=== PATIENT | female | born 1935 | race Caucasian/White ===

== ENCOUNTER → 2017-02-24 | Outpatient (CLI) | payer OTHER ==
[~2017-02-24] MED LIST: AMLO-110 PO; ASPI-435 PO; ATOR-22 PO; CHOL100040 PO; CPR500 PO; CTP/1 PO; LEVO75TA5 PO; LISI-788 PO; LPR25 PO; LSN5 PO; NTRSLP4 SL; OMEGCAP2 PO; PANT40TA PO; PLV75 PO; POLY335025 PO; TIOTCAP INH; VERA240C3 PO; VNTHFA/IN INH
[2017-02-24 09:38] LABS: BASO % 0.2 %; BASO ABS # 0.01 K/uL (0-0.2); COMPLETE YES; EOS % 2.5 %; HEMATOCRIT 38.9 % (37-47); IG% 0.5 %; LYMPH % 23.7 %; LYMPH ABS # 1.51 K/uL (1.2-3.4); MEAN CELL VOLUME 89.6 fL (80-100); MEAN CORPUSCULAR HEMOGLOBIN 29.3 pg (25-34); MEAN CORPUSCULAR HGB CONC 32.6 g/dl (32-36); MEAN PLATELET VOLUME 8.9 fL (7.4-10.4); MONO % 7.9 %; NEUT % 65.2 %; PLATELET COUNT 380 K/uL (130-400); RED BLOOD COUNT 4.34 M/uL (4.2-5.4); WHITE BLOOD COUNT 6.36 K/uL (4.8-10.8)
[2017-02-24 10:19] LABS: ALT/SGPT 28 U/L (12-78); AST/SGOT 12 U/L (15-37); BLOOD UREA NITROGEN 18 mg/dl (7-18); BUN/CREATININE RATIO 19.2 (10-20); CALCIUM 9.3 mg/dl (8.5-10.1); CARBON DIOXIDE 28 mmol/L (21-32); CHLORIDE 105 mmol/L (98-107); CREATININE 0.95 mg/dl (0.60-1.20); GLUCOSE 106 mg/dl (70-99); POTASSIUM 3.6 mmol/L (3.5-5.1); SODIUM 142 mmol/L (136-145)
[2017-02-24 10:22] LABS: ALB/GLOB RATIO 0.9 (0.9-2); ALKALINE PHOSPHATASE 118 U/L (45-117); CHOLESTEROL 132 mg/dl (0-200); CHOLESTEROL/HDL RATIO 2.3; HDL CHOLESTEROL 58 mg/dl; LDL CHOLESTEROL CALCULATED 37 mg/dl; TRIGLYCERIDES 183 mg/dl (0-150); VERY LOW DENSITY LIPOPROT CALC 37 mg/dl
== END | disposition home or self-care (01) ==
LOC: C.LAB1850 08:38
PROVIDERS: ATTEND Internal Medicine Pulmonary Disease
DX: J44.9 Chronic obstructive pulmonary disease, unspecified (principal); E78.5 Hyperlipidemia, unspecified; E03.9 Hypothyroidism, unspecified; K21.9 Gastro-esophageal reflux disease without esophagitis; I10 Essential (primary) hypertension

== ENCOUNTER 2017-03-03 04:46 | Inpatient (IN) | payer OTHER ==
[2017-03-03] VITALS (14 sets, daily range): BP systolic 112–147; BP diastolic 65–92; PULSE 74–99; TEMP 36.6–37; O2SAT 91–93; Ht 162.6 cm; Wt 72.9 kg
[~2017-03-03] VITALS: Ht 162.6 cm; Wt 72.9 kg
[~2017-03-03 04:46] MED LIST changes: -AMLO-110 PO; -LPR25 PO; -LSN5 PO; -NTRSLP4 SL; -PLV75 PO; -VNTHFA/IN INH
[2017-03-03] MEDS ORDERED: ASPIRIN 324 MG CHEW PO STA (04:53)
--- NOTE | 2017-03-03 04:58 | EMERGENCY ROOM VISIT NOTE ---
History Report prepared by Scribe: Kevin Bailon Under the Supervision of: Dr. Wiley Sherman D.O. First contact with patient: 04:47 Chief Complaint: SHORTNESS OF BREATH Stated Complaint: BREATHING DIFFICULTY History of Present Illness The patient is a 81 year old female who presents to the Emergency Room via EMS with complaints of worsening shortness of breath starting about 6 hours ago. She reports a mild cough. She denies any chest pain but reports some diffuse chest heaviness radiating to the left arm. She currently continues to complain of the chest heaviness. She has worsening symptoms with exertion. She had some improvement in her symptoms with oxygen which was given by EMS. She denies any recent fevers, chills, abdominal pain, or any other complaints. She denies any recent illnesses. She denies any history of lung disease or heart disease. She does not wear oxygen at home. She has a history of hypertension and high cholesterol. She is a former smoker. Source of History: patient Onset: about 6 hours ago Position: other (global) Quality: other (shortness of breath) Timing: worsening Modifying Factors (Worsening): exertion Modifying Factors (Relieving): oxygen (with some improvement) Associated Symptoms: + cough, No abdominal pain, No chills, No fevers Review of Systems See HPI for pertinent positives and negatives. A total of ten systems were reviewed and were otherwise negative. 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 (2) Atrial Fibrillation (3) Hyperlipidemia (4) Hypertension (5) Incisional Hernia (6) Reflux Esophagitis Family History Lung disease Social History Smoking Status: Former Smoker Drug Use: none Marital Status: Housing Status: lives with family Current/Historical Medications Scheduled Aspirin (Aspirin 81), 81 MG PO MWF Atorvastatin (Lipitor), 20 MG PO HS Clonidine Hcl (Catapres), 0.1 MG PO BID Levothyroxine Sodium (Levothyroxine Sodium), 75 MCG PO DAILY Lisinopril/Hctz (Zestoretic 20MG/25MG), 1 TAB PO DAILY [place]-3 Fatty Acids (Fish Oil), 1,000 MG PO DAILY Pantoprazole Sodium (Protonix), 40 MG PO DAILY Polyethylene Glycol 3350 (Miralax), 17 GM PO DAILY Tiotropium [place] (Spiriva Handihaler), 1 CAP INH DAILY Verapamil Hcl (Verapamil Hcl Sr), 240 MG PO DAILY Allergies Coded Allergies: No Known Allergies (Verified , 03/03/17) Physical Exam Vital Signs Date Time Temp Pulse Resp B/P Pulse Ox O2 Delivery O2 Flow Rate FiO2 03/03/17 04:58 95 Room Air 03/03/17 04:58 95 Room Air 03/03/17 04:55 108 03/03/17 04:49 37.0 105 26 166/93 95 Room Air 03/03/17 04:49 95 Room Air Physical Exam GENERAL: Awake, alert, ill-appearing, in no distress HENT: Normocephalic, atraumatic. Oropharynx unremarkable. EYES: Normal conjunctiva. Sclera non-icteric. NECK: Supple. No nuchal rigidity. FROM. No JVD. RESPIRATORY: Clear to auscultation. CARDIAC: Tachycardic rate, normal rhythm. Extremities warm and well perfused. Pulses equal. ABDOMEN: Soft, non-distended. No tenderness to palpation. No rebound or guarding. No masses. RECTAL: Deferred. MUSCULOSKELETAL: Chest examination reveals no tenderness. The back is symmetrical on inspection without obvious abnormality. There is no CVA tenderness to palpation. No joint edema. LOWER EXTREMITIES: Calves are equal size bilaterally and non-tender. No edema. No discoloration. NEURO: Normal sensorium. No sensory or motor deficits noted. SKIN: No rash or jaundice noted. Medical Decision & Procedures ER Provider Diagnostic Interpretation: X-ray: Per my interpretation: CHEST X-RAY Negative for infiltrate, normal mediastinum, no pneumothorax. CT: Radiology results as stated below per my review and radiologist interpretation CTA CHEST Comparison: CT chest dated 09/16/2011 No thoracic aortic aneurysm or dissection. No pulmonary embolus. Centrilobular emphysema. No parenchymal abnormalities to suggest an inflammatory or infectious process. Large hiatal hernia. Trace pericardial effusion. The heart is normal in size. Coronary artery calcifications. No significant adenopathy. Punctate calcifications within the spleen suggesting remote granulomatous infection. No acute osseous abnormality. Radiologist: Mino Jennings MD Laboratory Results 03/03/17 04:50 Red Blood Count 4.48, Mean Corpuscular Volume 89.3, Mean Corpuscular Hemoglobin 29.5, Mean Corpuscular Hemoglobin Concent 33.0, Mean Platelet Volume 8.9, Neutrophils (%) (Auto) 93.5, Lymphocytes (%) (Auto) 4.8, Monocytes (%) (Auto) 0.6, Eosinophils (%) (Auto) 0.7, Basophils (%) (Auto) 0.1, Neutrophils # (Auto) 6.45, Lymphocytes # (Auto) 0.33, Monocytes # (Auto) 0.04, Eosinophils # (Auto) 0.05, Basophils # (Auto) 0.01 03/03/17 04:50 Test 03/03/17 04:50 03/03/17 04:59 03/03/17 05:02 White Blood Count 6.90 K/uL (4.8-10.8) Red Blood Count 4.48 M/uL (4.2-5.4) Hemoglobin 13.2 g/dL (12.0-16.0) Hematocrit 40.0 % (37-47) Mean Corpuscular Volume 89.3 fL (80-100) Mean Corpuscular Hemoglobin 29.5 pg (25-34) Mean Corpuscular Hemoglobin Concent 33.0 g/dl (32-36) Platelet Count 357 K/uL (130-400) Mean Platelet Volume 8.9 fL (7.4-10.4) Neutrophils (%) (Auto) 93.5 % Lymphocytes (%) (Auto) 4.8 % Monocytes (%) (Auto) 0.6 % Eosinophils (%) (Auto) 0.7 % Basophils (%) (Auto) 0.1 % Neutrophils # (Auto) 6.45 K/uL (1.4-6.5) Lymphocytes # (Auto) 0.33 K/uL (1.2-3.4) Monocytes # (Auto) 0.04 K/uL (0.11-0.59) Eosinophils # (Auto) 0.05 K/uL (0-0.5) Basophils # (Auto) 0.01 K/uL (0-0.2) RDW Standard Deviation 43.1 fL (36.4-46.3) RDW Coefficient of Variation 13.3 % (11.5-14.5) Immature Granulocyte % (Auto) 0.3 % Immature Granulocyte # (Auto) 0.02 K/uL (0.00-0.02) Est Creatinine Clear Calc Drug Dose 47.0 ml/min Estimated GFR () 62.1 Estimated GFR (Non- 53.5 BUN/Creatinine Ratio 15.7 (10-20) Calcium Level 8.7 mg/dl (8.5-10.1) Total Bilirubin 0.6 mg/dl (0.2-1) Direct Bilirubin 0.2 mg/dl (0-0.2) Aspartate Amino Transf (AST/SGOT) 21 U/L (15-37) Alanine Aminotransferase (ALT/SGPT) 35 U/L (12-78) Alkaline Phosphatase 141 U/L (45-117) Pro-B-Type Natriuretic Peptide 95 pg/ml (0-1800) Total Protein 7.8 gm/dl (6.4-8.2) Albumin 3.9 gm/dl (3.4-5.0) Bedside D-Dimer > 450 ng/mlFEU (0-450) Bedside Troponin I 0.050 ng/ml (0-0.045) Bedside Hemoglobin 12.9 g/dl (12.0-16.0) Bedside Hematocrit 38 % (37-47) Bedside Sodium 140 mEq/L (135-144) Bedside Potassium 3.8 mEq/L (3.3-5.0) Bedside Chloride 104 mEq/L (101-112) Bedside Total CO2 22 mEq/l (24-31) Anion Gap 19.0 mmol/L (16-25) Bedside Blood Urea Nitrogen 16 mg/dl (7-18) Bedside Creatinine 0.8 mg/dl (0.6-1.3) Bedside Glucose (other) 147 mg/dl (70-99) Bedside Ionized Calcium (Faith) 1.14 mmol/l (1.12-1.32) Laboratory results reviewed by me Medications Administered Medications (Trade) Dose Ordered Sig/Ravinder Route Start Time Stop Time Status Last Admin Dose Admin Aspirin (Aspirin Chew) 324 mg NOW STAT PO 03/03/17 04:53 03/03/17 04:55 DC 03/03/17 05:05 324 MG ECG Indication: SOB/dyspnea Rate (beats per minute): 111 Rhythm: sinus tachycardia Findings: PVC, other (Nonspecific ST T wave changes; normal axis) ED Course 0447: The patient was evaluated in room A10. A complete history and physical exam was performed. 0453: Aspirin 324 mg PO 0557: I discussed the patient's case with Dr. Jeffrey Conway, resident with [facility]. 0612: Upon reexamination, the patient was resting comfortably. I discussed the test results and treatment plan with her. The patient will be evaluated for further management. Medical Decision Differential diagnosis includes but is not limited to acute coronary syndrome, angina, unstable angina, acute [place], acute CHF, pneumonia, pulmonary embolism, anemia. pt given asa, no evidence of pe; trop elevated; will admit, spoke with hospitalist for admit 622am Consults Time Called: 0554 Consulting Physician: Dr. Jeffrey Conway, resident with [facility] Returned Call: [phone] I discussed the patient's case with Dr. Jeffrey Conway, resident with [facility]. Impression Primary Impression: Acute chest pain Additional Impression: Acute coronary syndrome Scribe Attestation The scribe's documentation has been prepared under my direction and personally reviewed by me in its entirety. I confirm that the note above accurately reflects all work, treatment, procedures, and medical decision making performed by me. Departure Information Dispostion Being Evaluated By Hospitalist Referrals Scott Beauchamp M.D. (PCP) Patient Instructions My [facility] Problem Qualifiers
[2017-03-03 05:03] LABS: BASO % 0.1 %; BASO ABS # 0.01 K/uL (0-0.2); COMPLETE YES; EOS % 0.7 %; IG% 0.3 %; LYMPH % 4.8 %; LYMPH ABS # 0.33 K/uL (1.2-3.4); MEAN CELL VOLUME 89.3 fL (80-100); MEAN CORPUSCULAR HEMOGLOBIN 29.5 pg (25-34); MEAN PLATELET VOLUME 8.9 fL (7.4-10.4); MONO % 0.6 %; NEUT % 93.5 %; PLATELET COUNT 357 K/uL (130-400); RED BLOOD COUNT 4.48 M/uL (4.2-5.4)
[2017-03-03] MEDS ORDERED: OPTIRAY 320 IV PRN (05:15)
[2017-03-03 05:19] LABS: ISTAT CREATININE 0.8 mg/dl (0.6-1.3); ISTAT HEMOGLOBIN 12.9 g/dl (12.0-16.0); ISTAT IONIZED CALCIUM 1.14 mmol/l (1.12-1.32)
[2017-03-03 05:20] LABS: BUN/CREATININE RATIO 15.7 (10-20); CALCIUM 8.7 mg/dl (8.5-10.1); POTASSIUM 3.9 mmol/L (3.5-5.1)
--- NOTE | 2017-03-03 06:36 | History and Physical ---
History & Physical Date & Time of Service: March 03, 2017 at 06:19 Chief Complaint: Breathing Difficulty Primary Care Physician: Scott Beauchamp M.D. History of Present Illness Source: patient, clinic records, hospital records Mrs Tejeda is a 81 year old with acute onset chills, shortness of breath and chest heaviness that radiated to her left shoulder and started around 2:30am. No worse on exertion and not positional. She feels her left arm numbness and pain was due to sleeping on it strangely. She initial told me all symptoms resolved before having aspirin in the ER around 4:30am but on further questioning she is having ongoing chest heaviness when seen which is severity 4/ 10 and has not changed since original onset. Pain is dull aching in the center of her chest. Her arm pain and chills have resolved however. She denies any nausea or diaphoresis. This is on a background of similar chest heaviness and shortness of breath on walking which has progressively worsened over the last 6 months. This was being treated as emphysema with Spiriva. She notes having previous stress echo 2 years ago which was normal although I have no record of this. She denies any orthopnea, PND, claudication, palpitations. She is a former smoker for 25 pack-years. No alcohol. No known diabetes. No previous strokes or heart. In the ER she was given full aspirin only as treatment. After she told me she had ongoing chest heaviness a nitro tab was given which brought her pain from a 4/10 to 2/10. Additional nitro tab was given along with heparin low dose with bolus. Patient was discussed with attending physician Dr Juarez and handed over to the day time resident Dr Simental. 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 Status: Resolved (2) Atrial Fibrillation Status: Chronic (3) Hyperlipidemia Status: Chronic (4) Hypertension Status: Chronic (5) Incisional Hernia Status: Resolved (6) Reflux Esophagitis Status: Chronic Recurrent small bowel obstruction pancreatic cancer Surgery for pancreatic cancer - whipple's procedure Incisional hernias Family History Lung disease Social History Smoking Status: Former Smoker Smokeless Tobacco Use: No Alcohol Use: none Drug Use: none Marital Status: Housing status: lives with family Immunizations History of Influenza Vaccine: N/A Influenza Vaccine Date: Jun 27, 2012 History of Tetanus Vaccine?: Unknown History of Pneumococcal: Yes Pneumococcal Date: Apr 28, 2011 History of Hepatitis B Vaccine: Unknown Multi-Drug Resistant Organisms History of MDRO: No Allergies Coded Allergies: No Known Allergies (Verified , 03/03/17) Home Medications Scheduled Aspirin (Aspirin 81), 81 MG PO MWF Atorvastatin (Lipitor), 20 MG PO HS Clonidine Hcl (Catapres), 0.1 MG PO BID Levothyroxine Sodium (Levothyroxine Sodium), 75 MCG PO DAILY Lisinopril/Hctz (Zestoretic 20MG/25MG), 1 TAB PO DAILY [place]-3 Fatty Acids (Fish Oil), 1,000 MG PO DAILY Pantoprazole Sodium (Protonix), 40 MG PO DAILY Polyethylene Glycol 3350 (Miralax), 17 GM PO DAILY Tiotropium [place] (Spiriva Handihaler), 1 CAP INH DAILY Verapamil Hcl (Verapamil Hcl Sr), 240 MG PO DAILY Review of Systems Constitutional: + chills, No fever Eyes: No worsening of vision ENT: No hearing loss Respiratory: + cough (dry), + dyspnea at rest, + dyspnea on exertion, + shortness of breath, No sputum, No wheezing Cardiovascular: + chest pain, No PND, No claudication, No edema, No orthopnea, No palpitations Abdomen: No constipation, No diarrhea, No nausea, No pain, No vomiting Physical Exam Vital Signs Date Time Temp Pulse Resp B/P Pulse Ox O2 Delivery O2 Flow Rate FiO2 03/03/17 04:58 95 Room Air 03/03/17 04:58 95 Room Air 03/03/17 04:55 108 03/03/17 04:49 37.0 105 26 166/93 95 Room Air 03/03/17 04:49 95 Room Air General Appearance: WD/WN, no apparent distress Head: normocephalic, atraumatic Eyes: normal inspection, PERRL, EOMI ENT: normal ENT inspection (external) Neck: supple, no JVD, no carotid bruits, trachea midline Respiratory/Chest: chest non-tender, lungs clear, normal breath sounds, no respiratory distress, no accessory muscle use Cardiovascular: regular rate, rhythm, no edema, no murmur, normal peripheral pulses Abdomen/GI: normal bowel sounds, non tender, soft Back: no CVA tenderness Extremities/Musculoskelatal: no calf tenderness, normal capillary refill, no pedal edema Neurologic/Psych: 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, no motor/sensory deficits, alert, normal mood/affect, oriented x 3 Skin: normal color, warm/dry, no rash Diagnostics Laboratory Results Results Past 24 Hours Test 03/03/17 04:50 03/03/17 04:59 03/03/17 05:02 Range/Units White Blood Count 6.90 4.8-10.8 K/uL Red Blood Count 4.48 4.2-5.4 M/uL Hemoglobin 13.2 12.0-16.0 g/dL Hematocrit 40.0 37-47 % Mean Corpuscular Volume 89.3 80-100 fL Mean Corpuscular Hemoglobin 29.5 25-34 pg Mean Corpuscular Hemoglobin Concent 33.0 32-36 g/dl Platelet Count 357 130-400 K/uL Mean Platelet Volume 8.9 7.4-10.4 fL Neutrophils (%) (Auto) 93.5 % Lymphocytes (%) (Auto) 4.8 % Monocytes (%) (Auto) 0.6 % Eosinophils (%) (Auto) 0.7 % Basophils (%) (Auto) 0.1 % Neutrophils # (Auto) 6.45 1.4-6.5 K/uL Lymphocytes # (Auto) 0.33 1.2-3.4 K/uL Monocytes # (Auto) 0.04 0.11-0.59 K/uL Eosinophils # (Auto) 0.05 0-0.5 K/uL Basophils # (Auto) 0.01 0-0.2 K/uL RDW Standard Deviation 43.1 36.4-46.3 fL RDW Coefficient of Variation 13.3 11.5-14.5 % Immature Granulocyte % (Auto) 0.3 % Immature Granulocyte # (Auto) 0.02 0.00-0.02 K/uL Sodium Level 141 136-145 mmol/L Potassium Level 3.9 3.5-5.1 mmol/L Chloride Level 107 98-107 mmol/L Carbon Dioxide Level 24 21-32 mmol/L Anion Gap 10.0 19.0 16-25 mmol/L Blood Urea Nitrogen 16 7-18 mg/dl Creatinine 1.00 0.60-1.20 mg/dl Est Creatinine Clear Calc Drug Dose 47.0 ml/min Estimated GFR () 62.1 Estimated GFR (Non- 53.5 BUN/Creatinine Ratio 15.7 10-20 Random Glucose 149 70-99 mg/dl Calcium Level 8.7 8.5-10.1 mg/dl Total Bilirubin 0.6 0.2-1 mg/dl Direct Bilirubin 0.2 0-0.2 mg/dl Aspartate Amino Transf (AST/SGOT) 21 15-37 U/L Alanine Aminotransferase (ALT/SGPT) 35 12-78 U/L Alkaline Phosphatase 141 45-117 U/L Pro-B-Type Natriuretic Peptide 95 0-1800 pg/ml Total Protein 7.8 6.4-8.2 gm/dl Albumin 3.9 3.4-5.0 gm/dl Bedside D-Dimer > 450 0-450 ng/mlFEU Bedside Troponin I 0.050 0-0.045 ng/ml Bedside Hemoglobin 12.9 12.0-16.0 g/dl Bedside Hematocrit 38 37-47 % Bedside Sodium 140 135-144 mEq/L Bedside Potassium 3.8 3.3-5.0 mEq/L Bedside Chloride 104 101-112 mEq/L Bedside Total CO2 22 24-31 mEq/l Bedside Blood Urea Nitrogen 16 7-18 mg/dl Bedside Creatinine 0.8 0.6-1.3 mg/dl Bedside Glucose (other) 147 70-99 mg/dl Bedside Ionized Calcium (Faith) 1.14 1.12-1.32 mmol/l Microbiology Results 03/03/17 Blood Culture, Received Pending 03/03/17 Blood Culture, Received Pending Diagnostic Radiology CHEST CTA for PULMONARY ARTERIES CT DOSE: 420.06 mGy.cm HISTORY: Chest pain dyspnea TECHNIQUE: Multiaxial CT images of the chest were performed following the intravenous administration of contrast to evaluate the pulmonary arteries. Maximal intensity projection images were also obtained. COMPARISON STUDY: CT abdomen 08/17/2015 FINDINGS: There is a normal caliber thoracic aorta with no evidence for dissection. There is no evidence for pulmonary embolus. No pleural effusions. No pneumothorax. The liver and spleen are unremarkable. No mediastinal or hilar lymphadenopathy. The central airways are patent. The lungs are clear. Moderate emphysematous change. Large fixed lateral hernia. Retrocrural node with left adrenal enlargement unchanged compared to the patient's prior CT abdominal series. IMPRESSION: No evidence for pulmonary embolus. Incidental findings as noted Electronically signed by: Chavez Renner M.D. 03/03/2017 7:24 AM Dictated Date/Time: 03/03/2017 7:21 AM CHEST ONE VIEW PORTABLE HISTORY: Short of breath. COMPARISON: Chest 08/14/2015. FINDINGS: There is a large hiatus hernia. No focal lung consolidations to suggest pneumonia. No evidence for pulmonary edema. No pleural effusions. No pneumothorax. The heart is mildly enlarged. Degenerative changes seen within the shoulders. IMPRESSION: 1. Mild cardiomegaly. 2. Large hiatus hernia. Electronically signed by: Matty Freeman M.D. 03/03/2017 7:08 AM Dictated Date/Time: 03/03/2017 7:07 AM EKG Sinus tachycardia with occasional PVCs, Rate 111 bpm TWI in lateral leads no longer present since EKG [place] Jul 2015 ST depression in V3-V5 Impression Assessment and Plan 81 year old female with new onset chills, chest heaviness radiating to her left arm with ST depression in anterior leads and mild troponin elevation. NSTEMI - start low dose heparin with bolus - aspirin already given in the ER - Give nitro s/l stat and repeated as patient had ongoing chest heaviness - aim O2 sats > 94% - fasting lipids and HbA1C on tomorrow labs - Echo stat - Consult cardiology COPD - no current exacerbation, current chest heaviness and shortness of breath more consistent with NSTEMI. No wheezing on examination. - Continue Spiriva Recurrent SBO - Continue miralax daily - monitor bowels Hypertension - hold home medications as needing nitroglycerin tabs for chest heaviness and will start metoprolol - metoprolol 12.5mg stat due to tachycardia with NSTEMI, no current sign of symptoms of heart failure Hyperlipiedmia - Increase atorvastatin to 40 mg daily - repeat fasting lipid profile Hypothyroidism - continue home levothyroxine 75 mcg daily Code - discussed with patient and she does not wish resuscitation efforts in the event of a cardiac arrest VTE Prophylaxis - will be placed on a heparin drip Disposition - admit to telemetry as NSTEMI Level of Care Telemetry Resuscitation Status DO NOT RESUSCITATE Additional Copies To Scott Beauchamp M.D. Resident Tracking Resident Involvement: Resident Care Provided Care Provided: Adult Hospital Medicine
[2017-03-03] MEDS ORDERED: NITROGLYCERIN 0.4 MG SL PER TAB CHARGE ONE (06:43)
[2017-03-03] MEDS ORDERED: ONDANSETRON INJ 2 MG/ML 2 ML VIAL IV PRN ×2 (06:45→15:45)
--- NOTE | 2017-03-03 07:09 | DIAGNOSTIC IMAGING REPORT ---
CHEST ONE VIEW PORTABLE HISTORY: Short of breath. COMPARISON: Chest 08/14/2015. FINDINGS: There is a large hiatus hernia. No focal lung consolidations to suggest pneumonia. No evidence for pulmonary edema. No pleural effusions. No pneumothorax. The heart is mildly enlarged. Degenerative changes seen within the shoulders. IMPRESSION: 1. Mild cardiomegaly. 2. Large hiatus hernia. Electronically signed by: Matty Freeman M.D. 03/03/2017 7:08 AM Dictated Date/Time: 03/03/2017 7:07 AM
[2017-03-03] MEDS ORDERED: METOPROLOL TARTRATE 25 MG TAB PO STA (07:22)
--- NOTE | 2017-03-03 07:26 | DIAGNOSTIC IMAGING REPORT ---
CHEST CTA for PULMONARY ARTERIES CT DOSE: 420.06 mGy.cm HISTORY: Chest pain dyspnea TECHNIQUE: Multiaxial CT images of the chest were performed following the intravenous administration of contrast to evaluate the pulmonary arteries. Maximal intensity projection images were also obtained. COMPARISON STUDY: CT abdomen 08/17/2015 FINDINGS: There is a normal caliber thoracic aorta with no evidence for dissection. There is no evidence for pulmonary embolus. No pleural effusions. No pneumothorax. The liver and spleen are unremarkable. No mediastinal or hilar lymphadenopathy. The central airways are patent. The lungs are clear. Moderate emphysematous change. Large fixed lateral hernia. Retrocrural node with left adrenal enlargement unchanged compared to the patient's prior CT abdominal series. IMPRESSION: No evidence for pulmonary embolus. Incidental findings as noted Electronically signed by: Chavez Renner M.D. 03/03/2017 7:24 AM Dictated Date/Time: 03/03/2017 7:21 AM
[2017-03-03] MEDS ORDERED: HEPARIN SOD 5000 UNIT/0.5 ML CARP ONE (07:29)
[2017-03-03] MEDS ORDERED: HEPARIN 25000 UNIT/500 ML D5W ONE (07:29)
[2017-03-03] MEDS: NITROGLYCERIN 0.4 MG SL PER TAB CHARGE SL PRN ×2 (07:35→08:54)
[2017-03-03 07:55] LABS: INR 0.9 (0.9-1.1); PARTIAL THROMBOPLASTIN RATIO 0.8; PROTHROMBIN TIME (PATIENT) 9.8 SECONDS (9.0-12.0)
--- NOTE | 2017-03-03 08:06 | Family Medicine Progress Note ---
Progress Note Date of Service March 03, 2017. Subjective Pt evaluation today including: conversation w/ patient, conversation w/ family , physical exam, chart review, lab review Patient sitting up in bed, appearing comfortable and denying any symptoms currently. No more chest pressure and resolution of left shoulder pain and the chills she had earlier this morning. She never did have any dyspnea, nausea or diaphoresis. She states at baseline she ambulates without symptoms and only has chest heaviness when taking stairs - symptoms present for last year. She is otherwise able to complete her ADLs, denies symptoms of palpitations, syncope/ presyncope or claudication. Constitutional: No chills, No fever Respiratory: No cough, No dyspnea on exertion, No shortness of breath, No wheezing Cardiovascular: No PND, No chest pain, No claudication, No edema, No orthopnea, No palpitations Abdomen: No constipation, No diarrhea, No nausea, No pain, No vomiting Female : No dysuria, No hematuria Objective Vital Signs Date Time Temp Pulse Resp B/P Pulse Ox O2 Delivery O2 Flow Rate FiO2 03/03/17 08:02 99 20 121/59 94 03/03/17 07:43 104 20 95 Room Air 03/03/17 07:34 99 22 116/91 92 Room Air 03/03/17 07:22 103 20 127/78 94 Room Air 03/03/17 06:50 108 19 130/73 93 Room Air 03/03/17 06:44 99 19 149/87 93 Room Air 03/03/17 06:29 99 22 148/80 92 Room Air 03/03/17 04:58 95 Room Air 03/03/17 04:58 95 Room Air 03/03/17 04:55 108 03/03/17 04:49 37.0 105 26 166/93 95 Room Air 03/03/17 04:49 95 Room Air Physical Exam General Appearance: WD/WN, no apparent distress ENT: hearing grossly normal Neck: supple, no adenopathy, no JVD Respiratory/Chest: lungs clear, normal breath sounds, no respiratory distress, no accessory muscle use Cardiovascular: regular rate, rhythm, no murmur Abdomen: normal bowel sounds, non tender, soft Extremities: normal inspection, no pedal edema, no calf tenderness Neurologic/Psychiatric: alert, normal mood/affect, oriented x 3 Skin: normal color, warm/dry, no rash Laboratory Results Results Past 24 Hours Test 03/03/17 00:00 03/03/17 04:20 03/03/17 04:50 03/03/17 04:59 Range/Units Troponin I 1.880 0.096 0-0.045 ng/ml Prothrombin Time 9.8 9.0-12.0 SECONDS Prothromb Time International Ratio 0.9 0.9-1.1 Activated Partial Thromboplast Time 21.6 21.0-31.0 SECONDS Partial Thromboplastin Ratio 0.8 White Blood Count 6.90 4.8-10.8 K/uL Red Blood Count 4.48 4.2-5.4 M/uL Hemoglobin 13.2 12.0-16.0 g/dL Hematocrit 40.0 37-47 % Mean Corpuscular Volume 89.3 80-100 fL Mean Corpuscular Hemoglobin 29.5 25-34 pg Mean Corpuscular Hemoglobin Concent 33.0 32-36 g/dl Platelet Count 357 130-400 K/uL Mean Platelet Volume 8.9 7.4-10.4 fL Neutrophils (%) (Auto) 93.5 % Lymphocytes (%) (Auto) 4.8 % Monocytes (%) (Auto) 0.6 % Eosinophils (%) (Auto) 0.7 % Basophils (%) (Auto) 0.1 % Neutrophils # (Auto) 6.45 1.4-6.5 K/uL Lymphocytes # (Auto) 0.33 1.2-3.4 K/uL Monocytes # (Auto) 0.04 0.11-0.59 K/uL Eosinophils # (Auto) 0.05 0-0.5 K/uL Basophils # (Auto) 0.01 0-0.2 K/uL RDW Standard Deviation 43.1 36.4-46.3 fL RDW Coefficient of Variation 13.3 11.5-14.5 % Immature Granulocyte % (Auto) 0.3 % Immature Granulocyte # (Auto) 0.02 0.00-0.02 K/uL Sodium Level 141 136-145 mmol/L Potassium Level 3.9 3.5-5.1 mmol/L Chloride Level 107 98-107 mmol/L Carbon Dioxide Level 24 21-32 mmol/L Anion Gap 10.0 3-11 mmol/L Blood Urea Nitrogen 16 7-18 mg/dl Creatinine 1.00 0.60-1.20 mg/dl Est Creatinine Clear Calc Drug Dose 47.0 ml/min Estimated GFR () 62.1 Estimated GFR (Non- 53.5 BUN/Creatinine Ratio 15.7 10-20 Random Glucose 149 70-99 mg/dl Calcium Level 8.7 8.5-10.1 mg/dl Total Bilirubin 0.6 0.2-1 mg/dl Direct Bilirubin 0.2 0-0.2 mg/dl Aspartate Amino Transf (AST/SGOT) 21 15-37 U/L Alanine Aminotransferase (ALT/SGPT) 35 12-78 U/L Alkaline Phosphatase 141 45-117 U/L Pro-B-Type Natriuretic Peptide 95 0-1800 pg/ml Total Protein 7.8 6.4-8.2 gm/dl Albumin 3.9 3.4-5.0 gm/dl Bedside D-Dimer > 450 0-450 ng/mlFEU Bedside Troponin I 0.050 0-0.045 ng/ml Test 03/03/17 05:02 03/03/17 14:18 03/03/17 16:35 03/03/17 18:28 Range/Units Bedside Hemoglobin 12.9 12.0-16.0 g/dl Bedside Hematocrit 38 37-47 % Bedside Sodium 140 135-144 mEq/L Bedside Potassium 3.8 3.3-5.0 mEq/L Bedside Chloride 104 101-112 mEq/L Bedside Total CO2 22 24-31 mEq/l Anion Gap 19.0 16-25 mmol/L Bedside Blood Urea Nitrogen 16 7-18 mg/dl Bedside Creatinine 0.8 0.6-1.3 mg/dl Bedside Glucose (other) 147 70-99 mg/dl Bedside Ionized Calcium (Faith) 1.14 1.12-1.32 mmol/l Kaolin Activated Coagulation Time 142 94-140 SECONDS Activated Partial Thromboplast Time 115.1 21.0-31.0 SECONDS Partial Thromboplastin Ratio 4.4 Troponin I 1.440 0-0.045 ng/ml Microbiology Results 03/03/17 Blood Culture, Received Pending 03/03/17 Blood Culture, Received Pending Assessment and Plan 81 year old female admitted with new onset chills, chest heaviness radiating to her left shoulder with ST depression in anterior leads and mild troponin elevation. In conjunction with regional wall motion abnormalities, diagnosed with NSTEMI. NSTEMI - aspirin provided in the ED. Cardiology consulted - recs appreciated. Echo showed: Mild overall LV systolic and diastolic dysfunction. Inferior, posterior,and basal septal hypokinesis. Mild left atrial dilatation. Trace pulmonic and mitral regurgitation. Mild tricuspid regurgitation. Mild pulmonary hypertension. s/p cardiac catheterization showing [id number] coronary artery disease but no evidence of an acute coronary process on coronary angiography. - O2 via NC, aim O2 sats > 94% - Low dose heparin with bolus - S/L nitro PRN chest pain - Aspirin 81mg daily - Clopidogrel 75mg daily x 3 months - Atorvastatin 40mg daily - Metoprolol tartrate 25mg BID - Lisinopril 5mg daily - Fasting lipids and HbA1C on tomorrow labs ?infection - chills on admission. No leukocytosis - Blood cultures pending COPD - no current exacerbation, current chest heaviness and shortness of breath more consistent with NSTEMI. No wheezing on examination. - Continue Spiriva - Consider discharge prescription for albuterol PRN Recurrent SBO - Continue Miralax daily - Monitor bowels HTN - Home anti-HTN meds held - Metoprolol 25mg BID and Lisinopril 5mg started HLD - Increase atorvastatin to 40 mg daily - Repeat fasting lipid profile Hypothyroidism - Levothyroxine 75 mcg daily VTE Prophylaxis - Heparin drip Code - DNR Resident Physician Supervision Note: I interviewed and examined the patient. Discussed with Dr. Simental and agree with findings and plan as documented in the note. Any exceptions or clarifications are listed here: None Documented By: Mino Crockett feeling OK now had chest pain earlier for cath this afternoon no other complaints current ros otherwise negative except for as above vitals noted nad breathing unlabored NSTEMI - med management for cath this afternoon otherwise as above Continued [facility] stay due to: multiple IV medications needed Discharge planning: home Resident Tracking Resident Involvement: Resident Care Provided Care Provided: Adult Hospital Medicine
[2017-03-03] MEDS ORDERED: SODIUM CHLORIDE 0.9% 1000ML 1,000 ML IV SCH (09:15)
--- NOTE | 2017-03-03 09:44 | CARDIOLOGY CONSULTATION ---
DATE OF CONSULTATION: 03/03/2017 TIME: 09:05 a.m. CONSULTING PHYSICIAN: Dr. Morales. REASON FOR CONSULTATION: Possible non-ST elevation myocardial infarction. HISTORY OF PRESENT ILLNESS: Mr. Tejeda is a pleasant 81-year-old female with a history significant for hypertension and dyslipidemia. She also has COPD and follows with Dr. Beauchamp. Her history is not consistent in what she related to me and also the admitting physician. She also was inconsistent with the timing of the events other than what happened this morning. At 02:30 this morning, she had an acute worsening of a substernal chest heaviness with radiation to left shoulder. It was accompanied by shortness of breath and shivering. She and her deny actual rigors. There was no documented fever. Because of her symptoms, she came to the Emergency Department and was given nitroglycerin. With nitroglycerin, her pain level went from a 4 or 5/10 down to 1/10. She was having chest pain when I interviewed her this morning. This resolved after nursing staff was asked to give another nitroglycerin. By the end of today's visit, she had 0/10 chest discomfort. When discussing her chest discomfort, she initially told me that she had pain for the last few days constantly with decreased exercise tolerance for the past week. The chest heaviness has been for 2-3 days with radiation to her left shoulder. The admitting physician states that he was told that she has had exertional chest heaviness for months, but only exertional and no rest symptoms. She has noted dyspnea with exertion, which has been occurring for the past several weeks, which is also new. This improves with rest. She has had a mild cough for the past few weeks, but nonproductive. No fevers. No abdominal pain, nausea, vomiting, melena, hematochezia, hematuria, stroke or stroke-like symptoms. She denies palpitations, syncope or near syncope. REVIEW OF SYSTEMS: As above and review of systems otherwise negative. PAST MEDICAL HISTORY: 1. Hypertension. 2. Dyslipidemia. 3. COPD. 4. Pancreatic cancer, status post Whipple procedure in 2004. 5. Esophageal reflux. 6. Hypothyroidism. 7. Incisional hernias. 8. Osteoporosis. 9. Peritoneal adhesions. 10. There is a reported history of atrial fibrillation when reviewing multiple ECGs. She had atrial fibrillation in 2004. Family states that when she was admitted with a Whipple procedure and therefore it may represent postoperative atrial fibrillation. She does not recall this diagnosis and has not required any specific therapy for it. She denies ever being cardioverted. HOME MEDICATIONS: Include aspirin 81 mg daily, atorvastatin 20 mg daily, clonidine 0.1 mg twice daily, fish oil 1000 mg daily, Levoxyl 100 mcg daily, lisinopril/hydrochlorothiazide 20/25 mg daily, multivitamin, Protonix 40 mg daily, Spiriva, and verapamil 240 mg daily. HOSPITAL MEDICATIONS: Include atorvastatin 40 mg daily, aspirin 324 mg, heparin drip per protocol, Synthroid 75 mcg daily, Protonix 40 mg daily, and Spiriva. ALLERGIES: No known drug allergies. SOCIAL HISTORY: Denies alcohol. She quit smoking in 2003. No drugs. She is . Her was present at the bedside initially. She has 3 children. Her son, Vinay present at the bedside. She lives with her . FAMILY HISTORY: No known premature CAD. PHYSICAL EXAMINATION: VITAL SIGNS: Temperature 37 degrees, heart rate 98 beats per minute, respiratory rate 18, blood pressure 110/67 mmHg, oxygen saturation 94% on room air, and weight 77.8 kg. GENERAL: No acute distress. She is alert and oriented. HEENT: Anicteric sclerae. NECK: No appreciable JVD. No bruits. Normal carotid upstrokes bilaterally. CARDIAC EXAMINATION: PMI was not palpable. There was no ventricular heave. Regular, normal S1 and S2. No murmurs, rubs, or gallops were auscultated. LUNGS: Clear to auscultation bilaterally without wheezes, rales or rhonchi. ABDOMEN: Soft, nontender, and nondistended. Normoactive bowel sounds. No bruits noted. EXTREMITIES: No cyanosis or edema. No palpable cords. 2+ radial pulses bilaterally. Morris's test is okay. 2+ dorsalis pedis pulses bilaterally. PSYCHIATRIC: Affect appears appropriate. CHEST: Nontender. DIAGNOSTIC STUDIES: ECG personally reviewed. ECG demonstrates sinus tachycardia with occasional PVCs. Nonspecific ST/T wave abnormality. Prior ECGs were also reviewed from 2004 as noted above. LABORATORY DATA: White blood cell count is 6.9, hemoglobin 13.2, and platelets 357. Sodium 141, potassium 3.9, BUN 16, and creatinine 1. Troponin initially 0.096. AST 21 and ALT 35. ProBNP 95. Albumin 3.9. INR is 0.9. CT scan of the chest negative for pulmonary embolus. Chest x-ray, mild cardiomegaly, large hiatal hernia, as per radiology. Stat bedside echo was personally reviewed at the bedside. Formal review to follow. LV systolic function appears overall to be normal or low normal. There are wall motion abnormalities including the inferior wall, basal septum and inferolateral wall. Nonsevere valvular regurgitation. Full report to follow. ASSESSMENT AND PLAN: 1. Acute coronary syndrome: Her symptoms are concerning for acute coronary syndrome. She has elevated troponins and wall motion abnormalities on echocardiogram. She is currently chest pain free after further nitroglycerin. Agree with heparin drip. Agree with beta frank and aspirin therapy. High intensity statin therapy recommended. We discussed cardiac catheterization risks and benefits in detail. She is agreeable to undergo the procedure. She just received IV contrast for her CT scan. I would recommend normal saline in preparation of cardiac catheterization. For recurrent pain, recommend a more urgent procedure. She was made aware that CT surgery is not available at this facility. 2. Hypertension: Blood pressure adequately controlled. Monitor closely. Recommend beta frank and CARLOTA inhibitor if tolerated. 3. Dyslipidemia: High intensity statin therapy recommended. 4. Atrial fibrillation: She had paroxysmal atrial fibrillation in 2004 after her Whipple procedure. This may represent postoperative atrial fibrillation. No further treatment recommended if no recurrence. 5. Disposition: The patient's care was discussed with the admitting physician, Dr. Morales. The case was also discussed with Dr. Nunez of cardiology, who may assist in her care as well. Thank for allowing me to participate in the care of Mr. Tejeda. Sincerely,
[2017-03-03] MEDS: PANTOprazole SOD 40 MG TAB PO SCH (10:34)
[2017-03-03] MEDS: LEVOTHYROXINE 75 MCG TAB PO SCH (10:34)
[2017-03-03] MEDS: TIOTROPIUM BROMIDE 5 PUFF/90 MCG INH INH SCH (10:36)
[2017-03-03] MEDS: POLYETHYLENE (MIRALAX) 17 GM PACK PO SCH (11:00)
[2017-03-03] MEDS ORDERED: SODIUM CHLORIDE 0.9% 500ML 500 ML IV ONE (11:00)
[2017-03-03] MEDS ORDERED: ATORVASTATIN 40 MG TAB PO SCH (11:00)
--- NOTE | 2017-03-03 11:08 | Cardiology Consultation ---
Cardiology Consultation Date of Consultation: March 03, 2017. Pt evaluation today including: conversation w/ patient, conversation w/ family , physical exam, chart review, lab review History of Present Illness Pt is a 81F with a PMHx of HTN, HLD, Pancreatic Cancer s/p Whipple's procedure in 2004, GERD, documented A. Fib, COPD, recurrent SBO and hysterectomy >40yrs ago. Pt presents with acute onset SOB and chest heaviness that radiated towards her left shoulder that started approximately 2:30am this morning. The patient has been having these symptoms on and off for the past 3-4 days. These symptoms would be brought on by activity (going up stairs) and alleviated by rest. When examined pt was in room 242-2, resting comfortably in sherry at bedside with a heparin drip in place. She has received 0.4mg nitroglycerin x 3 times (5am, 7 :35am and 8:54am). Pt denies any feelings of chest pressure, pain, SOB or any discomfort at present . Pt also received a 324mg dose of Aspirin at 5am. Pt reported that her chest pain went away with her last dose of nitroglycerin. SHx: 5-10 pack year smoking history, quit approx 10 years ago. Lives with . Does all activities of daily living with . Splits house chores 50/50. ROS: +non productive cough x weeks, Denies swelling in the hands or feet, denies nausea, denies vomiting, denies palpitations, denies anxiety, denies abdominal pain, denies any recent falls. Family History Lung disease Social History Smoking Status: Former Smoker History of Alcohol Use: No Review of Systems Constitutional: + chills, No fever Respiratory: + cough, + shortness of breath, No sputum, No wheezing Abdomen: No diarrhea, No nausea, No pain, No vomiting Neurologic: No balance problems, No memory loss, No numbness/tingling, No vertigo, No weakness Endo: No excessive thirst, No excessive urination, No fatigue Allergies Coded Allergies: No Known Allergies (Verified , 03/03/17) Medications Current Inpatient Medications Medications (Trade) Dose Ordered Sig/Ravinder Route Start Time Stop Time Status Last Admin Dose Admin Ioversol (Optiray 320) 125 ml UD PRN IV 03/03/17 05:15 03/07/17 05:14 Acetaminophen (Tylenol Tab) 650 mg Q4H PRN PO 03/03/17 06:45 04/02/17 06:44 Ondansetron HCl (Zofran Inj) 4 mg Q6H PRN IV 03/03/17 06:45 04/02/17 06:44 Nitroglycerin (Nitrostat Tab) 0.4 mg UD PRN SL 03/03/17 06:45 04/02/17 06:44 03/03/17 08:54 0.4 MG Heparin Sodium/ Dextrose 1 ea Q15M N/A 03/03/17 07:30 04/02/17 07:29 03/03/17 08:22 1 EA Levothyroxine Sodium (Synthroid Tab) 75 mcg DAILYBB PO 03/03/17 11:00 04/02/17 10:59 Pantoprazole Sodium (Protonix Tab) 40 mg DAILY PO 03/03/17 11:00 04/02/17 10:59 Polyethylene (Miralax Powder Packet) 17 gm DAILY PO 03/03/17 11:00 04/02/17 10:59 Tiotropium [place] (Spiriva Handihaler Inhaler) 1 puff DAILY INH 03/03/17 11:00 04/02/17 10:59 Atorvastatin Calcium (Lipitor Tab) 40 mg TODAY@1100 PO 03/03/17 11:00 03/03/17 11:01 Atorvastatin Calcium 40 mg 40 mg QAM PO 03/04/17 09:00 04/03/17 08:59 Sodium Chloride (Nss 1000ml) 1,000 ml @ 125 mls/hr Q8H IV 03/03/17 09:15 03/03/17 15:14 Physical Exam Vital Signs Past 12 Hours Date Time Temp Pulse Resp B/P Pulse Ox O2 Delivery O2 Flow Rate FiO2 03/03/17 10:10 37.0 88 16 112/74 93 Room Air 03/03/17 08:58 98 18 110/67 94 Room Air 03/03/17 08:52 93 20 119/79 94 Room Air 03/03/17 08:30 97 20 121/59 94 Room Air 03/03/17 08:02 99 20 121/59 94 03/03/17 07:43 104 20 95 Room Air 03/03/17 07:34 99 22 116/91 92 Room Air 03/03/17 07:22 103 20 127/78 94 Room Air 03/03/17 06:50 108 19 130/73 93 Room Air 03/03/17 06:44 99 19 149/87 93 Room Air 03/03/17 06:29 99 22 148/80 92 Room Air 03/03/17 04:58 95 Room Air 03/03/17 04:58 95 Room Air 03/03/17 04:55 108 03/03/17 04:49 37.0 105 26 166/93 95 Room Air 03/03/17 04:49 95 Room Air Head: normocephalic, atraumatic ENMT: hearing grossly normal Neck: supple, trachea midline, no masses Lungs: Respiratory effort: no dyspnea, good air movement Auscultation: breath sounds normal, no wheezing, no rales/crackles, no rhonchi Cardiovascular: Heart Auscultation: RRR, normal S1, normal S2, no murmurs, no rubs, no gallops, pertinent finding (PMI non palpable) Peripheral Pulses: Carotid Pulse: normal on the left, normal on the right Radial Pulse: normal on the left, normal on the right Dorsalis Pedis Pulse: normal on the left, normal on the right Abdomen: Bowel Sounds: normal Inspection & Palpation: soft, non-distended, no tenderness, guarding & rebound, no CVA tenderness Musculoskeletal: normal Extremities: no cyanosis, no edema, no palpable cord, no clubbing Data Laboratory Results: Last 24 Hours Test 03/03/17 04:20 03/03/17 04:50 03/03/17 04:59 03/03/17 05:02 Prothrombin Time 9.8 SECONDS Prothromb Time International Ratio 0.9 Activated Partial Thromboplast Time 21.6 SECONDS Partial Thromboplastin Ratio 0.8 White Blood Count 6.90 K/uL Red Blood Count 4.48 M/uL Hemoglobin 13.2 g/dL Hematocrit 40.0 % Mean Corpuscular Volume 89.3 fL Mean Corpuscular Hemoglobin 29.5 pg Mean Corpuscular Hemoglobin Concent 33.0 g/dl Platelet Count 357 K/uL Mean Platelet Volume 8.9 fL Neutrophils (%) (Auto) 93.5 % Lymphocytes (%) (Auto) 4.8 % Monocytes (%) (Auto) 0.6 % Eosinophils (%) (Auto) 0.7 % Basophils (%) (Auto) 0.1 % Neutrophils # (Auto) 6.45 K/uL Lymphocytes # (Auto) 0.33 K/uL Monocytes # (Auto) 0.04 K/uL Eosinophils # (Auto) 0.05 K/uL Basophils # (Auto) 0.01 K/uL RDW Standard Deviation 43.1 fL RDW Coefficient of Variation 13.3 % Immature Granulocyte % (Auto) 0.3 % Immature Granulocyte # (Auto) 0.02 K/uL Sodium Level 141 mmol/L Potassium Level 3.9 mmol/L Chloride Level 107 mmol/L Carbon Dioxide Level 24 mmol/L Anion Gap 10.0 mmol/L 19.0 mmol/L Blood Urea Nitrogen 16 mg/dl Creatinine 1.00 mg/dl Est Creatinine Clear Calc Drug Dose 47.0 ml/min Estimated GFR () 62.1 Estimated GFR (Non- 53.5 BUN/Creatinine Ratio 15.7 Random Glucose 149 mg/dl Calcium Level 8.7 mg/dl Total Bilirubin 0.6 mg/dl Direct Bilirubin 0.2 mg/dl Aspartate Amino Transf (AST/SGOT) 21 U/L Alanine Aminotransferase (ALT/SGPT) 35 U/L Alkaline Phosphatase 141 U/L Troponin I 0.096 ng/ml Pro-B-Type Natriuretic Peptide 95 pg/ml Total Protein 7.8 gm/dl Albumin 3.9 gm/dl Bedside D-Dimer > 450 ng/mlFEU Bedside Troponin I 0.050 ng/ml Bedside Hemoglobin 12.9 g/dl Bedside Hematocrit 38 % Bedside Sodium 140 mEq/L Bedside Potassium 3.8 mEq/L Bedside Chloride 104 mEq/L Bedside Total CO2 22 mEq/l Bedside Blood Urea Nitrogen 16 mg/dl Bedside Creatinine 0.8 mg/dl Bedside Glucose (other) 147 mg/dl Bedside Ionized Calcium (Faith) 1.14 mmol/l Imaging: EKG: Telemetry reviewed: Assessment & Plan 81F with a PMHx of HTN, HLD, COPD presents with a 3 day history of chest pressure that was worsened by activity and alleviated by rest, presented to the ER for acute worsening of these symptoms. In the ER pt received a full dose Aspirin at 5am and 0.4mg Nitroglycerin with partial relief of these symptoms. Full relief of symptoms was achieved 2-3 hours after presentation to the ER by which point the pt received 0.4mg x 3 doses of Nitro. EKG showed Non specific T wave abnormalities. Troponins were measured at 0.094. A Stat Echocardiogram revealed wall motion abnormalities. CTA negative for PE, Chest X-ray showed mild cardiomegaly. The plan from a cardiac standpoint is a catheterization today for acute coronary syndrome. Acute Coronary Syndrome - Pt is asymptomatic at present. - Due to the history, EKG changes and elevated troponins and wall motion abnormalities on echocardiogram the pt likely has an acute coronary syndrome. She is scheduled for an inpatient cardiac catheterization. She is currently being anticoagulated on heparin and is NPO except meds for the cath. Agree with BB and low dose Aspirin therapy. She received 25mg Metoprolol Succinate this AM and 324mg Aspirin this morning. Can add Metoprolol 25mg tonight and start 81mg Aspirin tomorrow AM. - Pt received IV contrast from her CTA, recommend 125ml/hr fluids until cath with a possible bolus of 500mL/hr at the hospitalist discretion (Dr. Crockett). HTN BPs range from 120s-130s/70s-80s. Pt is on Clonidine 0.1mg BID, Lisinopril/ HCTZ (20/25mg) daily, and Verapamil 240mg daily for HTN at home. Consider CARLOTA if BP elevates as inpatient. HLD At home pt is on Atorvastatin 20mg, consider Atorvastatin 40mg daily or other high intensity statin therapy. A. Fib (documented) Pt is in sinus rhythm at present and is not anticoagulated at present. In previous hospitalization pt has been in sinus rhythm. 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 Recommend telemetry monitoring and no anticoagulation at present. ADDENDUM BY CARDIOLOGY ATTENDING: Please see my note. Kofi Keenan Resident Involvement: Resident Care Provided Care Provided: Adult Hospital Medicine
[2017-03-03] MEDS ORDERED: HEPARIN 25,000 UNIT/500ML D5W 500 ML IV PRN ×2 (11:15→11:30)
[2017-03-03] MEDS: ACETAMINOPHEN 325 MG TAB PO PRN ×3 (12:10→22:04)
--- NOTE | 2017-03-03 12:14 | ECHOCARDIOGRAM REPORT ---
*NOTICE TO RECEIVING CONSTITUTION PARTY AGENCY This information is strictly Confidential and protected under [place] law. [place] law prohibits you from making any further disclosure of this information unless further disclosure is expressly permitted by the written consent of the person to whom it pertains or is authorized by law. A general authorization for the release of medical or other information is not sufficient for this purpose. Hospital accepts no responsibility if the information is made available to any other person, INCLUDING THE PATIENT. Interpretation Summary * Name: REED JACINTO Study Date: 03/03/2017 07:55 AM BP: 121/59 mmHg * Patient Location: [facility] HR: 100 * : 1935 (M/d/yyyy) Gender: Female Height: 65 in * Age: 81 yrs Ethnicity: [place] Weight: 171 lb * Ordering Physician: Meagan Simental. * Referring Physician: Self, Referred * Performed By: Mary Grace Zamudio RCS * * Reason For Study: NSTEMI * BSA: 1.9 m2 * Mild overall left ventricular systolic dysfunction. * Inferior, posterior,and basal septal hypokinesis. * Left ventricular diastolic dysfunction. * Mild left atrial dilatation. * Trace pulmonic and mitral regurgitation. * Mild tricuspid regurgitation. * Mild pulmonary hypertension. Procedure Details * A complete two-dimensional transthoracic echocardiogram was performed (2D, M-mode, Doppler and color flow Doppler). Left Ventricle * The left ventricle is normal in size. * There is no thrombus. * There is normal left ventricular wall thickness. * Left ventricular systolic function is mildly reduced. * Ejection Fraction = 45-50%. * A full diastolic examination was done with clinical findings of Class I diastolic dysfunction. * Inferior, basal septal, posterior hypokinesis. Right Ventricle * The right ventricle is normal in size and function. Atria * The left atrium is mildly dilated. * Right atrial size is normal. * No ASD detected; PFO is not assessed. Mitral Valve * There is mild mitral annular calcification. * There is no mitral valve stenosis. * There is trace mitral regurgitation. Tricuspid Valve * The tricuspid valve is normal. * There is no tricuspid stenosis. * There is mild tricuspid regurgitation. * Right ventricular systolic pressure is elevated at 40-50mmHg. Aortic Valve * The aortic valve is trileaflet. * The aortic valve opens well. * No aortic regurgitation is present. Pulmonic Valve * The pulmonic valve is not well visualized. * The pulmonary valve is inadequately visualized, but the Doppler data is adequate for interpretation. * There is no pulmonic valvular stenosis. * Trace pulmonic valvular regurgitation. Great Vessels * The aortic root is normal size. Pericardium/Pleural * There is no pericardial effusion. Great Vessels * Normal inferior vena cava diameter and respiratory variation suggests normal central venous pressure. MMode 2D Measurements and Calculations IVSd 1.1 cm IVSs 1.3 cm LVIDd 4.7 cm LVIDs 3.6 cm LVPWd 0.88 cm LVPWs 1.0 cm IVS/LVPW 1.3 FS 24.1 % EDV(Teich) 103.6 ml ESV(Teich) 53.9 ml EF(Teich) 48.0 % EDV(cubed) 105.4 ml ESV(cubed) 46.1 ml EF(cubed) 56.3 % % IVS thick 14.7 % % LVPW thick 16.2 % LV mass(C)d 165.8 grams LV mass(C)dI 89.6 grams/m\S\2 LV mass(C)s 132.5 grams LV mass(C)sI 71.6 grams/m\S\2 SV(Teich) 49.7 ml SI(Teich) 26.9 ml/m\S\2 SV(cubed) 59.3 ml SI(cubed) 32.1 ml/m\S\2 Ao root diam 3.1 cm Ao root area 7.7 cm\S\2 LA dimension 3.1 cm LA/Ao 0.99 LVOT diam 1.7 cm LVOT area 2.3 cm\S\2 Doppler Measurements and Calculations MV E max cristian 62.6 cm/sec MV A max cristian 118.1 cm/sec MV E/A 0.53 MV dec time 0.11 sec PA V2 max 103.6 cm/sec PA max PG 4.3 mmHg PI max cristian 162.4 cm/sec PI max PG 10.6 mmHg PI dec slope 218.5 cm/sec\S\2 PI P1/2t 217.7 msec TR max cristian 323.7 cm/sec
--- NOTE | 2017-03-03 13:14 | Procedure Note ---
Pre-Mod Sedation Assessment General Date of Moderate Sedation: March 03, 2017. Vital Signs: Vital Signs Past 12 Hours Date Time Temp Pulse Resp B/P Pulse Ox O2 Delivery O2 Flow Rate FiO2 03/03/17 10:56 36.8 80 19 116/65 93 Nasal Cannula 03/03/17 10:10 37.0 88 16 112/74 93 Room Air 03/03/17 08:58 98 18 110/67 94 Room Air 03/03/17 08:52 93 20 119/79 94 Room Air 03/03/17 08:30 97 20 121/59 94 Room Air 03/03/17 08:02 99 20 121/59 94 03/03/17 07:43 104 20 95 Room Air 03/03/17 07:34 99 22 116/91 92 Room Air 03/03/17 07:22 103 20 127/78 94 Room Air 03/03/17 06:50 108 19 130/73 93 Room Air 03/03/17 06:44 99 19 149/87 93 Room Air 03/03/17 06:29 99 22 148/80 92 Room Air 03/03/17 04:58 95 Room Air 03/03/17 04:58 95 Room Air 03/03/17 04:55 108 03/03/17 04:49 37.0 105 26 166/93 95 Room Air 03/03/17 04:49 95 Room Air Review Cardiovascular: regular rate, rhythm, no edema, no gallop, no JVD, + systolic murmur Abdomen: normal bowel sounds, non tender, soft, no organomegaly Lungs: lungs clear Pre-Sedation Airway Assessment Oral Cavity: Dentures Able to Visualize Vocal Cords: No Short Thick Neck: No Hx of Sleep Apnea: No Smoking Status: Former Smoker Mallampati Classification: Class IV Procedure Planning Contraindications-for Mod Sed: None Yes Notes The planned sedation has been discussed with the patient and consent obtained. I have identified the patient, determined the appropriateness of sedation and have assessed the patient immediately prior to the procedure. All medicine(s) and interventions are by my order.
[2017-03-03] MEDS ORDERED: NiCARDipine HCL INJ 2.5 MG/ML 10 ML AMP ONE (13:33)
[2017-03-03] MEDS ORDERED: MIDAZOLAM HCL 1 MG/ML 2ML VIAL ONE ×2 (13:34→14:21)
[2017-03-03] MEDS ORDERED: FENTANYL CITRATE INJ 50 MCG/1 ML 2 ML VIAL ONE (13:34)
[2017-03-03] MEDS ORDERED: HEPARIN SOD (PORCINE) 1000 UNIT/ML 10 ML VIAL ONE (13:34)
[2017-03-03] MEDS ORDERED: NITROGLYCERIN/D5W 100MCG/ML 20ML SYR ONE (13:35)
[2017-03-03] MEDS ORDERED: SODIUM CHLORIDE 0.9% 1000ML 250 ML IV PRN (15:40)
[2017-03-03] MEDS ORDERED: CLOPIDOGREL BISULFATE 300 MG TAB PO STA (15:44)
[2017-03-03] MEDS ORDERED: ACETAMINOPHEN 325 MG TAB PO PRN (15:45)
[2017-03-03] MEDS ORDERED: ATROPINE SULFATE 0.1 MG/ML 5ML SYR IV PRN (15:45)
--- NOTE | 2017-03-03 15:49 | Procedure Note ---
Post-Mod Sedation Assessment General Date of Moderate Sedation March 03, 2017. Vital Signs: Vital Signs Past 12 Hours Date Time Temp Pulse Resp B/P Pulse Ox O2 Delivery O2 Flow Rate FiO2 03/03/17 15:28 80 14 137/91 95 Room Air 03/03/17 15:18 81 16 134/84 96 Mask 4 03/03/17 13:24 36.8 80 19 116/65 93 Room Air 03/03/17 12:00 93 Room Air 03/03/17 10:56 36.8 80 19 116/65 93 Nasal Cannula 03/03/17 10:10 37.0 88 16 112/74 93 Room Air 03/03/17 08:58 98 18 110/67 94 Room Air 03/03/17 08:52 93 20 119/79 94 Room Air 03/03/17 08:30 97 20 121/59 94 Room Air 03/03/17 08:02 99 20 121/59 94 03/03/17 07:43 104 20 95 Room Air 03/03/17 07:34 99 22 116/91 92 Room Air 03/03/17 07:22 103 20 127/78 94 Room Air 03/03/17 06:50 108 19 130/73 93 Room Air 03/03/17 06:44 99 19 149/87 93 Room Air 03/03/17 06:29 99 22 148/80 92 Room Air 03/03/17 04:58 95 Room Air 03/03/17 04:58 95 Room Air 03/03/17 04:55 108 03/03/17 04:49 37.0 105 26 166/93 95 Room Air 03/03/17 04:49 95 Room Air Review - Discharge Criteria Vital Signs Stable: Yes Alert/Oriented/Conversant: Yes Returned to Baseline Mental St: Yes Nausea Absent/Minimal: Yes Pain/Discomfort/Absent/Minimal: Yes Normal/Baseline Respirations: Yes Active Bleeding?: No Pt Received D/C Instructions: N/A Prescriptions Given: None Specific Proced. D/C Criteria Distal Pulses Present (Cardiac: Yes Groin site assessed-Card Cath: N/A Voided Prior To Discharge: N/A Discharged Patients Adult Escort/Transportation: N/A
[2017-03-03] MEDS: SODIUM CHLORIDE 0.9% 1000ML 1,000 ML IV SCH (16:26)
--- NOTE | 2017-03-03 16:42 | Cardiac Catheterization ---
Procedure Note Procedure Date March 03, 2017. Pre-Procedure Diagnosis Non STEMI AUC Score 9 Procedure(s) Performed Coronary Angiography, Left Heart Cath, LV Angiography Lesson Instructor Dr. Nunez Aviculturist(s) EDUARDO Bermeo Estimated Blood Loss 30 Medication(s) Heparin, Nicardipine, Versed, Lidocaine 1% Summary of Findings Clinical indications: Non ST elevation myocardial infarction. Inferolateral ST and T-wave abnormalities suggestive of ischemia. Echocardiogram with inferior, posterior, basal septal, and posterior lateral hypokinesis. LV ejection fraction 40-45 percent. Catheterization site: 6 Portuguese slender glide sheath right radial artery. Catheters: 5 Portuguese brachial 3.5, pigtail catheters. Guidewires:0.035 J-tip guidewire, 0.035 Glidewire, [place] coronary artery guidewire. Protocol: The slender glide sheath was 1st inserted in the right radial artery. The standard J-tip guidewire would not advance from the radial and brachial artery. Left radial artery angiography was performed. This revealed revealed no significant obstructive disease or spasm. There was tortuosity in the proximal radial artery. There was mild atherosclerotic disease in the distal brachial artery the with 10-20 percent luminal diameter narrowing. Utilizing the coronary guidewire the brachial artery was accessed. The brachial catheter was then advanced over this guidewire into the brachial artery. The coronary wire was then exchanged for the standard J tipped wire. This wire would not traverse the right innominate artery. was exchanged for the Glidewire. This wire also would not traverse the innominate artery. Right subclavian and innominate artery angiography was then performed. This revealed marked tortuosity in the innominate artery. The right internal mammary artery was of large caliber and widely patent. The right vertebral artery in the right common carotid artery were without obstructive disease. The Glidewire was reinserted. It was eventually able to traverse the innominate artery. Coronary angiography, left heart catheterization, and left ventricular angiography were then performed. Hemostasis: Terumo TR band. Findings: No spasm was noted in the right radial or brachial arteries. Mild atherosclerotic disease of the distal right brachial artery. Marked tortuosity of the right innominate artery. No obstructive disease in the subclavian, right internal mammary, proximal right vertebral, and right common carotid arteries. Fluoroscopy revealed mild coronary calcifications. The coronary circulation was left dominant. Large caliber left main coronary artery giving rise to medium caliber left anterior descending and large caliber left circumflex coronary arteries. The ostium of the LAD had a 20 percent stenosis. The very proximal LAD gave rise to a long small caliber 1st diagonal artery which had minor luminal irregularities. The proximal LAD then gave rise to a long small caliber bifurcating 2nd diagonal artery. The 2nd diagonal had a 20 percent proximal stenosis. Following the origin of the 2nd diagonal the mid LAD had a 20 percent stenosis. The remainder of the mid distal LAD had minor luminal irregularities. The distal LAD terminated at the apex of the heart as a very small caliber vessel. The proximal circumflex gave rise to a long medium caliber 1st marginal artery which had a 50 percent ostial stenosis. The mid circumflex gave rise to medium caliber 2nd marginal artery which had no obstructive disease. The mid distal left circumflex had diffuse mild atherosclerotic disease with 10-20 percent luminal diameter narrowing. The distal circumflex then gave rise to very small caliber 1st and 2nd posterior lateral arteries. It then gave rise to a long small caliber posterior descending artery which had diffuse 10-20 percent luminal diameter narrowings. The right coronary artery was a small caliber nondominant vessel. 20 percent proximal and mid stenoses. The RCA gave rise to 3 very small caliber right ventricular branches. Left ventricular angiography performed from the 30 degree right anterior oblique projection revealed the posterobasal segment, apical, and anterolateral segments contract normally. The diaphragmatic segment was severely hypokinetic to akinetic. The calculated LV ejection fraction was 43 percent. 1+ mitral regurgitation. Left ventricular angiography performed from the 45 degree left anterior oblique projection revealed the septum and apex contract normally. The distal posterolateral segment was akinetic. Conclusion: [id number] coronary artery disease. Moderate left ventricular systolic dysfunction. Inferior and posterolateral wall motion abnormalities of the left ventricle. No evidence of an acute coronary process on coronary angiography. Recommendations: There is no indication for coronary revascularization procedure. Would treat with dual antiplatelet therapy for at least 3 months. Aspirin therapy indefinitely. Statin therapy for dyslipidemia. CARLOTA-inhibitor and beta-frank therapy in light of the cardiomyopathy and wall motion abnormalities. Hemodynamics Rest Ao: 126/69/94 mm Hg Final Ao: 151/79/110 mm Hg LV: 139/24 mm Hg Recommendations Medical therapy and/or Counseling Specimens None Radiation Exposure (mGy) 1444 Contrast (mls) 200 ml Visipaque Fluids (cc crystalloids) 159 Drains None Anesthesia IV Versed,lidocaine 1 % for local Procedural Complication(s) None Disposition PCU ACC Data Cardiac Status Clinical evaluation leading to the procedure CAD Presntation: Non STEMI Anginal Classification: CCS IV Heart Failure: No Cardiogenic Shock w/in 24Hrs: No Cardiac Arrest w/in 24Hrs: No Imaging studies past 6 months: Yes Stress studies past 6 months: No Standard Exercise Stress Test: No Stress Echocardiogram: No Stress Testing w/SPECT MPI: No Cardiac CTA: No Coronary Anatomy Dominant: Left Left Main (% Stenosis): Normal LAD (% Stenosis): Ostial (20), Mid (20,diffuse 0-10), Distal (0-10) D1 (% Stenosis): Proximal (0-10), Mid (0-10) D2 (% Stenosis): Proximal (20) Circumflex (% Stenosis): Mid (10-20), Distal (10-20) OM1 (% Stenosis): Ostial (50) OM2 (% Stenosis): Normal L PL1 (% Stenosis): Normal L PL2 (% Stenosis): Normal L PDA (% Stenosis): Proximal (10-20), Mid (10-20), Distal (10-20) RCA (% Stenosis): Proximal (20), Mid (20) Left Ventricular Angiography EF (%): 43 Wall Motion: Inferior (Akinetic), Apical (Normal), Anterior (Normal) Mitral Regurgitation: 1+ Diagnostic Physician's Name: Souleymane Nunez M.D. Status: Elective Closure Device Percutaneous Entry Location: Radial Closure Device: Radial Band Recommendations: Medical therapy and/or Counseling
[2017-03-03 17:01] LABS: PARTIAL THROMBOPLASTIN RATIO 4.4
[2017-03-03] MEDS ORDERED: CLOPIDOGREL BISULFATE 300 MG TAB PO ONE (18:02)
[2017-03-03] MEDS ORDERED: LISINOPRIL 5 MG TAB PO ONE (19:30)
[2017-03-03] MEDS: METOPROLOL TARTRATE 25 MG TAB PO SCH (20:12)
[2017-03-03] MEDS: MoRPHine SULFATE 2 MG/ML CARP IV PRN (23:48)
[2017-03-04] MEDS: SODIUM CHLORIDE 0.9% 1000ML 1,000 ML IV SCH ×2 (01:49→11:59)
[2017-03-04 03:59] VITALS: BP 146/79; PULSE 76; TEMP 36.8; O2SAT 93
[2017-03-04] MEDS: MoRPHine SULFATE 2 MG/ML CARP IV PRN (04:27)
[2017-03-04] MEDS: LEVOTHYROXINE 75 MCG TAB PO SCH (05:29)
[2017-03-04 06:43] LABS: HEMATOCRIT 35.9 % (37-47); MEAN CELL VOLUME 90.4 fL (80-100); MEAN CORPUSCULAR HGB CONC 33.1 g/dl (32-36); MEAN PLATELET VOLUME 8.7 fL (7.4-10.4); PLATELET COUNT 298 K/uL (130-400); RED BLOOD COUNT 3.97 M/uL (4.2-5.4); WHITE BLOOD COUNT 8.46 K/uL (4.8-10.8)
[2017-03-04 07:22] LABS: BUN/CREATININE RATIO 15.3 (10-20); CALCIUM 8.4 mg/dl (8.5-10.1); CREATININE 0.83 mg/dl (0.60-1.20); POTASSIUM 3.9 mmol/L (3.5-5.1)
[2017-03-04 07:28] LABS: CHOLESTEROL/HDL RATIO 2.1
[2017-03-04 07:34] VITALS: BP 163/79; PULSE 82; TEMP 37.8; O2SAT 92
[2017-03-04] MEDS: ACETAMINOPHEN 325 MG TAB PO PRN (07:46)
[2017-03-04] MEDS: METOPROLOL TARTRATE 25 MG TAB PO SCH (07:48)
[2017-03-04] MEDS: PANTOprazole SOD 40 MG TAB PO SCH (07:51)
[2017-03-04] MEDS: POLYETHYLENE (MIRALAX) 17 GM PACK PO SCH (07:53)
[2017-03-04] MEDS: TIOTROPIUM BROMIDE 5 PUFF/90 MCG INH INH SCH (07:54)
[2017-03-04] MEDS ORDERED: ASPIRIN 81 MG ECTAB PO SCH (09:00)
[2017-03-04] MEDS ORDERED: ATORVASTATIN 40 MG TAB PO SCH (09:00)
[2017-03-04] MEDS ORDERED: LISINOPRIL 5 MG TAB PO SCH (09:00)
[2017-03-04] MEDS ORDERED: CLOPIDOGREL BISULFATE 75 MG TAB PO SCH (09:00)
[2017-03-04 09:14] LABS: ESTIMATED AVERAGE GLUCOSE 134 mg/dl; HA1C FLAG Normal (Normal)
[2017-03-04 11:40] VITALS: BP 153/85; PULSE 69; TEMP 36.9; O2SAT 94
--- NOTE | 2017-03-04 13:34 | Clinical Documentation Query ---
CLINICAL DOCUMENTATION QUERY Dr. CHAN, In your clinical opinion is this patient being managed for: ( X ) NSTEMI ( ) Other explanation of clinical findings (Please Explain) ( ) Unable to determine (Please Define) ( ) Need to Discuss ( ) Not Agree Despite the intentions of many physicians, the documentation of "Acute Coronary Syndrome" will not capture the diagnosis of an Acute AR. In coding language, "ACS" is considered an acute but unspecified form of ischemic heart disease. Please clarify and document your clinical opinion in the progress notes and discharge summary. Terms such as "probable", "suspected", "likely", "questionable", "possible", or "still to be ruled out" are acceptable. IF IN AGREEMENT, YOU MUST DOCUMENT ABOVE DIAGNOSTIC STATEMENT IN DAILY PROGRESS NOTES AND DISCHARGE SUMMARY. This document is not part of the patient's record. Thank You, Danna Garcia RN [phone]
--- NOTE | 2017-03-04 15:20 | Cardiology Follow-Up ---
Subjective General Date of Service: March 04, 2017. Pt evaluation today including: conversation w/ patient, physical exam, chart review, lab review History of Present Illness The patient is a 81 year old female was seen and examined at bedside. No acute overnight events. Telemetry monitoring showed regular sinus rhythm between 60bpm and 90bpm. Patient is resting comfortably in bed. Denies having any pain. Eating and urinating well. Pt is wondering when she can go home. Allergies Coded Allergies: No Known Allergies (Verified , 03/03/17) Social History Smoking Status: Former Smoker Hx Tobacco Use In Past Year?: No Hx Alcohol Use - Type And Amou: No Hx Substance Use - Type And Am: No Problem List Medical Problems: (1) Acute chest pain Status: Acute (2) Acute coronary syndrome Status: Acute Review of Systems Respiratory: No cough, No shortness of breath, No sputum, No wheezing Cardiac: No chest pain, No edema, No orthopnea Physical Exam Vital Signs Last Vital Signs Documentation Date Time Temp Pulse Resp B/P Pulse Ox O2 Delivery O2 Flow Rate FiO2 03/04/17 12:00 Room Air 03/04/17 11:40 36.9 69 20 153/85 94 03/03/17 15:18 4 Physical Exam Head: normocephalic, atraumatic ENMT: hearing grossly normal Neck: supple, trachea midline, no masses Lungs: Respiratory effort: no dyspnea, good air movement Auscultation: breath sounds normal, no wheezing, no rales/crackles, no rhonchi Cardiovascular: Heart Auscultation: RRR, normal S1, normal S2, no murmurs, no rubs, no gallops, pertinent finding (PMI non palpable) Peripheral Pulses: Carotid Pulse: normal on the left, normal on the right Radial Pulse: normal on the left, normal on the right Dorsalis Pedis Pulse: normal on the left, normal on the right Abdomen: Bowel Sounds: normal Inspection & Palpation: soft, non-distended, no tenderness, guarding & rebound, no CVA tenderness Musculoskeletal: normal Extremities: no cyanosis, no edema, no palpable cord, no clubbing Assessment and Plan Assessment and Plan 81F with a PMHx of HTN, HLD, COPD presents with a 3 day history of chest pressure that was worsened by activity and alleviated by rest, presented to the ER for acute worsening of these symptoms. In the ER pt received a full dose Aspirin at 5am and 0.4mg Nitroglycerin with partial relief of these symptoms. Full relief of symptoms was achieved 2-3 hours after presentation to the ER by which point the pt received 0.4mg x 3 doses of Nitro. EKG showed Non specific T wave abnormalities. Troponins were measured at 0.094. A Stat Echocardiogram revealed wall motion abnormalities. CTA negative for PE, Chest X-ray showed mild cardiomegaly. The plan from a cardiac standpoint is a catheterization today for acute coronary syndrome. NSTEMI - Cath Results (Dr. Nunez): [id number] coronary artery disease. Moderate left ventricular systolic dysfunction. Inferior and posterolateral wall motion abnormalities of the left ventricle. No evidence of an acute coronary process on coronary angiography. Recommendations (Dr. Nunez): There is no indication for coronary revascularization procedure. Would treat with dual antiplatelet therapy for at least 3 months. Aspirin therapy indefinitely. Statin therapy for dyslipidemia. CARLOTA-inhibitor and beta-frank therapy in light of the cardiomyopathy and wall motion abnormalities. - Continue with: Aspirin 81mg daily indefinitely, Plavix 75mg daily x 3 months, Atorvastatin 40mg QAM, Lisinopril 5mg daily, Lopressor 25mg BID. - Pt does not have a honey extractor, either follow up with [facility] Cardiology or Dr. Beauchamp (PCP). HTN BPs range from 120s-130s/70s-80s. Pt is on Clonidine 0.1mg BID, Lisinopril/ HCTZ (20/25mg) daily, and Verapamil 240mg daily for HTN at home. - Recommend CARLOTA therapy in light of cardiomyopathy and wall motion abnormalities. HLD At home pt is on Atorvastatin 20mg, consider Atorvastatin 40mg daily or other high intensity statin therapy. A. Fib (documented) Pt is in sinus rhythm at present and is not anticoagulated at present. In previous hospitalization pt has been in sinus rhythm. 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 Recommend telemetry monitoring and no anticoagulation at present. DR. ALVARENGA ADDENDUM; Mrs. Tejeda looks well. No recurrent chest pain. No dyspnea. Tele unremarkable BP elevated to 160-170s this afternoon. Exam unremarkable and no apparent access site complications. From a cardiac standpoint OK for discharge. Discharge on DAPT with ASA/Plavix, statin Continue Metoprolol 25 BID, would increase lisinopril back to 20 mg daily. Follow-up with primary care and Dr. Nunez in 1 month. Laboratory Results Last 24 Hours Test 03/03/17 16:35 03/03/17 18:28 03/04/17 00:39 03/04/17 05:34 Activated Partial Thromboplast Time 115.1 SECONDS Partial Thromboplastin Ratio 4.4 Troponin I 1.440 ng/ml 1.430 ng/ml White Blood Count 8.46 K/uL Red Blood Count 3.97 M/uL Hemoglobin 11.9 g/dL Hematocrit 35.9 % Mean Corpuscular Volume 90.4 fL Mean Corpuscular Hemoglobin 30.0 pg Mean Corpuscular Hemoglobin Concent 33.1 g/dl RDW Standard Deviation 45.5 fL RDW Coefficient of Variation 13.8 % Platelet Count 298 K/uL Mean Platelet Volume 8.7 fL Estimated Average Glucose 134 mg/dl Hemoglobin A1c 6.3 % Test 03/04/17 06:34 Sodium Level 142 mmol/L Potassium Level 3.9 mmol/L Chloride Level 111 mmol/L Carbon Dioxide Level 22 mmol/L Anion Gap 9.0 mmol/L Blood Urea Nitrogen 13 mg/dl Creatinine 0.83 mg/dl Est Creatinine Clear Calc Drug Dose 53.8 ml/min Estimated GFR () 77.7 Estimated GFR (Non- 67.1 BUN/Creatinine Ratio 15.3 Random Glucose 117 mg/dl Calcium Level 8.4 mg/dl Troponin I 1.230 ng/ml Triglycerides Level 138 mg/dl Cholesterol Level 106 mg/dl HDL Cholesterol 51 mg/dl LDL Cholesterol, Calculated 27 mg/dl VLDL Cholesterol, Calculated 28 mg/dl Cholesterol/HDL Ratio 2.1 Resident Involvement: Resident Care Provided Care Provided: Adult Hospital Medicine
[2017-03-04 15:55] VITALS: BP 179/95; PULSE 80; TEMP 37.1; O2SAT 94
[2017-03-04] MEDS ORDERED: LISINOPRIL 10 MG TAB PO ONE (17:30)
--- NOTE | 2017-03-04 17:41 | Discharge Summary ---
Discharge Summary Date of Service March 04, 2017. (Alka. Simental MD) Discharge Summary Admission Date: March 03, 2017 at 07:37 Discharge Date: March 04, 2017 Discharge Disposition: Home Principal Diagnosis: NSTEMI Immunizations: Have You Had Influenza Vaccine: N/A Influenza Vaccine Date: Jun 27, 2012 History of Tetanus Vaccine?: Unknown History of Pneumococcal: Yes Pneumococcal Date: Apr 28, 2011 History of Hepatitis B Vaccine: Unknown (Alka. Simental MD) Medication Reconciliation New Medications: Albuterol Hfa (Ventolin Hfa) 200 Puffs/88555 Mcg Aers 2-4 PUFFS INH Q4H for SOB/Wheezing, #1 INHALER Amlodipine (Norvasc) 5 Mg Tab 5 MG PO HS for 30 Days, #30 TAB 2 Refills Clopidogrel Bisulfate (Clopidogrel) 75 Mg Tab 75 MG PO QAM for 30 Days, #30 TAB 3 Refills Lisinopril (Lisinopril) 5 Mg Tab 20 MG PO QAM for 30 Days, #120 TAB 3 Refills Metoprolol Tartrate (Lopressor) 25 Mg Tab 25 MG PO BID for 30 Days, #60 TAB Nitroglycerin (Nitrostat) 0.4 Mg/1 Tab Subl 0.4 MG SL UD PRN for Chest Pain, #20 TAB Changed Medications: Aspirin (Aspirin 81) 81 Mg Tab 81 MG PO DAILY for 30 Days, #30 TAB 3 Refills (Changed from: [facility]; Refills: ) Continued Medications: Atorvastatin (Lipitor) 20 Mg Tab 20 MG PO HS, TAB Levothyroxine Sodium (Levothyroxine Sodium) 75 Mcg Tab 75 MCG PO DAILY for 90 Days, #90 TAB 3 Refills [place]-3 Fatty Acids (Fish Oil) 1 Cap Cap 1000 MG PO DAILY Pantoprazole Sodium (Protonix) 40 Mg Tab 40 MG PO DAILY, #30 TAB Polyethylene Glycol 3350 (Miralax) 1 Pow Pow 17 GM PO DAILY Tiotropium [place] (Spiriva Handihaler) 18 Mcg/ Aerp 1 CAP INH DAILY, INHALER Discontinued Medications: Clonidine Hcl (Catapres) 0.1 Mg Tab 0.1 MG PO BID, TAB Lisinopril/Hctz (Zestoretic 20MG/25MG) Tab 1 TAB PO DAILY, TAB Verapamil Hcl (Verapamil Hcl Sr) 240 Mg Cap 240 MG PO DAILY, #90 Discharge Exam Patient sitting up in bed, appearing comfortable and denying any symptoms for the last 24 hours. No more chest pressure and resolution of left shoulder pain and the chills she had on admission. She never did have any dyspnea, nausea or diaphoresis. Review of Systems: Constitutional: No chills, No fever, No sweats Respiratory: No cough, No dyspnea on exertion, No shortness of breath, No wheezing Cardiovascular: No chest pain, No edema, No orthopnea, No palpitations Abdomen: No constipation, No diarrhea, No nausea, No pain, No vomiting Genitourinary - Female: No dysuria, No hematuria Physical Exam: General Appearance: WD/WN, no apparent distress ENT: hearing grossly normal Neck: supple, no adenopathy, no carotid bruits Respiratory/Chest: lungs clear, normal breath sounds, no respiratory distress, no accessory muscle use Cardiovascular: regular rate, rhythm, normal peripheral pulses Abdomen / GI: normal bowel sounds, non tender, soft Extremities: normal inspection, no calf tenderness, no pedal edema Neurologic/Psychiatric: alert, normal mood/affect, oriented x 3 Skin: normal color, warm/dry, no rash (Alka. Simental MD) Hospital Course 81 year old female with COPD, HTN, HLD, pancreatic cancer s/p Whipple's procedure, admitted with new onset chills, chest heaviness radiating to her left shoulder with ST depression in anterior leads and mild troponin elevation. In conjunction with regional wall motion abnormalities, diagnosed with NSTEMI. NSTEMI 2/2 to vasospasm? - Aspirin provided in the ED, sublingual nitro PRN chest pain, O2 via NC, aim O2 sats > 94% - EKG showed 1mm ST depression in anterior leads. Low dose heparin with bolus started. Troponin peaked at 1.44. - Echo showed: Mild overall LV systolic and diastolic dysfunction. Inferior, posterior,and basal septal hypokinesis. Mild left atrial dilatation. Trace pulmonic and mitral regurgitation. Mild tricuspid regurgitation. Mild pulmonary hypertension. - Cardiology consulted - s/p cardiac catheterization 03/03/17 showing [id number] coronary artery disease but no evidence of an acute coronary process on coronary angiography. Discharged on: - Aspirin 81mg daily + Clopidogrel 75mg daily x 3 months + Metoprolol tartrate 25mg BID + Lisinopril 20mg daily + Atorvastatin 20mg daily (in view of good fasting lipid panel and HbA1c 6.3) + sublingual nitroglycerin PRN chest pain - Cardiology follow up HTN - Home anti-HTN meds held Discharged on - Metoprolol 25mg BID + Lisinopril 20mg + Amlodipine 5mg started - Follow up with PCP in 1 week to reassess blood pressure recommended HLD - Increased atorvastatin to 40 mg daily initially, but resumed home dose of 20mg in view of excellent fasting lipid profile ?Infection - Chills on admission. No leukocytosis - Blood cultures show no growth to date x 1 day - Symptoms resolved COPD - No current exacerbation on admission, chest heaviness and shortness of breath more consistent with NSTEMI. No wheezing on examination. - Continue Spiriva and prescribed albuterol PRN on discharge Recurrent SBO - Continue Miralax daily Hypothyroidism - Levothyroxine 75 mcg daily VTE Prophylaxis - Heparin drip Code - DNR This includes examination of the patient, discharge planning, medication reconciliation, and communication with other providers. (Alka. Simental MD) Resident Physician Supervision Note: I interviewed and examined the patient. Discussed with Dr. Simental and agree with findings and plan as documented in the note. Any exceptions or clarifications are listed here: None Documented By: Mino Crockett feeling good wants to go home cardiology input appreciated, reviewed meds with pt and answered all questions to the best of my ability vitals noted nad breathing unlabored no pallor or icterus NSTEMI - minimal CAD. med management per cardiology recs, with minimal disease and VA - ?vasospasm - hence transition from clonidine to amlodipine stable for home ongoing outpt titration of meds due to lipids being low at current dose of statin, risks (such as ICH) appear to outweigh benefits of raising to higher potency, especially in light of minimal CAD otherwise as above Total Time Spent: Less than 30 minutes (Mino Crockett, D.O.) Discharge Instructions Please refer to the electronic Patient Visit Report (Discharge Instructions) for additional information. (Alka. Simental MD) Additional Copies To Scott Beauchamp M.D. Resident Tracking Resident Involvement: Resident Care Provided Care Provided: Adult [facility] (Alka. Simental MD)
[2017-03-04] MEDS ORDERED: ASPI-435 PO (17:48)
[2017-03-04] MEDS ORDERED: PLV75 PO (17:49)
[2017-03-04] MEDS ORDERED: NTRSLP4 SL (17:49)
[2017-03-04] MEDS ORDERED: LPR25 PO (17:49)
[2017-03-04] MEDS ORDERED: LSN5 PO (17:49)
[2017-03-04] MEDS ORDERED: AMLO-110 PO (17:49)
--- NOTE | 2017-03-04 17:57 | Discharge Instructions ---
Discharge Instructions Date of Service March 04, 2017. Admission Reason for Admission: Nstemi Discharge Discharge Diagnosis / Problem: NSTEMI Discharge Goals Goal(s): Decrease discomfort, Improve function, Improve disease control, Diagnostic testing, Therapeutic intervention Activity Recommendations Activity Limitations: resume your previous activity . Instructions / Follow-Up Instructions / Follow-Up During your admission, your medications have been changed to help to better protect your heart. Please take aspirin 81mg daily for life and clopidogrel (Plavix) 75mg daily for the next three months. Metoprolol 25mg twice daily reduces strain on your heart. Your blood pressure medications have also changed. Please stop your previous medications and take lisinopril 20mg every day and amlodipine 5mg every night. Follow up with your PCP next week and your doctor will continue to monitor your blood pressures and adjust medication as necessary if your measured pressures are still high. Nitroglycerin has been prescribed to you. If you ever have chest pain like you did on the morning of admission, take a nitroglycerin tablet, as well as another aspirin tablet and call your doctor or come to the emergency department. You have also been prescribed an albuterol inhaler. If you feel short of breath , this inhaler may help provide immediate relief. Continue your other inhaler daily for prevention. Continue all other home medications as prior. Current Hospital Diet Patient's current hospital diet: AHA Diet (Heart Healthy) Discharge Diet Recommended Diet: AHA Diet (Heart Healthy) Pending Studies Studies pending at discharge: yes List of pending studies: Blood cultures - prelim negative Laboratory Results Hemoglobin A1c Test 03/04/17 05:34 Range/Units Estimated Average Glucose 134 mg/dl Hemoglobin A1c 6.3 H 4.5-5.6 % Lipid Panel Test 03/04/17 06:34 Range/Units Triglycerides Level 138 0-150 mg/dl Cholesterol Level 106 0-200 mg/dl HDL Cholesterol 51 mg/dl Cholesterol/HDL Ratio 2.1 LDL Cholesterol, Calculated 27 mg/dl Medical Emergencies . Who to Call and When: Medical Emergencies: If at any time you feel your situation is an emergency, please call 911 immediately. . Non-Emergent Contact Non-Emergency issues call your: Primary Care Provider, Sales Training Coordinator . . "Provider Documentation" section prepared by Meagan Simental. . VTE Core Measure Inpt VTE Proph given/why not?: Unfractionated heparin SQ
[2017-03-04] MEDS ORDERED: VNTHFA/IN INH (17:59)
[2017-03-04 18:29] VITALS: BP 160/78; PULSE 92; TEMP 37; O2SAT 94
== END 2017-03-04 19:16 | disposition home or self-care (01) | DRG 282 ==
LOC: ENRESERVTM → ENRESERVDT → EDBD 04:46 → C.EDA 04:46 → C.2T 07:37
PROVIDERS: ADMIT Hospitalist; ATTEND Family Medicine
PROC: 4A023N7 Measurement of Cardiac Sampling and Pressure, Left Heart, Percutaneous Approach (ICD-10-PCS; principal; 2017-03-03 12:54)
PROC: B2111ZZ Fluoroscopy of Multiple Coronary Arteries using Low Osmolar Contrast (ICD-10-PCS; principal; 2017-03-03 12:54)
PROC: B2151ZZ Fluoroscopy of Left Heart using Low Osmolar Contrast (ICD-10-PCS; principal; 2017-03-03 12:54)
DX: I21.4 Non-ST elevation (NSTEMI) myocardial infarction (principal); I48.91 Unspecified atrial fibrillation; I25.10 Atherosclerotic heart disease of native coronary artery without angina pectoris; E78.5 Hyperlipidemia, unspecified; K21.9 Gastro-esophageal reflux disease without esophagitis; J44.9 Chronic obstructive pulmonary disease, unspecified; I10 Essential (primary) hypertension; I27.2 Other secondary pulmonary hypertension; I08.1 Rheumatic disorders of both mitral and tricuspid valves; E03.9 Hypothyroidism, unspecified; Z66 Do not resuscitate; M81.0 Age-related osteoporosis without current pathological fracture; Z79.82 Long term (current) use of aspirin; Z79.899 Other long term (current) drug therapy; Z87.891 Personal history of nicotine dependence; Z90.710 Acquired absence of both cervix and uterus; Z83.6 Family history of other diseases of the respiratory system; Z85.07 Personal history of malignant neoplasm of pancreas

== ENCOUNTER → 2017-09-06 | Outpatient (CLI) | payer OTHER ==
[~2017-09-06] MED LIST changes: +AMLO-110 PO; -CHOL100040 PO; -CPR500 PO; -CTP/1 PO; -LISI-788 PO; +LPR25 PO; +LSN5 PO; +NTRSLP4 SL; +PLV75 PO; -VERA240C3 PO
[2017-09-06 09:53] LABS: BASO % 0.7 %; BASO ABS # 0.04 K/uL (0-0.2); COMPLETE YES; EOS % 1.7 %; HEMATOCRIT 39.8 % (37-47); IG% 0.2 %; LYMPH % 27.7 %; LYMPH ABS # 1.59 K/uL (1.2-3.4); MEAN CELL VOLUME 85.4 fL (80-100); MEAN CORPUSCULAR HEMOGLOBIN 28.1 pg (25-34); MEAN CORPUSCULAR HGB CONC 32.9 g/dl (32-36); MEAN PLATELET VOLUME 8.6 fL (7.4-10.4); MONO % 7.3 %; NEUT % 62.4 %; PLATELET COUNT 373 K/uL (130-400); RED BLOOD COUNT 4.66 M/uL (4.2-5.4); WHITE BLOOD COUNT 5.73 K/uL (4.8-10.8)
[2017-09-06 10:29] LABS: ALT/SGPT 38 U/L (12-78); AST/SGOT 22 U/L (15-37); BLOOD UREA NITROGEN 9 mg/dl (7-18); BUN/CREATININE RATIO 10.3 (10-20); CALCIUM 9.1 mg/dl (8.5-10.1); CARBON DIOXIDE 27 mmol/L (21-32); CHLORIDE 104 mmol/L (98-107); CREATININE 0.91 mg/dl (0.60-1.20); GLUCOSE 112 mg/dl (70-99); POTASSIUM 3.6 mmol/L (3.5-5.1); SODIUM 141 mmol/L (136-145)
[2017-09-06 10:30] LABS: ALB/GLOB RATIO 0.9 (0.9-2); ALKALINE PHOSPHATASE 146 U/L (45-117); CHOLESTEROL 154 mg/dl (0-200); CHOLESTEROL/HDL RATIO 2.2; HDL CHOLESTEROL 69 mg/dl; LDL CHOLESTEROL CALCULATED 45 mg/dl; TRIGLYCERIDES 202 mg/dl (0-150); VERY LOW DENSITY LIPOPROT CALC 40 mg/dl
== END | disposition home or self-care (01) ==
LOC: C.LAB1850 09:24
PROVIDERS: ATTEND Internal Medicine Pulmonary Disease
DX: J44.9 Chronic obstructive pulmonary disease, unspecified (principal); E78.5 Hyperlipidemia, unspecified; I21.4 Non-ST elevation (NSTEMI) myocardial infarction; I25.10 Atherosclerotic heart disease of native coronary artery without angina pectoris; E03.9 Hypothyroidism, unspecified; I10 Essential (primary) hypertension

== ENCOUNTER 2018-01-07 21:07 | Inpatient (IN) | payer OTHER ==
[~2018-01-07] VITALS: Ht 160 cm; Wt 72.6 kg
[2018-01-07] MEDS ORDERED: MoRPHine SULFATE 4 MG/ML 1 ML CARP\\VIAL IV STA (21:30)
[2018-01-07] MEDS ORDERED: ONDANSETRON INJ 2 MG/ML 2 ML VIAL IV STA (21:30)
[2018-01-07 22:42] LABS: ALBUMIN 3.8 gm/dl (3.4-5.0); ALT/SGPT 28 U/L (12-78); BLOOD UREA NITROGEN 21 mg/dl (7-18); CALCIUM 9.4 mg/dl (8.5-10.1); CARBON DIOXIDE 27 mmol/L (21-32); CREATININE 1.47 mg/dl (0.60-1.20); GLUCOSE 157 mg/dl (70-99); LIPASE 84 U/L (73-393); POTASSIUM 4.6 mmol/L (3.5-5.1); SODIUM 141 mmol/L (136-145)
[2018-01-07 22:43] LABS: BASO % 0.4 %; BASO ABS # 0.05 K/uL (0-0.2); EOS % 0.5 %; EOS ABS # 0.07 K/uL (0-0.5); HEMATOCRIT 42.3 % (37-47); HEMOGLOBIN 13.9 g/dL (12.0-16.0); IG# 0.06 K/uL (0.00-0.02); LYMPH % 10.2 %; LYMPH ABS # 1.34 K/uL (1.2-3.4); MEAN CELL VOLUME 84.3 fL (80-100); MEAN CORPUSCULAR HEMOGLOBIN 27.7 pg (25-34); MEAN CORPUSCULAR HGB CONC 32.9 g/dl (32-36); MEAN PLATELET VOLUME 8.7 fL (7.4-10.4); MONO % 6.5 %; MONO ABS # 0.85 K/uL (0.11-0.59); NEUT % 81.9 %; NEUT ABS # 10.75 K/uL (1.4-6.5); PLATELET COUNT 409 K/uL (130-400); RED CELL DISTRIBUTION WIDTH CV 14.7 % (11.5-14.5); RED CELL DISTRIBUTION WIDTH SD 44.7 fL (36.4-46.3); WHITE BLOOD COUNT 13.12 K/uL (4.8-10.8)
[2018-01-07 22:45] LABS: ALKALINE PHOSPHATASE 137 U/L (45-117); AST/SGOT 20 U/L (15-37); TOTAL PROTEIN 7.9 gm/dl (6.4-8.2)
--- NOTE | 2018-01-07 23:09 | DIAGNOSTIC IMAGING REPORT ---
ABD/PELVIS NO IV OR ORAL CONT CLINICAL HISTORY: 82 years-old Female presenting with distention eval for obstruction. TECHNIQUE: Multidetector CT of the abdomen and pelvis was performed without the use of intravenous contrast. IV contrast: None. A dose lowering technique was used consistent with the principles of ALARA (as low as reasonably achievable). COMPARISON: 08/17/2015. CT DOSE (mGy.cm): The estimated cumulative dose is 527.67 mGy.cm. FINDINGS: Junior Paralegal topogram: Unremarkable. Lung bases: Trace emphysema. Normal heart size. Coronary artery and aortic valve calcification. No pericardial or pleural effusion. Liver: Normal morphology. Density consistent with hepatic steatosis. Biliary: No gross biliary ductal dilatation allowing for noncontrast technique. Pneumobilia noted, which is chronic. Postsurgical changes of hepaticojejunostomy. Gallbladder surgically absent. Pancreas: Postsurgical changes of Whipple procedure with pancreaticojejunostomy. Spleen: Numerous punctate foci of calcification likely indicate prior granulomatous infection. Adrenal glands: The low density 2.4 cm nodule in the left adrenal gland consistent with benign adenoma. Multiple smaller benign adenomas also noted in the left adrenal gland, unchanged. Right adrenal gland normal. Kidneys and ureters: 2 nonobstructing calculi noted in the right kidney, the largest measuring 3 mm in the interpolar region. No left renal calculi. Several hypodensities in the right kidney indeterminate but likely cysts. Multiple parapelvic cysts noted on the left. No left hydronephrosis. Ureters normal. Bladder: Normal. Pelvic organs: Uterus surgically absent. No adnexal masses. Bowel: Diverticulosis of the sigmoid colon. The appendix is not visualized. The distal small bowel is decompressed. Proximal small bowel is dilated with a smooth transition to less dilated caliber towards the antecolic gastrojejunostomy. Small bowel anastomoses are patent. Mild distention of the pancreaticobiliary limb. Small bowel contained within 4 separate ventral hernias a transition point. Is suspected at the left inferior most ventral hernia (series 3 image [id number]). No pneumatosis. Large hiatal hernia. Peritoneal cavity: No free fluid or intraperitoneal gas. Lymph nodes: No gross lymphadenopathy allowing for noncontrast technique. Vasculature: Atherosclerosis of the normal caliber abdominal aorta. Abdominal wall: 4 separate ventral hernias are noted, each containing loops of small bowel. An obstruction is suspected at the left inferior most hernia. Musculoskeletal: Degenerative changes of the spine. Bilateral pars defects of L5 with grade 2 anterolisthesis of L5 on S1. IMPRESSION: 1. Findings consistent with small bowel obstruction suspected to be at the level of the inferior most ventral hernia sac. No free air or pneumatosis. 2. Postsurgical changes of Whipple procedure. Abnormal distention of the pancreaticobiliary limb as a consequence of small bowel obstruction. 3. Large hilar hernia. 4. Right renal calculi, which are nonobstructing. Electronically signed by: Derrick Lema M.D. 01/07/2018 11:08 PM Dictated Date/Time: 01/07/2018 10:56 PM
[2018-01-07] MEDS ORDERED: MoRPHine SULFATE 2 MG/ML CARP IV STA (23:18)
--- NOTE | 2018-01-08 00:08 | EMERGENCY ROOM VISIT NOTE ---
History Report prepared by Bebe: Mindy Butler Under the Supervision of: Dr. Ike De Guzman M.D. First contact with patient: 21:24 Chief Complaint: GI ASSESSMENT Stated Complaint: BOWEL OBSTRUCTION/ABD PAIN History of Present Illness The patient is an 82 year old female who presents to the Emergency Room with complaints of persistent abdominal pain since 1599 today. She has a history of hernias. She notes that her abdomen is distended. She notes mild nausea. She notes burning with urination. She thinks that she may have a UTI. She denies any vomiting or fevers. She denies any chest pain or shortness of breath. She states she has had three surgeries related to her hernias. She has a history of pancreatic cancer. She has a prior history of small bowel obstruction and feels similarly today. Source of History: patient Onset: 1599 today Position: abdomen Quality: other (distended) Timing: other (persistent) Associated Symptoms: + nausea, + urinary symptoms (burning with urination), No fevers, No chest pain, No SOB, No vomiting Review of Systems See HPI for pertinent positives & negatives. A total of 10 systems reviewed and were otherwise negative. 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 (2) Atrial Fibrillation (3) Chest pain, rule out acute myocardial infarction (4) Hyperlipidemia (5) Hypertension (6) Incisional Hernia (7) NSTEMI (non-ST elevated myocardial infarction) (8) Reflux Esophagitis Family History Lung disease Social History Smoking Status: Never Smoker Smokeless Tobacco Use: No Drug Use: none Marital Status: Housing Status: lives with family Current/Historical Medications Scheduled Amlodipine (Norvasc), 5 MG PO HS Aspirin (Aspirin 81), 81 MG PO DAILY Atorvastatin (Lipitor), 20 MG PO HS Clopidogrel Bisulfate (Clopidogrel), 75 MG PO QAM Levothyroxine Sodium (Levothyroxine Sodium), 75 MCG PO DAILY Lisinopril (Lisinopril), 20 MG PO QAM Metoprolol Tartrate (Lopressor), 25 MG PO BID [place]-3 Fatty Acids (Fish Oil), 1,000 MG PO DAILY Pantoprazole Sodium (Protonix), 40 MG PO DAILY Polyethylene Glycol 3350 (Miralax), 17 GM PO DAILY Tiotropium [place] (Spiriva Handihaler), 1 CAP INH DAILY Scheduled PRN Nitroglycerin (Nitrostat), 0.4 MG SL UD PRN for Chest Pain Allergies Coded Allergies: No Known Allergies (Verified , 03/03/17) Physical Exam Vital Signs Date Time Temp Pulse Resp B/P (MAP) Pulse Ox O2 Delivery O2 Flow Rate FiO2 01/07/18 22:56 79 18 153/83 94 Room Air 01/07/18 22:23 74 16 163/97 94 Room Air 01/07/18 21:51 73 01/07/18 21:10 68 18 92 Room Air Physical Exam Constitutional: Vital signs reviewed. Eyes: Pupils are equal round reactive to light. Conjunctiva are noninjected. ENT: Pharynx is clear without erythema or exudate. Mucous membranes are moist. Neck supple without meningeal signs. Respiratory: Clear to auscultation bilaterally. Breath sounds are equal bilaterally. Cardiovascular: Regular rate and rhythm. No rubs or gallops. GI: LUQ hernia, non-tender and reducible. Tenderness in mid abdomen. Abdomen is distended. Lower abdominal hernia, partially reducible with tenderness. Bowel sounds are present. Musculoskeletal: No peripheral edema. Integumentary: No cyanosis. Neurological: The patient is awake and alert. No focal deficits. Psychiatric: Normal affect. Medical Decision & Procedures ER Provider Diagnostic Interpretation: Radiology results as stated below per my review and the radiologist's interpretation: ABD/PELVIS NO IV OR ORAL CONT CLINICAL HISTORY: 82 years-old Female presenting with distention eval for obstruction. TECHNIQUE: Multidetector CT of the abdomen and pelvis was performed without the use of intravenous contrast. IV contrast: None. A dose lowering technique was used consistent with the principles of ALARA (as low as reasonably achievable). COMPARISON: 08/17/2015. CT DOSE (mGy.cm): The estimated cumulative dose is 527.67 mGy.cm. FINDINGS: Deposition Operator topogram: Unremarkable. Lung bases: Trace emphysema. Normal heart size. Coronary artery and aortic valve calcification. No pericardial or pleural effusion. Liver: Normal morphology. Density consistent with hepatic steatosis. Biliary: No gross biliary ductal dilatation allowing for noncontrast technique. Pneumobilia noted, which is chronic. Postsurgical changes of hepaticojejunostomy. Gallbladder surgically absent. Pancreas: Postsurgical changes of Whipple procedure with pancreaticojejunostomy. Spleen: Numerous punctate foci of calcification likely indicate prior granulomatous infection. Adrenal glands: The low density 2.4 cm nodule in the left adrenal gland consistent with benign adenoma. Multiple smaller benign adenomas also noted in the left adrenal gland, unchanged. Right adrenal gland normal. Kidneys and ureters: 2 nonobstructing calculi noted in the right kidney, the largest measuring 3 mm in the interpolar region. No left renal calculi. Several hypodensities in the right kidney indeterminate but likely cysts. Multiple parapelvic cysts noted on the left. No left hydronephrosis. Ureters normal. Bladder: Normal. Pelvic organs: Uterus surgically absent. No adnexal masses. Bowel: Diverticulosis of the sigmoid colon. The appendix is not visualized. The distal small bowel is decompressed. Proximal small bowel is dilated with a smooth transition to less dilated caliber towards the antecolic gastrojejunostomy. Small bowel anastomoses are patent. Mild distention of the pancreaticobiliary limb. Small bowel contained within 4 separate ventral hernias a transition point. Is suspected at the left inferior most ventral hernia (series 3 image 317). No pneumatosis. Large hiatal hernia. Peritoneal cavity: No free fluid or intraperitoneal gas. Lymph nodes: No gross lymphadenopathy allowing for noncontrast technique. Vasculature: Atherosclerosis of the normal caliber abdominal aorta. Abdominal wall: 4 separate ventral hernias are noted, each containing loops of small bowel. An obstruction is suspected at the left inferior most hernia. Musculoskeletal: Degenerative changes of the spine. Bilateral pars defects of L5 with grade 2 anterolisthesis of L5 on S1. IMPRESSION: 1. Findings consistent with small bowel obstruction suspected to be at the level of the inferior most ventral hernia sac. No free air or pneumatosis. 2. Postsurgical changes of Whipple procedure. Abnormal distention of the pancreaticobiliary limb as a consequence of small bowel obstruction. 3. Large hilar hernia. 4. Right renal calculi, which are nonobstructing. Electronically signed by: Derrick Lema M.D. 01/07/2018 11:08 PM Dictated Date/Time: 01/07/2018 10:56 PM Laboratory Results 01/07/18 20:07 Red Blood Count 5.02, Mean Corpuscular Volume 84.3, Mean Corpuscular Hemoglobin 27.7, Mean Corpuscular Hemoglobin Concent 32.9, Mean Platelet Volume 8.7, Neutrophils (%) (Auto) 81.9, Lymphocytes (%) (Auto) 10.2, Monocytes (%) (Auto) 6.5, Eosinophils (%) (Auto) 0.5, Basophils (%) (Auto) 0.4, Neutrophils # (Auto) 10.75, Lymphocytes # (Auto) 1.34, Monocytes # (Auto) 0.85, Eosinophils # (Auto) 0.07, Basophils # (Auto) 0.05 01/07/18 20:07 Test 01/07/18 20:07 White Blood Count 13.12 K/uL (4.8-10.8) Red Blood Count 5.02 M/uL (4.2-5.4) Hemoglobin 13.9 g/dL (12.0-16.0) Hematocrit 42.3 % (37-47) Mean Corpuscular Volume 84.3 fL (80-100) Mean Corpuscular Hemoglobin 27.7 pg (25-34) Mean Corpuscular Hemoglobin Concent 32.9 g/dl (32-36) Platelet Count 409 K/uL (130-400) Mean Platelet Volume 8.7 fL (7.4-10.4) Neutrophils (%) (Auto) 81.9 % Lymphocytes (%) (Auto) 10.2 % Monocytes (%) (Auto) 6.5 % Eosinophils (%) (Auto) 0.5 % Basophils (%) (Auto) 0.4 % Neutrophils # (Auto) 10.75 K/uL (1.4-6.5) Lymphocytes # (Auto) 1.34 K/uL (1.2-3.4) Monocytes # (Auto) 0.85 K/uL (0.11-0.59) Eosinophils # (Auto) 0.07 K/uL (0-0.5) Basophils # (Auto) 0.05 K/uL (0-0.2) RDW Standard Deviation 44.7 fL (36.4-46.3) RDW Coefficient of Variation 14.7 % (11.5-14.5) Immature Granulocyte % (Auto) 0.5 % Immature Granulocyte # (Auto) 0.06 K/uL (0.00-0.02) Anion Gap 8.0 mmol/L (3-11) Est Creatinine Clear Calc Drug Dose 29.1 ml/min Estimated GFR () 38.7 Estimated GFR (Non- 33.4 BUN/Creatinine Ratio 14.1 (10-20) Calcium Level 9.4 mg/dl (8.5-10.1) Total Bilirubin 0.3 mg/dl (0.2-1) Direct Bilirubin < 0.1 mg/dl (0-0.2) Aspartate Amino Transf (AST/SGOT) 20 U/L (15-37) Alanine Aminotransferase (ALT/SGPT) 28 U/L (12-78) Alkaline Phosphatase 137 U/L (45-117) Total Protein 7.9 gm/dl (6.4-8.2) Albumin 3.8 gm/dl (3.4-5.0) Lipase 84 U/L (73-393) Laboratory results as reviewed by me. Medications Administered Medications (Trade) Dose Ordered Sig/Ravinder Route Start Time Stop Time Status Last Admin Dose Admin Morphine Sulfate (MoRPHine SULFATE INJ) 4 mg ONE STAT IV 01/07/18 21:30 01/07/18 21:32 DC 01/07/18 22:25 4 MG Ondansetron HCl (Zofran Inj) 4 mg NOW STAT IV 01/07/18 21:30 01/07/18 21:32 DC 01/07/18 22:25 4 MG Morphine Sulfate (MoRPHine SULFATE INJ) 2 mg NOW STAT IV 01/07/18 23:18 01/07/18 23:19 DC 01/07/18 23:33 2 MG ED Course 2124: The patient was evaluated in room A2. A complete history and physical exam was performed. 2129: Ordered Zofran 4 mg IV and Morphine Sulfate 4 mg IV 5: I reassessed the patient at this time. She is and resting comfortably, though is still in pain. I discussed the results and treatment plan with the patient. I answered all pertaining questions that she had. She expressed understanding and verbalized agreement. The patient will be further evaluated. 7: I spoke with Dr. Nesbitt, hospitalist resident. We discussed the patient' s case. The patient will be evaluated by the [facility] for further management. 8: Ordered Morphine Sulfate 4 mg IV Medical Decision This is an 82-year-old female presents with abdominal pain. Differential diagnosis includes small bowel obstruction, partial bowel obstruction, incarcerated hernia, ileus, colitis. I did perform a limited focused review of portions of the patient's old chart on the electronic medical record. The patient has had no recent pertinent visits to this hospital. I did evaluate the patient as noted above. IV access was established. I did treat patient with IV morphine and Zofran. I did order and review the patient's blood work as noted in the electronic medical record. Her white blood cell count is mildly elevated. Creatinine is also slightly elevated. I did order a CT of the abdomen and pelvis. I did review the images myself as well as the radiology report as described above. She does have a small bowel obstruction suspected to be at the at the level of the lowest ventral hernia. I did discuss the test results with the patient. She did have additional pain and was given morphine 2 mg IV. I also ordered an NG tube. I did discuss case with Dr. Nesbitt and Dr. Garrett. She was admitted to the hospital. Medication Reconcilliation Current Medication List: was personally reviewed by me Blood Pressure Screening Patient's blood pressure: Elevated blood pressure Blood pressure disposition: Referred to PCP Consults Time Called: 2316 Consulting Physician: Dr. Nesbitt, hospitalist resident I spoke with Dr. Nesbitt, hospitalist resident. We discussed the patient's case. The patient will be evaluated by the [facility] for further management. Impression Primary Impression: SBO (small bowel obstruction) Additional Impression: Ventral hernia Scribe Attestation The scribe's documentation has been prepared under my direct and personally reviewed by me in its entirety. I confirm that the note above accurately reflects all work, treatment, procedures, and medical decision making performed by me. Departure Information Dispostion Being Evaluated By Hospitalist Referrals Scott Beauchamp M.D. (PCP) Patient Instructions My [facility] Problem Qualifiers Additional Impression: Ventral hernia Obstruction and gangrene presence: with obstruction but without gangrene Qualified Codes: K43.6 - Other and unspecified ventral hernia with obstruction , without gangrene
[2018-01-08 00:26] VITALS: BP 167/98; PULSE 81; TEMP 36.4; O2SAT 94; Ht 160 cm; Wt 72.6 kg
[2018-01-08] MEDS ORDERED: ALBUT/IPRATROP 3MG/0.5MG NEB 3 ML VIAL INH PRN (00:30)
[2018-01-08] MEDS ORDERED: MoRPHine SULFATE 4 MG/ML 1 ML CARP\\VIAL IV PRN (00:30)
[2018-01-08] MEDS ORDERED: PIPERACILL/TAZOBAC CONSULT ACTIVE PRN (00:30)
[2018-01-08] MEDS ORDERED: NITROGLYCERIN 0.4 MG SL PER TAB CHARGE SL PRN (00:30)
[2018-01-08] MEDS ORDERED: ACETAMINOPHEN IV 100 ML IV PRN (00:30)
[2018-01-08 01:22] VITALS: BP 159/93; PULSE 84; TEMP 36.5; O2SAT 94
[2018-01-08] MEDS: MoRPHine SULFATE 2 MG/ML CARP IV PRN ×3 (01:26→09:08)
[2018-01-08] MEDS: SODIUM CHLORIDE 0.9% 1000ML 1,000 ML IV SCH ×3 (01:26→21:44)
[2018-01-08] MEDS ORDERED: PIPERACILL/TAZOBAC IV 3.375 GM in DEXTROSE 5% 100ML IV ONE (01:30)
[2018-01-08] MEDS: ONDANSETRON 8MG OD TAB PO PRN ×2 (01:48→09:02)
[2018-01-08 01:50] VITALS: BP 145/81
--- NOTE | 2018-01-08 02:31 | History and Physical ---
History & Physical Date & Time of Service: Jan 08, 2018 at 02:20 Chief Complaint: Sbo, Ventral Hernia Primary Care Physician: David Cazares M.D. History of Present Illness Source: patient, family The patient is an 82-year-old female who presents to the emergency department with persistent generalized abdominal pain that began at 4 PM this afternoon prior to arrival. She has a history of a Whipple procedure, and multiple abdominal wall hernias. She reports that her abdomen is more distended than usual, has had some mild nausea, and reports that her symptoms are similar to previous small bowel obstructions. 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 (4) Acute abdominal pain (5) Acute chest pain (6) Acute coronary syndrome (7) Acute renal failure (8) Acute renal failure (9) Acute renal failure (ARF) (10) Acute urinary retention (11) Atrial Fibrillation (12) Chest pain, rule out acute myocardial infarction (13) Hyperlipidemia (14) Hypertension (15) Incisional Hernia (16) NSTEMI (non-ST elevated myocardial infarction) (17) pancreatic cancer (18) Partial small bowel obstruction (19) Partial small bowel obstruction (20) Partial small bowel obstruction (21) Pelvic fluid collection (22) Reflux Esophagitis (23) SBO (small bowel obstruction) (24) Small bowel obstruction (25) whipple surgery Surgical Problems: (1) H/O: hysterectomy (2) Hx of appendectomy Family History Lung disease Social History Smoking Status: Never Smoker Smokeless Tobacco Use: No Alcohol Use: none Drug Use: none Marital Status: Housing status: lives with family Immunizations History of Influenza Vaccine: N/A Influenza Vaccine Date: Jun 27, 2012 History of Tetanus Vaccine?: Unknown History of Pneumococcal: Yes Pneumococcal Date: Apr 28, 2011 History of Hepatitis B Vaccine: Unknown Allergies Coded Allergies: No Known Allergies (Verified , 03/03/17) Home Medications Scheduled Amlodipine (Norvasc), 5 MG PO HS Aspirin (Aspirin 81), 81 MG PO DAILY Atorvastatin (Lipitor), 20 MG PO HS Clopidogrel Bisulfate (Clopidogrel), 75 MG PO QAM Levothyroxine Sodium (Levothyroxine Sodium), 75 MCG PO DAILY Lisinopril (Lisinopril), 20 MG PO QAM Metoprolol Tartrate (Lopressor), 25 MG PO BID [place]-3 Fatty Acids (Fish Oil), 1,000 MG PO DAILY Pantoprazole Sodium (Protonix), 40 MG PO DAILY Polyethylene Glycol 3350 (Miralax), 17 GM PO DAILY Tiotropium [place] (Spiriva Handihaler), 1 CAP INH DAILY Scheduled PRN Nitroglycerin (Nitrostat), 0.4 MG SL UD PRN for Chest Pain Review of Systems The patient denies chest pain, palpitations, shortness of breath, dyspnea on exertion, cough, lower extremity swelling, sore throat, fevers, chills, sweats, vomiting, diarrhea, blood in urine or stool , dysuria, urinary frequency or urgency, lightheadedness, dizziness, headache, memory loss, loss of consciousness, rash, abnormal bruising or bleeding, imbalance, focal or generalized weakness, numbness or tingling in arms or legs, generalized arthralgias or myalgias, back or neck pain, or night sweats. The review of systems is otherwise negative other than for that already noted above, and at least 10 systems have been reviewed. Physical Exam Vital Signs Date Time Temp Pulse Resp B/P (MAP) Pulse Ox O2 Delivery O2 Flow Rate FiO2 01/08/18 01:50 145/81 (102) 01/08/18 01:30 Room Air 01/08/18 01:22 36.5 84 18 159/93 (115) 94 Room Air 01/08/18 00:58 80 20 131/76 95 01/08/18 00:26 36.4 81 21 167/98 94 Room Air 01/07/18 22:56 79 18 153/83 94 Room Air 01/07/18 22:23 74 16 163/97 94 Room Air 01/07/18 21:51 73 01/07/18 21:10 68 18 92 Room Air The patient is awake, alert and oriented 3, well developed and well nourished, normocephalic and atraumatic, lying in bed and in no acute distress. HEENT--PERRL, EOMI, mucous membranes and oropharynx dry. Neck--supple. No JVD. No bruits. Thyroid normal, trachea midline, no adenopathy. Heart--irregularly irregular, no murmurs, rubs or gallops. Lungs--clear bilaterally, no respiratory distress, no accessory muscle use. Abdomen--normal bowel sounds and soft. Nontender. Mildly distended, multiple hernias noted. Extremities--no cyanosis or clubbing. No edema. There are good distal pulses b/ l. Dermatologic--normal skin turgor, normal color, no abnormal lymph nodes, no rash. Neurologic--cranial nerves II through XII grossly intact. Rheumatologic--normal range of motion. Psychiatric--normal affect. Diagnostics Laboratory Results Results Past 24 Hours Test 01/07/18 20:07 Range/Units White Blood Count 13.12 4.8-10.8 K/uL Red Blood Count 5.02 4.2-5.4 M/uL Hemoglobin 13.9 12.0-16.0 g/dL Hematocrit 42.3 37-47 % Mean Corpuscular Volume 84.3 80-100 fL Mean Corpuscular Hemoglobin 27.7 25-34 pg Mean Corpuscular Hemoglobin Concent 32.9 32-36 g/dl Platelet Count 409 130-400 K/uL Mean Platelet Volume 8.7 7.4-10.4 fL Neutrophils (%) (Auto) 81.9 % Lymphocytes (%) (Auto) 10.2 % Monocytes (%) (Auto) 6.5 % Eosinophils (%) (Auto) 0.5 % Basophils (%) (Auto) 0.4 % Neutrophils # (Auto) 10.75 1.4-6.5 K/uL Lymphocytes # (Auto) 1.34 1.2-3.4 K/uL Monocytes # (Auto) 0.85 0.11-0.59 K/uL Eosinophils # (Auto) 0.07 0-0.5 K/uL Basophils # (Auto) 0.05 0-0.2 K/uL RDW Standard Deviation 44.7 36.4-46.3 fL RDW Coefficient of Variation 14.7 11.5-14.5 % Immature Granulocyte % (Auto) 0.5 % Immature Granulocyte # (Auto) 0.06 0.00-0.02 K/uL Sodium Level 141 136-145 mmol/L Potassium Level 4.6 3.5-5.1 mmol/L Chloride Level 105 98-107 mmol/L Carbon Dioxide Level 27 21-32 mmol/L Anion Gap 8.0 3-11 mmol/L Blood Urea Nitrogen 21 7-18 mg/dl Creatinine 1.47 0.60-1.20 mg/dl Est Creatinine Clear Calc Drug Dose 29.1 ml/min Estimated GFR () 38.7 Estimated GFR (Non- 33.4 BUN/Creatinine Ratio 14.1 10-20 Random Glucose 157 70-99 mg/dl Calcium Level 9.4 8.5-10.1 mg/dl Total Bilirubin 0.3 0.2-1 mg/dl Direct Bilirubin < 0.1 0-0.2 mg/dl Aspartate Amino Transf (AST/SGOT) 20 15-37 U/L Alanine Aminotransferase (ALT/SGPT) 28 12-78 U/L Alkaline Phosphatase 137 45-117 U/L Total Protein 7.9 6.4-8.2 gm/dl Albumin 3.8 3.4-5.0 gm/dl Lipase 84 73-393 U/L Diagnostic Radiology Patient Name: REED JACINTO Unit Number: [id number] Dictated: 01/07/182255 Transcribed: 01/07/182255 PBS Printed Date/Time: [~ rep prt dt]/[~ rep prt tm] [~ rep ct labl] - [~ rep ct ivnm] [facility] [place] [address] Dictated: 01/07/182255 Transcribed: 01/07/182255 PBS Printed Date/Time: [~ rep prt dt]/[~ rep prt tm] [~ rep ct labl] - [~ rep ct ivnm] [~ rep ct add3]] ABD/PELVIS NO IV OR ORAL CONT CLINICAL HISTORY: 82 years-old Female presenting with distention eval for obstruction. TECHNIQUE: Multidetector CT of the abdomen and pelvis was performed without the use of intravenous contrast. IV contrast: None. A dose lowering technique was used consistent with the principles of ALARA (as low as reasonably achievable). COMPARISON: 08/17/2015. CT DOSE (mGy.cm): The estimated cumulative dose is 527.67 mGy.cm. FINDINGS: Help Desk Specialist topogram: Unremarkable. Lung bases: Trace emphysema. Normal heart size. Coronary artery and aortic valve calcification. No pericardial or pleural effusion. Liver: Normal morphology. Density consistent with hepatic steatosis. Biliary: No gross biliary ductal dilatation allowing for noncontrast technique. Pneumobilia noted, which is chronic. Postsurgical changes of hepaticojejunostomy. Gallbladder surgically absent. Pancreas: Postsurgical changes of Whipple procedure with pancreaticojejunostomy. Spleen: Numerous punctate foci of calcification likely indicate prior granulomatous infection. Adrenal glands: The low density 2.4 cm nodule in the left adrenal gland consistent with benign adenoma. Multiple smaller benign adenomas also noted in the left adrenal gland, unchanged. Right adrenal gland normal. Kidneys and ureters: 2 nonobstructing calculi noted in the right kidney, the largest measuring 3 mm in the interpolar region. No left renal calculi. Several hypodensities in the right kidney indeterminate but likely cysts. Multiple parapelvic cysts noted on the left. No left hydronephrosis. Ureters normal. Bladder: Normal. Pelvic organs: Uterus surgically absent. No adnexal masses. Bowel: Diverticulosis of the sigmoid colon. The appendix is not visualized. The distal small bowel is decompressed. Proximal small bowel is dilated with a smooth transition to less dilated caliber towards the antecolic gastrojejunostomy. Small bowel anastomoses are patent. Mild distention of the pancreaticobiliary limb. Small bowel contained within 4 separate ventral hernias a transition point. Is suspected at the left inferior most ventral hernia (series 3 image 317). No pneumatosis. Large hiatal hernia. Peritoneal cavity: No free fluid or intraperitoneal gas. Lymph nodes: No gross lymphadenopathy allowing for noncontrast technique. Vasculature: Atherosclerosis of the normal caliber abdominal aorta. Abdominal wall: 4 separate ventral hernias are noted, each containing loops of small bowel. An obstruction is suspected at the left inferior most hernia. Musculoskeletal: Degenerative changes of the spine. Bilateral pars defects of L5 with grade 2 anterolisthesis of L5 on S1. IMPRESSION: 1. Findings consistent with small bowel obstruction suspected to be at the level of the inferior most ventral hernia sac. No free air or pneumatosis. 2. Postsurgical changes of Whipple procedure. Abnormal distention of the pancreaticobiliary limb as a consequence of small bowel obstruction. 3. Large hilar hernia. 4. Right renal calculi, which are nonobstructing. Electronically signed by: Derrick Lema M.D. 01/07/2018 11:08 PM Dictated Date/Time: 01/07/2018 10:56 PM The status of this report is Signed. Draft = Not yet reviewed or approved by Radiologist. Signed = Reviewed and approved by Radiologist. <AttendingPhy></AttendingPhy> <FamilyPhy>Scott Beauchamp M.D.</FamilyPhy> < PrimaryPhy>Scott Beauchamp M.D.</PrimaryPhy> <UnitNumber>[id number]</UnitNumber> < VisitNumber>[id number]</VisitNumber> <PatientName>REED JACINTO</ PatientName> <DateOfBirth>1935</DateOfBirth> <Location>[facility]</Location> < ServiceDate>01/07/18</ServiceDate> <MNE>ESINDI</MNE> <OrderingPhy>Ike De Guzman MD</OrderingPhy> <OrderingPhyMNE>f rep ord dr mo</OrderingPhyMNE> < DictatingPhyMNE>f rep dict dr mo</DictatingPhyMNE> <CCListMNE>f rep ct mne</ CCListMNE> <AdmittingPhyMNE>f pt admit dr mo</AdmittingPhyMNE> <AttendingPhyMNE >f pt attend dr mo</AttendingPhyMNE> <ConsultingPhyMNE>f pt consult dr mo</ConsultingPhyMNE> <FamilyPhyMNE>f pt fam dr mo</FamilyPhyMNE> <OtherPhyMNE>f pt other dr mo</OtherPhyMNE> < PrimaryPhyMNE>f pt prim care dr mo</PrimaryPhyMNE> <ReferringPhyMNE>f pt referring dr mo</ReferringPhyMNE> EKG EKG shows rate controlled atrial fibrillation, with chronic nonspecific ST-T changes unchanged from previous. Impression Assessment and Plan Recurrent small bowel obstruction/history Whipple surgery-- Admit to medical surgical floor. N.p.o. Patient prefers no NG tube at this time due to previous issues with difficulty inserting. Zofran 4 mg IV every 6 hours as needed Zosyn 3.375 mg IV every 8 hours. Pantoprazole 40 mg IV daily. Morphine sulfate 2-4 mg IV every 2 hours as needed severe pain. NSS at 100 mils per hour. Atrial fibrillation/hypertension-- Hold amlodipine, aspirin, clopidogrel, lisinopril. Continue metoprolol tartrate 25 mg p.o. twice daily with hold parameters. Hypothyroidism-- Continue levothyroxine 75 mcg p.o. daily. Hyperlipidemia-- Hold atorvastatin 20 mg at bedtime. Advanced Directives Existing Living Will: No Existing Power of Busher Helper: No Resuscitation Status VTE Prophylaxis Will order VTE Prophylaxis: Yes
[2018-01-08] MEDS ORDERED: ONDANSETRON INJ 2 MG/ML 2 ML VIAL IV STA (04:31)
[2018-01-08] MEDS ORDERED: PIPERACILL/TAZOBAC IV 3.375 GM in DEXTROSE 5% 100ML IV SCH (06:00)
[2018-01-08] MEDS ORDERED: PIPERACILL/TAZOBAC IV 3.375 GM in DEXTROSE 5% 100ML 100 ML IV SCH (06:00)
[2018-01-08 07:22] LABS: INR 0.9 (0.9-1.1)
[2018-01-08 07:34] VITALS: BP 134/85; PULSE 87; TEMP 36.4; O2SAT 94
--- NOTE | 2018-01-08 08:11 | Progress Note ---
Progress Note Date of Service Jan 08, 2018. (Cynthia Archibald MD) Progress Note S: Patient admitted to SBO. h/o of whipple procedure. Reports pain is better. No further nausea/vomiting. Did have a small BM this morning O: Vitals Stable General: awake, alert, no acute distress Heart: RRR, S1S2 present Lungs: CTAB, no wheezing, rales or ronchi Abd: Bowel sounds hypoactive, Mildly diffuse tenderness, Multiple abdominal hernias(soft) ext: No edema A/P 82 y/o F admitted for SBO. Keep NPO. Declines NG tube. Continue Zosyn 3.375 mg, Pain control. Attempt clears later today if asymptomatic h/o Afib- amlodipine, aspirin, clopidogrel, lisinopril held. Continue metoprolol PILI- cr. 1.4, IVF fluids, recheck bmp AM Hypothyroid- Continue Levothyroxine Hyperlipidemia- atorvastatin held (Cynthia Archibald MD) Resident Physician Supervision Note: I interviewed and examined the patient. Discussed with Dr. Archibald and agree with findings and plan as documented in the note. Any exceptions or clarifications are listed here: None Documented By: Mino Crockett feeling better less pain but still nausea w mouth sponge abd soft mild distntion multiple SOFT hernias, mild diffuse tender no guarding no rebound SBO - likley adhesional, no surgical indications. appearing to slowly improve - continue supportive care today (Mino Crockett, D.O.)
[2018-01-08] MEDS: TIOTROPIUM BROMIDE 5 PUFF/90 MCG INH INH SCH (09:01)
[2018-01-08] MEDS: HEPARIN SOD 5000 UNIT/0.5 ML CARP SQ SCH ×2 (09:12→20:33)
[2018-01-08] MEDS: PANTOprazole INJ 40 MG in SYRINGE 0 ML IV SCH (11:00)
[2018-01-08 15:14] VITALS: BP 128/74; PULSE 84; TEMP 36.5; O2SAT 94
[2018-01-08] MEDS: ACETAMINOPHEN 325 MG TAB PO PRN (20:31)
[2018-01-08 23:05] VITALS: BP 169/83; PULSE 89; TEMP 36.4; O2SAT 94
[2018-01-08] MEDS ORDERED: METOPROLOL TARTRATE 1 MG/ML VIAL IV STA (23:50)
[2018-01-09] VITALS (7 sets, daily range): BP systolic 144–174; BP diastolic 72–98; PULSE 69–81; TEMP 36.6–36.8; O2SAT 90–94
[2018-01-09] MEDS ORDERED: METOPROLOL TARTRATE 25 MG TAB PO ONE
[2018-01-09] MEDS: MoRPHine SULFATE 2 MG/ML CARP IV PRN ×2 (01:18→07:32)
[2018-01-09] MEDS: ACETAMINOPHEN 325 MG TAB PO PRN (05:37)
[2018-01-09 07:12] LABS: BASO % 0.2 %; BASO ABS # 0.01 K/uL (0-0.2); EOS % 2.2 %; EOS ABS # 0.13 K/uL (0-0.5); HEMATOCRIT 36.1 % (37-47); HEMOGLOBIN 11.2 g/dL (12.0-16.0); IG# 0.02 K/uL (0.00-0.02); LYMPH % 20.1 %; LYMPH ABS # 1.17 K/uL (1.2-3.4); MEAN CELL VOLUME 86.4 fL (80-100); MEAN CORPUSCULAR HEMOGLOBIN 26.8 pg (25-34); MEAN PLATELET VOLUME 8.5 fL (7.4-10.4); MONO % 10.6 %; MONO ABS # 0.62 K/uL (0.11-0.59); NEUT % 66.6 %; NEUT ABS # 3.88 K/uL (1.4-6.5); PLATELET COUNT 313 K/uL (130-400); RED CELL DISTRIBUTION WIDTH SD 47.2 fL (36.4-46.3); WHITE BLOOD COUNT 5.83 K/uL (4.8-10.8)
[2018-01-09] MEDS: SODIUM CHLORIDE 0.9% 1000ML 1,000 ML IV SCH ×2 (07:32→17:35)
[2018-01-09] MEDS: ONDANSETRON 8MG OD TAB PO PRN ×2 (07:46→19:14)
[2018-01-09 08:01] LABS: CREATININE 0.8 mg/dl (0.60-1.20); POTASSIUM 3.9 mmol/L (3.5-5.1)
[2018-01-09] MEDS: TIOTROPIUM BROMIDE 5 PUFF/90 MCG INH INH SCH (08:35)
[2018-01-09] MEDS: HEPARIN SOD 5000 UNIT/0.5 ML CARP SQ SCH ×2 (08:37→20:30)
[2018-01-09] MEDS: PANTOprazole INJ 40 MG in SYRINGE 0 ML IV SCH (10:51)
--- NOTE | 2018-01-09 13:35 | Family Medicine Progress Note ---
Progress Note Date of Service Jan 09, 2018. Subjective Pt evaluation today including: conversation w/ patient Pain: controlled Voiding: no voiding problems, no incontinence Reports abdominal is minimal, feeling better overall. Tolerated sips of water last night Constitutional: No fever, No chills Eyes: No worsening of vision ENT: No hearing loss Respiratory: No cough, No sputum, No wheezing, No shortness of breath, No dyspnea on exertion Cardiovascular: No chest pain Abdomen: + pain, No nausea, No vomiting, No diarrhea, No constipation Musculoskeletal: No joint pain Female : No dysuria Medications Medications (Trade) Dose Ordered Sig/Ravinder Route Start Time Stop Time Status Last Admin Dose Admin Metoprolol Tartrate (Lopressor Tab) 25 mg NOW ONCE PO 01/09/18 00:00 01/09/18 00:01 DC 01/09/18 00:04 25 MG Objective Vital Signs Date Time Temp Pulse Resp B/P (MAP) Pulse Ox O2 Delivery O2 Flow Rate FiO2 01/09/18 08:02 Room Air 01/09/18 07:21 36.6 69 18 173/78 (109) 90 Room Air 01/09/18 02:41 75 156/81 (106) 01/09/18 00:44 81 166/81 (109) 01/08/18 23:25 Room Air 01/08/18 23:05 36.4 89 18 169/83 (111) 94 Room Air 01/08/18 15:14 36.5 84 17 128/74 (92) 94 01/08/18 15:10 Room Air Physical Exam General Appearance: no apparent distress Eyes: PERRL, EOMI ENT: hearing grossly normal Neck: supple Respiratory/Chest: lungs clear, normal breath sounds, no respiratory distress, no accessory muscle use Cardiovascular: regular rate, rhythm, no murmur Abdomen: non tender, soft, + abnormal bowel sounds (hypoactive), + pertinent finding (multiple abdominal hernias, soft) Extremities: non-tender, normal inspection, no pedal edema, no calf tenderness Neurologic/Psychiatric: no motor/sensory deficits, alert, normal mood/affect Laboratory Results Last 24 Hours Test 01/09/18 06:56 White Blood Count 5.83 K/uL Red Blood Count 4.18 M/uL Hemoglobin 11.2 g/dL Hematocrit 36.1 % Mean Corpuscular Volume 86.4 fL Mean Corpuscular Hemoglobin 26.8 pg Mean Corpuscular Hemoglobin Concent 31.0 g/dl Platelet Count 313 K/uL Mean Platelet Volume 8.5 fL Neutrophils (%) (Auto) 66.6 % Lymphocytes (%) (Auto) 20.1 % Monocytes (%) (Auto) 10.6 % Eosinophils (%) (Auto) 2.2 % Basophils (%) (Auto) 0.2 % Neutrophils # (Auto) 3.88 K/uL Lymphocytes # (Auto) 1.17 K/uL Monocytes # (Auto) 0.62 K/uL Eosinophils # (Auto) 0.13 K/uL Basophils # (Auto) 0.01 K/uL RDW Standard Deviation 47.2 fL RDW Coefficient of Variation 15.0 % Immature Granulocyte % (Auto) 0.3 % Immature Granulocyte # (Auto) 0.02 K/uL Sodium Level 143 mmol/L Potassium Level 3.9 mmol/L Chloride Level 110 mmol/L Carbon Dioxide Level 30 mmol/L Anion Gap 3.0 mmol/L Blood Urea Nitrogen 18 mg/dl Creatinine 0.80 mg/dl Est Creatinine Clear Calc Drug Dose 53.5 ml/min Estimated GFR () 80.7 Estimated GFR (Non- 69.6 BUN/Creatinine Ratio 22.3 Random Glucose 101 mg/dl Calcium Level 8.0 mg/dl Assessment and Plan 82 y/o F admitted for SBO. with h/o whipple procedure Declines NG tube. Continue Zosyn 3.375 mg, Pain control. Supportive care Tolerating clears; advance to fill liquid- advance slowly h/o Afib- restart amlodipine, aspirin, clopidogrel, lisinopril. Continue metoprolol PILI- resolved. Continue IV fluids until Better PO intake Hypothyroid- Continue Levothyroxine Hyperlipidemia- restart atorvastatin DVT proph: Heparin Code:FULL Resident Physician Supervision Note: I interviewed and examined the patient. Discussed with Dr. Archibald and agree with findings and plan as documented in the note. Any exceptions or clarifications are listed here: None Documented By: Mino Crockett feeling better less pain tolerating clears without nausea, no further vomiting abd soft mild distention multiple SOFT hernias, mild diffuse tender no guarding no rebound SBO - likely adhesional, no surgical indications. ongoing improvement - continue supportive care and advance diet. otherwise as above
[2018-01-09] MEDS: ATORVASTATIN 20 MG TAB PO SCH (20:27)
[2018-01-09] MEDS: AMLODIPINE BESYLATE 5 MG TAB PO SCH (20:27)
[2018-01-10] MEDS: SODIUM CHLORIDE 0.9% 1000ML 1,000 ML IV SCH (03:23)
[2018-01-10] MEDS: LEVOTHYROXINE 75 MCG TAB PO SCH (05:44)
[2018-01-10 06:29] LABS: BASO % 0.2 %; BASO ABS # 0.01 K/uL (0-0.2); EOS ABS # 0.16 K/uL (0-0.5); HEMATOCRIT 32.7 % (37-47); HEMOGLOBIN 10.6 g/dL (12.0-16.0); IG# 0.03 K/uL (0.00-0.02); LYMPH % 27.2 %; LYMPH ABS # 1.43 K/uL (1.2-3.4); MEAN CELL VOLUME 84.3 fL (80-100); MEAN CORPUSCULAR HEMOGLOBIN 27.3 pg (25-34); MEAN CORPUSCULAR HGB CONC 32.4 g/dl (32-36); MEAN PLATELET VOLUME 8.3 fL (7.4-10.4); MONO % 9.5 %; NEUT % 59.5 %; NEUT ABS # 3.13 K/uL (1.4-6.5); PLATELET COUNT 308 K/uL (130-400); RED CELL DISTRIBUTION WIDTH CV 14.6 % (11.5-14.5); RED CELL DISTRIBUTION WIDTH SD 45.1 fL (36.4-46.3); WHITE BLOOD COUNT 5.26 K/uL (4.8-10.8)
[2018-01-10 07:10] LABS: CALCIUM 8.5 mg/dl (8.5-10.1); CREATININE 0.72 mg/dl (0.60-1.20); POTASSIUM 3.4 mmol/L (3.5-5.1)
[2018-01-10 07:31] VITALS: BP 163/80; PULSE 80; TEMP 36.2; O2SAT 92
[2018-01-10 07:48] VITALS: O2SAT 92
--- NOTE | 2018-01-10 08:18 | Family Medicine Progress Note ---
Progress Note Date of Service Jan 10, 2018. Subjective Pt evaluation today including: conversation w/ patient, physical exam, chart review, lab review, review of studies, review of inpatient medication list Pain: denies PO Intake: adequate Voiding: no voiding problems Overnight, patient experiences some nausea. Advancement of diet delayed Patient on full liquids at this time. No abdominal pain, no stools yet. + flatus Constitutional: No fever, No chills, No weakness Respiratory: No cough, No sputum, No shortness of breath Cardiovascular: No chest pain, No palpitations Abdomen: + nausea, + vomiting, No pain Female : No dysuria, No urinary frequency, No hematuria Heme: No abnormal bleeding/bruising, No clotting problems Skin: No rash, No itch Medications Medications Administered Medications (Trade) Dose Ordered Sig/Ravinder Route Start Time Stop Time Status Last Admin Dose Admin Morphine Sulfate (MoRPHine SULFATE INJ) 4 mg ONE STAT IV 01/07/18 21:30 01/07/18 21:32 DC 01/07/18 22:25 4 MG Ondansetron HCl (Zofran Inj) 4 mg NOW STAT IV 01/07/18 21:30 01/07/18 21:32 DC 01/07/18 22:25 4 MG Morphine Sulfate (MoRPHine SULFATE INJ) 2 mg NOW STAT IV 01/07/18 23:18 01/07/18 23:19 DC 01/07/18 23:33 2 MG Tiotropium [place] (Spiriva Handihaler Inhaler) 1 puff DAILY INH 01/08/18 09:00 01/11/18 11:32 DC 01/11/18 08:33 1 PUFF Acetaminophen (Tylenol Tab) 650 mg Q4H PRN PO 01/08/18 00:30 01/11/18 11:32 DC 01/09/18 05:37 650 MG Heparin Sodium (Porcine) (Heparin Sq 5000 Unit/0.5ml) 5,000 unit Q12H SQ 01/08/18 09:00 01/11/18 11:32 DC 01/11/18 08:37 5,000 UNIT Ondansetron HCl (Zofran Odt) 8 mg Q6H PRN PO 01/08/18 00:30 01/11/18 11:32 DC 01/09/18 19:14 8 MG Pantoprazole Sodium 40 mg/ Syringe 10 ml @ 5 mls/min DAILY@11 IV 01/08/18 11:00 01/10/18 15:04 DC 01/10/18 11:10 5 MLS/MIN Morphine Sulfate (MoRPHine SULFATE INJ) 2 mg Q2H PRN IV 01/08/18 00:30 01/11/18 11:33 DC 01/09/18 07:32 2 MG Sodium Chloride 1,000 ml @ 100 mls/hr Q10H IV 01/08/18 02:00 01/10/18 10:54 DC 01/10/18 03:23 100 MLS/HR Piperacillin Sod/ Tazobactam Sod 3.375 gm/Dextrose 115 ml @ 230 mls/hr NOW ONCE IV 01/08/18 01:30 01/08/18 01:59 DC 01/08/18 01:47 230 MLS/HR Piperacillin Sod/ Tazobactam Sod 3.375 gm/Dextrose 115 ml @ 28.75 mls/ hr Q8 IV 01/08/18 06:00 01/08/18 08:25 DC 01/08/18 05:35 28.75 MLS/HR Ondansetron HCl (Zofran Inj) 4 mg NOW STAT IV 01/08/18 04:31 01/08/18 04:32 DC 01/08/18 04:34 4 MG Metoprolol Tartrate (Lopressor Tab) 25 mg NOW ONCE PO 01/09/18 00:00 01/09/18 00:01 DC 01/09/18 00:04 25 MG Amlodipine Besylate (Norvasc Tab) 5 mg HS PO 01/09/18 21:00 01/11/18 11:33 DC 01/10/18 22:23 5 MG Aspirin (Ecotrin Tab) 81 mg DAILY PO 01/10/18 09:00 01/11/18 11:33 DC 01/11/18 08:32 81 MG Atorvastatin Calcium (Lipitor Tab) 20 mg HS PO 01/09/18 21:00 01/11/18 11:33 DC 01/10/18 22:22 20 MG Clopidogrel Bisulfate (plAVix TAB) 75 mg QAM PO 01/10/18 09:00 01/11/18 11:33 DC 01/11/18 08:32 75 MG Levothyroxine Sodium (Synthroid Tab) 75 mcg DAILYBB PO 01/10/18 06:00 01/11/18 11:33 DC 01/11/18 05:28 75 MCG Lisinopril (Zestril Tab) 20 mg QAM PO 01/10/18 09:00 01/11/18 11:33 DC 01/11/18 08:32 20 MG Potassium Chloride (Klor-Con Tab) 40 meq NOW STAT PO 01/10/18 08:33 01/10/18 08:34 DC 01/10/18 08:55 40 MEQ Pantoprazole Sodium (Protonix Tab) 40 mg QAM PO 01/11/18 09:00 01/11/18 11:33 DC 01/11/18 08:37 40 MG Objective Vital Signs Date Time Temp Pulse Resp B/P (MAP) Pulse Ox O2 Delivery O2 Flow Rate FiO2 01/10/18 07:48 92 Room Air 01/10/18 07:31 36.2 80 18 163/80 (107) 92 Room Air 01/09/18 23:50 Room Air 01/09/18 23:15 36.7 76 16 144/72 (96) 94 Room Air 01/09/18 21:25 75 174/97 (122) 01/09/18 20:26 71 166/98 (120) 01/09/18 15:45 Room Air 01/09/18 14:56 36.8 71 18 159/79 (105) 94 Room Air Physical Exam General Appearance: WD/WN, no apparent distress Eyes: normal inspection, PERRL, EOMI Neck: supple, no carotid bruits, trachea midline Respiratory/Chest: lungs clear, normal breath sounds, no respiratory distress Cardiovascular: regular rate, rhythm, no murmur Abdomen: normal bowel sounds, soft, + tenderness (epigastric) Extremities: no pedal edema, no calf tenderness Neurologic/Psychiatric: alert, normal mood/affect, oriented x 3 Skin: warm/dry Laboratory Results Results Past 24 Hours Test 01/10/18 06:04 Range/Units White Blood Count 5.26 4.8-10.8 K/uL Red Blood Count 3.88 4.2-5.4 M/uL Hemoglobin 10.6 12.0-16.0 g/dL Hematocrit 32.7 37-47 % Mean Corpuscular Volume 84.3 80-100 fL Mean Corpuscular Hemoglobin 27.3 25-34 pg Mean Corpuscular Hemoglobin Concent 32.4 32-36 g/dl Platelet Count 308 130-400 K/uL Mean Platelet Volume 8.3 7.4-10.4 fL Neutrophils (%) (Auto) 59.5 % Lymphocytes (%) (Auto) 27.2 % Monocytes (%) (Auto) 9.5 % Eosinophils (%) (Auto) 3.0 % Basophils (%) (Auto) 0.2 % Neutrophils # (Auto) 3.13 1.4-6.5 K/uL Lymphocytes # (Auto) 1.43 1.2-3.4 K/uL Monocytes # (Auto) 0.50 0.11-0.59 K/uL Eosinophils # (Auto) 0.16 0-0.5 K/uL Basophils # (Auto) 0.01 0-0.2 K/uL RDW Standard Deviation 45.1 36.4-46.3 fL RDW Coefficient of Variation 14.6 11.5-14.5 % Immature Granulocyte % (Auto) 0.6 % Immature Granulocyte # (Auto) 0.03 0.00-0.02 K/uL Sodium Level 139 136-145 mmol/L Potassium Level 3.4 3.5-5.1 mmol/L Chloride Level 107 98-107 mmol/L Carbon Dioxide Level 24 21-32 mmol/L Anion Gap 8.0 3-11 mmol/L Blood Urea Nitrogen 9 7-18 mg/dl Creatinine 0.72 0.60-1.20 mg/dl Est Creatinine Clear Calc Drug Dose 59.5 ml/min Estimated GFR () 91.7 Estimated GFR (Non- 79.1 BUN/Creatinine Ratio 12.0 10-20 Random Glucose 104 70-99 mg/dl Calcium Level 8.5 8.5-10.1 mg/dl Assessment and Plan 82 yo F with history of previous history of Whipples procedure and multiple subsequent occurrences of SBO presenting with abdominal pain secondary to SBO SBO - abdominal tenderness - KUB ordered to r/o recurrence of SBO PILI Cr wnl Resolved with IV fluids D/C fluids today Hypothyroidism -Synthroid Afib, CAD -rate controlled ASA, metoprolol, Plavix Hypokalemia - given 40 meq K - mild 3.4 K HLD: Statin DVT prophylaxis: Heparin Diet: Advance diet as tolerated Disposition: Home on discharge, prefers no home health on d/c Continued [facility] stay due to: multiple IV medications needed Discharge planning: home Assessment/Plan Resident Physician Supervision Note: I was present with Dr. Chapin during the history and exam. I discussed the case with the resident and agree with the findings and plan as documented in the note. Any exceptions or clarifications are listed here. Pt reports recent single episode of nausea with liquid diet and still persistent decreased appetite but without vomiting or worsening abdominal pain. Still diffuse discomfort most notable at the epigastric region. In agreement with taper IVF and trial of slow dietary advance with encouraged PO hydration between meals and continued monitoring with hope for full diet tolerance tomorrow. Resident Tracking Resident Involvement: Resident Care Provided Care Provided: Adult Hospital Medicine
[2018-01-10] MEDS ORDERED: POTASSIUM CHLORIDE 20 MEQ TABCR PO STA (08:33)
[2018-01-10] MEDS: TIOTROPIUM BROMIDE 5 PUFF/90 MCG INH INH SCH (08:55)
[2018-01-10] MEDS: ASPIRIN 81 MG ECTAB PO SCH (08:55)
[2018-01-10] MEDS: LISINOPRIL 20 MG TAB PO SCH (08:55)
[2018-01-10] MEDS: CLOPIDOGREL BISULFATE 75 MG TAB PO SCH (08:56)
[2018-01-10] MEDS: HEPARIN SOD 5000 UNIT/0.5 ML CARP SQ SCH ×2 (08:58→22:25)
[2018-01-10 09:44] VITALS: BP 152/87; PULSE 78; TEMP 36.5; O2SAT 94
--- NOTE | 2018-01-10 10:42 | DIAGNOSTIC IMAGING REPORT ---
KUB CLINICAL HISTORY: Abdominal pain. Small bowel obstruction. COMPARISON STUDY: CT of the abdomen and pelvis January 07, 2018. FINDINGS: Small bowel dilatation shown on exam of January 07, 2013 has resolved. The bowel gas pattern is within normal limits. IMPRESSION: Resolution of small bowel dilatation. Electronically signed by: Ramon Chowdhury M.D. 01/10/2018 10:40 AM Dictated Date/Time: 01/10/2018 10:39 AM
[2018-01-10] MEDS: PANTOprazole INJ 40 MG in SYRINGE 0 ML IV SCH (11:10)
[2018-01-10 15:24] VITALS: BP 139/82; PULSE 80; TEMP 36.4; O2SAT 93
[2018-01-10] MEDS: ATORVASTATIN 20 MG TAB PO SCH (22:22)
[2018-01-10] MEDS: AMLODIPINE BESYLATE 5 MG TAB PO SCH (22:23)
[2018-01-10 23:05] VITALS: BP 176/91; PULSE 68; TEMP 36.6; O2SAT 92
[2018-01-11 00:15] VITALS: BP 128/72; PULSE 76
[2018-01-11] MEDS: LEVOTHYROXINE 75 MCG TAB PO SCH (05:28)
[2018-01-11 06:59] LABS: BASO % 0.6 %; BASO ABS # 0.03 K/uL (0-0.2); EOS % 3.7 %; EOS ABS # 0.19 K/uL (0-0.5); HEMATOCRIT 34.1 % (37-47); HEMOGLOBIN 11.1 g/dL (12.0-16.0); IG# 0.05 K/uL (0.00-0.02); LYMPH % 26.6 %; LYMPH ABS # 1.35 K/uL (1.2-3.4); MEAN CELL VOLUME 83.8 fL (80-100); MEAN CORPUSCULAR HEMOGLOBIN 27.3 pg (25-34); MEAN CORPUSCULAR HGB CONC 32.6 g/dl (32-36); MONO % 9.3 %; MONO ABS # 0.47 K/uL (0.11-0.59); NEUT % 58.8 %; NEUT ABS # 2.98 K/uL (1.4-6.5); PLATELET COUNT 272 K/uL (130-400); RED CELL DISTRIBUTION WIDTH CV 14.6 % (11.5-14.5); RED CELL DISTRIBUTION WIDTH SD 44.7 fL (36.4-46.3); WHITE BLOOD COUNT 5.07 K/uL (4.8-10.8)
[2018-01-11 07:30] VITALS: BP 153/80; PULSE 73; TEMP 36.6; O2SAT 90
[2018-01-11 07:34] LABS: CALCIUM 8.6 mg/dl (8.5-10.1); CREATININE 0.79 mg/dl (0.60-1.20); POTASSIUM 3.7 mmol/L (3.5-5.1)
--- NOTE | 2018-01-11 07:51 | Family Medicine Progress Note ---
Progress Note Date of Service Jan 11, 2018. Objective Vital Signs Date Time Temp Pulse Resp B/P (MAP) Pulse Ox O2 Delivery O2 Flow Rate FiO2 01/11/18 07:30 36.6 73 18 153/80 (104) 90 Room Air 01/11/18 07:30 Room Air 01/11/18 00:35 Room Air 01/11/18 00:15 76 128/72 (90) 01/10/18 23:05 36.6 68 18 176/91 (119) 92 Room Air 01/10/18 15:50 Room Air 01/10/18 15:24 36.4 80 18 139/82 (101) 93 Room Air 01/10/18 09:44 36.5 78 18 152/87 (108) 94 Room Air Laboratory Results Results Past 24 Hours Test 01/11/18 06:47 Range/Units White Blood Count 5.07 4.8-10.8 K/uL Red Blood Count 4.07 4.2-5.4 M/uL Hemoglobin 11.1 12.0-16.0 g/dL Hematocrit 34.1 37-47 % Mean Corpuscular Volume 83.8 80-100 fL Mean Corpuscular Hemoglobin 27.3 25-34 pg Mean Corpuscular Hemoglobin Concent 32.6 32-36 g/dl Platelet Count 272 130-400 K/uL Mean Platelet Volume 8.0 7.4-10.4 fL Neutrophils (%) (Auto) 58.8 % Lymphocytes (%) (Auto) 26.6 % Monocytes (%) (Auto) 9.3 % Eosinophils (%) (Auto) 3.7 % Basophils (%) (Auto) 0.6 % Neutrophils # (Auto) 2.98 1.4-6.5 K/uL Lymphocytes # (Auto) 1.35 1.2-3.4 K/uL Monocytes # (Auto) 0.47 0.11-0.59 K/uL Eosinophils # (Auto) 0.19 0-0.5 K/uL Basophils # (Auto) 0.03 0-0.2 K/uL RDW Standard Deviation 44.7 36.4-46.3 fL RDW Coefficient of Variation 14.6 11.5-14.5 % Immature Granulocyte % (Auto) 1.0 % Immature Granulocyte # (Auto) 0.05 0.00-0.02 K/uL Sodium Level 139 136-145 mmol/L Potassium Level 3.7 3.5-5.1 mmol/L Chloride Level 106 98-107 mmol/L Carbon Dioxide Level 27 21-32 mmol/L Anion Gap 6.0 3-11 mmol/L Blood Urea Nitrogen 10 7-18 mg/dl Creatinine 0.79 0.60-1.20 mg/dl Est Creatinine Clear Calc Drug Dose 54.2 ml/min Estimated GFR () 81.9 Estimated GFR (Non- 70.7 BUN/Creatinine Ratio 12.3 10-20 Random Glucose 100 70-99 mg/dl Calcium Level 8.6 8.5-10.1 mg/dl
[2018-01-11] MEDS: CLOPIDOGREL BISULFATE 75 MG TAB PO SCH (08:32)
[2018-01-11] MEDS: LISINOPRIL 20 MG TAB PO SCH (08:32)
[2018-01-11] MEDS: ASPIRIN 81 MG ECTAB PO SCH (08:32)
[2018-01-11] MEDS: TIOTROPIUM BROMIDE 5 PUFF/90 MCG INH INH SCH (08:33)
[2018-01-11] MEDS: HEPARIN SOD 5000 UNIT/0.5 ML CARP SQ SCH (08:37)
[2018-01-11] MEDS ORDERED: PANTOprazole SOD 40 MG TAB PO SCH (09:00)
--- NOTE | 2018-01-11 09:28 | Discharge Instructions ---
Discharge Instructions Date of Service Jan 11, 2018. Admission Reason for Admission: Sbo, Ventral Hernia Discharge Discharge Diagnosis / Problem: Small bowel obstruction Discharge Goals Goal(s): Decrease discomfort, Improve function, Increase independence, Diagnostic testing, Prevent Disease Progression Activity Recommendations Activity Limitations: as noted below Lifting Limitations: gradually increase as tolerated Exercise/Sports Limitations: gradually increase as tolerated May Resume Sexual Activity: when tolerated Shower/Bathe: no limitations Driving or Machine Use: no limitations . Instructions / Follow-Up Instructions / Follow-Up Calin Monique were admitted due to abdominal pain and nausea. You were found to have a bowel obstruction. This was managed conservatively. You are tolerating a regular diet and moving your bowels. Please follow up with your PCP within 3-5 days. If you have any worsening of pain, nausea, vomiting, fevers or other concerns, please call your PCP or come back to the ER. Thank you Current Hospital Diet Patient's current hospital diet: Regular Diet Discharge Diet Recommended Diet: Regular Diet ( ) Pending Studies Studies pending at discharge: no Medical Emergencies . Who to Call and When: Medical Emergencies: If at any time you feel your situation is an emergency, please call 911 immediately. . Non-Emergent Contact Non-Emergency issues call your: Primary Care Provider Call Non-Emergent contact if: you have a fever, your pain is worsening . . "Provider Documentation" section prepared by Cynthia Lee. .
[2018-01-11 10:17] VITALS: BP 153/80; PULSE 73; TEMP 36.6; O2SAT 90
--- NOTE | 2018-01-11 17:47 | Family Medicine Progress Note ---
Progress Note Date of Service Jan 11, 2018. Assessment/Plan Pt seen and examined at bedside. Tolerating PO intake well without nausea or abdominal pain. Reports +ve BM overnight. Hydrating well and feeling at baseline. Date Time Temp Pulse Resp B/P (MAP) Pulse Ox O2 Delivery O2 Flow Rate FiO2 01/11/18 10:17 36.6 73 18 90 Room Air 01/11/18 07:30 36.6 73 18 153/80 (104) 90 Room Air 01/11/18 07:30 Room Air 01/11/18 00:35 Room Air 01/11/18 00:15 76 128/72 (90) 01/10/18 23:05 36.6 68 18 176/91 (119) 92 Room Air Gen: AAOx3, NAD CV: S1/S2 nl RRR RESP: CTAB Abd: NT/ND BS +ve For full attending attestation and plan, see discharge summary. At present, SBO sx resolved and tolerating full diet. Stable medically for discharge.
== END 2018-01-11 11:32 | disposition home or self-care (01) | DRG 389 ==
LOC: C.EDB 21:08 → C.MSN 01-08 00:22 → ENRESERV 01-08 00:48
PROVIDERS: ADMIT Hospitalist; ATTEND Family Medicine
DX: K56.50 Intestinal adhesions [bands], unspecified as to partial versus complete obstruction (principal); N17.9 Acute kidney failure, unspecified; E87.6 Hypokalemia; E78.5 Hyperlipidemia, unspecified; I10 Essential (primary) hypertension; I48.91 Unspecified atrial fibrillation; E03.9 Hypothyroidism, unspecified; I25.10 Atherosclerotic heart disease of native coronary artery without angina pectoris; Z79.82 Long term (current) use of aspirin; Z79.899 Other long term (current) drug therapy

== ENCOUNTER → 2018-01-20 | Outpatient (CLI) | payer OTHER | END | disposition home or self-care (01) | LOC: C.LAB1850 11:44 | PROVIDERS: ATTEND Physician Assistant Medical | DX: R39.9 Unspecified symptoms and signs involving the genitourinary system (principal) ==

== ENCOUNTER 2018-02-18 13:33 | Observation (INO) | payer OTHER ==
[~2018-02-18] VITALS: Ht 162.6 cm; Wt 69.8 kg
[2018-02-18 14:16] LABS: MEAN CELL VOLUME 82.1 fL (80-100); MEAN CORPUSCULAR HEMOGLOBIN 27.4 pg (25-34); MEAN CORPUSCULAR HGB CONC 33.3 g/dl (32-36); MEAN PLATELET VOLUME 8.4 fL (7.4-10.4); PLATELET COUNT 421 K/uL (130-400); RED CELL DISTRIBUTION WIDTH CV 14.7 % (11.5-14.5); WHITE BLOOD COUNT 12.41 K/uL (4.8-10.8)
[2018-02-18] MEDS ORDERED: SODIUM CHLORIDE 0.9% 1000ML 1,000 ML IV STA (14:21)
[2018-02-18] MEDS ORDERED: ONDANSETRON INJ 2 MG/ML 2 ML VIAL IV STA (14:21)
--- NOTE | 2018-02-18 14:29 | EMERGENCY ROOM VISIT NOTE ---
History First contact with patient: 14:13 Chief Complaint: FLANK PAIN Stated Complaint: PAIN IN SIDE History of Present Illness The patient is a 82 year old female who presents to the Emergency Room with complaints of right sided abdominal pain. The patient also notes the following associated symptoms, nausea and poor po intake. This started several days ago and is worsening. The patient has found no relieving factors. Pain is an 8/10 and she is requesting analgesia. The patient has a hx of PSBO, and SBO. Pt denies LOC, headache, fevers, chills, diaphoresis, visual changes, neck pain, chest pain, breathing difficulties, vomiting, back pain, melena, hematochezia, urinary symptoms, numbness, weakness, lymphadenopathy, rash, or other complaints. Review of Systems See HPI for pertinent positives and negatives. A total of ten systems were reviewed and were otherwise negative. 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 (2) Atrial Fibrillation (3) Chest pain, rule out acute myocardial infarction (4) Hyperlipidemia (5) Hypertension (6) Incisional Hernia (7) NSTEMI (non-ST elevated myocardial infarction) (8) pancreatic cancer (9) Reflux Esophagitis (10) right ureter stone (11) SBO (small bowel obstruction) (12) Small bowel obstruction (13) whipple surgery Surgical Problems: (1) H/O: hysterectomy (2) Hx of appendectomy (3) S/P repair of ventral hernia Family History Lung disease Social History Smoking Status: Never Smoker Drug Use: none Marital Status: Housing Status: lives with family Current/Historical Medications Scheduled Amlodipine (Norvasc), 5 MG PO HS Aspirin (Aspirin 81), 81 MG PO DAILY Atorvastatin (Lipitor), 20 MG PO HS Cholecalciferol (Vitamin D), 1 TAB PO DAILY Clopidogrel Bisulfate (Clopidogrel), 75 MG PO QAM Levothyroxine Sodium (Levothyroxine Sodium), 75 MCG PO DAILY Lisinopril (Lisinopril), 1 TAB PO DAILY Metoprolol Succinate (Toprol Xl), 50 MG PO DAILY [place]-3 Fatty Acids (Fish Oil), 1,000 MG PO DAILY Pantoprazole Sodium (Protonix), 40 MG PO DAILY Polyethylene Glycol 3350 (Miralax), 17 GM PO DAILY Tiotropium [place] (Spiriva [place]), 1 CAP INH DAILY Scheduled PRN Albuterol Sulfate (Proair Respiclick), 2 PUFFS INH Q4 PRN for Wheezing Nitroglycerin (Nitrostat), 0.4 MG SL UD PRN for Chest Pain Tramadol (Ultram), 50 MG PO Q8H PRN for Pain Physical Exam Vital Signs Date Time Temp Pulse Resp B/P (MAP) Pulse Ox O2 Delivery O2 Flow Rate FiO2 02/18/18 18:00 73 18 148/95 95 02/18/18 17:30 73 18 148/95 95 Room Air 02/18/18 15:23 80 18 164/88 93 Room Air 02/18/18 13:42 36.6 75 18 147/97 97 Room Air Physical Exam GENERAL: Awake, alert, age appropriate-appearing, in mild distress HENT: Normocephalic, atraumatic. Oropharynx unremarkable. EYES: Normal conjunctiva. Sclera non-icteric. NECK: Supple. No nuchal rigidity. FROM. No masses. RESPIRATORY: Clear to auscultation. No wheezes. No rales. Normal respiratory effort. CARDIAC: Normal rate. Normal rhythm. No murmurs. No rubs. Extremities warm and well perfused. Pulses equal. No JVD. GI: Soft, mildly-distended. Right sided tenderness to palpation. No rebound or guarding. No masses. RECTAL: Deferred. MUSCULOSKELETAL: Atraumatic. Chest examination reveals no tenderness. The back is symmetrical on inspection without obvious abnormality. There is no CVA tenderness to palpation. No joint edema. LOWER EXTREMITIES: Calves are equal size bilaterally and non-tender. No edema. No discoloration. NEURO: Normal sensorium. No sensory or motor deficits noted. SKIN: No rash or jaundice noted. Medical Decision & Procedures ER Provider Diagnostic Interpretation: CT OF THE ABDOMEN AND PELVIS WITHOUT CONTRAST CLINICAL HISTORY: Right-sided abdominal pain. Possible bowel obstruction. COMPARISON STUDY: CT of the abdomen and pelvis January 07, 2018 and KUB January 10, 2018. TECHNIQUE: Axial images of the abdomen and pelvis were obtained without IV contrast. Images were reviewed in the axial, sagittal, and coronal planes. A dose lowering technique was utilized adhering to the principles of ALARA. FINDINGS: A large hiatal hernia with partially intrathoracic stomach is noted. Pneumobilia is again noted. A left adrenal adenoma is incidentally noted. There are calcified granulomas within the spleen. Unenhanced images of the right adrenal gland and the left kidney are unremarkable with the exception of left-sided parapelvic cysts. Note is made of mild right hydroureteronephrosis due to a 4 mm calculus at the right ureterovesical junction. There is a 3 mm calculus within the upper pole of the right kidney. A water attenuation right renal lesion likely reflects a cyst. Multiple small bowel containing ventral hernias are noted. A loop of mildly dilated small bowel within the anterior upper abdomen measures 4.1 cm in caliber. A partial small bowel obstruction would be difficult to exclude but the degree of dilatation is markedly improved when compared to exam of January 07, 2018. No abdominal or pelvic lymphadenopathy is noted. There is colonic diverticulosis without evidence for acute diverticulitis. Grade I anterolisthesis of L5 on S1 is noted due to bilateral L5 pars defects. IMPRESSION: 1. 4 mm right ureterovesical junction calculus which results in mild right hydroureteronephrosis. 2. 3 mm right renal calculus. Several small bladder calculi. 3. Multiple small bowel containing ventral hernias with mild dilatation of a few small bowel loops. A partial small bowel obstruction would be difficult to exclude however, the degree of dilatation is markedly improved when compared to exam of January 07, 2018 and the obstructing calculus explains the patient's symptoms. 4. Large hiatal hernia with partially intrathoracic stomach. Electronically signed by: Ramon Chowdhury M.D. 02/18/2018 3:00 PM Dictated Date/Time: 02/18/2018 2:49 PM The status of this report is Signed. Draft = Not yet reviewed or approved by Radiologist. Signed = Reviewed and approved by Radiologist. Laboratory Results 02/18/18 14:01 02/18/18 14:01 Test 02/18/18 14:01 02/18/18 15:28 02/18/18 17:26 Red Blood Count 4.75 M/uL (4.2-5.4) Mean Corpuscular Volume 82.1 fL (80-100) Mean Corpuscular Hemoglobin 27.4 pg (25-34) Mean Corpuscular Hemoglobin Concent 33.3 g/dl (32-36) RDW Standard Deviation 44.0 fL (36.4-46.3) RDW Coefficient of Variation 14.7 % (11.5-14.5) Mean Platelet Volume 8.4 fL (7.4-10.4) Anion Gap 9.0 mmol/L (3-11) Est Creatinine Clear Calc Drug Dose 33.4 ml/min Estimated GFR () 45.3 Estimated GFR (Non- 39.1 BUN/Creatinine Ratio 12.2 (10-20) Calcium Level 9.3 mg/dl (8.5-10.1) Total Bilirubin 0.4 mg/dl (0.2-1) Direct Bilirubin 0.1 mg/dl (0-0.2) Aspartate Amino Transf (AST/SGOT) 22 U/L (15-37) Alanine Aminotransferase (ALT/SGPT) 26 U/L (12-78) Alkaline Phosphatase 166 U/L (45-117) Total Protein 8.4 gm/dl (6.4-8.2) Albumin 3.8 gm/dl (3.4-5.0) Lipase 69 U/L (73-393) Urine Color YELLOW Urine Appearance CLEAR (CLEAR) Urine pH 5.5 (4.5-7.5) Urine Specific [place] 1.018 (1.000-1.030) Urine Protein 1+ (NEG) Urine Glucose (UA) NEG (NEG) Urine Ketones NEG (NEG) Urine Occult Blood NEG (NEG) Urine Nitrite NEG (NEG) Urine Bilirubin NEG (NEG) Urine Urobilinogen NEG (NEG) Urine Leukocyte Esterase TRACE (NEG) Urine WBC (Auto) 5-10 /hpf (0-5) Urine RBC (Auto) 5-10 /hpf (0-4) Urine Hyaline Casts (Auto) 1-5 /lpf (0-5) Urine Epithelial Cells (Auto) >30 /lpf (0-5) Urine Bacteria (Auto) NEG (NEG) Urine Pathogenic Casts 0-3 GRANULAR CASTS /lpf (0) Urine Mucus PRESENT (NONE PRSENT) Medications Administered Medications (Trade) Dose Ordered Sig/Ravinder Route Start Time Stop Time Status Last Admin Dose Admin Ondansetron HCl (Zofran Inj) 4 mg NOW STAT IV 02/18/18 14:21 02/18/18 14:23 DC 02/18/18 14:32 4 MG Sodium Chloride 1,000 ml @ 125 mls/hr Q8H STAT IV 02/18/18 14:21 5/4/18 22:20 02/18/18 14:21 125 MLS/HR Morphine Sulfate (MoRPHine SULFATE INJ) 4 mg Q15M PRN IV 02/18/18 14:30 03/04/18 14:29 02/18/18 16:37 4 MG Medical Decision Triage Nursing notes reviewed. The patient's presentation and history were concerning for abdominal pain,. Etiologies such as SBO, PSBO, diverticulitis, obstruction, inflammatory bowel disease, renal colic, PUD, biliary pathology, pancreatitis, mesenteric ischemia , aortic pathology, infections, genitourinary, UTI, perforated viscus, as well as others were entertained. Patient was evaluated. She had right-sided abdominal and flank pain on examination. Her history was concerning for multiple issues with bowel obstructions and adhesions. She underwent CT imaging. Blood work showed mild leukocytosis. Chemistry panel was unremarkable. Urinalysis did not show any clear signs of infection. Her CT scan did reveal a distal right ureteral stone with hydronephrosis. The patient was treated with IV Zofran and several doses of IV morphine. Given her symptoms, requirements for IV narcotics and her age for the management in the hospital was felt to be appropriate. She does have a few dilated loops of bowel however her symptoms are most consistent with the renal colic. Discussed this with the patient and family. They felt comfortable. A consultation was placed with Dr. Sher of the hospitalist service. The patient was evaluated in the ER for further management. Impression Primary Impression: Ureterolithiasis Additional Impression: Right flank pain Departure Information Dispostion Being Evaluated By Hospitalist Referrals Scott Beauchamp M.D. (PCP) Patient Instructions My [facility] Problem Qualifiers
[2018-02-18 14:30] LABS: ALBUMIN 3.8 gm/dl (3.4-5.0); CALCIUM 9.3 mg/dl (8.5-10.1); CREATININE 1.29 mg/dl (0.60-1.20); POTASSIUM 3.9 mmol/L (3.5-5.1)
[2018-02-18 14:33] LABS: TOTAL PROTEIN 8.4 gm/dl (6.4-8.2)
[2018-02-18] MEDS: MoRPHine SULFATE 4 MG/ML 1 ML CARP\\VIAL IV PRN ×2 (14:33→16:37)
--- NOTE | 2018-02-18 15:01 | DIAGNOSTIC IMAGING REPORT ---
CT OF THE ABDOMEN AND PELVIS WITHOUT CONTRAST CLINICAL HISTORY: Right-sided abdominal pain. Possible bowel obstruction. COMPARISON STUDY: CT of the abdomen and pelvis January 07, 2018 and KUB January 10, 2018. TECHNIQUE: Axial images of the abdomen and pelvis were obtained without IV contrast. Images were reviewed in the axial, sagittal, and coronal planes. A dose lowering technique was utilized adhering to the principles of ALARA. FINDINGS: A large hiatal hernia with partially intrathoracic stomach is noted. Pneumobilia is again noted. A left adrenal adenoma is incidentally noted. There are calcified granulomas within the spleen. Unenhanced images of the right adrenal gland and the left kidney are unremarkable with the exception of left-sided parapelvic cysts. Note is made of mild right hydroureteronephrosis due to a 4 mm calculus at the right ureterovesical junction. There is a 3 mm calculus within the upper pole of the right kidney. A water attenuation right renal lesion likely reflects a cyst. Multiple small bowel containing ventral hernias are noted. A loop of mildly dilated small bowel within the anterior upper abdomen measures 4.1 cm in caliber. A partial small bowel obstruction would be difficult to exclude but the degree of dilatation is markedly improved when compared to exam of January 07, 2018. No abdominal or pelvic lymphadenopathy is noted. There is colonic diverticulosis without evidence for acute diverticulitis. Grade I anterolisthesis of L5 on S1 is noted due to bilateral L5 pars defects. IMPRESSION: 1. 4 mm right ureterovesical junction calculus which results in mild right hydroureteronephrosis. 2. 3 mm right renal calculus. Several small bladder calculi. 3. Multiple small bowel containing ventral hernias with mild dilatation of a few small bowel loops. A partial small bowel obstruction would be difficult to exclude however, the degree of dilatation is markedly improved when compared to exam of January 07, 2018 and the obstructing calculus explains the patient's symptoms. 4. Large hiatal hernia with partially intrathoracic stomach. Electronically signed by: Ramon Chowdhury M.D. 02/18/2018 3:00 PM Dictated Date/Time: 02/18/2018 2:49 PM
[2018-02-18] MEDS ORDERED: ALBU18002 INH (15:04)
[2018-02-18] MEDS ORDERED: SPRIN/30 INH (15:04)
[2018-02-18] MEDS ORDERED: LSN20 PO (15:04)
[2018-02-18] MEDS ORDERED: METO-217 PO (15:04)
[2018-02-18] MEDS ORDERED: TRAM-10 PO (15:04)
[2018-02-18] MEDS ORDERED: CHOL100010 PO (15:04)
[2018-02-18] MEDS ORDERED: ACETAMINOPHEN 325 MG TAB PO PRN (17:15)
[2018-02-18] MEDS ORDERED: ALUMINUM/MAGNESIUM/SIMETH (MAALOX MAX) 30 ML UDC PO PRN (17:15)
[2018-02-18] MEDS ORDERED: POLYETHYLENE (MIRALAX) 17 GM PACK PO PRN (17:15)
[2018-02-18] MEDS ORDERED: MAGNESIUM HYDROXIDE SUSP 30 ML UDC PO PRN (17:15)
[2018-02-18] MEDS ORDERED: ZOLPIDEM TARTRATE 5 MG TAB PO PRN (17:15)
--- NOTE | 2018-02-18 17:27 | History and Physical ---
History & Physical Date of Service February 18, 2018. History & Physical right ureter stone, [id number]
[2018-02-18] MEDS ORDERED: NITROGLYCERIN 0.4 MG SL PER TAB CHARGE SL PRN (17:30)
[2018-02-18] MEDS ORDERED: HydrALAZINE HCL 20 MG/ML VIAL IV. PRN (17:30)
[2018-02-18] MEDS ORDERED: ALBUTEROL HFA 8 GM INHALER INH PRN (17:30)
--- NOTE | 2018-02-18 18:37 | HISTORY & PHYSICAL EXAMINATION ---
DATE OF ADMISSION: 02/18/2018 This is observation H and P, 31 minutes. CHIEF COMPLAINT: Right-sided abdominal pain. HISTORY OF PRESENT ILLNESS: The patient is an 82-year-old white female with a significant past medical history of AFib, chest pain, dyslipidemia, hypertension, incisional hernia, non-STEMI, pancreatic cancer SP Whipple maneuver, GERD, small bowel obstructions, Whipple surgery, hysterectomy, appendectomy, and ventral hernia repairing, coming to the hospital Emergency Department because of the above chief complaint. The patient reported right-sided abdominal pain associated with nauseation and poor oral intake. It has been several days that has been getting worse. There is nothing to relieve the pain. She reported the pain was 8/10. The patient has past medical history of small bowel obstruction and bowel obstruction. In the Emergency Room, abdominal CT was done which shows 4 mm right ureteral junction stone and 3 mm right renal stone, possible no obstruction. The patient got morphine in the Emergency Room. The pain has been improved. No pain when I see her. ED physician called me for possible observation overnight. When I interviewed with the patient, the patient is awake, alert, and orientated, conversational, and confirming the above information, mild nauseation, and no vomiting. Still has mild abdominal pain but is much better, no bowel movement for 2 days. Passing gas. Denied fever or chills, denied cough, sputum, shortness of breath, denied chest pain, palpitation, lower extremity swelling, denied dysuria, urgency and frequencies. Denied hematuria. Denied lower extremity swelling, denied facial droop, slurry speeches or local weakness. ALLERGIES: No known drug allergies. PAST MEDICAL HISTORY AND SURGICAL HISTORY: Like I mentioned in the HPI. FAMILY HISTORY: Include lung disease. SOCIAL HISTORY: Denied tobacco abuse disorder, denied alcohol abuse disorder, denied illicit drug abuse. MEDICATIONS: Taking at home include amlodipine 5 mg p.o. at bedtime, aspirin 81 mg p.o. daily, atorvastatin 20 mg p.o. at bedtime, clopidogrel 75 mg p.o. q.a.m., levothyroxine 75 mcg p.o. daily, lisinopril 20 mg p.o. q.a.m., metoprolol 25 mg p.o. b.i.d., omega-3 1000 mg p.o. daily, Protonix 40 mg p.o. daily, MiraLax 17 g p.o. daily, Spiriva 1 inhaled daily. Nitroglycerin 0.4 mg as needed for the chest pain. PHYSICAL EXAMINATION: VITAL SIGNS: Temperature is 36.8, pulse 75, respirations 18, blood pressure 147/97, pulse ox was 97% in room air. GENERAL: The patient is a white male, awake, alert, and orientated, conversational, follows all commands. No acute distress, pleasant, smiling. HEAD: Normocephalic. EYES: Pupils equal, round and responds to light. EARS: Ear was normal. NOSE: Normal. NECK: Supple. Thyroid, no enlargement. Trachea midline. LUNGS: Decreased breathing sounds. There was no wheezing, rhonchi or crackles. HEART: Regular rhythm, S1, S2, has no murmur. ABDOMEN: Soft, nontender. Bowel sound was positive. Bilateral CVA was nontender. GENITOURINARY AND RECTAL: Deferred. MUSCULOSKELETAL: The patient is atraumatic. There was no limited range of motion. No edema. Calf was nontender. LOWER EXTREMITIES: No clubbing, no cyanosis. NEUROLOGICAL EVALUATION: Cranial nerves II-XII was intact. There was no local deficits. SKIN: Has no rashes. LABORATORY STUDIES: WBC 12, hemoglobin 13, platelet 421. IMAGING STUDIES: Abdominal CT studies like I mentioned in the above which shows 4 mm right ureterovesical junction calculus which resulted in mild right hydronephrosis. Next, a 3 mm right renal calculus, several small bladder calculus. There were multiple small bowel containing ventral hernias. Mild dilatation of a few small bowel loops. A partial small bowel obstruction will be difficult to exclude; however, the degrees of dilatation is markedly improved compared to previous exam on 01/07/2018. Large hiatal hernia with partial intrathoracic stomach. ASSESSMENT: An 82-year-old white male with the problems below: 1. Right 4 mm ureterovesical junction calculus with mild right-sided hydronephrosis. 2. less likely small bowel obstruction. 3. Large hiatal hernia. 4. History of pancreatic cancer status post Whipple surgery. 5. Atrial fibrillation. 6. Dyslipidemia. 7. Hypertension. 8. History of [id number] myocardial infarction. 7. Gastroesophageal reflux disease. The patient has abdominal pain improved after pain management in the Emergency Room. She has mild nauseation now. I agree to have observed overnight to make sure getting better, especially she has a significant history of pancreatic cancer with Whipple surgeries, history of bowel obstructions and her ages. We will give gentle IV fluid, morphine as needed. Follow up tomorrow morning lab. For accelerated hypertension, we will give hydralazine as meed , will request urology consultation for followup. For her history of AFib, dyslipidemia, hypertension, non-STEMI, GERD, these conditions currently are stable. We will continue home medications which include aspirin, Plavix, lisinopril, and metoprolol, Gastrointestinal prophylaxis is covered. DVT prophylaxis is covered too. MTDD
[2018-02-18] MEDS: TRAMADOL HCL 50 MG TAB PO PRN (18:56)
[2018-02-18 19:00] VITALS: BP 154/77; PULSE 73; TEMP 36.4; O2SAT 91; Ht 162.6 cm; Wt 69.8 kg
[2018-02-18] MEDS: SODIUM CHLORIDE 0.9% 1000ML 1,000 ML IV SCH (19:02)
[2018-02-18] MEDS ORDERED: IV FLUIDS COMPLETED PRN (20:00)
[2018-02-18] MEDS: HEPARIN SOD 5000 UNIT/0.5 ML CARP SQ SCH (20:29)
[2018-02-18] MEDS ORDERED: AMLODIPINE BESYLATE 5 MG TAB PO SCH (21:00)
[2018-02-18] MEDS ORDERED: ATORVASTATIN 20 MG TAB PO SCH (21:00)
[2018-02-18] MEDS: MoRPHine SULFATE 2 MG/ML CARP IV PRN (22:08)
[2018-02-18] MEDS: ONDANSETRON INJ 2 MG/ML 2 ML VIAL IV PRN (22:08)
[2018-02-18 23:45] VITALS: BP 174/98; PULSE 76; TEMP 36.5; O2SAT 95
[2018-02-18 23:48] VITALS: BP 169/96
[2018-02-19 01:25] VITALS: BP 128/71
[2018-02-19] MEDS: ONDANSETRON INJ 2 MG/ML 2 ML VIAL IV PRN (03:41)
[2018-02-19] MEDS: MoRPHine SULFATE 2 MG/ML CARP IV PRN (03:42)
[2018-02-19] MEDS: TRAMADOL HCL 50 MG TAB PO PRN ×2 (05:41→11:07)
[2018-02-19] MEDS ORDERED: LEVOTHYROXINE 75 MCG TAB PO SCH (06:00)
[2018-02-19 07:06] LABS: BASO % 0.2 %; BASO ABS # 0.02 K/uL (0-0.2); EOS % 0.2 %; EOS ABS # 0.02 K/uL (0-0.5); HEMATOCRIT 37.1 % (37-47); HEMOGLOBIN 12.2 g/dL (12.0-16.0); IG# 0.03 K/uL (0.00-0.02); LYMPH % 10.3 %; LYMPH ABS # 0.96 K/uL (1.2-3.4); MEAN CELL VOLUME 83.4 fL (80-100); MEAN CORPUSCULAR HEMOGLOBIN 27.4 pg (25-34); MEAN CORPUSCULAR HGB CONC 32.9 g/dl (32-36); MEAN PLATELET VOLUME 8.3 fL (7.4-10.4); MONO % 6.1 %; MONO ABS # 0.57 K/uL (0.11-0.59); NEUT % 82.9 %; NEUT ABS # 7.72 K/uL (1.4-6.5); PLATELET COUNT 358 K/uL (130-400); RED CELL DISTRIBUTION WIDTH SD 45.4 fL (36.4-46.3); WHITE BLOOD COUNT 9.32 K/uL (4.8-10.8)
[2018-02-19 07:13] VITALS: BP 130/77; PULSE 70; TEMP 36.7; O2SAT 92
[2018-02-19] MEDS: SODIUM CHLORIDE 0.9% 1000ML 1,000 ML IV SCH (07:36)
[2018-02-19 07:37] LABS: CALCIUM 8.7 mg/dl (8.5-10.1); CREATININE 1.05 mg/dl (0.60-1.20); POTASSIUM 3.5 mmol/L (3.5-5.1)
--- NOTE | 2018-02-19 08:20 | Progress Note ---
Subjective Date of Service: February 19, 2018. Problem List Medical Problems: (1) Acute chest pain Status: Acute (2) Acute coronary syndrome Status: Acute (3) Right flank pain Status: Acute (4) Ureterolithiasis Status: Acute (5) Ventral hernia Status: Acute Objective Vital Signs Date Time Temp Pulse Resp B/P (MAP) Pulse Ox O2 Delivery O2 Flow Rate FiO2 02/19/18 07:13 36.7 70 16 130/77 (94) 92 Room Air 02/19/18 01:25 128/71 (90) 02/18/18 23:48 169/96 (120) 02/18/18 23:45 36.5 76 16 174/98 (123) 95 Room Air 02/18/18 23:20 Room Air 02/18/18 19:00 91 Room Air 02/18/18 19:00 36.4 73 18 154/77 91 Room Air 02/18/18 19:00 36.4 73 18 154/77 (102) 91 Room Air 02/18/18 18:00 73 18 148/95 95 02/18/18 17:30 73 18 148/95 95 Room Air 02/18/18 15:23 80 18 164/88 93 Room Air 02/18/18 13:42 36.6 75 18 147/97 97 Room Air Laboratory Results Last 24 Hours Test 02/18/18 14:01 02/18/18 15:28 02/18/18 17:26 02/19/18 06:47 White Blood Count 12.41 K/uL 9.32 K/uL Red Blood Count 4.75 M/uL 4.45 M/uL Hemoglobin 13.0 g/dL 12.2 g/dL Hematocrit 39.0 % 37.1 % Mean Corpuscular Volume 82.1 fL 83.4 fL Mean Corpuscular Hemoglobin 27.4 pg 27.4 pg Mean Corpuscular Hemoglobin Concent 33.3 g/dl 32.9 g/dl RDW Standard Deviation 44.0 fL 45.4 fL RDW Coefficient of Variation 14.7 % 15.0 % Platelet Count 421 K/uL 358 K/uL Mean Platelet Volume 8.4 fL 8.3 fL Sodium Level 138 mmol/L 138 mmol/L Potassium Level 3.9 mmol/L 3.5 mmol/L Chloride Level 106 mmol/L 107 mmol/L Carbon Dioxide Level 22 mmol/L 25 mmol/L Anion Gap 9.0 mmol/L 6.0 mmol/L Blood Urea Nitrogen 16 mg/dl 14 mg/dl Creatinine 1.29 mg/dl 1.05 mg/dl Est Creatinine Clear Calc Drug Dose 33.4 ml/min 41.0 ml/min Estimated GFR () 45.3 58.1 Estimated GFR (Non- 39.1 50.1 BUN/Creatinine Ratio 12.2 13.5 Random Glucose 171 mg/dl 139 mg/dl Calcium Level 9.3 mg/dl 8.7 mg/dl Total Bilirubin 0.4 mg/dl Direct Bilirubin 0.1 mg/dl Aspartate Amino Transf (AST/SGOT) 22 U/L Alanine Aminotransferase (ALT/SGPT) 26 U/L Alkaline Phosphatase 166 U/L Total Protein 8.4 gm/dl Albumin 3.8 gm/dl Lipase 69 U/L Urine Color YELLOW Urine Appearance CLEAR Urine pH 5.5 Urine Specific [place] 1.018 Urine Protein 1+ Urine Glucose (UA) NEG Urine Ketones NEG Urine Occult Blood NEG Urine Nitrite NEG Urine Bilirubin NEG Urine Urobilinogen NEG Urine Leukocyte Esterase TRACE Urine WBC (Auto) 5-10 /hpf Urine RBC (Auto) 5-10 /hpf Urine Hyaline Casts (Auto) 1-5 /lpf Urine Epithelial Cells (Auto) >30 /lpf Urine Bacteria (Auto) NEG Urine Pathogenic Casts 0-3 GRANULAR CASTS /lpf Urine Mucus PRESENT Thyroid Stimulating Hormone (TSH) 2.990 uIu/ml Neutrophils (%) (Auto) 82.9 % Lymphocytes (%) (Auto) 10.3 % Monocytes (%) (Auto) 6.1 % Eosinophils (%) (Auto) 0.2 % Basophils (%) (Auto) 0.2 % Neutrophils # (Auto) 7.72 K/uL Lymphocytes # (Auto) 0.96 K/uL Monocytes # (Auto) 0.57 K/uL Eosinophils # (Auto) 0.02 K/uL Basophils # (Auto) 0.02 K/uL Immature Granulocyte % (Auto) 0.3 % Immature Granulocyte # (Auto) 0.03 K/uL Magnesium Level 1.9 mg/dl Assessment and Plan 82 M with right renal colic from 4 mm UVJ stone 1. Right 4 mm ureterovesical junction calculus with mild right-sided hydronephrosis. urology consultation for followup. 2. less likely small bowel obstruction. 3. Large hiatal hernia. 4. History of pancreatic cancer status post Whipple surgery. CAD, HTN, Atrial fibrillation.aspirin, Plavix, lisinopril, and metoprolol, For accelerated hypertension, Hydralaxine PRN 6. Dyslipidemia. 7. Gastroesophageal reflux disease. DVT prophylaxis is covered too.
[2018-02-19] MEDS ORDERED: METOPROLOL SUCC 50MG EXT REL TAB PO SCH (09:00)
[2018-02-19] MEDS ORDERED: TIOTROPIUM BROMIDE 5 PUFF/90 MCG INH INH SCH (09:00)
[2018-02-19] MEDS: HEPARIN SOD 5000 UNIT/0.5 ML CARP SQ SCH (09:00)
[2018-02-19] MEDS ORDERED: CHOLECALCIFEROL 1000 INTER.UNIT TAB PO SCH (09:00)
[2018-02-19] MEDS ORDERED: LISINOPRIL 20 MG TAB PO SCH (09:00)
[2018-02-19] MEDS ORDERED: OMEGA-3 (PURIFIED FISH OIL) 1 GM CAP PO SCH ×2 (09:00)
[2018-02-19] MEDS ORDERED: ASPIRIN 81 MG ECTAB PO SCH (09:00)
[2018-02-19] MEDS ORDERED: CLOPIDOGREL BISULFATE 75 MG TAB PO SCH (09:00)
[2018-02-19] MEDS ORDERED: POLYETHYLENE (MIRALAX) 17 GM PACK PO SCH (09:00)
[2018-02-19] MEDS ORDERED: PANTOprazole SOD 40 MG TAB PO SCH (09:00)
--- NOTE | 2018-02-19 10:26 | Urology Consultation ---
History General Date of Service: February 19, 2018. Primary Care Physician: Scott Beauchamp M.D. History of Present Illness Patient is an 82-year-old white female who is admitted to the emergency room with right-sided abdominal pain. CT was done which showed a 4 mm distal right ureteral vesicle junction calculus with mild right hydronephrosis. Patient was admitted for pain control. Since being in the hospital she said she is really had very little pain. She denies any nausea or vomiting currently. She has had no fevers or chills. Says she is voiding without difficulty. Laboratory Labs were reviewed and are within normal limits unless listed below. Labs are available in the chart and at [facility] Problem List Medical Problems: (1) Acute chest pain Status: Acute (2) Acute coronary syndrome Status: Acute (3) Right flank pain Status: Acute (4) Ureterolithiasis Status: Acute (5) Ventral hernia Status: Acute Past History cancer, COPD Past Surgical History: other Family History Lung disease Social History Hx Tobacco Use In Past Year?: No Smoking: quit greater than 1 year Alcohol: never Drug use: none Marital status: Housing status: lives with family Immunizations History of Influenza Vaccine: N/A Influenza Vaccine Date: Jun 27, 2012 History of Tetanus Vaccine?: Unknown History of Pneumococcal: Yes Pneumococcal Date: Apr 28, 2011 History of Hepatitis B Vaccine: Unknown History of MDRO No Allergies Coded Allergies: No Known Allergies (Verified , 02/18/18) Medications Home Medications: Home Meds and Scripts Medications Dose Route/Sig Max Daily Dose Days Date Category Toprol Xl (Metoprolol Succinate) 50 Mg Tabcr 50 Mg PO DAILY 02/18/18 Reported Ultram (Tramadol HCl) 50 Mg Tab 50 Mg PO Q8H PRN 02/18/18 Reported Proair Respiclick (Albuterol Sulfate) 108 Mcg/Act Aer 2 Puffs INH Q4 PRN 02/18/18 Reported Lisinopril 20 Mg Tab 1 Tab PO DAILY 02/18/18 Reported Spiriva Handihaler (Tiotropium [place]) 30 Puff/540 Mcg Aerp 1 Cap INH DAILY 02/18/18 Reported Vitamin D (Cholecalciferol) 1,000 Unit Tab 1 Tab PO DAILY 02/18/18 Reported Norvasc (Amlodipine Besylate) 5 Mg Tab 5 Mg PO HS 30 03/04/17 Rx Nitrostat (Nitroglycerin) 0.4 Mg/1 Tab Subl 0.4 Mg SL UD PRN 03/04/17 Rx Clopidogrel (Clopidogrel Bisulfate) 75 Mg Tab 75 Mg PO QAM 30 03/04/17 Rx Aspirin 81 (Aspirin) 81 Mg Tab 81 Mg PO DAILY 30 03/04/17 Rx Levothyroxine Sodium 75 Mcg Tab 75 Mcg PO DAILY 90 08/14/15 Reported Miralax (Polyethylene Glycol 3350) 1 Pow Pow 17 Gm PO DAILY 01/04/15 Reported Fish Oil ([place]-3 Fatty Acids) 1 Cap Cap 1,000 Mg PO DAILY 04/30/14 Reported Protonix (Pantoprazole Sodium) 40 Mg Tab 40 Mg PO DAILY 04/30/14 Reported Lipitor (Atorvastatin Calcium) 20 Mg Tab 20 Mg PO HS 04/30/14 Reported Inpatient Medications: Current Inpatient Medications Medications (Trade) Dose Ordered Sig/Ravinder Route Start Time Stop Time Status Last Admin Dose Admin Acetaminophen (Tylenol Tab) 650 mg Q4H PRN PO 02/18/18 17:15 03/20/18 17:14 Al Hydrox/Mg Hydrox/Simethicone (Maalox Max Susp) 15 ml Q4H PRN PO 02/18/18 17:15 03/20/18 17:14 Magnesium Hydroxide (Milk Of Magnesia Susp) 30 ml Q6H PRN PO 02/18/18 17:15 03/20/18 17:14 Polyethylene (Miralax Powder Packet) 17 gm DAILY PRN PO 02/18/18 17:15 03/20/18 17:14 Zolpidem Tartrate (Ambien Tab) 5 mg HSZ PRN PO 02/18/18 17:15 03/20/18 17:14 Ondansetron HCl (Zofran Inj) 4 mg Q6H PRN IV 02/18/18 17:15 03/20/18 17:14 02/19/18 03:41 4 MG Heparin Sodium (Porcine) (Heparin Sq 5000 Unit/0.5ml) 5,000 unit Q12H SQ 02/18/18 21:00 03/20/18 20:59 02/19/18 09:00 5,000 UNIT Amlodipine Besylate (Norvasc Tab) 5 mg HS PO 02/18/18 21:00 03/20/18 20:59 02/18/18 20:28 5 MG Aspirin (Ecotrin Tab) 81 mg DAILY PO 02/19/18 09:00 03/21/18 08:59 02/19/18 08:50 81 MG Atorvastatin Calcium (Lipitor Tab) 20 mg HS PO 02/18/18 21:00 03/20/18 20:59 02/18/18 20:28 20 MG Cholecalciferol (Vitamin D Tab) 1,000 inter.unit DAILY PO 02/19/18 09:00 03/21/18 08:59 02/19/18 08:50 1,000 INTER.UNIT Clopidogrel Bisulfate (plAVix TAB) 75 mg QAM PO 02/19/18 09:00 03/21/18 08:59 02/19/18 08:51 75 MG Levothyroxine Sodium (Synthroid Tab) 75 mcg DAILYBB PO 02/19/18 06:00 03/21/18 05:59 02/19/18 05:39 75 MCG Lisinopril (Zestril Tab) 20 mg DAILY PO 02/19/18 09:00 03/21/18 08:59 02/19/18 08:51 20 MG Metoprolol Succinate (Toprol Xl Tab) 50 mg DAILY PO 02/19/18 09:00 03/21/18 08:59 02/19/18 08:50 50 MG Nitroglycerin (Nitrostat Tab) 0.4 mg UD PRN SL 02/18/18 17:30 03/20/18 17:29 Pantoprazole Sodium (Protonix Tab) 40 mg DAILY PO 02/19/18 09:00 03/21/18 08:59 02/19/18 07:37 40 MG Polyethylene (Miralax Powder Packet) 17 gm DAILY PO 02/19/18 09:00 03/21/18 08:59 02/19/18 08:52 17 GM Tiotropium [place] (Spiriva Handihaler Inhaler) 2 puff DAILY INH 02/19/18 09:00 03/21/18 08:59 02/19/18 08:49 2 PUFF Tramadol HCl (Ultram Tab) 50 mg Q8H PRN PO 02/18/18 17:30 03/20/18 17:29 02/19/18 05:41 50 MG Albuterol (Ventolin Hfa Inhaler) 2 puffs Q4H PRN INH 02/18/18 17:30 03/20/18 17:29 Morphine Sulfate (MoRPHine SULFATE INJ) 2 mg Q4 PRN IV 02/18/18 17:30 03/04/18 17:29 02/19/18 03:42 2 MG Hydralazine HCl (HydrALAZINE INJ) 20 mg Q6 PRN IV. 02/18/18 17:30 03/20/18 17:29 02/19/18 00:00 20 MG Sodium Chloride 1,000 ml @ 75 mls/hr [id number] IV 02/18/18 19:00 03/20/18 18:59 02/19/18 07:36 75 MLS/HR Fish Oil ([place]-3 (Purified Fish Oil) Cap) 1 gm DAILY PO 02/19/18 09:00 03/21/18 08:59 02/19/18 08:50 1 GM Miscellaneous (Iv Fluids Completed) 1 ea PRN PRN N/A 02/18/18 20:00 02/18/19 19:59 Review of Systems Review of Systems Additional Comments: Review of systems reviewed from her ER notes and admitting history and physical Physical Exam Vital Signs: Vital Signs Past 12 Hours Date Time Temp Pulse Resp B/P (MAP) Pulse Ox O2 Delivery O2 Flow Rate FiO2 02/19/18 07:13 36.7 70 16 130/77 (94) 92 Room Air 02/19/18 01:25 128/71 (90) 02/18/18 23:48 169/96 (120) 02/18/18 23:45 36.5 76 16 174/98 (123) 95 Room Air 02/18/18 23:20 Room Air Physical Exam: General Appearance: WD/WN, no apparent distress ENT: hearing grossly normal Neck: no adenopathy, no JVD Respiratory/Chest: no respiratory distress, no accessory muscle use Cardiovascular: regular rate, rhythm Gastrointestinal: Abdomen: normal abdomen Skin: normal color, warm/dry Assessment & Plan Assessment & Plan Assessment Renal colic secondary to a 4 mm right ureterovesical junction calculus I reviewed the CT scan Currently the patient is pain-free She has no fever chills nausea or vomiting Discussed options including trial of passage with medical expulsive therapy versus cystoureteroscopy with stone extraction and stent Patient said she did really does not want to have surgery would like to try to pass this on her own There is a high likelihood that the stone will pass Recommend that she strain her urine Use pain medication as needed Drink as much water as possible I did explain to her that if she developed fever shaking chills or any signs of sepsis she would need to have surgery done emergently She would like to go home today She should go home on something for pain as well as some Flomax to hopefully help the stone pass and a urine strainer. If she goes home today she should follow-up in our office sometime next week
[2018-02-19] MEDS ORDERED: RXC5 PO (10:34)
--- NOTE | 2018-02-19 10:36 | Discharge Instructions ---
Discharge Instructions Date of Service February 19, 2018. Admission Reason for Admission: Right Ureter Stone Discharge Discharge Diagnosis / Problem: right renal colic Discharge Goals Goal(s): Diagnostic testing, Therapeutic intervention Activity Recommendations Activity Limitations: as noted below Lifting Limitations: gradually increase as tolerated . Instructions / Follow-Up Instructions / Follow-Up strain urine and if a stone is produced put in cup to bring to office Current Hospital Diet Patient's current hospital diet: Clear Liquid Diet Discharge Diet Recommended Diet: Regular Diet Pending Studies Studies pending at discharge: no Medical Emergencies . Who to Call and When: Medical Emergencies: If at any time you feel your situation is an emergency, please call 911 immediately. . Non-Emergent Contact Non-Emergency issues call your: Primary Care Provider, Urologist Call Non-Emergent contact if: temperature is above 101, your pain is unusual for you . . "Provider Documentation" section prepared by Ike Juarez. .
[2018-02-19 11:54] VITALS: BP 130/77; PULSE 70; TEMP 36.7; O2SAT 92
--- NOTE | 2018-02-19 16:31 | Discharge Summary ---
Discharge Summary Date of Service February 19, 2018. Discharge Summary Admission Date: February 18, 2018 at 17:10 Discharge Date: February 19, 2018 Discharge Disposition: Home Principal Diagnosis: right renal colic resolved Immunizations: Have You Had Influenza Vaccine: N/A Influenza Vaccine Date: Jun 27, 2012 History of Tetanus Vaccine?: Unknown History of Pneumococcal: Yes Pneumococcal Date: Apr 28, 2011 History of Hepatitis B Vaccine: Unknown Medication Reconciliation New Medications: Oxycodone HCl (Oxycodone HCl) 5 Mg Tab 5-10 MG PO Q6 PRN for Pain, #20 Continued Medications: Albuterol Sulfate (Proair Respiclick) 108 Mcg/Act Aer 2 PUFFS INH Q4 PRN for Wheezing Amlodipine (Norvasc) 5 Mg Tab 5 MG PO HS for 30 Days, #30 TAB 2 Refills Aspirin (Aspirin 81) 81 Mg Tab 81 MG PO DAILY for 30 Days, #30 TAB 3 Refills Atorvastatin (Lipitor) 20 Mg Tab 20 MG PO HS, TAB Cholecalciferol (Vitamin D) 1,000 Unit Tab 1 TAB PO DAILY Clopidogrel Bisulfate (Clopidogrel) 75 Mg Tab 75 MG PO QAM for 30 Days, #30 TAB 3 Refills Levothyroxine Sodium (Levothyroxine Sodium) 75 Mcg Tab 75 MCG PO DAILY for 90 Days, #90 TAB 3 Refills Lisinopril (Lisinopril) 20 Mg Tab 1 TAB PO DAILY Metoprolol Succinate (Toprol Xl) 50 Mg Tabcr 50 MG PO DAILY, #30 TAB Nitroglycerin (Nitrostat) 0.4 Mg/1 Tab Subl 0.4 MG SL UD PRN for Chest Pain, #20 TAB [place]-3 Fatty Acids (Fish Oil) 1 Cap Cap 1000 MG PO DAILY Pantoprazole Sodium (Protonix) 40 Mg Tab 40 MG PO DAILY, #30 TAB Polyethylene Glycol 3350 (Miralax) 1 Pow Pow 17 GM PO DAILY Tiotropium [place] (Spiriva Handihaler) 30 Puff/540 Mcg Aerp 1 CAP INH DAILY, INHALER Tramadol (Ultram) 50 Mg Tab 50 MG PO Q8H PRN for Pain, TAB Discharge Exam Review of Systems: Constitutional: + weakness, + fatigue, No fever, No chills Physical Exam: General Appearance: WD/WN, no apparent distress Eyes: normal inspection, sclerae normal Neck: supple, no JVD Respiratory/Chest: chest non-tender, lungs clear, normal breath sounds Neurologic/Psychiatric: alert, oriented x 3 Skin: normal color, no rash Hospital Course 82 M with right renal colic from 4 mm UVJ stone, clinically resolved, urology is satisfied and no further work up is recommended Right 4 mm ureterovesical junction calculus with mild right-sided hydronephrosis. urology consultation will have out pt followup. Large hiatal hernia pt typically is careful with diet. History of pancreatic cancer status post Whipple surgery. CAD, HTN, Atrial fibrillation.aspirin, Plavix, lisinopril, and metoprolol, For accelerated hypertension, Hydralaxine PRN Dyslipidemia. atorvostatin Gastroesophageal reflux disease protonix Total Time Spent: Greater than 30 minutes This includes examination of the patient, discharge planning, medication reconciliation, and communication with other providers. Discharge Instructions Please refer to the electronic Patient Visit Report (Discharge Instructions) for additional information.
== END 2018-02-19 13:20 | disposition home or self-care (01) ==
LOC: C.EDB 13:34 → C.MSN 17:10 → ENRESERV 17:42
PROVIDERS: ADMIT Hospitalist; ATTEND Hospitalist
DX: N23 Unspecified renal colic (principal); I25.10 Atherosclerotic heart disease of native coronary artery without angina pectoris; I10 Essential (primary) hypertension; I48.91 Unspecified atrial fibrillation; E78.5 Hyperlipidemia, unspecified; Z79.82 Long term (current) use of aspirin; Z79.899 Other long term (current) drug therapy; Z85.07 Personal history of malignant neoplasm of pancreas; Z79.02 Long term (current) use of antithrombotics/antiplatelets; Z90.710 Acquired absence of both cervix and uterus; Z90.89 Acquired absence of other organs

== ENCOUNTER → 2018-02-24 | Outpatient (CLI) | payer OTHER ==
[~2018-02-24] MED LIST changes: +ALBU18002 INH; +CHOL100010 PO; -LPR25 PO; +LSN20 PO; -LSN5 PO; +METO-217 PO; +RXC5 PO; +SPRIN/30 INH; -TIOTCAP INH; +TRAM-10 PO
--- NOTE | 2018-02-24 11:21 | DIAGNOSTIC IMAGING REPORT ---
KUB CLINICAL HISTORY: N20.0 [id number] COMPARISON STUDY: 01/10/2018 , CT scan dated 02/18/2018 FINDINGS: The renal shadows are largely obscured by overlying bowel gas and fecal material. There is an equivocal 3 mm right renal calculus. There are multiple pelvic basin calcifications. A somewhat irregular 3 mm right pelvic basin calcification was not visualized with certainty on the prior study. This likely corresponds to the recently described right UVJ calculus IMPRESSION: 1. Suspected 3 mm right renal calculus 2. New 3 mm right pelvic basin calcification, likely corresponding to the recently described right UVJ calculus Electronically signed by: Bennie Reyes M.D. 02/24/2018 11:20 AM Dictated Date/Time: 02/24/2018 11:16 AM
== END | disposition home or self-care (01) ==
LOC: C.RAD 10:55
PROVIDERS: ATTEND Urology
DX: N20.0 Calculus of kidney (principal)

== ENCOUNTER → 2018-03-02 | Outpatient (CLI) | payer OTHER | END | disposition home or self-care (01) | LOC: C.LABSPEC 16:53 | PROVIDERS: ATTEND Urology | DX: N20.0 Calculus of kidney (principal) ==

== ENCOUNTER 2019-08-19 09:52 | Inpatient (IN) ==
[2019-08-19] MEDS ORDERED: SODIUM CHLORIDE 0.9% 1000ML 1,000 ML IV ONE (10:08)
[2019-08-19] MEDS ORDERED: ONDANSETRON INJ 2 MG/ML 2 ML VIAL IV STA ×3 (10:08→17:08)
[2019-08-19 10:23] LABS: Basophils # (auto) 0.01 K/uL (0-0.2); Basophils % (auto) 0.1 %; Hematocrit (blood only) 48.3 % (37-47); Hemoglobin 16.1 g/dL (12.0-16.0); Immature Granulocytes # (auto) 0.05 K/uL (0.00-0.02); Immature Granulocytes % (auto) 0.4 %; Lymphocytes % (auto) 7.7 %; Mean Corpuscular Hemoglobin 30.3 pg (25-34); Mean Corpuscular Hgb Conc 33.3 g/dL (32-36); Mean Corpuscular Volume 90.8 fL (80-100); Mean Platelet Volume 9.1 fL (7.4-10.4); Monocytes # (auto) 0.55 K/uL (0.11-0.59); Monocytes % (auto) 4.7 %; Neutrophils # (auto) 10.15 K/uL (1.4-6.5); Neutrophils % (auto) 87.1 %; Platelet Count 451 K/uL (130-400); RDW Coefficient of Variation 13.7 % (11.5-14.5); RDW Standard Deviation 45.1 fL (36.4-46.3); Red Blood Count 5.32 M/uL (4.2-5.4); White Blood Count 11.66 K/uL (4.8-10.8)
[2019-08-19 10:40] LABS: Albumin Level 3.8 gm/dl (3.4-5.0); BUN Creatinine Ratio 15.1 (10-20); Calcium 9.2 mg/dl (8.5-10.1); Creatinine Clr Calc Pharmacy 21.4 ml/min; Est GFR (Non-African American) 22.4; Potassium 4.2 mmol/L (3.5-5.1)
[2019-08-19 10:42] LABS: Albumin Globulin Ratio 0.8 (0.9-2); Bilirubin,Total 0.4 mg/dl (0.2-1); Globulin 4.7 gm/dl (2.5-4.0); Total Protein 8.5 gm/dl (6.4-8.2)
[2019-08-19] MEDS ORDERED: MoRPHine SULFATE 4 MG/ML 1 ML CARP\\VIAL IV STA ×3 (11:04→17:08)
--- NOTE | 2019-08-19 11:58 | CT Scan Report ---
ABDOMEN AND PELVIS CT WITHOUT CONTRAST CT DOSE: 721.06 mGy.cm HISTORY: Acute abdominal pain with nausea and vomiting abd pain n/v TECHNIQUE: Multiaxial CT images of the abdomen and pelvis were performed without contrast. A dose lo wering technique was utilized adhering to the principles of ALARA. COMPARISON STUDY: CT abdomen pelvis 02/18/2018 FINDINGS: Emphysema. Calcified hilar lymph nodes compatible with prior granulomatous disease. A few calcified g ranulomata are also noted about the lungs. Coronary arterial calcifications are noted. No pneumatosis or pneumoperitoneum. Limited evaluation of the solid abdominal organs without the use of IV contrast . Cholecystectomy with pneumobilia and biliary ductal dilation redemonstrated, likely postsurgical wi th prior sphincterotomy. Mild hepatic steatosis. Calcified granulomata of the spleen. Moderate genera lized pancreatic atrophy. Mild thickening of the right adrenal gland. Hypodense left adrenal lesion m easuring 2.9 x 2.2 cm meets diagnostic criteria for adenoma, unchanged. There is mild nonspecific bilateral perinephric stranding. Hypodense 1.7 cm lesion of the interpolar right kidney suggest probable cyst. A millimeter hypodense lesion of the inferior pole right kidney m ay reflect an additional cyst. There are several nonobstructing calculi noted about the right kidney measuring up to approximately 3 mm. Renal sinus cysts noted about the left kidney. No ureteral calcul i or obstructive uropathy. Ureters are unremarkable. Partial distention of the urinary bladder. Hyste rectomy. No adnexal mass lesion. Extensive calcified plaque of the abdominal aorta without aneurysm. No adenopathy. Large fluid-filled hiatal hernia, partially imaged. There are multiple air and fluid-filled dilated l oops of small bowel throughout the abdomen and upper pelvis measuring up to 4.7 cm transversely. Post operative changes from prior partial small bowel resection in the upper abdomen again noted. There ar e multiple ventral abdominal wall hernias redemonstrated which again contains mesenteric fat and loop s of small bowel. Terminal ileum is decompressed. There is a focal transition point noted in a loop o f small bowel which exits one of the ventral abdominal wall hernias on image 237 series 3 about the a nterior aspect of the lower abdomen. Colonic diverticulosis without acute diverticulitis. Mild fecal retention. Mild interloop edema. Degenerative changes of the spine, pelvis and hips. 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 IMPRESSION: 1. Multiple air and fluid-filled dilated loops of small bowel throughout the abdomen and upper pelvis with multiple ventral abdominal hernias redemonstrated containing both mesenteric fat and loops of s mall bowel. There is a focal transition point involving a loop of small bowel as it exits one of the hernias as above. Findings compatible with high-grade small bowel obstruction. 2. No pneumatosis or pneumoperitoneum. 3. Nonobstructing right nephrolithiasis. 4. Large hiatal hernia. 5. Additional findings as above. Electronically signed by: Servando Najera M.D. 08/19/2019 11:56 AM
--- NOTE | 2019-08-19 16:17 | History & Physical Report ---
Date of Service August 19, 2019 Assessment & Plan (1) Small bowel obstruction: - CT with findings compatible with high-grade SBO - focal transition point involving loop of small bowel as it exits one of the hernias; multiple hernias noted; no pneumatosis/pneumoperitoneum noted; large hiatal hernia -- Dr. Wu made attempts at hernia reduction with patient reporting some improvement in symptoms - Place NPO at this time - NSS at 125 mL/hr - Pain/Nausea control - Morphine and Zofran PRN - Discussed NGT placement however would like to avoid this at this time - Consult Gen Surg - appreciate input - hopefully conservative measures will resolve presentation Present on Admission?: Yes (2) Acute kidney injury: - Cr of 2.02 on admission - baseline appears to be 0.9-1.2 - Will continue fluids of NSS at 125 mL/hr and reassess labs in AM - suspect prerenal changes - Will hold Lisinopril while NPO/PILI Present on Admission?: Yes (3) CAD (coronary artery disease): - H/O NSTEMI in past - nonobstructive findings on cath 2016 - follows with [facility] [place] Cardiology - Per chart review possibly H/O paroxysmal A Fib - not documented with Cardiology or on anticoagulation - examines in a reg rhythm with slightly tachy rate - Hold ASA and Atorvastatin while NPO Present on Admission?: Yes (4) Hypertension: - BP elevated - likely situational in setting of abdominal discomfort/retching - Hold Lisinopril 20 mg daily, Norvasc 5 mg daily, and Toprol XL 50 mg daily - monitor for rebound tachycardia -- Mild increase in HR 99-103 likely due to pain/nausea/vomiting but will monitor Present on Admission?: Yes (5) Hyperlipidemia: - Hold Atorvastatin 20 mg daily Present on Admission?: Yes (6) Chronic obstructive pulmonary disease: - No current exacerbation - Continue Tiotropium daily and Albuteral/Nebs PRN Present on Admission?: Yes (7) DVT prophylaxis: - SCDs Disposition: Await clinical improvement History of Present Illness Ms. 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 States she was in her normal state of health until the morning of 08/18. States she woke up not feeling well but was able to go about her normal routine. She states around midday she ate a small piece of fish and a couple shrimp and soon after began vomiting. States she has had numerous episodes of vomiting since that time. Reports one episode of emesis in ED. Gen Surg did manipulate her hernia and she reports improvement in her symptoms. She reports she has continued to move her bowels with last BM this AM. She takes Miralax daily for bowel management. CT findings are compatible with high-grade SBO. Discussed NGT placement but patient would like to wait on this as she has had issues with insertion in the past. She has had previous repairs to her multiple ventral hernias but has since re-herniated after those procedures. Primary Care Provider: Scott Beauchamp MD Allergies Allergy/AdvReac Type Severity Reaction Status Date / Time No Known Allergies Allergy Verified 08/19/19 10:55 Home Medications Home Medications Medication Instructions Recorded Confirmed Type albuterol sulfate HFA 90 2 puffs INHALATION Q4H PRN gm 05/17/19 08/19/19 History mcg/actuation aerosol inhaler atorvastatin 20 mg tablet 20 mg PO HS #90 tab 06/08/19 08/19/19 Rx amlodipine 5 mg tablet 5 mg PO DAILY #90 tab 06/13/19 08/19/19 Rx tiotropium bromide 18 mcg capsule 1 cap INHALATION DAILY #60 puffs 06/14/19 08/19/19 Rx with inhalation device cholecalciferol (vitamin D3) 1,000 1,000 units PO DAILY cap 07/29/19 08/19/19 History unit capsule levothyroxine 100 mcg tablet 100 mcg PO DAILY #90 tab 07/29/19 08/19/19 History metoprolol succinate ER 50 mg 50 mg PO DAILY #90 tab 07/29/19 08/19/19 History tablet,extended release 24 hr nitroglycerin 0.4 mg sublingual 0.4 mg SL ONCE PRN tab 07/29/19 08/19/19 History tablet omega-3 acid ethyl esters 1 gram 1 cap PO DAILY cap 07/29/19 08/19/19 History capsule pantoprazole 40 mg tablet,delayed 40 mg PO DAILY #90 tab 07/29/19 08/19/19 History release tramadol 50 mg tablet 50 mg PO TID PRN #50 tab 07/29/19 08/19/19 History trazodone 50 mg tablet 50 mg PO QPM #30 tab 07/29/19 08/19/19 History lisinopril 20 mg tablet 20 mg PO DAILY #90 tab 08/11/19 08/19/19 Rx aspirin [Aspir-81] 81 mg PO DAILY 08/19/19 08/19/19 History polyethylene glycol 3350 [Miralax] 17 g PO DAILY PRN 08/19/19 08/19/19 History Past Med/Surg History Medical History CAD (coronary atherosclerotic disease) COPD (chronic obstructive pulmonary disease) Essential hypertension High cholesterol History of pancreatic cancer Non-ST elevation (NSTEMI) myocardial infarction Paroxysmal atrial fibrillation Surgical History S/P cataract extraction Bilateral S/P recurrent ventral herniorrhaphy S/P repair of ventral hernia History of appendectomy History of cardiac cath History of hysterectomy History of pancreatectomy Family History Other Family history non-contributory Social History Preferred Language: Thai Communication Ability: Effective Pusher Operator Required: No Beliefs That Will Affect Care: None Current Living Situation: Spouse Other Information That Helps Us Care for You: No Feels Safe at Home: Yes Safety Concerns: Feels Safe At This Time Smoking Status: Former smoker Tobacco Type: cigarettes ; Do You Dip or Chew Tobacco: No ; Smoking End Date: 2004 ; Second Hand Exposure: No ; Tobacco Cessation Education Requested by Patient: No Hx Alcohol Use: No Hx Substance Use: No Review of Systems Constitutional: + fatigue and + anorexia; no fever and no chills Eyes: no worsening vision Ear, Nose, Mouth, Throat: no nasal congestion, no dry mouth, no sore throat and no hoarseness Respiratory: no cough, no dyspnea, no sputum production and no wheezing Cardiovascular: no chest pain, no palpitations, no lightheadedness and no edema Gastrointestinal: + abdominal pain, + bloating, + nausea and + vomiting; no constipation and no diarrhea/loose stools Genitourinary: no dysuria Integumentary: no rash Physical Exam Constitutional: + frail appearing; no acute distress, not ill appearing and + not appropriately hydrated Eyes: + anicteric sclerae ENMT: Ears: no hearing impairment Mouth: + dentures; oral mucous membranes not dry Neck: trachea midline, no thyromegaly Respiratory: normal respiratory effort, lungs clear to auscultation Auscultation: + diminished lung sounds Cardiovascular: RRR, no murmur, no edema Gastrointestinal (Abdomen): Inspection/Auscultation: + abdomen distended and normal bowel sounds Percussion/Palpation: + abdomen tender Multiple ventral hernias - large mid-abdominal hernia Musculoskeletal: no cyanosis or clubbing, extremities motor strength 5/5 Skin: no rashes, warm and dry Neurologic: moves all extremities Psychiatric: A+Ox3, euthymic affect Results & Data Vital Signs (Past 12 Hours) Vital Signs Temp Pulse Pulse Resp BP BP Pulse Ox 08/19/19 15:01 103 H 36 H 168/80 H 93 08/19/19 13:11 104 H 18 168/95 H 100 08/19/19 11:53 88 16 149/84 H 95 08/19/19 10:23 94 08/19/19 09:59 36.5 C 118 H 18 119/89 94 Supervising Physician Co-Signing Physician Notes Patient seen and examined with Carmen RESENDEZ. I agree with her exam findings, review of systems, assessment and plan. I personally reviewed the lab work and imaging as well. discussed with Dr. Wu, appreciate his exam and recommendations patient with nausea and vomiting, pain from ventral hernia evidence of SBO on CT - SBO likely related to ventral hernia with loops of bowel withing the hernia will make strict NPO IV fluids encourage ambulation general surgery consulted patient has a h/o SBO that have resolved with conservative measures if she would require surgery then would need to be transferred PG Care Time/CCT Total # of Minutes Spent Total Time Spent with Patient: Total time spent is greater than 50% in coordination of care (as documented) at patient's floor/unit and/or counseling patient:
--- NOTE | 2019-08-19 17:37 | Emergency Department Note ---
Entered by Juan Carlos Pratt acting as a scribe for Mino Mancuso DO History of Present Illness General Chief complaint: Vomiting Stated complaint: VOMITING Source: patient Mode of arrival: ambulatory Limitations: no limitations History of Present Illness Onset (ago): day(s) 1 Location: abdomen Pain Consistency: + other (episode ) Maximum Pain Intensity: 8 Current Pain Intensity: 8 Quality: + stabbing and + dull Associated symptoms: + denies other symptoms (dysuria, bowel obstruction) and + nausea/vomiting The patient is a 84 year old female who presents to the Emergency Room with complaints of an episode of 8/10 stabbing and achy dull stomach pain accompanies with emesis that started yesterday evening continuing into the morning. The patient notes that the emesis is clear. She reports that she has been throwing up for a day and a half. The patient denies any dysuria but admits to multiple previous bowel obstructions. The patient reports that she has a history of hernias related to her previous Whipple with cholecystectomy and appendectomy secondary to pancreatic cancer. The patient reports that she had a normal bowel movement this morning. The patient states that she uses blood thinners. She notes that she did not eat last night. No other exacerbating or remitting factors with the exception of eating and palpating her abdomen. Home Medications Home Medications Medication Instructions Recorded Confirmed Type albuterol sulfate HFA 90 2 puffs INHALATION Q4H PRN gm 05/17/19 08/19/19 History mcg/actuation aerosol inhaler atorvastatin 20 mg tablet 20 mg PO HS #90 tab 06/08/19 08/19/19 Rx amlodipine 5 mg tablet 5 mg PO DAILY #90 tab 06/13/19 08/19/19 Rx tiotropium bromide 18 mcg capsule 1 cap INHALATION DAILY #60 puffs 06/14/19 08/19/19 Rx with inhalation device cholecalciferol (vitamin D3) 1,000 1,000 units PO DAILY cap 07/29/19 08/19/19 History unit capsule levothyroxine 100 mcg tablet 100 mcg PO DAILY #90 tab 07/29/19 08/19/19 History metoprolol succinate ER 50 mg 50 mg PO DAILY #90 tab 07/29/19 08/19/19 History tablet,extended release 24 hr nitroglycerin 0.4 mg sublingual 0.4 mg SL ONCE PRN tab 07/29/19 08/19/19 History tablet omega-3 acid ethyl esters 1 gram 1 cap PO DAILY cap 07/29/19 08/19/19 History capsule pantoprazole 40 mg tablet,delayed 40 mg PO DAILY #90 tab 07/29/19 08/19/19 History release tramadol 50 mg tablet 50 mg PO TID PRN #50 tab 07/29/19 08/19/19 History trazodone 50 mg tablet 50 mg PO QPM #30 tab 07/29/19 08/19/19 History lisinopril 20 mg tablet 20 mg PO DAILY #90 tab 08/11/19 08/19/19 Rx aspirin [Aspir-81] 81 mg PO DAILY 08/19/19 08/19/19 History polyethylene glycol 3350 [Miralax] 17 g PO DAILY PRN 08/19/19 08/19/19 History Allergies Allergy/AdvReac Type Severity Reaction Status Date / Time No Known Allergies Allergy Verified 08/19/19 10:55 Past Med/Surg History Medical History CAD (coronary atherosclerotic disease) COPD (chronic obstructive pulmonary disease) Essential hypertension High cholesterol History of pancreatic cancer Non-ST elevation (NSTEMI) myocardial infarction Paroxysmal atrial fibrillation History of hysterectomy Surgical History History of appendectomy History of cardiac cath History of pancreatectomy Family History Other Family history non-contributory Social History Preferred Language: Lithuanian Communication Ability: Effective Plain Clothes Police Officer Required: No Beliefs That Will Affect Care: None Current Living Situation: Spouse Other Information That Helps Us Care for You: No Feels Safe at Home: Yes Safety Concerns: Feels Safe At This Time Smoking Status: Former smoker Tobacco Type: cigarettes ; Do You Dip or Chew Tobacco: No ; Smoking End Date: 2004 ; Second Hand Exposure: No ; Tobacco Cessation Education Requested by Patient: No Hx Alcohol Use: No Hx Substance Use: No Review of Systems See HPI for pertinent positives & negatives. and A total of 10 systems reviewed and were otherwise negative Physical Exam Vital Signs Vital Signs - 24 hr 08/19/19 09:59 08/19/19 10:23 08/19/19 11:53 Temperature 36.5 C Temperature Source Oral Sepsis Recent Fever Within 48 Hours No Sepsis Action Taken by Nursing No Action Required Pulse Rate 118 H Pulse Rate [Apical] 88 Pulse Rate from SpO2 Sensor Respiratory Rate 18 16 Respiratory Effort / Characteristics Non-Labored Spontaneous Respiratory Depth Normal Blood Pressure 119/89 Blood Pressure [Left Arm] 149/84 H Blood Pressure Mean 99 Blood Pressure Mean [Left Arm] 105 Blood Pressure Position Sitting Pulse Oximetry 94 94 95 Oxygen Delivery Method Room Air Room Air Nasal Cannula Oxygen Flow Rate 2 08/19/19 13:11 08/19/19 15:01 08/19/19 16:00 Temperature Temperature Source Sepsis Recent Fever Within 48 Hours Sepsis Action Taken by Nursing Pulse Rate 103 H 99 H Pulse Rate [Apical] 104 H Pulse Rate from SpO2 Sensor 106 H 99 H Respiratory Rate 18 36 H 25 H Respiratory Effort / Characteristics Respiratory Depth Blood Pressure 168/80 H 148/84 H Blood Pressure [Left Arm] 168/95 H Blood Pressure Mean 109 105 Blood Pressure Mean [Left Arm] 119 Blood Pressure Position Pulse Oximetry 100 93 94 Oxygen Delivery Method Nasal Cannula Room Air Room Air Oxygen Flow Rate 2 GENERAL: sitting up well in bed, disheveled, holding abdomen, non-toxic EYE EXAM: normal conjunctiva, PERRL and EOM's grossly intact OROPHARYNX: Dry mucous membranes NECK: supple, no nuchal rigidity, no adenopathy, non-tender LUNGS: Clear to auscultation. Normal chest wall mechanics HEART: no murmurs, S1 normal and S2 normal ABDOMEN: multiple incisions, two supra umbilical hernias both reducible multiple lower abdominal hernias which are tender to palpation. Positive bowel sounds. BACK: Back is symmetrical on inspection and there is no deformity, no midline tenderness, no CVA tenderness. SKIN: no rashes and no bruising UPPER EXTREMITIES: upper extremities are grossly normal. LOWER EXTREMITIES: No pitting edema. NEURO EXAM: Normal sensorium, cranial nerves II-XII grossly intact, normal speech, no gross weakness of arms, no gross weakness of legs. Course ED COURSE: Vital signs were reviewed and showed The patients medical record was reviewed The above diagnostic studies were performed and reviewed. ED treatments and interventions as stated above. 1004: The patient was evaluated in room B09. A complete history and physical examination was performed. 1220: Discussed the patient's case with Dr. Walters, [facility] Hospitalist. The patient will be evaluated for further management. 1220: Discussed the patient's case, Dr. Chavez Wu, General surgery [facility]. The patient will be evaluated for further management. Upon reevaluation, the patient is resting comfortably. I discussed my findings with the patient and she understands and agrees with the treatment plan. Based on the patients age, coexisting illnesses, exam and lab findings the decision to treat as an inpatient was made. The patient remained stable while under my care. The patient will be evaluated for further management. Administered Medications Discontinued Medications Sodium Chloride (Nss 1000ml) 1,000 mls @ 999 mls/hr IV .Q1H1M ONE Stop: 08/19/19 11:08 Last Infusion: 08/19/19 11:21 Dose: 0 mls/hr Documented by: [id number] Admin: 08/19/19 10:19 Dose: 999 mls/hr Documented by: [id number] Morphine Sulfate (Morphine Sulfate) 4 mg IV NOW STA Stop: 08/19/19 11:05 Last Admin: 08/19/19 11:18 Dose: 4 mg Documented by: [id number] Morphine Sulfate (Morphine Sulfate) 4 mg IV NOW STA Stop: 08/19/19 13:27 Last Admin: 08/19/19 13:30 Dose: 4 mg Documented by: [id number] Morphine Sulfate (Morphine Sulfate) 4 mg IV NOW STA Stop: 08/19/19 17:09 Last Admin: 08/19/19 17:19 Dose: 4 mg Documented by: [id number] Ondansetron HCl (Zofran) 4 mg IV NOW STA Stop: 08/19/19 10:09 Last Admin: 08/19/19 10:19 Dose: 4 mg Documented by: [id number] Ondansetron HCl (Zofran) 4 mg IV NOW STA Stop: 08/19/19 13:27 Last Admin: 08/19/19 13:30 Dose: 4 mg Documented by: [id number] Ondansetron HCl (Zofran) 4 mg IV NOW STA Stop: 08/19/19 17:09 Last Admin: 08/19/19 17:19 Dose: 4 mg Documented by: [id number] Medical Decision Making Differential Diagnosis Differential diagnoses includes but is not limited to gastritis, peptic ulcer disease, GERD, gallbladder disease, pancreatitis, small bowel obstruction, acute coronary syndrome, pericarditis, ischemic bowel, irritable bowel disease, irritable bowel syndrome, appendicitis, diverticulitis, malignancy, hernia, urinary tract infection, torsion, [/ectopic (if female)], perforation, trauma, infectious. Medical Records Attestation: I reviewed the patient's medical records. Home Medications Current Medication List: was personally reviewed by me Laboratory Data Attestation: I reviewed the patient's lab results. Result diagrams: 08/19/19 10:12 08/19/19 10:12 Lab Results 08/19/19 08/19/19 Range/Units 10:12 10:12 WBC 11.66 H (4.8-10.8) K/uL RBC 5.32 (4.2-5.4) M/uL Hgb 16.1 H (12.0-16.0) g/dL Hct 48.3 H (37-47) % MCV 90.8 (80-100) fL MCH 30.3 (25-34) pg MCHC 33.3 (32-36) g/dL RDW Std Deviation 45.1 (36.4-46.3) fL RDW Coeff of Tara 13.7 (11.5-14.5) % Plt Count 451 H (130-400) K/uL MPV 9.1 (7.4-10.4) fL Immature Gran % (Auto) 0.4 % Neut % (Auto) 87.1 % Lymph % (Auto) 7.7 % Terry % (Auto) 4.7 % Eos % (Auto) 0.0 % Baso % (Auto) 0.1 % Immature Gran # (Auto) 0.05 H (0.00-0.02) K/uL Neut # (Auto) 10.15 H (1.4-6.5) K/uL Lymph # (Auto) 0.90 L (1.2-3.4) K/uL Terry # (Auto) 0.55 (0.11-0.59) K/uL Eos # (Auto) 0.00 (0-0.5) K/uL Baso # (Auto) 0.01 (0-0.2) K/uL Sodium 140 (136-145) mmol/L Potassium 4.2 (3.5-5.1) mmol/L Chloride 105 (98-107) mmol/L Carbon Dioxide 22 (21-32) mmol/L Anion Gap 13.0 H (3-11) BUN 30 H (7-18) mg/dl Creatinine 2.02 H (0.6-1.2) mg/dl Est Cr Clr Drug Dosing 21.4 ml/min Est GFR ( Amer) 26.0 Est GFR (Non-Af Amer) 22.4 BUN/Creatinine Ratio 15.1 (10-20) Glucose 234 H (70-99) mg/dl Calcium 9.2 (8.5-10.1) mg/dl Total Bilirubin 0.4 (0.2-1) mg/dl AST 14 L (15-37) U/L ALT 28 (12-78) U/L Alkaline Phosphatase 153 H (45-117) U/L Total Protein 8.5 H (6.4-8.2) gm/dl Albumin 3.8 (3.4-5.0) gm/dl Globulin 4.7 H (2.5-4.0) gm/dl Albumin/Globulin Ratio 0.8 L (0.9-2) Lipase 56 L (73-393) U/L Imaging Data Radiologist's Impression: Radiology results as stated below per my review and the radiologist's interpretation: ABDOMEN AND PELVIS CT WITHOUT CONTRAST CT DOSE: 721.06 mGy.cm HISTORY: Acute abdominal pain with nausea and vomiting abd pain n/v TECHNIQUE: Multiaxial CT images of the abdomen and pelvis were performed without contrast. A dose lowering technique was utilized adhering to the principles of ALARA. COMPARISON STUDY: CT abdomen pelvis 02/18/2018 FINDINGS: Emphysema. Calcified hilar lymph nodes compatible with prior granulomatous disease. A few calcified granulomata are also noted about the lungs. Coronary arterial calcifications are noted. No pneumatosis or pneumoperitoneum. Limited evaluation of the solid abdominal organs without the use of IV contrast. Cholecystectomy with pneumobilia and biliary ductal dilation redemonstrated, damien casillas postsurgical with prior sphincterotomy. Mild hepatic steatosis. Calcified granulomata of the spleen. Moderate generalized pancreatic atrophy. Mild thickening of the right adrenal gland. Hypodense left adrenal lesion measuring 2.9 x 2.2 cm meets diagnostic criteria for adenoma, unchanged. There is mild nonspecific bilateral perinephric stranding. Hypodense 1.7 cm lesion of the interpolar right kidney suggest probable cyst. A millimeter hypodense lesion of the inferior pole right kidney may reflect an additional cyst. There are several nonobstructing calculi noted about the right kidney me asuring up to approximately 3 mm. Renal sinus cysts noted about the left kidney. No ureteral calculi or obstructive uropathy. Ureters are unremarkable. Partial distention of the urinary bladder. Hysterectomy. No adnexal mass lesion. Extensive calcified plaque of the abdominal aorta without aneurysm. No adenopathy. Large fluid-filled hiatal hernia, partially imaged. There are multiple air and fluid-filled dilated loops of small bowel throughout the abdomen and upper pelvis measuring up to 4.7 cm transversely. Postoperative changes from prior partial small bowel resection in the upper abdomen again noted. There are multiple ventral abdominal wall hernias redemonstrated which again contains me senteric fat and loops of small bowel. Terminal ileum is decompressed. There is a focal transition point noted in a loop of small bowel which exits one of the ventral abdominal wall hernias on image 237 series 3 about the anterior aspect of the lower abdomen. Colonic diverticulosis without acute diverticulitis. Mild fecal retention. Mild interloop edema. Degenerative changes of the spine, pelvis and hips. 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 IMPRESSION: 1. Multiple air and fluid-filled dilated loops of small bowel throughout the abdomen and upper pelvis with multiple ventral abdominal hernias redemonstrated containing both mesenteric fat and loops of small bowel. There is a focal transition point involving a loop of small bowel as it exits one of the hernias as above. Findings compatible with high-grade small bowel obstruction. 2. No pneumatosis or pneumoperitoneum. 3. Nonobstructing right nephrolithiasis. 4. Large hiatal hernia. 5. Additional findings as above. Electronically signed by: Servando Najera M.D. 08/19/2019 11:56 AM Blood Pressure Blood Pressure Findings: Elevated blood pressure Blood Pressure Disposition: further management by hospitalist IZZY Narrative Patient is an 84-year-old female with a past medical history of pancreatic cancer and a previous Whipple the presents the ER for abdominal pain associate with nausea vomiting. IV was established blood work was obtained. Labs show leukocytosis of 11.6 thousand. Hemoglobin is 16. BMP with a creatinine of 2 up from 1. LFTs and bilirubin was unremarkable. Lipase was unremarkable. Patient was given IV fluids. Multiple dose of IV Zofran and IV narcotics. CT abdomen pelvis shows high-grade small bowel obstruction secondary to entrapped hernia. Discussed with general surgery and the hospitalist. Patient was evaluated by general surgery at bedside and the hernia was eventually reduced. Patient was discussed with the hospitalist and will be observed overnight. Impression & Plan SBO (small bowel obstruction), Acute renal failure, Hypertension, Acute abdominal pain Discharge Plan Visit Data Chief Complaint: Vomiting Stated Complaint: VOMITING ED Provider: Mino Mancuso Discharge Problem: SBO (small bowel obstruction), Acute renal failure, Hypertension, Acute abdominal pain Forms Stand Alone Forms: My [facility] Prescriptions Prescriptions: No Action atorvastatin 20 mg tablet 20 mg PO HS Qty: 90 RF: 3 amlodipine 5 mg tablet 5 mg PO DAILY Qty: 90 RF: 1 tiotropium bromide 18 mcg capsule, w/inhalation device 1 cap inhalation DAILY Qty: 60 RF: 3 lisinopril 20 mg tablet 20 mg PO DAILY Qty: 90 RF: 3 albuterol sulfate 90 mcg/actuation HFA aerosol inhaler 2 puffs inhalation Q4H PRN (Reason: shortness of breath or wheezing) RF: 0 cholecalciferol (vitamin D3) 1,000 unit capsule 1,000 units PO DAILY RF: 0 levothyroxine 100 mcg tablet 100 mcg PO DAILY Qty: 90 RF: 0 metoprolol succinate 50 mg tablet extended release 24 hr 50 mg PO DAILY Qty: 90 RF: 0 nitroglycerin 0.4 mg tablet, sublingual 0.4 mg SL ONCE PRN (Reason: Chest Pain) RF: 0 omega-3 acid ethyl esters 1 gram capsule 1 cap PO DAILY RF: 0 pantoprazole 40 mg tablet,delayed release (DR/EC) 40 mg PO DAILY Qty: 90 RF: 0 tramadol 50 mg tablet 50 mg PO TID PRN (Reason: Pain) Qty: 50 RF: 0 trazodone 50 mg tablet 50 mg PO QPM Qty: 30 RF: 0 aspirin [Aspir-81] 81 mg Tablet,Delayed Release (Dr/Ec) 81 mg PO DAILY RF: 0 polyethylene glycol 3350 [Miralax] 17 gram/dose Powder 17 g PO DAILY PRN (Reason: Constipation) RF: 0 Referrals Referrals: Scott Beauchamp MD [Primary Care Provider] - The scribe's documentation has been prepared under my direction and personally reviewed by me in its entirety. I confirm that the note above accurately reflects all work, treatment, procedures, and medical decision making performed by me.
--- NOTE | 2019-08-19 17:53 | Surgery Consultation ---
Date of Consultation August 19, 2019 Assessment & Plan (1) Small bowel obstruction: This patient had evidence of a small bowel loop possibly causing small bowel obstruction in her lower ventral hernia. I reduce that. The other 2 reducible. I do not feel that there is any need for immediate surgical intervention. If surgical intervention would be necessary then it would be to the patient's benefit to be seen by the abdominal reconstruction team at [facility]. I would keep her n.p.o. for now. She is receiving IV hydration. We will follow her course. Hopefully with reduction of that hernia she will now begin to move her bowels and pass flatus. History of Present Illness Reason for Consultation: Abdominal pain, ventral hernias Requesting Physician: Mino Mancuso, DO History of Present Illness I have been asked by Dr. Mancuso to see this 84-year-old female who presented to the emergency room with a 2-day history of abdominal pain. She had vomiting overnight. The pain seems to have decreased considerably since being in the emergency room. She has had a Whipple procedure in 2004 for pancreatic carcinoma. She has had ventral hernia repairs on 2 occasions and she thinks mesh was used both times. She has developed recurrences. They usually protrude but if not caused any difficulty. She developed some discomfort in the hernia below the umbilicus. She had no fever or chills. She has been having bowel movements. She has not passed flatus today. She has no dysuria or hematuria. Allergies Allergy/AdvReac Type Severity Reaction Status Date / Time No Known Allergies Allergy Verified 08/19/19 10:55 Home Medications Home Medications Medication Instructions Recorded Confirmed Type albuterol sulfate HFA 90 2 puffs INHALATION Q4H PRN gm 05/17/19 08/19/19 History mcg/actuation aerosol inhaler atorvastatin 20 mg tablet 20 mg PO HS #90 tab 06/08/19 08/19/19 Rx amlodipine 5 mg tablet 5 mg PO DAILY #90 tab 06/13/19 08/19/19 Rx tiotropium bromide 18 mcg capsule 1 cap INHALATION DAILY #60 puffs 06/14/19 08/19/19 Rx with inhalation device cholecalciferol (vitamin D3) 1,000 1,000 units PO DAILY cap 07/29/19 08/19/19 History unit capsule levothyroxine 100 mcg tablet 100 mcg PO DAILY #90 tab 07/29/19 08/19/19 History metoprolol succinate ER 50 mg 50 mg PO DAILY #90 tab 07/29/19 08/19/19 History tablet,extended release 24 hr nitroglycerin 0.4 mg sublingual 0.4 mg SL ONCE PRN tab 07/29/19 08/19/19 History tablet omega-3 acid ethyl esters 1 gram 1 cap PO DAILY cap 07/29/19 08/19/19 History capsule pantoprazole 40 mg tablet,delayed 40 mg PO DAILY #90 tab 07/29/19 08/19/19 History release tramadol 50 mg tablet 50 mg PO TID PRN #50 tab 07/29/19 08/19/19 History trazodone 50 mg tablet 50 mg PO QPM #30 tab 07/29/19 08/19/19 History lisinopril 20 mg tablet 20 mg PO DAILY #90 tab 08/11/19 08/19/19 Rx aspirin [Aspir-81] 81 mg PO DAILY 08/19/19 08/19/19 History polyethylene glycol 3350 [Miralax] 17 g PO DAILY PRN 08/19/19 08/19/19 History Patient History Medical History CAD (coronary atherosclerotic disease) COPD (chronic obstructive pulmonary disease) Essential hypertension High cholesterol History of pancreatic cancer Non-ST elevation (NSTEMI) myocardial infarction Paroxysmal atrial fibrillation Surgical History S/P cataract extraction Bilateral S/P recurrent ventral herniorrhaphy S/P repair of ventral hernia History of appendectomy History of cardiac cath History of hysterectomy History of pancreatectomy Family History Other Family history non-contributory Social History Preferred Language: Sinhala Communication Ability: Effective Mottle Lay Up Operator Required: No Beliefs That Will Affect Care: None Current Living Situation: Spouse Other Information That Helps Us Care for You: No Feels Safe at Home: Yes Safety Concerns: Feels Safe At This Time Smoking Status: Former smoker Tobacco Type: cigarettes ; Do You Dip or Chew Tobacco: No ; Smoking End Date: 2004 ; Second Hand Exposure: No ; Tobacco Cessation Education Requested by Patient: No Hx Alcohol Use: No Hx Substance Use: No Physical Exam Constitutional: no acute distress Neck: trachea midline Respiratory: normal respiratory effort, lungs clear to auscultation Cardiovascular: Rate/Rhythm: regular rate and regular rhythm Gastrointestinal (Abdomen): Inspection/Auscultation: abdomen not distended Percussion/Palpation: + abdomen tender (Mild in area of lower hernia until it was reduced and then tenderness resolved) and abdomen soft 3 ventral hernia defects to above the umbilicus and one below. The one below was protruding but I was able to reduce it. The other 2 were easily reduced. She had tenderness in the lower hernia area until I reduced Skin: no rashes, warm and dry Lymphatic: no cervical lymphadenopathy Results & Data Vital Signs (Past 12 Hours) Vital Signs Temp Pulse Pulse Resp BP BP Pulse Ox 08/19/19 17:01 103 H 30 H 168/102 H 08/19/19 16:00 99 H 25 H 148/84 H 94 08/19/19 15:01 103 H 36 H 168/80 H 93 08/19/19 13:11 104 H 18 168/95 H 100 08/19/19 11:53 88 16 149/84 H 95 08/19/19 10:23 94 08/19/19 09:59 36.5 C 118 H 18 119/89 94
[2019-08-19] MEDS ORDERED: ALUMINUM/MAGNESIUM SUSP 30 ML UDC PO PRN (19:07)
[2019-08-19] MEDS ORDERED: POLYETHYLENE (MIRALAX) 17 GM PACK PO PRN (19:07)
[2019-08-19] MEDS ORDERED: MAGNESIUM HYDROXIDE SUSP 30 ML UDC PO PRN (19:07)
[2019-08-19] MEDS ORDERED: ALBUTEROL HFA 8 GM INHALER INH PRN (19:07)
[2019-08-19] MEDS ORDERED: ALBUT/IPRATROP 3MG/0.5MG NEB 3 ML VIAL NEB PRN (19:07)
[2019-08-19] MEDS: SODIUM CHLORIDE 0.9% 1000ML 1,000 ML IV SCH (20:00)
[2019-08-19] MEDS: MoRPHine SULFATE 2 MG/ML CARP IV PRN (23:12)
[2019-08-20] MEDS: MoRPHine SULFATE 2 MG/ML CARP IV PRN ×5 (01:10→23:14)
[2019-08-20] MEDS: SODIUM CHLORIDE 0.9% 1000ML 1,000 ML IV SCH (03:06)
[2019-08-20 04:27] LABS: Appearance Urine Cloudy (Clear); Bacteria Urine Automated Negative (Negative); Bilirubin Urine Negative (Negative); Blood Urine Negative (Negative); Color Urine Dark Yellow; Epithelial Cell Urine Auto >30 /lpf (0-5); Glucose Urine UA Negative (Negative); Ketones Urine Negative (Negative); Leukocyte Esterase Urine Negative (Negative); Nitrite Urine Negative (Negative); Protein Urine 1+ (Negative); Specific Gravity Urine 1.024 (1.000-1.030); Urobilinogen Urine Negative (Negative)
[2019-08-20 05:12] LABS: Calcium Oxalate Crystals Urine Present (None Prsent)
[2019-08-20 06:00] LABS: Hematocrit (blood only) 37.5 % (37-47); Mean Corpuscular Hemoglobin 30.5 pg (25-34); Mean Corpuscular Volume 95.2 fL (80-100); Mean Platelet Volume 8.7 fL (7.4-10.4); Platelet Count 336 K/uL (130-400); RDW Coefficient of Variation 14.1 % (11.5-14.5); RDW Standard Deviation 48.8 fL (36.4-46.3); Red Blood Count 3.94 M/uL (4.2-5.4); White Blood Count 5.78 K/uL (4.8-10.8)
[2019-08-20 06:25] LABS: BUN Creatinine Ratio 29.2 (10-20); Calcium 7.7 mg/dl (8.5-10.1); Creatinine Clr Calc Pharmacy 40.3 ml/min; Est GFR (Non-African American) 48.3; Potassium 4.2 mmol/L (3.5-5.1)
[2019-08-20] MEDS: D5W AND 1/2NSS 1,000 ML IV SCH ×2 (09:29→21:38)
--- NOTE | 2019-08-20 09:56 | Hospitalist Progress Note ---
Date of Service August 20, 2019 Assessment & Plan (1) Small bowel obstruction: - CT with findings compatible with high-grade SBO - focal transition point involving loop of small bowel as it exits one of the hernias; multiple hernias noted; no pneumatosis/pneumoperitoneum noted; large hiatal hernia -- Dr. Wu reduced hernia on 08/19 - Obstruction likely from multiple abdominal hernias and adhesions; has had multiple SBOs in the past - reports normally 2 days for resolution in the past - Keep NPO at this time - and advancement pending clinical improvement - Change NSS to D5 1/2 NSS at 80 mL/hr given hypernatremmia on labs - Pain/Nausea control - Morphine and Zofran PRN - Currently no episodes of vomiting - can hold on NGT placement at this time - patient would like to avoid this if able - Consult Gen Surg - appreciate input - hopefully conservative measures will resolve presentation - if surgical intervention necessary likely would need tertiary care center (2) Acute kidney injury: - Cr of 2.02 on admission - baseline appears to be 0.9-1.2 - Cr at 1.07 today after hydration support pre-renal - Continue D5 /2 NSS (3) CAD (coronary artery disease): - H/O NSTEMI in past - nonobstructive findings on cath 2016 - follows with [facility] - Per chart review possibly H/O paroxysmal A Fib - not documented with Cardiology or on anticoagulation - examines in a RRR - Hold ASA and Atorvastatin while NPO (4) Hypertension: - BP improved- previous readings likely situational in setting of abdominal discomfort/retching - Hold Lisinopril 20 mg daily, Norvasc 5 mg daily, and Toprol XL 50 mg daily - monitor for rebound tachycardia (5) Hyperlipidemia: - Hold Atorvastatin 20 mg daily (6) Chronic obstructive pulmonary disease: - No current exacerbation - Continue Tiotropium daily and Albuteral/Nebs PRN (7) DVT prophylaxis: - SCDs Disposition: Await clinical improvement and dietary advancement Subjective Reports feeling better today and looks more comfortable. Reports burping but no flatus. No BM since admission. No further emesis at this time. She is planning to walk the halls later this morning. Denies having an appetite at this time just a dry mouth. She tenderness in the abdomen around the central location of the large present ventral hernia Review of Systems Constitutional: + fatigue and + anorexia; no fever and no chills Ear, Nose, Mouth, Throat: + dry mouth; no sore throat Respiratory: no cough and no dyspnea Cardiovascular: no chest pain, no palpitations, no lightheadedness and no edema Gastrointestinal: + abdominal pain and + bloating (improving); no nausea, no vomiting, no constipation and no diarrhea/loose stools Genitourinary: no dysuria Musculoskeletal: no body aches Integumentary: no rash Physical Exam Constitutional: no acute distress and not ill appearing Eyes: + anicteric sclerae ENMT: Ears: no hearing impairment Mouth: + dentures; oral mucous membranes not dry Neck: trachea midline, no thyromegaly Respiratory: normal respiratory effort, lungs clear to auscultation Auscultation: + diminished lung sounds Cardiovascular: RRR, no murmur, no edema Gastrointestinal (Abdomen): Inspection/Auscultation: + abdomen distended and normal bowel sounds (on R side - hypoactive in L quadrants) Percussion/Palpation: + abdomen tender (central region of largest ventral hernia) and abdomen soft (in lower quadrants - more distended in upper quadrants) Musculoskeletal: no cyanosis or clubbing, extremities motor strength 5/5 Skin: no rashes, warm and dry Neurologic: moves all extremities Psychiatric: A+Ox3, euthymic affect Results & Data Vital Signs (Past 12 Hours) Vital Signs Temp Pulse Resp BP Pulse Ox 08/20/19 07:29 36.7 C 89 19 122/50 L 91 08/19/19 23:05 36.5 C 98 H 16 155/85 H 94 PG Care Time/CCT Total # of Minutes Spent Total Time Spent with Patient: Total time spent is greater than 50% in co ordination of care (as documented) at patient's floor/unit and/or counseling patient:
--- NOTE | 2019-08-20 10:21 | Surgery Progress Note ---
Date of Service August 20, 2019 Assessment & Plan (1) Small bowel obstruction: Based on patient's subjective lack of nausea and vomiting and the fact that I am able to reduce the hernia is completely it is most likely that the small bowel obstruction has been treated. We will await bowel function return. I do not feel that there is any evidence of peritonitis no need for immediate surgical intervention. Would continue n.p.o. for now Subjective Patient feels well today No nausea or vomiting Denies abdominal pain Has not passed flatus or a bowel movement as yet Physical Exam Gastrointestinal (Abdomen): Inspection/Auscultation: abdomen not distended Percussion/Palpation: + abdomen tender (Minimal tenderness of lower hernia area although this is completely reducible as are the 2 hernias in the upper abdomen) and abdomen soft Results & Data Vital Signs (Past 12 Hours) Vital Signs Temp Pulse Resp BP Pulse Ox 08/20/19 07:29 36.7 C 89 19 122/50 L 91
[2019-08-21 05:34] LABS: Hematocrit (blood only) 37.9 % (37-47); Hemoglobin 12.1 g/dL (12.0-16.0); Mean Corpuscular Hemoglobin 30.3 pg (25-34); Mean Corpuscular Hgb Conc 31.9 g/dL (32-36); Mean Corpuscular Volume 94.8 fL (80-100); Mean Platelet Volume 8.7 fL (7.4-10.4); Platelet Count 305 K/uL (130-400); RDW Coefficient of Variation 13.8 % (11.5-14.5); RDW Standard Deviation 47.7 fL (36.4-46.3); White Blood Count 6.14 K/uL (4.8-10.8)
[2019-08-21 06:04] LABS: BUN Creatinine Ratio 19.3 (10-20); Calcium 8.3 mg/dl (8.5-10.1); Creatinine Clr Calc Pharmacy 59.1 ml/min; Est GFR (African American) 88.9; Est GFR (Non-African American) 76.7; Potassium 3.7 mmol/L (3.5-5.1)
[2019-08-21] MEDS: MoRPHine SULFATE 2 MG/ML CARP IV PRN ×3 (06:17→22:06)
--- NOTE | 2019-08-21 09:39 | Surgery Progress Note ---
Date of Service August 21, 2019 Assessment & Plan (1) Small bowel obstruction: secondary to ventral hernias resolving passing flatus no leukocytosis ventral hernias reducible Plan: Start clear liquids ambulate hallway No need for acute surgical intervention but she should highly consider seeing abdominal wall reconstruction surgeons at [facility] for hernia repair. continue med management Dr. Wu has seen and examined pt, agrees with above. Supervising Physician Co-Signing Physician Notes I interviewed and examined this patient I agree with the above note. She has no hernias present but she has no further nausea or vomiting. She is passing a lot of flatus. He has not had a bowel movement yet. I would begin clear liquids for her. Her hernias are all reducible. Subjective feeling good passing moderate amounts of gas, no bowel movement no nausea minimal pain Physical Exam Constitutional: WD/WN, vitals as above not ill appearing Gastrointestinal (Abdomen): Inspection/Auscultation: abdomen not distended Percussion/Palpation: + abdomen tender, abdomen soft and + hernia ( superior ventral hernias easily reduced inferior reducible on manipulation); no guarding and abdomen not rigid Skin: no rashes, warm and dry Psychiatric: A+Ox3, euthymic affect Results & Data Vital Signs (Past 12 Hours) Vital Signs Temp Pulse Resp BP BP Pulse Ox 08/21/19 07:19 36.8 C 80 16 151/92 H 90 08/21/19 00:07 177/97 H 08/20/19 23:03 36.7 C 80 18 188/89 H 91 Laboratory Results 08/21/19 08/21/19 Range/Units 05:00 05:00 WBC 6.14 (4.8-10.8) K/uL RBC 4.00 L (4.2-5.4) M/uL Hgb 12.1 (12.0-16.0) g/dL Hct 37.9 (37-47) % MCV 94.8 (80-100) fL MCH 30.3 (25-34) pg MCHC 31.9 L (32-36) g/dL RDW Std Deviation 47.7 H (36.4-46.3) fL RDW Coeff of Tara 13.8 (11.5-14.5) % Plt Count 305 (130-400) K/uL MPV 8.7 (7.4-10.4) fL Sodium 145 (136-145) mmol/L Potassium 3.7 (3.5-5.1) mmol/L Chloride 112 H (98-107) mmol/L Carbon Dioxide 28 (21-32) mmol/L Anion Gap 5.0 (3-11) BUN 14 D (7-18) mg/dl Creatinine 0.73 D (0.6-1.2) mg/dl Est Cr Clr Drug Dosing 59.1 ml/min Est GFR ( Amer) 88.9 Est GFR (Non-Af Amer) 76.7 BUN/Creatinine Ratio 19.3 (10-20) Glucose 120 H (70-99) mg/dl Calcium 8.3 L (8.5-10.1) mg/dl
[2019-08-21] MEDS: D5W AND 1/2NSS 1,000 ML IV SCH ×2 (09:54→22:02)
--- NOTE | 2019-08-21 14:30 | Hospitalist Progress Note ---
Date of Service August 21, 2019 Assessment & Plan (1) Small bowel obstruction: - CT with findings compatible with high-grade SBO - focal transition point involving loop of small bowel as it exits one of the hernias; multiple hernias noted; no pneumatosis/pneumoperitoneum noted; large hiatal hernia - Obstruction likely from multiple abdominal hernias and adhesions; has had multiple SBOs in the past. - S/p reduction of ventral hernia by Dr. Wu on 08/19. - C/o increased abd pain this morning following exam by surgery - Abd XR showed persistent SBO. - Advanced to CLD for breakfast, did not tolerate diet due to abd pain. Can continue CLD per surgery, discussed with team this afternoon. -ok to restart some home po meds - Continue D5W + 0.45% NS at 80 cc/hr - caution with volume overload, bilat pleural effusions noted on CXR. - Morphine prn pain; Zofran prn N/V. - Consulted general surgery, appreciate input. - Pt. will need to consider abd wall reconstruction surgery at [facility] for hernia repair -- schedule appt at discharge. (2) Acute kidney injury: - Creatinine peaked at 2.02 on admission, now improved with IV fluid hydration. - Monitor renal function daily -holding lisinopril from home (3) CAD (coronary artery disease): - H/O NSTEMI in past - nonobstructive findings on cath 2016; follows with [facility]. - Per chart review possible history of paroxysmal A Fib - not documented with Cardiology or on anticoagulation. In RRR on exam, will monitor. - Holding ASA and statin (4) Hypertension: BPs mildly elevated here -continue to hold Lisinopril 20 mg daily for previous PIIL -will consider restarting Norvasc 5 mg daily tomorrow -will restart Toprol XL 50 mg daily in the AM (5) Hyperlipidemia: - Hold Atorvastatin 20 mg daily. (6) Chronic obstructive pulmonary disease: - No current exacerbation - Continue Tiotropium daily and Albuterol/Nebs prn. (7) Hypernatremia: Na+ elevated and now improved with hypotonic fluids IV -follow BMP -continue current IVFs (8) Elevated alkaline phosphatase level: chronically mildly elevated -could be bone vs liver source Note of hepatic steatosis on CT abd/pel--> likely cause (9) Hypothyroidism: TSH 2.82 on labs from 03/2019 -restart home levothyroxine in the AM (10) DVT prophylaxis: - SCDs; holding pharmacologic ppx for possible procedure. Dispo: Med/surg; discharge pending improvement in abd pain and if pt. is tolerating diet. Supervising Physician Co-Signing Physician Notes PA Supervision Note: I did not personally see or examine the patient today, but I verified all frias points of DIPTI Millan's assessment and plan with the following exceptions/additions: None Subjective Pt. is passing gas, no BM yet. Abd pain was improving but increased in intensity following abd exam by surgery team. She reports abd pain is located in the epigastric region. Will obtain Abd XR 2 view with chest for evaluation. Pt. did not eat CLD for breakfast due to increased pain. Review of Systems Review of Systems: All systems reviewed & are unremarkable except as noted in HPI & below Constitutional: no fever, no chills, no fatigue and no weakness Respiratory: no cough, no dyspnea, no dyspnea on exertion and no wheezing Cardiovascular: no chest pain, no palpitations and no edema Gastrointestinal: + abdominal pain and + constipation; no nausea and no vomiting Genitourinary: no difficulty urinating Musculoskeletal: no back pain and no joint pain Integumentary: no non-healing lesions Physical Exam Physical Exam: General: Resting comfortably HEENT: NC/AT; PERRLA with EOMI; [place] conjunctiva, MMM. No erythema of posterior pharynx Neck: Supple and nontender Cardiac: RRR Lungs: CTA bilaterally Abdomen: Bowel normoactive X 4; Tender to palpation in epigastric region, large ventral hernia noted. Extremities: Warm. No edema present Neuro: No focal weakness Skin: No rash Results & Data Vital Signs (Past 12 Hours) Vital Signs Temp Pulse Resp BP Pulse Ox 08/21/19 07:19 36.8 C 80 16 151/92 H 90 Laboratory Results 08/21/19 08/21/19 Range/Units 05:00 05:00 WBC 6.14 (4.8-10.8) K/uL RBC 4.00 L (4.2-5.4) M/uL Hgb 12.1 (12.0-16.0) g/dL Hct 37.9 (37-47) % MCV 94.8 (80-100) fL MCH 30.3 (25-34) pg MCHC 31.9 L (32-36) g/dL RDW Std Deviation 47.7 H (36.4-46.3) fL RDW Coeff of Tara 13.8 (11.5-14.5) % Plt Count 305 (130-400) K/uL MPV 8.7 (7.4-10.4) fL Sodium 145 (136-145) mmol/L Potassium 3.7 (3.5-5.1) mmol/L Chloride 112 H (98-107) mmol/L Carbon Dioxide 28 (21-32) mmol/L Anion Gap 5.0 (3-11) BUN 14 D (7-18) mg/dl Creatinine 0.73 D (0.6-1.2) mg/dl Est Cr Clr Drug Dosing 59.1 ml/min Est GFR ( Amer) 88.9 Est GFR (Non-Af Amer) 76.7 BUN/Creatinine Ratio 19.3 (10-20) Glucose 120 H (70-99) mg/dl Calcium 8.3 L (8.5-10.1) mg/dl PG Care Time/CCT Total # of Minutes Spent Total Time Spent with Patient: Total time spent is greater than 50% in coordination of care (as documented) at patient's floor/unit and/or counseling patient:
--- NOTE | 2019-08-21 15:13 | XRay Report ---
PA CHEST WITH ABDOMINAL SERIES CLINICAL HISTORY: Generalized abdominal pain. FINDINGS: A PA chest radiograph is compared to chest x-ray and chest CT dated 03/03/2017. The cardiomediastinal silhouette is unremarkable noting atherosclerotic calcification of the thoracic aorta. There is a lar ge hiatal hernia. There are small pleural effusions with bibasilar consolidation. No pneumothorax is seen. The skeletal structures are osteopenic. The bony thorax is grossly intact. Supine and erect abdominal radiographs are correlated with abdominal CT dated 08/19/2019. Cholecystect jackeline clips are seen in the right upper quadrant. Suture material projects over the upper abdomen. Ther e are distended and gas-filled loops of small bowel, with air-fluid levels noted on the upright view. No evidence of intraperitoneal free air is seen. There are no abnormal abdominal calcifications. The lumbosacral spine and bony pelvis appear intact. Vertebral spondylosis is observed. IMPRESSION: 1. There are small pleural effusions with bibasilar consolidation. This likely represents atelectasis and clinical correlation will be required. 2. Again seen are distended loops of small bowel with numerous air-fluid levels. When correlated with the 08/19/[address] this likely represents persistent bowel obstruction. 3. No evidence of intraperitoneal free air is seen. 4. Hiatal hernia. Electronically signed by: Bud Grant M.D. 08/21/2019 3:12 PM
[2019-08-22] MEDS: MoRPHine SULFATE 2 MG/ML CARP IV PRN ×4 (02:57→23:35)
[2019-08-22] MEDS: LEVOTHYROXINE SODIUM 100 MCG TABLET PO SCH (05:24)
[2019-08-22 07:06] LABS: BUN Creatinine Ratio 13.4 (10-20); Calcium 8.1 mg/dl (8.5-10.1); Creatinine Clr Calc Pharmacy 60.8 ml/min; Est GFR (African American) 91.9; Est GFR (Non-African American) 79.3; Magnesium 1.5 mg/dl (1.8-2.4); Phosphorus 2.4 mg/dl (2.5-4.9); Potassium 3.3 mmol/L (3.5-5.1)
[2019-08-22] MEDS ORDERED: POTASSIUM CHLORIDE 20 MEQ TABCR PO ONE (08:02)
[2019-08-22] MEDS ORDERED: POTASSIUM PHOS 3 MMOL/1 ML INFUSION IV STA (08:02)
[2019-08-22] MEDS ORDERED: POTASSIUM PHOSPHATE 15 MMOL in SODIUM CHLORIDE 0.9% 250 ML IV ONE (08:15)
--- NOTE | 2019-08-22 08:28 | Surgery Progress Note ---
Date of Service August 22, 2019 Assessment & Plan (1) Small bowel obstruction: secondary to ventral hernias resolving passing flatus no leukocytosis ventral hernias reducible Plan: Continue clear liquids encourage ambulation in hallway No need for acute surgical intervention but she should highly consider seeing abdominal wall reconstruction surgeons at [facility] for hernia repair. continue med management Dr. Wu has seen and examined pt, agrees with above. Supervising Physician Co-Signing Physician Notes I interviewed and examined this patient I agree with the above note. She is much better today. I encouraged her to take clear liquids. She is passing flatus but has not had a bowel movement. Continue with clear liquids for now but there is no indication for immediate surgical intervention. Subjective feeling better today abdominal pain resolved had some liquids yesterday but did not eat much because of the pain continues to pass flatus no bowel movement yet Physical Exam Constitutional: WD/WN, vitals as above no acute distress Gastrointestinal (Abdomen): Inspection/Auscultation: abdomen normal to inspection; abdomen not distended Percussion/Palpation: + abdomen tender (at ventral hernias and upon reduction but improved), abdomen soft and + hernia (multiple midline ventral hernias present, reducible); no guarding and abdomen not rigid Skin: no rashes, warm and dry Psychiatric: A+Ox3, euthymic affect Results & Data Vital Signs (Past 12 Hours) Vital Signs Temp Pulse Resp BP BP Pulse Ox 08/22/19 07:45 36.7 C 89 14 151/86 H 90 08/21/19 23:20 92 08/21/19 23:15 37 C 83 16 169/92 H 88 L Laboratory Results 08/22/19 Range/Units 06:16 Sodium 140 (136-145) mmol/L Potassium 3.3 L (3.5-5.1) mmol/L Chloride 108 H (98-107) mmol/L Carbon Dioxide 26 (21-32) mmol/L Anion Gap 6.0 (3-11) BUN 10 (7-18) mg/dl Creatinine 0.71 (0.6-1.2) mg/dl Est Cr Clr Drug Dosing 60.8 ml/min Est GFR ( Amer) 91.9 Est GFR (Non-Af Amer) 79.3 BUN/Creatinine Ratio 13.4 (10-20) Glucose 127 H (70-99) mg/dl Calcium 8.1 L (8.5-10.1) mg/dl Phosphorus 2.4 L (2.5-4.9) mg/dl Magnesium 1.5 L (1.8-2.4) mg/dl
[2019-08-22] MEDS: AMLODIPINE BESYLATE 5 MG TAB PO SCH (09:10)
[2019-08-22] MEDS: PANTOprazole 40 MG TAB PO SCH (09:10)
[2019-08-22] MEDS: MAGNESIUM SULFATE / D5W 1 GM/100 ML BAG IV SCH ×2 (09:11→10:13)
[2019-08-22] MEDS: METOPROLOL SUCC 50MG EXT REL TAB PO SCH (10:14)
[2019-08-22] MEDS: ONDANSETRON INJ 2 MG/ML 2 ML VIAL IV PRN (10:16)
--- NOTE | 2019-08-22 13:55 | Hospitalist Progress Note ---
Date of Service August 22, 2019 Assessment & Plan (1) Small bowel obstruction: - CT with findings compatible with high-grade SBO - focal transition point involving loop of small bowel as it exits one of the hernias; multiple hernias noted; no pneumatosis/pneumoperitoneum noted; large hiatal hernia - Obstruction likely from multiple abdominal hernias and adhesions; has had multiple SBOs in the past. - S/p reduction of ventral hernia by Dr. Wu on 08/19. - Abd XR on 08/21 showed persistent SBO; she has ongoing abd bloating with mild epigastric pain. - Continue CLD, advance diet if bloating & abd pain is improving. D/c'ed IV fluids. - Restarted home PO meds -- has been tolerating. - Morphine prn pain; Zofran prn N/V. - Consulted general surgery, appreciate input. - Pt. will need to consider abd wall reconstruction surgery at [facility] for hernia repair -- schedule appt at discharge. (2) Acute kidney injury: - Creatinine peaked at 2.02 on admission, improved with IV fluid hydration. - Monitor renal function daily - Hold home Lisinopril. (3) CAD (coronary artery disease): - H/O NSTEMI in past - nonobstructive findings on cath 2016; follows with [facility]. - Per chart review possible history of paroxysmal A Fib - not documented with Cardiology or on anticoagulation. - Holding home ASA and statin; restarted home Metoprolol. (4) Hypertension: - BP has been mildly elevated due to holding meds. - Restarted Amlodipine and Metoprolol as prescribed; holding Lisinopril in setting of recent ARF. (5) Hyperlipidemia: - Hold Atorvastatin 20 mg daily. (6) Chronic obstructive pulmonary disease: - No current exacerbation - Continue Tiotropium daily and Albuterol/Nebs prn. (7) Hypernatremia: - Na was elevated, now improved after hypotonic fluids. Continue to monitor intermittently. (8) Elevated alkaline phosphatase level: - Chronically mildly elevated; possible bone vs liver source. - Hepatic steatosis noted on CT A/P -- could be contributing. (9) Hypothyroidism: - TSH 2.82 on labs from 03/2019 - Resumed home Levothyroxine. (10) Electrolyte abnormality: - K level 3.3, Phos level 2.4 -- ordered K Phos 15 mmol and K 20 mEq PO. - Mag level 1.5 - ordered mag sulfate 2 gm IV. - Monitor levels daily. (11) DVT prophylaxis: - SCDs; holding pharmacologic ppx for possible procedure. Dispo: Med/surg; discharge pending improvement in abd pain and if she is tolerating diet. Evaluated patient in the afternoon with Jayde Moore PA-C from gen surg. Pt. c/o increased abd/back pain along with vomiting (phlegm). No significant tenderness noted on palpation with reducible hernias per surgery exam. Plan to give dulcolax suppository and schedule Miralax daily for constipation. Prolonged time: 3:40 pm to 4:30 pm (50 minutes) including communication with nurse regarding acute symptoms, chart review, communication with surgery PA and evaluation of patient in the room. Supervising Physician Co-Signing Physician Notes PA Supervision Note: I did not personally see or examine the patient today, but I verified all frias points of DIPTI Millan's assessment and plan with the following exception s/additions: None Subjective Pt. complains of being bloated after eating her breakfast. She has mild epigastric pain but improving overall. She is passing gas, no BM yet. Pt. tolerated pills this morning without difficulty. Denies chest pain, SOB, nausea/vomiting. Will continue CLD due to difficulty with eating -- > bloating/pain. Review of Systems Review of Systems: All systems reviewed & are unremarkable except as noted in HPI & below Constitutional: no fever, no chills, no fatigue and no weakness Respiratory: no cough, no dyspnea, no dyspnea on exertion and no wheezing Cardiovascular: no chest pain, no palpitations and no edema Gastrointestinal: + abdominal pain and + constipation; no nausea, no vomiting and no diarrhea/loose stools Genitourinary: no difficulty urinating Musculoskeletal: no back pain and no joint pain Integumentary: no non-healing lesions Physical Exam Physical Exam: General: Resting comfortably HEENT: NC/AT; PERRLA with EOMI; [place] conjunctiva, MMM. No erythema of posterior pharynx Neck: Supple and nontender Cardiac: RRR Lungs: CTA bilaterally Abdomen: Bowel hypoactive X 4; Tender to palpation in epigastric region with large ventral hernia. Extremities: Warm. No edema present Neuro: No focal weakness Skin: No rash Results & Data Vital Signs (Past 12 Hours) Vital Signs Temp Pulse Resp BP Pulse Ox 08/22/19 11:01 36.9 C 90 14 164/82 H 91 08/22/19 07:45 36.7 C 89 14 151/86 H 90 Laboratory Results 08/22/19 Range/Units 06:16 Sodium 140 (136-145) mmol/L Potassium 3.3 L (3.5-5.1) mmol/L Chloride 108 H (98-107) mmol/L Carbon Dioxide 26 (21-32) mmol/L Anion Gap 6.0 (3-11) BUN 10 (7-18) mg/dl Creatinine 0.71 (0.6-1.2) mg/dl Est Cr Clr Drug Dosing 60.8 ml/min Est GFR ( Amer) 91.9 Est GFR (Non-Af Amer) 79.3 BUN/Creatinine Ratio 13.4 (10-20) Glucose 127 H (70-99) mg/dl Calcium 8.1 L (8.5-10.1) mg/dl Phosphorus 2.4 L (2.5-4.9) mg/dl Magnesium 1.5 L (1.8-2.4) mg/dl PG Care Time/CCT Total # of Minutes Spent Total Time Spent with Patient: Total time spent is greater than 50% in coordination of care (as documented) at patient's floor/unit and/or counseling patient: Prolonged Care Time Prolonged Care Time: Yes Total Prolonged Care Time: 50
[2019-08-22] MEDS ORDERED: PROCHLORPERAZINE 10 MG in SYRINGE 8 ML IV PRN (16:26)
[2019-08-22] MEDS ORDERED: BISACODYL 10 MG SUPP PR STA (16:39)
[2019-08-22] MEDS ORDERED: Nursing to Pharmacy Communication ONE (16:40)
[2019-08-22] MEDS ORDERED: cephALEXin 500 MG CAP PO SCH (17:00)
[2019-08-22] MEDS: POLYETHYLENE (MIRALAX) 17 GM PACK PO SCH (17:14)
[2019-08-23] MEDS: LEVOTHYROXINE SODIUM 100 MCG TABLET PO SCH (05:40)
[2019-08-23 07:28] LABS: BUN Creatinine Ratio 13.4 (10-20); Calcium 8.5 mg/dl (8.5-10.1); Creatinine Clr Calc Pharmacy 54.6 ml/min; Est GFR (African American) 80.8; Est GFR (Non-African American) 69.7; Potassium 3.7 mmol/L (3.5-5.1)
[2019-08-23] MEDS: PANTOprazole 40 MG TAB PO SCH (07:53)
[2019-08-23] MEDS: AMLODIPINE BESYLATE 5 MG TAB PO SCH (07:53)
[2019-08-23] MEDS: METOPROLOL SUCC 50MG EXT REL TAB PO SCH (07:54)
[2019-08-23] MEDS: POLYETHYLENE (MIRALAX) 17 GM PACK PO SCH (07:57)
--- NOTE | 2019-08-23 08:28 | Surgery Progress Note ---
Date of Service August 23, 2019 Assessment & Plan (1) Small bowel obstruction: Suspect small bowel obstruction is resolved and will expect bowel movement soon Will advance to full liquid diet No evidence of peritonitis No indication for immediate surgical intervention Subjective Feels well today Denies nausea and vomiting Denies abdominal pain Passing large amounts of flatus Had suppository and MiraLAX yesterday Physical Exam Gastrointestinal (Abdomen): Inspection/Auscultation: normal bowel sounds; abdomen not distended Percussion/Palpation: abdomen soft; abdomen nontender Ventral hernias are easily reduced Results & Data Vital Signs (Past 12 Hours) Vital Signs Temp Pulse Pulse Resp BP BP Pulse Ox 08/23/19 07:40 36.6 C 78 13 120/72 89 L 08/23/19 03:10 71 18 134/75 94
--- NOTE | 2019-08-23 12:47 | Hospitalist Progress Note ---
Date of Service August 23, 2019 Assessment & Plan (1) Small bowel obstruction: - CT with findings compatible with high-grade SBO - focal transition point involving loop of small bowel as it exits one of the hernias; multiple hernias noted; no pneumatosis/pneumoperitoneum noted; large hiatal hernia - Obstruction likely from multiple abdominal hernias and adhesions; had multiple SBOs in the past. - Abd XR on 08/21 showed persistent SBO; abd pain and bloating are improved, tolerating CLD. - Advanced to [facility] for lunch; resumed home PO meds. - Bowel regimen: Miralax daily; also received Dulcolax suppository on 08/22, consider repeat dose. - Consulted general surgery, appreciate input. - Pt. will need to consider abd wall reconstruction surgery at [facility] for hernia repair. (2) Hypoxia: - Has been requiring 2L via NC intermittently -- possibly related to underlying COPD vs. bilat small pleural effusions noted on CXR in setting of IV fluids vs. DAX. - Recommend walking the hallway with nurse to evaluate for desaturation prior to discharge. (3) Acute kidney injury: - Creatinine peaked at 2.02 on admission, improved with IV fluid hydration. - Monitor renal function daily - Holding home Lisinopril. (4) CAD (coronary artery disease): - H/O NSTEMI in past - nonobstructive findings on cath 2016; [place] [facility] [place] [facility] - Per chart review possible history of paroxysmal A Fib - not documented with Cardiology or on anticoagulation. - Holding home ASA and statin; continue Metoprolol. (5) Hypertension: - BP has been mildly elevated due to holding meds and partially pain related. - Restarted Amlodipine and Metoprolol as prescribed; holding Lisinopril due to recent ARF. (6) Hyperlipidemia: - Hold Atorvastatin 20 mg daily. (7) Chronic obstructive pulmonary disease: - No current exacerbation - Continue Tiotropium daily and Albuterol/Nebs prn. (8) Hypernatremia: - Na was elevated, now improved after hypotonic fluids. (9) Elevated alkaline phosphatase level: - Chronically mildly elevated; possible bone vs liver source. - Hepatic steatosis noted on CT A/P -- could be contributing. (10) Hypothyroidism: - TSH 2.82 on labs from 03/2019 - Resumed home Levothyroxine. (11) Electrolyte abnormality: - Monitor and replace daily. (12) DVT prophylaxis: - SCDs; hold pharmacologic ppx for possible procedure. Dispo: Med/surg; discharge pending improvement in abd pain - possibly later this afternoon vs. tomorrow. Supervising Physician Co-Signing Physician Notes PA Supervision Note: I did not personally see or examine the patient today, but I verified all frias points of DIPTI Millan's assessment and plan with the following exceptions/additions: None Subjective Pt. is doing well -- abd pain is resolving. She is passing gas but has not had a BM yet. Tolerated CLD for breakfast, plan to advance to [facility] for lunch. C/o back pain - has been using Morphine IV intermittently for back related pain, not acute abd pain. Pt. has been using 2L via NC intermittently -- has h/o COPD but denies chronic O2 use. Had small bilat pleural effusions on CXR but does not appear volume overloaded. Will continue to monitor oxygen requirements - consider 2 step to evaluate for desaturation prior to discharge. Review of Systems Review of Systems: All systems reviewed & are unremarkable except as noted in HPI & below Constitutional: no fever, no chills, no fatigue and no weakness Respiratory: no cough, no dyspnea, no dyspnea on exertion and no wheezing Cardiovascular: no chest pain, no palpitations and no edema Gastrointestinal: + constipation; no abdominal pain, no nausea and no vomiting Genitourinary: no difficulty urinating Musculoskeletal: + back pain; no joint pain Integumentary: no non-healing lesions Physical Exam Physical Exam: General: Resting comfortably HEENT: NC/AT; PERRLA with EOMI; [place] conjunctiva, MMM. No erythema of posterior pharynx Neck: Supple and nontender Cardiac: RRR Lungs: CTA bilaterally Abdomen: Bowel normoactive X 4; Tenderness to deep palpation in epigastric region, all hernias are reducible. Extremities: Warm. No edema present Neuro: No focal weakness Skin: No rash Results & Data Vital Signs (Past 12 Hours) Vital Signs Temp Pulse Pulse Resp BP BP Pulse Ox 08/23/19 07:40 36.6 C 78 13 120/72 89 L 08/23/19 03:10 71 18 134/75 94 Laboratory Results 08/23/19 Range/Units 06:26 Sodium 140 (136-145) mmol/L Potassium 3.7 (3.5-5.1) mmol/L Chloride 108 H (98-107) mmol/L Carbon Dioxide 28 (21-32) mmol/L Anion Gap 4.0 (3-11) BUN 11 (7-18) mg/dl Creatinine 0.79 (0.6-1.2) mg/dl Est Cr Clr Drug Dosing 54.6 ml/min Est GFR ( Amer) 80.8 Est GFR (Non-Af Amer) 69.7 BUN/Creatinine Ratio 13.4 (10-20) Glucose 123 H (70-99) mg/dl Calcium 8.5 (8.5-10.1) mg/dl Magnesium 2.0 (1.8-2.4) mg/dl PG Care Time/CCT Total # of Minutes Spent Total Time Spent with Patient: Total time spent is greater than 50% in coordination of care (as documented) at patient's floor/unit and/or counseling patient:
[2019-08-23] MEDS: ONDANSETRON INJ 2 MG/ML 2 ML VIAL IV PRN (21:27)
[2019-08-24] MEDS: LEVOTHYROXINE SODIUM 100 MCG TABLET PO SCH (05:11)
[2019-08-24 06:13] LABS: Albumin Level 2.5 gm/dl (3.4-5.0); BUN Creatinine Ratio 13.4 (10-20); Calcium 8.6 mg/dl (8.5-10.1); Creatinine Clr Calc Pharmacy 45.9 ml/min; Est GFR (African American) 65.5; Est GFR (Non-African American) 56.5; Magnesium 2.1 mg/dl (1.8-2.4); Potassium 3.7 mmol/L (3.5-5.1)
[2019-08-24 06:15] LABS: Albumin Globulin Ratio 0.7 (0.9-2); Bilirubin,Total 0.5 mg/dl (0.2-1); Globulin 3.7 gm/dl (2.5-4.0); Total Protein 6.2 gm/dl (6.4-8.2)
--- NOTE | 2019-08-24 06:48 | Surgery Progress Note ---
Date of Service August 24, 2019 Assessment & Plan (1) Small bowel obstruction: Small bowel obstruction resolved Advance to soft diet and if tolerates that consider discharge home later this afternoon Subjective Feels well today Tolerated full liquid diet Denies nausea and vomiting Has moved bowels multiple times Passing flatus Denies abdominal pain Physical Exam Gastrointestinal (Abdomen): Inspection/Auscultation: abdomen not distended Percussion/Palpation: abdomen soft; abdomen nontender Hernias are easily reduced and are not tender Results & Data Vital Signs (Past 12 Hours) Vital Signs Temp Pulse Resp BP Pulse Ox 08/24/19 05:15 84 18 151/84 H 92 08/23/19 23:25 36.8 C 70 18 163/79 H 95
[2019-08-24] MEDS ORDERED: FUROSEMIDE 20 MG in SYRINGE 0 ML IV ONE (08:45)
[2019-08-24] MEDS: METOPROLOL SUCC 50MG EXT REL TAB PO SCH (09:15)
[2019-08-24] MEDS: POLYETHYLENE (MIRALAX) 17 GM PACK PO SCH (09:15)
[2019-08-24] MEDS: PANTOprazole 40 MG TAB PO SCH (09:15)
[2019-08-24] MEDS: AMLODIPINE BESYLATE 5 MG TAB PO SCH (09:16)
--- NOTE | 2019-08-24 15:36 | XRay Report ---
XR chest 2V PA/lateral CLINICAL HISTORY: 84 years-old Female presenting with Hypoxia, eval for pulm edema. TECHNIQUE: PA and lateral views of the chest were obtained. COMPARISON: 08/21/2019 and CTA chest from 2017. FINDINGS: Atherosclerosis of the aortic arch. Cardiac silhouette enlarged. Retrocardiac density could relate to the presence of a hiatal hernia. Bibasilar opacities greater on the left. Trace right and small left pleural effusions. Lungs are hyperinflated though this may in part relate to exaggerated thoracic ky phosis. No new focal opacity. Exaggerated kyphosis without a focal compression deformity. Mild multil evel degenerative changes. Possible underlying osteopenia. Degenerative changes of the bilateral iris ohumeral joints. Cholecystectomy clips noted. IMPRESSION: 1. Persistent bibasilar atelectasis and effusions unchanged from prior. 2. Cardiomegaly. No volume overload or significant congestive change. No pulmonary edema. 3. Large hiatal hernia. 4. Hyperinflation suggests underlying emphysema. Electronically signed by: Derrick Lema M.D. 08/24/2019 3:35 PM
--- NOTE | 2019-08-24 16:43 | Discharge Summary ---
Date of Service August 24, 2019 Admission HPI Per Admitting Provider Ms. 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 States she was in her normal state of health until the morning of 08/18. States she woke up not feeling well but was able to go about her normal routine. She states around midday she ate a small piece of fish and a couple shrimp and soon after began vomiting. States she has had numerous episodes of vomiting since that time. Reports one episode of emesis in ED. Gen Surg did manipulate her hernia and she reports improvement in her symptoms. She reports she has continued to move her bowels with last BM this AM. She takes Miralax daily for bowel management. CT findings are compatible with high-grade SBO. Discussed NGT placement but patient would like to wait on this as she has had issues with insertion in the past. She has had previous repairs to her multiple ventral hernias but has since re-herniated after those procedures. Admission Exam Per Admitting Provider Constitutional: + frail appearing; no acute distress, not ill appearing and + not appropriately hydrated Eyes: + anicteric sclerae ENMT: Ears: no hearing impairment Mouth: + dentures; oral mucous membranes not dry Neck: trachea midline, no thyromegaly Respiratory: normal respiratory effort, lungs clear to auscultation Auscultation: + diminished lung sounds Cardiovascular: RRR, no murmur, no edema Gastrointestinal (Abdomen): Inspection/Auscultation: + abdomen distended and normal bowel sounds Percussion/Palpation: + abdomen tender Multiple ventral hernias - large mid-abdominal hernia Musculoskeletal: no cyanosis or clubbing, extremities motor strength 5/5 Skin: no rashes, warm and dry Neurologic: moves all extremities Psychiatric: A+Ox3, euthymic affect Principal Diagnosis Small Bowel Obstruction Discharge Exam General: Resting comfortably HEENT: NC/AT; PERRLA with EOMI; [place] conjunctiva, MMM. No erythema of posterior pharynx Neck: Supple and nontender Cardiac: RRR Lungs: CTA bilaterally Abdomen: Bowel normoactive X 4; All hernias are reducible, nontender to palpation. Extremities: Warm. No edema present Neuro: No focal weakness Skin: No rash Discharge Data Allergies Allergy/AdvReac Type Severity Reaction Status Date / Time No Known Allergies Allergy Verified 08/19/19 10:55 Consultations 08/19/19 12:07 Consult General Surgery Stat ED Decision to Admit Stat 08/19/19 19:07 Consult General Surgery Routine Ordered Studies 08/19/19 10:57 CT abd pelvis wo con Stat Chest/Abd XR 08/21 CXR 08/24 Hospital Course (1) Small bowel obstruction: CT with findings compatible with high-grade SBO - focal transition point involving loop of small bowel as it exits one of the hernias; multiple hernias noted; no pneumatosis/pneumoperitoneum noted; large hiatal hernia Obstruction likely from multiple abdominal hernias and adhesions; had multiple SBOs in the past. Abd XR on 08/21 showed persistent SBO; abd pain and bloating now resolved. Tolerating low fiber diet and PO meds on day of discharge. Bowel regimen: Miralax daily - had multiple BMs over last 24 hours. Consulted general surgery, appreciate input. Pt. will need to consider abd wall reconstruction surgery at [facility] for hernia repair -- appt was requested. (2) Hypoxia: Required 2L via NC intermittently -- possibly related to underlying COPD vs. bilat small pleural effusions noted on CXR in setting of IV fluids vs. obstructive sleep apnea. CXR on day of discharge showed emphysema, neg for pulm edema. Previous CXR on 08/21 also negative. Administered Lasix 20 mg IV to evaluate for improvement in hypoxia -- no significant change noted. Did not appear to be volume overloaded. 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 2 step test -- recommend 2L via NC with exertion. Pt. was agreeable to oxygen and O2 delivered prior to discharge. Recommended to discuss oxygen requirements at appt with Dr. Beauchamp in Sep 2019. (3) Acute kidney injury: Creatinine peaked at 2.02 on admission, improved with IV fluid hydration. Holding home Lisinopril, resume at discharge. (4) CAD (coronary artery disease): H/O NSTEMI in past - nonobstructive findings on cath 2016; follows with [facility] [place] [place] [facility]. Per chart review possible history of paroxysmal A Fib - not documented with Cardiology or on anticoagulation. Continue all cardiac meds at discharge. (5) Hypertension: BP has been mildly elevated due to holding meds and partially pain related. Restarted Amlodipine and Metoprolol as prescribed; resume Lisinopril at discharge. (6) Hyperlipidemia: Held Atorvastatin 20 mg daily. Resume at discharge. (7) Chronic obstructive pulmonary disease: No current exacerbation Tiotropium daily and Albuterol/Nebs prn. (8) Hypernatremia: Na was elevated, now improved after hypotonic fluids. (9) Elevated alkaline phosphatase level: Chronically mildly elevated; possible bone vs liver source. Hepatic steatosis noted on CT A/P -- could be contributing. (10) Hypothyroidism: TSH 2.82 on labs from 03/2019 Home Levothyroxine. (11) NSTEMI (non-ST elevated myocardial infarction): S/p cardiac cath in 2017, had non-obstructive CAD. Plavix was recently discontinued in December 2016 during outpt cardiology appt. Continued cardiac meds. (12) Chronic systolic HF (heart failure): Cardiac cath in 2017 noted EF 43%. Bilat small pleural effusions noted on CXR during this admission. Pt. does not appear clinically volume overloaded but does have component of CHF. Received Lasix 20 mg IV on day of discharge. Continue home ACEI and beta frank at discharge. Consider TTE to evaluate current EF. (13) Electrolyte abnormality: Replaced prn. (14) DVT prophylaxis: Held pharmacologic ppx. Discharged to home on 08/24/19. Total Time Total Time Spent Total Time Spent (In Minutes): >30 minutes Total Time Includes: Examination of the Patient, Discharge Planning, Medication Reconciliation, Communication With Other Providers and Other Discharge Plan Discharge Items Patient Disposition: Home - Self-Care Reason For Visit: SMALL BOWEL OBSTRUCTION Discharge Diagnosis: Small Bowel Obstruction Goals: You have been hospitalized for an acute medical problem. During your stay at [facility], we have made an effort to correct the problem that brought you to the hospital while keeping you as comfortable as possible. Medications were used to bring your condition under control and your discharge instructions will include directions for any medications you should take after leaving the hospital. Please make sure you see your Primary Care Provider as part of your follow up plan. Activity: As commented below Exercise/Sports: Gradually increase as tolerated Non-emergency contact: Primary Care Provider and Surgeon Call non-emergency contact if: you have any medication questions, your symptoms worsen, your pain is not controlled, your pain is worsening, your pain is unusual for you, your pain is concerning for you and you have a fever Follow-up/Referrals: [facility] [place] [Other] (Please, follow up with a surgeon at [facility] in [place]. *A nurse from this office will call you with the appointment information. If you have any questions, call their office at [phone]. IF YOU HAVE TO CALL THE OFFICE TO ASK ABOUT YOUR APPOINTMENT AND THEY NEED TO FIND YOUR INFORMATION, THEIR CREDIT COLLECTION SPECIALIST MAY ASK YOU SOME QUESTIONS ABOUT THE FAX THAT I SENT TO THEM. THIS INFORMATION MAY HELP THEM FIND THE FAX MORE EASILY: 1.) 29 PAGES WERE FAXED TO THEIR OFFICE 2.) THE FAX WAS SENT ON WednesdayAUGUST 24 AT 3:39 PM 3.) THE INFORMATION WAS SENT FROM FAX NUMBER [phone].) Scott Beauchamp MD [Primary Care Provider] - 08/31/19 1:00 pm (Please, follow up at Dr. Beauchamp's office with his golf course assistant, Maryuri Martines PA-C, on August 31 at 1:00 pm. *If you need to change this appointment, call their office at [phone].) Diet: Low Fiber Addtl Attending Provider Instructions: 1. Small Bowel Obstruction * Please continue a low fiber diet as tolerated. * Drink plenty of fluids to avoid dehydration. * Please continue a bowel regimen to avoid constipation at home -- Miralax daily. * You will need to follow up with [facility] to discuss hernia repair -- our nurse navigator will schedule this appointment. * It is also recommended to follow up with your PCP in 1-2 weeks following hospital discharge. 2. Hypoxia * Please use 2L via nasal cannula with exertion. * You will need to discuss oxygen use with Dr. Beauchamp at your next PCP appt. Pending Studies at Discharge: No Stand-Alone Forms: [facility] Medications and DC Order Prescriptions: Continued atorvastatin 20 mg tablet 20 mg PO HS Qty: 90 RF: 3 amlodipine 5 mg tablet 5 mg PO DAILY Qty: 90 RF: 1 tiotropium bromide 18 mcg capsule, w/inhalation device 1 cap inhalation DAILY Qty: 60 RF: 3 lisinopril 20 mg tablet 20 mg PO DAILY Qty: 90 RF: 3 albuterol sulfate 90 mcg/actuation HFA aerosol inhaler 2 puffs inhalation Q4H PRN (Reason: shortness of breath or wheezing) RF: 0 cholecalciferol (vitamin D3) 1,000 unit capsule 1,000 units PO DAILY RF: 0 levothyroxine 100 mcg tablet 100 mcg PO DAILY Qty: 90 RF: 0 metoprolol succinate 50 mg tablet extended release 24 hr 50 mg PO DAILY Qty: 90 RF: 0 nitroglycerin 0.4 mg tablet, sublingual 0.4 mg SL ONCE PRN (Reason: Chest Pain) RF: 0 omega-3 acid ethyl esters 1 gram capsule 1 cap PO DAILY RF: 0 pantoprazole 40 mg tablet,delayed release (DR/EC) 40 mg PO DAILY Qty: 90 RF: 0 tramadol 50 mg tablet 50 mg PO TID PRN (Reason: Pain) Qty: 50 RF: 0 trazodone 50 mg tablet 50 mg PO QPM Qty: 30 RF: 0 aspirin [Aspir-81] 81 mg Tablet,Delayed Release (Dr/Ec) 81 mg PO DAILY RF: 0 polyethylene glycol 3350 [Miralax] 17 gram/dose Powder 17 g PO DAILY PRN (Reason: Constipation) RF: 0 Discharge Orders: Discharge Order (Routine); Ordered 08/24/19 Ordered By: Mary Clarke/Other Patient Handouts: COPD, Safety Oxygen Use, Oxygen Home Use Admission Data Admit Date/Time: 08/19/19 16:19 Attending Provider: Mary Phillips Admit Provider: Jonathan Ramires Primary Care Provider: Scott Beauchamp Other Providers: Chavez Wu ; Isaiah Walters Other Interventions: Discharge Summary Assessment (RN) Last Done: 08/24/19 16:49 DC Date/Time DO NOT enter until pt leaves facility: 08/24/19 17:08 Supervising Physician Co-Signing Physician Notes PA Supervision Note: I personally saw and examined the patient. I verified all frias points and agree with DIPTI Millan with the following exceptions and/or additions: Doing well, tolerating regular diet, passing flatus, noabd pain. No CP or SOB VSS BAD, AAOx3 RRR no mgr CTAB no wcr ABd +BS soft NT ND, large ventral hernias completely reducible, nontender Ext no calf tenderness, no edema Stable for dc to home, f/u as otpt for possible abdominal reconstruction to prevent future SBO related to large recurrent ventral hernias
== END 2019-08-24 17:08 | disposition home or self-care (01) | DRG 394 ==
LOC: ED 09:52 → 3W 16:19 → SUATTDRO 16:19 → 3W 18:16

== ENCOUNTER 2024-12-14 11:29 | Inpatient (IN) ==
[2024-12-14 13:02] LABS: Basophils # (auto) 0.06 K/uL (0.00-0.20); Basophils % (auto) 0.5 %; Hematocrit (blood only) 42.2 % (37.0-47.0); Hemoglobin 14.3 g/dl (12.0-16.0); Immature Granulocytes # (auto) 0.31 K/uL (0.01-0.20); Immature Granulocytes % (auto) 2.3 %; Lymphocytes # (auto) 1.25 K/uL (1.20-3.40); Lymphocytes % (auto) 9.4 %; Mean Corpuscular Hemoglobin 32.4 pg (25.0-34.0); Mean Corpuscular Hgb Conc 33.9 g/dL (32.0-36.0); Mean Corpuscular Volume 95.5 fL (80.0-100.0); Mean Platelet Volume 8.6 fL (9.4-12.4); Monocytes # (auto) 1.22 K/uL (0.11-0.59); Monocytes % (auto) 9.2 %; Neutrophils # (auto) 10.48 K/uL (1.40-6.50); Neutrophils % (auto) 78.6 %; Nucleated RBC # (auto) 0.02 K/uL (0.00-0.12); Nucleated RBC % (auto) 0.2 %; Platelet Count 417 K/uL (130-400); RDW Standard Deviation 45.9 fL (36.4-46.3); Red Blood Count 4.42 M/uL (4.20-5.40); White Blood Count 13.32 K/ul (4.8-10.8)
[2024-12-14 13:08] LABS: Albumin Globulin Ratio 1.3 (0.9-2); Albumin Level 3.8 gm/dl (3.4-5.0); BUN Creatinine Ratio 43.9 (10-20); Bilirubin,Total 0.4 mg/dl (0.2-1.0); Calcium 8.8 mg/dl (8.6-10.3); Creatinine Clr Calc Pharmacy 15.3 ml/min; Potassium 4.5 mmol/L (3.5-5.1); Total Protein 6.8 gm/dl (6.0-8.3)
--- NOTE | 2024-12-14 13:41 | Emergency Department Note ---
History of Present Illness General Chief complaint: Dehydration Stated complaint: DEHYDRATED, TIRED, DON'T WALK WELL Time Seen by Provider: 12/14/24 13:10 History of Present Illness This is an 89-year-old female that presents to the emergency department via private vehicle with complaints of "dehydrated, tired". The patient states that she has been feeling tired and weak overall for the past several days. She did have a recent fall about a week ago at home but notes it was overall a soft fall and did not lose consciousness but believes she may have struck her head. She otherwise denies any trauma or injury regarding presentation today. The patient denies any pain at this time. No headache or neck pain. No chest pain or abdominal pain. No back pain. Patient notes decreased oral intake. Mild diarrhea recently. No nausea or vomiting. Home Medications Medication Instructions Recorded Confirmed Type cholecalciferol (vitamin D3) 25 1,000 units PO DAILY 07/29/19 12/14/24 History mcg (1,000 unit) capsule nitroglycerin 0.4 mg sublingual 0.4 mg sublingual ONCE PRN Chest 07/29/19 12/14/24 History tablet Pain omega-3 acid ethyl esters 1 gram 1 cap PO DAILY 07/29/19 12/14/24 History capsule polyethylene glycol 3350 17 17 g PO DAILY PRN Constipation 08/19/19 12/14/24 History gram/dose oral powder (Miralax) albuterol sulfate 90 mcg/actuation 2 puff inhalation Q4H PRN 01/01/21 12/14/24 Rx aerosol inhaler shortness of breath or wheezing #8.5 grams Eye Pressure Support 1 cap PO DAILY 07/19/24 12/14/24 History aspirin 81 mg tablet,delayed 81 mg PO DAILY 07/19/24 12/14/24 History release atorvastatin 20 mg tablet 20 mg PO DAILY 07/19/24 12/14/24 History levothyroxine 112 mcg tablet 112 mcg PO DAILY 07/19/24 12/14/24 History metoprolol succinate 50 mg 50 mg PO DAILY 07/19/24 12/14/24 History tablet,extended release 24 hr hydrochlorothiazide 50 mg tablet 50 mg PO DAILY #90 tabs 09/12/24 12/14/24 Rx olmesartan 40 mg tablet 40 mg PO DAILY #90 tabs 09/12/24 12/14/24 Rx trazodone 50 mg tablet 50 mg PO QPM #30 tabs 10/12/24 12/14/24 Rx duloxetine 30 mg capsule,delayed 30 mg PO DAILY #30 caps 11/27/24 12/14/24 Rx release (Cymbalta) verapamil 360 mg 24 hr 360 mg PO DAILY #90 caps 12/05/24 12/14/24 Rx capsule,extended release pantoprazole 40 mg tablet,delayed 40 mg PO DAILY 12/14/24 12/14/24 History release spironolactone 25 mg tablet 0 mg PO DAILY 12/14/24 12/14/24 History Allergies Allergy/AdvReac Type Severity Reaction Status Date / Time No Known Drug Allergies Allergy Verified 12/05/24 11:30 Past Med/Surg History Problem List (Updated 12/14/24 @ 22:04 by Srini Viveros PA-C) Leukocytosis (Acute) Ileus (Acute) Dehydration (Acute) PILI (acute kidney injury) (Acute) Paralytic ileus of small intestine Renal insufficiency Arm pain, left Shoulder pain, left Wellness examination Adrenal adenoma Paresthesia of left arm Fatigue Hypertensive urgency Hyperglycemia Dermatitis Elevated alkaline phosphatase level Osteoporosis (Acute) Nephrolithiasis (Acute) Insomnia (Chronic) Incisional hernia (Chronic) Hypothyroidism (Chronic) Gastro-esophageal reflux (Chronic) Dyslipidemia (Chronic) Chronic obstructive pulmonary disease (Chronic) Cardiomyopathy, ischemic (Chronic) CAD (coronary artery disease) (Chronic) Abdominal hernia (Acute) Hypertension (Chronic) Abdominal adhesions (Acute) Medical History Confusion Paroxysmal atrial fibrillation Non-ST elevation (NSTEMI) myocardial infarction History of pancreatic cancer History of small bowel obstruction Partial small bowel obstruction Acute renal failure (ARF) (04/10/14) Surgical History S/P recurrent ventral herniorrhaphy S/P repair of ventral hernia S/P cataract extraction Bilateral History of cardiac cath History of appendectomy History of hysterectomy History of pancreatectomy Family History Other Family history non-contributory Social History Smoking Status: Former smoker Tobacco Type: Cigarettes Age Started Using Tobacco: 22; Age Quit Using Tobacco: 39; packs per day: 0.5; Second Hand Exposure: No; Do You Dip or Chew Tobacco: No; Hx Alcohol Use: Yes Alcohol type: beer Alcohol Intake Frequency: Monthly or Less Alcohol Intake Frequency Comment: 1 beer on occasion Hx Substance Use: No Preferred Language: Monegasque Communication Ability: Effective Special Education Teacher Required: No Beliefs That Will Affect Care: None marital status: Current Living Situation: Spouse current occupational status: retired Feels Safe at Home: Yes Childhood Exposure to Second-Hand Smoke: No Diet: regular Diet Comment: eats regular eats high salt diet. caffeine: Yes (2-3 8 oz cups of coffee ) Dental Care, Regularly: No Physical Activity Frequency: Does not Exercise Seatbelt Use: always Sunscreen Use: No Do you think of yourself as: straight/heterosexual Gender Identity: Female Assistive Devices: Denture - Upper, Denture - Lower and Glasses Review of Systems A total of 10 systems reviewed and were otherwise negative Physical Exam Vital Signs Vital Signs - 24 hr 12/14/24 11:39 12/14/24 12:54 12/14/24 13:00 Temperature 36.2 C L Temperature Source Temporal Artery Scan Pulse Rate 90 56 L 57 L Pulse Rate [Apical] Pulse Rate from SpO2 Sensor 56 L Pulse Rhythm Regular Pulse Rhythm [Apical] Pulse Strength Normal Pulse Strength [Apical] Respiratory Rate 20 20 Respiratory Effort / Characteristics Non-Labored Spontaneous Respiratory Depth Normal Respiratory Pattern Blood Pressure 111/70 Blood Pressure [Left Arm] Blood Pressure Mean 83 Blood Pressure Mean [Left Arm] Blood Pressure Position [Left Arm] Pulse Oximetry 99 96 Oxygen Delivery Method Room Air Sepsis Recent Fever Within 48 Hours No Sepsis New/Unexplained Change in Mental Status N/A Sepsis Action Taken by Nursing No Action Required 12/14/24 13:00 12/14/24 13:27 12/14/24 13:30 Temperature Temperature Source Pulse Rate 57 L 56 L 60 Pulse Rate [Apical] Pulse Rate from SpO2 Sensor 57 L 56 L 58 L Pulse Rhythm Pulse Rhythm [Apical] Pulse Strength Pulse Strength [Apical] Respiratory Rate 21 20 22 Respiratory Effort / Characteristics Respiratory Depth Respiratory Pattern Blood Pressure Blood Pressure [Left Arm] Blood Pressure Mean Blood Pressure Mean [Left Arm] Blood Pressure Position [Left Arm] Pulse Oximetry 93 93 Oxygen Delivery Method Sepsis Recent Fever Within 48 Hours Sepsis New/Unexplained Change in Mental Status Sepsis Action Taken by Nursing 12/14/24 13:36 12/14/24 13:36 12/14/24 13:37 Temperature Temperature Source Pulse Rate 57 L Pulse Rate [Apical] 58 L Pulse Rate from SpO2 Sensor 57 L Pulse Rhythm Pulse Rhythm [Apical] Pulse Strength Pulse Strength [Apical] Respiratory Rate 17 18 Respiratory Effort / Characteristics Respiratory Depth Respiratory Pattern Blood Pressure 142/88 H Blood Pressure [Left Arm] 142/88 H Blood Pressure Mean 108 Blood Pressure Mean [Left Arm] 106 Blood Pressure Position [Left Arm] Pulse Oximetry 96 96 Oxygen Delivery Method Room Air Sepsis Recent Fever Within 48 Hours Sepsis New/Unexplained Change in Mental Status Sepsis Action Taken by Nursing 12/14/24 13:37 12/14/24 13:51 12/14/24 14:27 Temperature Temperature Source Pulse Rate 59 L 57 L Pulse Rate [Apical] Pulse Rate from SpO2 Sensor 61 Pulse Rhythm Pulse Rhythm [Apical] Pulse Strength Pulse Strength [Apical] Respiratory Rate 17 22 Respiratory Effort / Characteristics Respiratory Depth Respiratory Pattern Blood Pressure 142/88 H Blood Pressure [Left Arm] Blood Pressure Mean 108 Blood Pressure Mean [Left Arm] Blood Pressure Position [Left Arm] Pulse Oximetry Oxygen Delivery Method Sepsis Recent Fever Within 48 Hours Sepsis New/Unexplained Change in Mental Status Sepsis Action Taken by Nursing 12/14/24 14:45 12/14/24 14:57 12/14/24 15:00 Temperature Temperature Source Pulse Rate 57 L 58 L Pulse Rate [Apical] 61 Pulse Rate from SpO2 Sensor 58 L 59 L Pulse Rhythm Pulse Rhythm [Apical] Regular Pulse Strength Pulse Strength [Apical] Normal Respiratory Rate 23 22 18 Respiratory Effort / Characteristics Non-Labored Respiratory Depth Normal Respiratory Pattern Regular Blood Pressure Blood Pressure [Left Arm] 150/93 H Blood Pressure Mean Blood Pressure Mean [Left Arm] 112 Blood Pressure Position [Left Arm] Lying Pulse Oximetry 94 94 96 Oxygen Delivery Method Room Air Sepsis Recent Fever Within 48 Hours Sepsis New/Unexplained Change in Mental Status Sepsis Action Taken by Nursing 12/14/24 15:00 12/14/24 15:15 12/14/24 15:33 Temperature Temperature Source Pulse Rate 59 L 62 61 Pulse Rate [Apical] Pulse Rate from SpO2 Sensor 58 L 61 Pulse Rhythm Pulse Rhythm [Apical] Pulse Strength Pulse Strength [Apical] Respiratory Rate 22 19 22 Respiratory Effort / Characteristics Respiratory Depth Respiratory Pattern Blood Pressure Blood Pressure [Left Arm] Blood Pressure Mean Blood Pressure Mean [Left Arm] Blood Pressure Position [Left Arm] Pulse Oximetry 94 97 Oxygen Delivery Method Sepsis Recent Fever Within 48 Hours Sepsis New/Unexplained Change in Mental Status Sepsis Action Taken by Nursing 12/14/24 15:34 12/14/24 15:34 12/14/24 15:34 Temperature Temperature Source Pulse Rate Pulse Rate [Apical] Pulse Rate from SpO2 Sensor Pulse Rhythm Pulse Rhythm [Apical] Pulse Strength Pulse Strength [Apical] Respiratory Rate Respiratory Effort / Characteristics Respiratory Depth Respiratory Pattern Blood Pressure 150/93 H 150/93 H 150/93 H Blood Pressure [Left Arm] Blood Pressure Mean 107 107 107 Blood Pressure Mean [Left Arm] Blood Pressure Position [Left Arm] Pulse Oximetry Oxygen Delivery Method Sepsis Recent Fever Within 48 Hours Sepsis New/Unexplained Change in Mental Status Sepsis Action Taken by Nursing 12/14/24 15:57 12/14/24 16:03 Temperature Temperature Source Pulse Rate 59 L 63 Pulse Rate [Apical] Pulse Rate from SpO2 Sensor Pulse Rhythm Pulse Rhythm [Apical] Pulse Strength Pulse Strength [Apical] Respiratory Rate 17 17 Respiratory Effort / Characteristics Respiratory Depth Respiratory Pattern Blood Pressure Blood Pressure [Left Arm] Blood Pressure Mean Blood Pressure Mean [Left Arm] Blood Pressure Position [Left Arm] Pulse Oximetry Oxygen Delivery Method Sepsis Recent Fever Within 48 Hours Sepsis New/Unexplained Change in Mental Status Sepsis Action Taken by Nursing VITAL SIGNS - Vital signs and nursing notes were reviewed. Hypertensive, otherwise stable and afebrile. GENERAL -89-year-old female appearing her stated age who is in no acute distress. Nontoxic but tired appearing on exam. Communicates well with provider and answers questions appropriately. SKIN - Without rashes. No meningeal or petechial rash. HEAD - NC/AT. EYES - PERRL with EOMI bilaterally. Sclera anicteric. EARS - No deformities of external structures noted on gross examination bilaterally. NOSE - Midline and without cyanosis. No epistaxis or purulent drainage noted. Septum midline without deviation or septal hematoma noted. MOUTH/OROPHARYNX - Without perioral cyanosis. Buccal mucosa pink and moist and without leukoplakia. Tongue midline with equal elevation of palate bilaterally. Slightly dry mucous membranes. NECK - Neck with FROM. No nuchal rigidity. LUNGS -clear to auscultation. CARDIAC - RRR ABDOMEN -the abdomen is distended on examination and tympanitic. The patient denies any abdominal pain. Bowel sounds are hyperactive. No guarding or rigidity. EXTREMITIES - No clubbing or peripheral cyanosis. +5/5 strength noted in UE/LE bilaterally. NEUROLOGIC - Cranial nerves II through XII grossly intact. PSYCH -alert, oriented and pleasant on exam. Course Administered Medications Sodium Chloride (Nss) 1,000 mls @ 100 mls/hr IV .Q10H [place] Stop: 12/15/24 15:14 Last Infusion: 12/14/24 18:03 Dose: Infused Documented By: Admin: 12/14/24 15:33 Dose: 100 mls/hr Documented By: MICHA Trazodone HCl (Trazodone Hcl 50 Mg Tab) 50 mg PO QPM [place] Stop: 01/13/25 20:59 Last Admin: 12/14/24 20:16 Dose: 50 mg Documented By: ROME Discontinued Medications Sodium Chloride (Nss) 500 mls @ 100 mls/hr IV .Q5H [place] Stop: 12/14/24 21:29 Last Infusion: 12/14/24 21:34 Dose: 0 mls/hr Documented By: Admin: 12/14/24 16:56 Dose: 100 mls/hr Documented By: [facility] Medical Decision Making Laboratory Data 12/14/24 12:27 12/14/24 12:27 Lab Results 12/14/24 Range/Units 12:27 WBC 13.32 H (4.8-10.8) K/ul RBC 4.42 (4.20-5.40) M/uL Hgb 14.3 (12.0-16.0) g/dl Hct 42.2 (37.0-47.0) % MCV 95.5 (80.0-100.0) fL MCH 32.4 (25.0-34.0) pg MCHC 33.9 (32.0-36.0) g/dL RDW Std Deviation 45.9 (36.4-46.3) fL RDW Coeff of Tara 13.0 (11.5-14.5) % Plt Count 417 H (130-400) K/uL MPV 8.6 L (9.4-12.4) fL Immature Gran % (Auto) 2.3 % Neut % (Auto) 78.6 % Lymph % (Auto) 9.4 % Gallia % (Auto) 9.2 % Eos % (Auto) 0.0 % Baso % (Auto) 0.5 % Neut # (Auto) 10.48 H (1.40-6.50) K/uL Lymph # (Auto) 1.25 (1.20-3.40) K/uL Gallia # (Auto) 1.22 H (0.11-0.59) K/uL Eos # (Auto) 0.00 (0.00-0.50) K/uL Baso # (Auto) 0.06 (0.00-0.20) K/uL Immature Gran # (Auto) 0.31 H (0.01-0.20) K/uL Absolute Nucleated RBC 0.02 (0.00-0.12) K/uL Nucleated RBC % (auto) 0.2 % Sodium 139 (136-145) mmol/L Potassium 4.5 (3.5-5.1) mmol/L Chloride 110 H (98-107) mmol/L Carbon Dioxide 21 (21-32) mmol/L Anion Gap 8 (3-11) BUN 94 H (6-23) mg/dl Creatinine 2.14 H (0.6-1.2) mg/dl Est Cr Clr Drug Dosing 15.3 ml/min eGFR 21.88 BUN/Creatinine Ratio 43.9 H (10-20) Glucose 142 H (70-99(Fasting)) mg/dl Calcium 8.8 (8.6-10.3) mg/dl Total Bilirubin 0.4 (0.2-1.0) mg/dl AST 12 L (13-39) U/L ALT 10 (7-52) U/L Alkaline Phosphatase 82 (34-104) U/L Troponin I High Sens 5.2 (0-14) pg/ml Total Protein 6.8 (6.0-8.3) gm/dl Albumin 3.8 (3.4-5.0) gm/dl Globulin 3.0 (2.5-4.0) gm/dl Albumin/Globulin Ratio 1.3 (0.9-2) Adenovirus (PCR) Not Detected (NotDetected) B. pertussis DNA (PCR) Not Detected (NotDetected) B.parapertussis DNA PCR Not Detected (NotDetected) C. pneumoniae DNA (PCR) Not Detected (NotDetected) Coronavirus OC43 (PCR) Not Detected (NotDetected) Coronavirus HKU1 (PCR) Not Detected (NotDetected) Coronavirus 229E (PCR) Not Detected (NotDetected) SARS-CoV-2 (PCR) Not Detected (NotDetected) Coronavirus NL63 (PCR) Not Detected (NotDetected) Human Metapneumovir PCR Not Detected (NotDetected) Influenza Type A (PCR) Not Detected (NotDetected) Influenza Type B (PCR) Not Detected (NotDetected) M. pneumoniae (PCR) Not Detected (NotDetected) Parainfluenza 1 (PCR) Not Detected (NotDetected) Parainfluenza 2 (PCR) Not Detected (NotDetected) Parainfluenza 3 (PCR) Not Detected (NotDetected) Parainfluenza 4 (PCR) Not Detected (NotDetected) RSV (PCR) Not Detected (NotDetected) Entero/Rhino (PCR) Not Detected (NotDetected) Imaging Data Radiologist's Impression: Abdomen/Pelvis CT 12/14/24 13:[address] WITHOUT CONTRAST CT DOSE: 1851.68 mGy.cm HISTORY: Acute generalized abdominal pain and distention with weakness abd distension, weakness TECHNIQUE: Multiaxial CT images of the abdomen and pelvis were performed without contrast. A dose lowering technique was utilized adhering to the principles of ALARA. COMPARISON STUDY: August 19, 2019 FINDINGS: Cardiomegaly with coronary artery calcifications. Clear lung bases. No pneumatosis or pneumoperitoneum. Calcific granulomata of the spleen. Unremarkable pancreas. Right adrenal hyperplasia. Probable left adrenal adenoma measures 3.2 cm, previously 2.9 cm. Cholecystectomy with large amount of pneumobilia redemonstrated. No hepatic mass lesions are identified. Hypodense foci of the kidneys suggestive of probable cysts. Nonobstructing calculi of the right kidney measuring up to 4 mm. Indeterminate 8 mm intermediate density lesion of the interpolar right kidney on image 125. No ureteral calculi or hydronephrosis. Decompressed urinary bladder. Hysterectomy. Atherosclerosis of the aorta without aneurysm. 11 mm right retrocrural lymph node is stable. Advanced atherosclerosis of the abdominal aorta. Large hiatal hernia. Postoperative changes of the small bowel. Colonic diverticulosis. Scattered large and small bowel air-fluid levels with large and small bowel distention. No discrete transition point identified. Diastases recti. There are several bowel-containing abdominal wall hernias, at least 4 with opening measuring up to 6 cm within the lower abdomen. Proximal loops of small bowel measure up to approximately 5 cm. Unremarkable soft tissues. No acute fracture. Degenerative changes of the spine, pelvis and hips. 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 IMPRESSION: 1. Distended air and fluid-filled loops of large and small bowel without discrete transition point identified may represent an ileus ileus versus enteritis, however should be followed to exclude developing obstruction. 2. There are several bowel-containing abdominal wall hernias measuring up to 6 cm. 3. Cholecystectomy with pneumobilia redemonstrated. 4. Large hiatal hernia. 5. Right nephrolithiasis without hydronephrosis. 6. Colonic diverticulosis. ACT 112: Negative or not required by law. The above report was generated using voice recognition software. It may contain grammatical, syntax or spelling errors. Electronically signed by: Shimon Najera M.D. 12/14/2024 2:59 PM Chest X-Ray 12/14/24 13:40 XR chest 1V portable CLINICAL HISTORY: weakness COMPARISON STUDY: 07/19/2024 FINDINGS: Stable mild cardiomegaly without pulmonary vascular congestion. Stable large hiatal hernia. Stable mild stranding medial left lung base. No new consolidation or pleural effusion. No pneumothorax. IMPRESSION: No acute findings. ACT 112: Negative or not required by law. Electronically signed by: Wiley Cardona M.D. 12/14/2024 2:[address] 12/14/24 13:40 CT head/brain wo con CLINICAL HISTORY: fall, weakness. TECHNIQUE: Multiple axial CT images of the head were obtained without contrast. A dose lowering technique was utilized adhering to the principles of ALARA. COMPARISON: 07/19/2024 FINDINGS: there is mild motion artifact. No intracranial hemorrhage seen. No mass effect, midline shift, or hydrocephalus. Stable lacunar infarction lateral left basal ganglia. Stable moderate to severe chronic small vessel ischemic changes. No skull fracture seen. Visualized paranasal sinuses and mastoid air cells are clear. IMPRESSION: No acute findings. ACT 112: Negative or not required by law. The above report was generated using voice recognition software. It may contain grammatical, syntax or spelling errors. Electronically signed by: Wiley Cardona M.D. 12/14/2024 2:31 PM MDM Narrative Patient was seen and evaluated as above in room D02. Review was performed of triage nursing notes and vital signs. I did review pertinent previous visits and patient history. After obtaining a thorough history and physical examination the above work up was performed. Patient presents to us today for evaluation of feeling weak and tired. There is no focal deficit on my assessment. Patient does appear dehydrated and is clinically dry. NIHSS 0. Options of care were discussed with the patient. Upon my entrance into the room and it does appear the patient already had 500 mL of normal saline. I will start the patient on maintenance fluids which were ordered at 100 mL/h x [address] scan of the head and abdomen/pelvis without contrast were performed. Chest x-ray also added. CT scan of the head was negative for acute findings. Chest x-ray was also negative for acute findings. The CT scan of the abdomen/pelvis does reveal distended air and fluid-filled loops of large and small bowel without discrete transition point identified which may represent an ileus versus enteritis. Attention at follow-up. There is also note of abdominal wall hernias, pneumobilia status post cholecystectomy, large hiatal hernia. I will note that the patient denies any abdominal pain. She notes that she is passing a fair amount of flatus. There is no vomiting. Although at the present time clinical picture is not consistent with that of obstruction, this will need to be closely followed. Laboratory studies reveal leukocytosis 13.32. No anemia. There is evidence of PILI with creatinine 2.14, which is elevated beyond the patient's baseline. Evidence of significant dehydration noting BUN at 94. Glucose noted to be 142. Troponin within normal range. EKG does not reveal any ischemic findings. Per my interpretation EKG reveals normal sinus rhythm at a rate of 63 bpm. QTc 429. QRS 90. No ST elevation on this rhythm tracing. BioFire panel negative. Urine ordered however no urine sample thus far. I do believe that further evaluation and management in the inpatient setting is warranted. Case discussed with the hospitalist service. Please refer to further documentation regarding her stay. GCS: 15 In the evaluation and treatment of this patient the following differential diagnoses were entertained: Bowel obstruction, UTI, pyelonephritis, sepsis, ischemic bowel, pneumonia, CVA, TIA, among others. Impression & Plan PILI (acute kidney injury), Abdominal hernia, Dehydration, Ileus, Leukocytosis Discharge Plan Visit Data Chief Complaint: Dehydration Stated Complaint: DEHYDRATED, TIRED, DON'T WALK WELL ED Provider: Jesus Manuel Ramires ED Midlevel Provider: Srini Viveros Discharge Problem: PILI (acute kidney injury), Abdominal hernia, Dehydration, Ileus, Leukocytosis Patient Disposition: Admitted As Inpatient Condition: Good Discharge Instructions Interventions: ED Discharge Assessment Last Done: 12/14/24 18:41
--- NOTE | 2024-12-14 14:01 | XRay Report ---
XR chest 1V portable CLINICAL HISTORY: weakness COMPARISON STUDY: 07/19/2024 FINDINGS: Stable mild cardiomegaly without pulmonary vascular congestion. Stable large hiatal hernia. Stable mild stranding medial left lung base. No new consolidation or pleural effusion. No pneumothor ax. IMPRESSION: No acute findings. ACT 112: Negative or not required by law. Electronically signed by: Wiley Cardona M.D. 12/14/2024 2:00 PM
[2024-12-14 14:03] LABS: Adenovirus PCR Not Detected (NotDetected); Bordetella parapertussis PCR Not Detected (NotDetected); Bordetella pertussis PCR Not Detected (NotDetected); Chlamydia pneumoniae PCR Not Detected (NotDetected); Coronavirus 229E PCR Not Detected (NotDetected); Coronavirus CoV-2 (COVID19)PCR Not Detected (NotDetected); Coronavirus HKU1 PCR Not Detected (NotDetected); Coronavirus NL63 PCR Not Detected (NotDetected); Coronavirus OC43PCR Not Detected (NotDetected); Human Metapneumovirus PCR Not Detected (NotDetected); Influenza A PCR Not Detected (NotDetected); Influenza B PCR Not Detected (NotDetected); Mycoplasma pneumoniae PCR Not Detected (NotDetected); Parainfluenza Virus 1 PCR Not Detected (NotDetected); Parainfluenza Virus 2 PCR Not Detected (NotDetected); Parainfluenza Virus 3 PCR Not Detected (NotDetected); Parainfluenza Virus 4 PCR Not Detected (NotDetected); Respiratory Syncytial VirusPCR Not Detected (NotDetected); Rhinovirus/Enterovirus PCR Not Detected (NotDetected)
--- NOTE | 2024-12-14 14:23 | Emergency Department Note ---
ED Visit Note ED Physician Supervisory Note & Attestation: I was consulted by the Advanced Practice Provider, Srini DOBBS. I personally made/approved the management plan and take responsibility for the patient management. I performed a substantive portion of the visit. This includes the aspects of: MDM: abdominal discomfort and weakness associated with nausea/vomiting. Given abdominal distension CT A/P obtained concerning for small bowel obstruction Versus ileus. Plan for hospitalization. Imaging: CT them pelvis as per my informal interpretation reveals small bowel obstruction versus ileus Jesus Manuel Ramires MD
--- NOTE | 2024-12-14 14:32 | CT Scan Report ---
CT head/brain wo con CLINICAL HISTORY: fall, weakness. TECHNIQUE: Multiple axial CT images of the head were obtained without contrast. A dose lowering tech nique was utilized adhering to the principles of ALARA. COMPARISON: 07/19/2024 FINDINGS: there is mild motion artifact. No intracranial hemorrhage seen. No mass effect, midline melva ft, or hydrocephalus. Stable lacunar infarction lateral left basal ganglia. Stable moderate to severe chronic small vessel ischemic changes. No skull fracture seen. Visualized paranasal sinuses and mast oid air cells are clear. IMPRESSION: No acute findings. ACT 112: Negative or not required by law. The above report was generated using voice recognition software. It may contain grammatical, syntax o r spelling errors. Electronically signed by: Wiley Carodna M.D. 12/14/2024 2:31 PM
--- NOTE | 2024-12-14 15:00 | CT Scan Report ---
ABDOMEN AND PELVIS CT WITHOUT CONTRAST CT DOSE: 1851.68 mGy.cm HISTORY: Acute generalized abdominal pain and distention with weakness abd distension, weakness TECHNIQUE: Multiaxial CT images of the abdomen and pelvis were performed without contrast. A dose lo wering technique was utilized adhering to the principles of ALARA. COMPARISON STUDY: August 19, 2019 FINDINGS: Cardiomegaly with coronary artery calcifications. Clear lung bases. No pneumatosis or pneum operitoneum. Calcific granulomata of the spleen. Unremarkable pancreas. Right adrenal hyperplasia. Pr obable left adrenal adenoma measures 3.2 cm, previously 2.9 cm. Cholecystectomy with large amount of pneumobilia redemonstrated. No hepatic mass lesions are identified. Hypodense foci of the kidneys suggestive of probable cysts. Nonobstructing calculi of the right kidne y measuring up to 4 mm. Indeterminate 8 mm intermediate density lesion of the interpolar right kidney on image 125. No ureteral calculi or hydronephrosis. Decompressed urinary bladder. Hysterectomy. Ath erosclerosis of the aorta without aneurysm. 11 mm right retrocrural lymph node is stable. Advanced at herosclerosis of the abdominal aorta. Large hiatal hernia. Postoperative changes of the small bowel. Colonic diverticulosis. Scattered larg e and small bowel air-fluid levels with large and small bowel distention. No discrete transition poin t identified. Diastases recti. There are several bowel-containing abdominal wall hernias, at least 4 with opening measuring up to 6 cm within the lower abdomen. Proximal loops of small bowel measure up to approximately 5 cm. Unremarkable soft tissues. No acute fracture. Degenerative changes of the spin e, pelvis and hips. 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 IMPRESSION: 1. Distended air and fluid-filled loops of large and small bowel without discrete transition point id entified may represent an ileus ileus versus enteritis, however should be followed to exclude develop ing obstruction. 2. There are several bowel-containing abdominal wall hernias measuring up to 6 cm. 3. Cholecystectomy with pneumobilia redemonstrated. 4. Large hiatal hernia. 5. Right nephrolithiasis without hydronephrosis. 6. Colonic diverticulosis. ACT 112: Negative or not required by law. The above report was generated using voice recognition software. It may contain grammatical, syntax o r spelling errors. Electronically signed by: Shimon Najera M.D. 12/14/2024 2:59 PM
[2024-12-14] MEDS: SODIUM CHLORIDE 0.9% 1,000 ML IV SCH (15:33)
[2024-12-14] MEDS ORDERED: ONDANSETRON INJ 2 MG/ML 2 ML VIAL IV PRN (16:09)
[2024-12-14 16:17] LABS: Troponin I High Sensitivity 5.2 pg/ml (0-14)
--- NOTE | 2024-12-14 16:32 | History & Physical Report ---
Date of Service December 14, 2024 Assessment & Plan (1) Paralytic ileus of small intestine: Plan: Assessment: 1. Small bowel ileus. Concern for high potential for obstruction. No vomiting. NPO. IV fluids. As needed antiemetics. General surgery consultation I spoke to personally on-call -physician and NISA.. Stat lactic acid level. 2. Leukocytosis. Blood cultures obtained. Urinalysis ordered and pending at time of this dictation. 3. Rule out UTI. Urinalysis ordered. Will follow-up on this. Antibiotics if appropriate. 4. Acute kidney injury with CKD stage III. Hydrate and monitor. 5. Rule out atypical cardiac presentation. Troponins pending. EKG is completely normal sinus with no acute ST-T abnormalities and unremarkable. 6. Hypertension. Continue home medications with exception of diuretics given the acute kidney failure and hypovolemia. Will hold the diuretics. She is due for her angiotensin receptor frank in the morning. Will order this for now. As I feel her creatinine will improve with hydration. 7. GERD. Continue PPI. 8. Depression continue SSRI. 9. Dyslipidemia continue statin therapy. Plan: As discussed above. Please refer to orders for further planning. We are awaiting urinalysis, awaiting lactic acid, awaiting troponin, hydrate. NPO, general surgery consulted. History of Present Illness Chief Complaint: Abdominal discomfort, generalized weakness, poor p.o. intake, Primary Care Provider: Glendy Worley MD Pleasant 89-year-old female who has a 2 to 3-day history of not feeling well for vague abdominal discomfort. She had 1 or 2 episodes of loose stool over the last day or 2. None today. Presents to the ER today feeling dehydrated and wea k. Pulmonary/Emergency Department patient was found to have some acute kidney injury creatinine of 2.14 with a baseline of 1.4. White count of over 13,000. Other labs were nonacute/stable. [employer] respiratory panel was negative. Course in the emergency department received 500 cc bolus of saline. Received 4 of IV Zofran. Patient had a CT of the abdomen pelvis shows large ventral hernia with multiple loops of fluid-filled small bowel. There was no todd transition point. Probable ileus. Chest x-ray was negative. Regarding with the patient further evaluation and treatment. We have requested a stat lactate a stat troponin and stat EKG. We are also placing stat blood cultures. We spoke with general surgery on-call. They will see the patient in consultation at this time no need for NG tube since there is no vomiting. Will keep the patient n.p.o. and hydrate her. We have asked nursing staff to collect a urine sample TOY and send that for analysis to rule out UTI which is high on the probability list given her presentation and white count excetra. Allergies Allergy/AdvReac Type Severity Reaction Status Date / Time No Known Drug Allergies Allergy Verified 12/05/24 11:30 Home Medications Medication Instructions Recorded Confirmed Type cholecalciferol (vitamin D3) 25 1,000 units PO DAILY 07/29/19 12/14/24 History mcg (1,000 unit) capsule nitroglycerin 0.4 mg sublingual 0.4 mg sublingual ONCE PRN Chest 07/29/19 12/14/24 History tablet Pain omega-3 acid ethyl esters 1 gram 1 cap PO DAILY 07/29/19 12/14/24 History capsule polyethylene glycol 3350 17 17 g PO DAILY PRN Constipation 08/19/19 12/14/24 History gram/dose oral powder (Miralax) albuterol sulfate 90 mcg/actuation 2 puff inhalation Q4H PRN 01/01/21 12/14/24 Rx aerosol inhaler shortness of breath or wheezing #8.5 grams Eye Pressure Support 1 cap PO DAILY 07/19/24 12/14/24 History aspirin 81 mg tablet,delayed 81 mg PO DAILY 07/19/24 12/14/24 History release atorvastatin 20 mg tablet 20 mg PO DAILY 07/19/24 12/14/24 History levothyroxine 112 mcg tablet 112 mcg PO DAILY 07/19/24 12/14/24 History metoprolol succinate 50 mg 50 mg PO DAILY 07/19/24 12/14/24 History tablet,extended release 24 hr hydrochlorothiazide 50 mg tablet 50 mg PO DAILY #90 tabs 09/12/24 12/14/24 Rx olmesartan 40 mg tablet 40 mg PO DAILY #90 tabs 09/12/24 12/14/24 Rx trazodone 50 mg tablet 50 mg PO QPM #30 tabs 10/12/24 12/14/24 Rx duloxetine 30 mg capsule,delayed 30 mg PO DAILY #30 caps 11/27/24 12/14/24 Rx release (Cymbalta) verapamil 360 mg 24 hr 360 mg PO DAILY #90 caps 12/05/24 12/14/24 Rx capsule,extended release pantoprazole 40 mg tablet,delayed 40 mg PO DAILY 12/14/24 12/14/24 History release spironolactone 25 mg tablet 0 mg PO DAILY 12/14/24 12/14/24 History Past Med/Surg History Problem List (Updated 12/14/24 @ 16:27 by Steve De Leon, PhD, DO) Paralytic ileus of small intestine Renal insufficiency Arm pain, left Shoulder pain, left Wellness examination Adrenal adenoma Paresthesia of left arm Fatigue Hypertensive urgency Hyperglycemia Dermatitis Elevated alkaline phosphatase level Osteoporosis (Acute) Nephrolithiasis (Acute) Insomnia (Chronic) Incisional hernia (Chronic) Hypothyroidism (Chronic) Gastro-esophageal reflux (Chronic) Dyslipidemia (Chronic) Chronic obstructive pulmonary disease (Chronic) Cardiomyopathy, ischemic (Chronic) CAD (coronary artery disease) (Chronic) Abdominal hernia (Acute) Hypertension (Chronic) Abdominal adhesions (Acute) Medical History Confusion Paroxysmal atrial fibrillation Non-ST elevation (NSTEMI) myocardial infarction History of pancreatic cancer History of small bowel obstruction Partial small bowel obstruction Acute renal failure (ARF) (04/10/14) Surgical History S/P recurrent ventral herniorrhaphy S/P repair of ventral hernia S/P cataract extraction History of cardiac cath History of appendectomy History of hysterectomy History of pancreatectomy Family History Other Family history non-contributory Social History Smoking Status: Former smoker Tobacco Type: Cigarettes Age Started Using Tobacco: 22; Age Quit Using Tobacco: 39; packs per day: 0.5; Second Hand Exposure: No; Do You Dip or Chew Tobacco: No; Hx Alcohol Use: Yes (Beer occasionally ) Alcohol Intake Frequency: Monthly or Less Alcohol Intake Frequency Comment: 1 beer on occasion Hx Substance Use: No Preferred Language: Spanish Communication Ability: Effective [employer] Required: No Beliefs That Will Affect Care: None marital status: Current Living Situation: Spouse current occupational status: retired Feels Safe at Home: Yes Childhood Exposure to Second-Hand Smoke: No Diet: regular Diet Comment: eats regular eats high salt diet. caffeine: Yes (2-3 8 oz cups of coffee ) Dental Care, Regularly: No Physical Activity Frequency: Does not Exercise Seatbelt Use: always Sunscreen Use: No Do you think of yourself as: straight/heterosexual Gender Identity: Female Assistive Devices: None Review of Systems Review of Systems: A 10 point review of system was obtained and unless otherwise stated here or in history of present illness are negative and noncontributory to chief complaint. Physical Exam Physical Exam: In General: In general very pleasant 89-year-old female she is alert and oriented x 3, exam she is accompanied by her at the time my examination. HEENT: Normocephalic atraumatic pupils are equal round and reactive to light bilaterally. No scleral icterus no conjunctival injection external auditory canals are patent septum is in the midline nose is without discharge oral mucosa is pink and dry without lesion. NECK: Supple no rigidity no lymphadenopathy no thyromegaly no carotid bruits no JVD no masses. HEART: Regular rate and rhythm I do not appreciate any ectopy or rub. No murmur. LUNGS: Clear to auscultation bilaterally and anteriorly with no evidence of adventitious sounds/wheezes rales or rhonchi. ABDOMEN: Protuberant. Positive large ventral hernia. Mildly tender diffusely, but hernia is easily reducible. No rebound. No peritoneal signs. No appreciable abdominal bruits. No appreciable organomegaly but exam is somewhat limited due to her gross abdominal deformity from her ventral hernia. EXTREMITIES: Intact, no peripheral cyanosis, clubbing or edema. Strength is adequate x 4 NEUROLOGICAL: Cranial nerves II through XII are grossly intact with no focal deficit elicited upon examination. No tremor. Results & Data Results & Data Vital Signs (Past 12 Hours) Vital Signs Temp Pulse Pulse Resp BP BP Pulse Ox 12/14/24 15:00 61 18 150/93 H 96 12/14/24 13:36 58 L 17 142/88 H 96 12/14/24 13:00 57 L 12/14/24 11:39 36.2 C L 90 20 111/70 99 O2 Del Method 12/14/24 15:00 Room Air 12/14/24 13:36 Room Air 12/14/24 13:00 12/14/24 11:39 Room Air Code Status & VTE Plan Code Status Full code: I personally discussed with patient at the bedside this afternoon VTE Prophylaxis Plan VTE Prophylaxis will be ordered: Yes PG Care Time/CCT Total # of Minutes Spent Total Time Spent with Patient: Total time spent is greater than 50% in coordination of care (as documented) at patient's floor/unit and/or counseling patient: Coding Level of Care Code 45698 INT INP/OBS CARE 3/75MIN Diagnoses Paralytic ileus of small intestine K56.0
[2024-12-14] MEDS: SODIUM CHLORIDE 0.9% 500 ML IV SCH (16:56)
[2024-12-14] MEDS ORDERED: ALBUTEROL HFA 8 GM INHALER INH PRN (18:20)
[2024-12-14 19:59] LABS: Appearance Urine Clear (Clear); Bilirubin Urine Negative (Negative); Blood Urine Negative (Negative); Color Urine Yellow; Glucose Urine UA Negative (Negative); Ketones Urine Negative (Negative); Leukocyte Esterase Urine Negative (Negative); Nitrite Urine Negative (Negative); Protein Urine Negative (Negative); Specific Gravity Urine 1.017 (1.000-1.030); Urobilinogen Urine Negative (Negative)
[2024-12-14] MEDS: traZODone HCL 50 MG TAB PO SCH (20:16)
[2024-12-15] MEDS: LEVOTHYROXINE SODIUM 112 MCG TABLET PO SCH (06:12)
--- NOTE | 2024-12-15 06:13 | Electrocardiogram Report ---
Test Reason : Blood Pressure : */* mmHG Vent. Rate : 63 BPM Atrial Rate : 63 BPM P-R Int : 206 ms QRS Dur : 90 ms QT Int : 420 ms P-R-T Axes : 115 15 58 degrees QTcB Int : 429 ms Normal sinus rhythm Normal ECG When compared with ECG of 19-Jul-2024 10:19, No significant change was found Confirmed by Trenton Keenan ([id number]) on 12/15/2024 6:12:23 AM Referred By: REFERRED SELF Confirmed By: Trenton Keenan
[2024-12-15 08:11] LABS: Basophils # (auto) 0.05 K/uL (0.00-0.20); Basophils % (auto) 0.7 %; Eosinophils # (auto) 0.05 K/uL (0.00-0.50); Eosinophils % (auto) 0.7 %; Hematocrit (blood only) 36.2 % (37.0-47.0); Hemoglobin 12.1 g/dl (12.0-16.0); Immature Granulocytes # (auto) 0.29 K/uL (0.01-0.20); Immature Granulocytes % (auto) 3.8 %; Lymphocytes # (auto) 0.85 K/uL (1.20-3.40); Lymphocytes % (auto) 11.2 %; Mean Corpuscular Hemoglobin 32.3 pg (25.0-34.0); Mean Corpuscular Hgb Conc 33.4 g/dL (32.0-36.0); Mean Corpuscular Volume 96.5 fL (80.0-100.0); Mean Platelet Volume 8.5 fL (9.4-12.4); Monocytes # (auto) 0.66 K/uL (0.11-0.59); Monocytes % (auto) 8.7 %; Neutrophils # (auto) 5.71 K/uL (1.40-6.50); Neutrophils % (auto) 74.9 %; Platelet Count 306 K/uL (130-400); RDW Coefficient of Variation 13.2 % (11.5-14.5); Red Blood Count 3.75 M/uL (4.20-5.40); White Blood Count 7.61 K/ul (4.8-10.8)
[2024-12-15] MEDS: VERAPAMIL HCL 180 MG TABCR PO SCH (08:16)
[2024-12-15] MEDS: DULoxetine HCL 30 MG CAP PO SCH (08:16)
[2024-12-15] MEDS: LOSARTAN POTASSIUM 50 MG TAB PO SCH (08:16)
[2024-12-15] MEDS: PANTOprazole 40 MG TAB PO SCH (08:16)
[2024-12-15] MEDS: METOPROLOL SUCC 50MG EXT REL TAB PO SCH (08:16)
[2024-12-15] MEDS: ATORVASTATIN 20 MG TAB PO SCH (08:16)
[2024-12-15 08:35] LABS: Albumin Globulin Ratio 1.4 (0.9-2); Albumin Level 3.1 gm/dl (3.4-5.0); BUN Creatinine Ratio 51.3 (10-20); Bilirubin,Total 0.4 mg/dl (0.2-1.0); Calcium 7.8 mg/dl (8.6-10.3); Chol HDL Ratio 2.4 (0-5); Creatinine Clr Calc Pharmacy 27.6 ml/min; Globulin 2.2 gm/dl (2.5-4.0); Magnesium 1.8 mg/dl (1.7-2.4); Potassium 4.4 mmol/L (3.5-5.1); Total Protein 5.3 gm/dl (6.0-8.3)
[2024-12-15 08:50] LABS: Thyroid Stimulating Hormone 0.407 uIu/ml (0.300-4.500)
[2024-12-15] MEDS ORDERED: [UNRECOGNIZED DRUG - OTHER] PO SCH (09:00)
--- NOTE | 2024-12-15 09:15 | Surgery Consultation ---
Date of Consultation December 15, 2024 Assessment & Plan (1) Ileus: (2) Dehydration: (3) PILI (acute kidney injury): 89 yo female with few day history of diarrhea, abdominal bloating, weakness and fatigue who presented to ED and found to have PILI along with intestinal ileus with chronic ventral hernias containing bowel but no obstruction on CT scan. Abdominal examination with visible hernias but easily reduced without tenderness and no elevated lactic acid. +bowel function. These hernias are chronic, her abdominal distention likely due to diarrheal illness/ileus. No acute surgical intervention required. Abdominal binder recommended. IF she were to require vs want surgical repair of her hernia she would need to see hernia specialist, abdominal reconstruction team at [facility]. Clear liquids, advance diet as tolerated. Our services signing off, call with questions/concerns. Discussed with Dr. preston who agrees with above. History of Present Illness Reason for Consultation: abdominal wall hernias Requesting Physician: MD Moises Attending Physician: Radha Robins MD History of Present Illness Mariela is a 89 yo female with history of pancreatic cancer s/p whipple procedure 25 years ago along with chronic ventral hernias who presented to ED with complaint of diarrhea, weakness, fatigue, and abdominal bloating. ER work- up showed elevated leukocytosis, PILI with elevated creatitine and ct scan of abdomen and pelvis with dilated small and large bowel with multiple abdominal wall hernias containing small bowel but no sign of obstruction. She states she was having multiple loose stools daily for a few days at home. No nausea or vomiting. No changes in her hernias other than feeling distended but no abdominal pain. Currently feeling great, no abdominal pain, nausea or vomiting. Had diarrhea this am. Allergies Allergy/AdvReac Type Severity Reaction Status Date / Time No Known Drug Allergies Allergy Verified 12/05/24 11:30 Home Medications Medication Instructions Recorded Confirmed Type cholecalciferol (vitamin D3) 25 1,000 units PO DAILY 07/29/19 12/14/24 History mcg (1,000 unit) capsule nitroglycerin 0.4 mg sublingual 0.4 mg sublingual ONCE PRN Chest 07/29/19 12/14/24 History tablet Pain omega-3 acid ethyl esters 1 gram 1 cap PO DAILY 07/29/19 12/14/24 History capsule polyethylene glycol 3350 17 17 g PO DAILY PRN Constipation 08/19/19 12/14/24 History gram/dose oral powder (Miralax) albuterol sulfate 90 mcg/actuation 2 puff inhalation Q4H PRN 01/01/21 12/14/24 Rx aerosol inhaler shortness of breath or wheezing #8.5 grams Eye Pressure Support 1 cap PO DAILY 07/19/24 12/14/24 History aspirin 81 mg tablet,delayed 81 mg PO DAILY 07/19/24 12/14/24 History release atorvastatin 20 mg tablet 20 mg PO DAILY 07/19/24 12/14/24 History levothyroxine 112 mcg tablet 112 mcg PO DAILY 07/19/24 12/14/24 History metoprolol succinate 50 mg 50 mg PO DAILY 07/19/24 12/14/24 History tablet,extended release 24 hr hydrochlorothiazide 50 mg tablet 50 mg PO DAILY #90 tabs 09/12/24 12/14/24 Rx olmesartan 40 mg tablet 40 mg PO DAILY #90 tabs 09/12/24 12/14/24 Rx trazodone 50 mg tablet 50 mg PO QPM #30 tabs 10/12/24 12/14/24 Rx duloxetine 30 mg capsule,delayed 30 mg PO DAILY #30 caps 11/27/24 12/14/24 Rx release (Cymbalta) verapamil 360 mg 24 hr 360 mg PO DAILY #90 caps 12/05/24 12/14/24 Rx capsule,extended release pantoprazole 40 mg tablet,delayed 40 mg PO DAILY 12/14/24 12/14/24 History release spironolactone 25 mg tablet 0 mg PO DAILY 12/14/24 12/14/24 History Patient History Medical History Confusion Paroxysmal atrial fibrillation Non-ST elevation (NSTEMI) myocardial infarction History of pancreatic cancer History of small bowel obstruction Partial small bowel obstruction Acute renal failure (ARF) (04/10/14) Surgical History S/P recurrent ventral herniorrhaphy S/P repair of ventral hernia S/P cataract extraction Bilateral History of cardiac cath History of appendectomy History of hysterectomy History of pancreatectomy Family History Other Family history non-contributory Social History Smoking Status: Former smoker Tobacco Type: Cigarettes Age Started Using Tobacco: 22; Age Quit Using Tobacco: 39; packs per day: 0.5; Second Hand Exposure: No; Do You Dip or Chew Tobacco: No; Hx Alcohol Use: Yes Alcohol type: beer Alcohol Intake Frequency: Monthly or Less Alcohol Intake Frequency Comment: 1 beer on occasion Hx Substance Use: No Preferred Language: Latvian Communication Ability: Effective Straight Line Press Setter Required: No Beliefs That Will Affect Care: None marital status: Current Living Situation: Spouse current occupational status: retired Feels Safe at Home: Yes Childhood Exposure to Second-Hand Smoke: No Diet: regular Diet Comment: eats regular eats high salt diet. caffeine: Yes (2-3 8 oz cups of coffee ) Dental Care, Regularly: No Physical Activity Frequency: Does not Exercise Seatbelt Use: always Sunscreen Use: No Do you think of yourself as: straight/heterosexual Gender Identity: Female Assistive Devices: Denture - Upper, Denture - Lower and Glasses Review of Systems Review of Systems: All systems reviewed & are unremarkable except as noted in HPI & below Physical Exam Constitutional: WD/WN, vitals as above cooperative and comfortable; no acute distress, not ill appearing and not frail appearing Respiratory: normal respiratory effort; no respiratory distress Gastrointestinal (Abdomen): Inspection/Auscultation: abdomen normal to inspection, + visible herniation and + abdominal surgical scar (midline lapraotomy scar, RUQ scar extending to the LUQ); abdomen not distended Percussion/Palpation: abdomen soft and + hernia (reducible ventral hernias x 4); abdomen nontender, no guarding and abdomen not rigid Skin: no rashes, warm and dry Psychiatric: A+Ox3, euthymic affect Results & Data Vital Signs (Past 12 Hours) Vital Signs Temp Pulse Resp BP Pulse Ox O2 Del Method 12/15/24 07:12 36.4 C L 66 16 135/74 96 Room Air 12/14/24 22:55 36.4 C L 62 16 113/64 95 Room Air Laboratory Results 12/15/24 12/14/24 12/14/24 Range/Units 07:31 19:35 16:37 WBC 7.61 (4.8-10.8) K/ul RBC 3.75 L (4.20-5.40) M/uL Hgb 12.1 (12.0-16.0) g/dl Hct 36.2 L (37.0-47.0) % MCV 96.5 (80.0-100.0) fL MCH 32.3 (25.0-34.0) pg MCHC 33.4 (32.0-36.0) g/dL RDW Std Deviation 47.0 H (36.4-46.3) fL RDW Coeff of Tara 13.2 (11.5-14.5) % Plt Count 306 (130-400) K/uL MPV 8.5 L (9.4-12.4) fL Immature Gran % (Auto) 3.8 % Neut % (Auto) 74.9 % Lymph % (Auto) 11.2 % [place] % (Auto) 8.7 % Eos % (Auto) 0.7 % Baso % (Auto) 0.7 % Neut # (Auto) 5.71 (1.40-6.50) K/uL Lymph # (Auto) 0.85 L (1.20-3.40) K/uL [place] # (Auto) 0.66 H (0.11-0.59) K/uL Eos # (Auto) 0.05 (0.00-0.50) K/uL Baso # (Auto) 0.05 (0.00-0.20) K/uL Immature Gran # (Auto) 0.29 H (0.01-0.20) K/uL Absolute Nucleated RBC (0.00-0.12) K/uL Nucleated RBC % (auto) % Sodium 144 (136-145) mmol/L Potassium 4.4 (3.5-5.1) mmol/L Chloride 120 H (98-107) mmol/L Carbon Dioxide 21 (21-32) mmol/L Anion Gap 3 (3-11) BUN 61 H D (6-23) mg/dl Creatinine 1.19 D (0.6-1.2) mg/dl Est Cr Clr Drug Dosing 27.6 ml/min eGFR 44.25 BUN/Creatinine Ratio 51.3 H (10-20) Glucose 78 (70-99(Fasting)) mg/dl Lactate 0.5 (0.4-2.0) mmol/L Calcium 7.8 L (8.6-10.3) mg/dl Magnesium 1.8 (1.7-2.4) mg/dl Total Bilirubin 0.4 (0.2-1.0) mg/dl AST 10 L (13-39) U/L ALT 10 (7-52) U/L Alkaline Phosphatase 70 (34-104) U/L Troponin I High Sens (0-14) pg/ml Total Protein 5.3 L D (6.0-8.3) gm/dl Albumin 3.1 L (3.4-5.0) gm/dl Globulin 2.2 L (2.5-4.0) gm/dl Albumin/Globulin Ratio 1.4 (0.9-2) Triglycerides 179 H (0-150) mg/dl Cholesterol 94 (0-200) mg/dl LDL Cholesterol, Calc 18 mg/dl VLDL Cholesterol, Calc 36 H (0-30) mg/dl HDL Cholesterol 40 mg/dl Cholesterol/HDL Ratio 2.4 (0-5) TSH 0.407 (0.300-4.500) uIu/ml Urine Color Yellow Urine Appearance Clear (Clear) Urine pH 5.0 (4.5-7.5) Ur Specific [place] 1.017 (1.000-1.030) Urine Protein Negative (Negative) Urine Glucose (UA) Negative (Negative) Urine Ketones Negative (Negative) Urine Blood Negative (Negative) Urine Nitrite Negative (Negative) Urine Bilirubin Negative (Negative) Urine Urobilinogen Negative (Negative) Ur Leukocyte Esterase Negative (Negative) Adenovirus (PCR) (NotDetected) B. pertussis DNA (PCR) (NotDetected) B.parapertussis DNA PCR (NotDetected) C. pneumoniae DNA (PCR) (NotDetected) Coronavirus OC43 (PCR) (NotDetected) Coronavirus HKU1 (PCR) (NotDetected) Coronavirus 229E (PCR) (NotDetected) SARS-CoV-2 (PCR) (NotDetected) Coronavirus NL63 (PCR) (NotDetected) Human Metapneumovir PCR (NotDetected) Influenza Type A (PCR) (NotDetected) Influenza Type B (PCR) (NotDetected) M. pneumoniae (PCR) (NotDetected) Parainfluenza 1 (PCR) (NotDetected) Parainfluenza 2 (PCR) (NotDetected) Parainfluenza 3 (PCR) (NotDetected) Parainfluenza 4 (PCR) (NotDetected) RSV (PCR) (NotDetected) Entero/Rhino (PCR) (NotDetected) 12/14/24 Range/Units 12:27 WBC 13.32 H (4.8-10.8) K/ul RBC 4.42 (4.20-5.40) M/uL Hgb 14.3 (12.0-16.0) g/dl Hct 42.2 (37.0-47.0) % MCV 95.5 (80.0-100.0) fL MCH 32.4 (25.0-34.0) pg MCHC 33.9 (32.0-36.0) g/dL RDW Std Deviation 45.9 (36.4-46.3) fL RDW Coeff of Tara 13.0 (11.5-14.5) % Plt Count 417 H (130-400) K/uL MPV 8.6 L (9.4-12.4) fL Immature Gran % (Auto) 2.3 % Neut % (Auto) 78.6 % Lymph % (Auto) 9.4 % [place] % (Auto) 9.2 % Eos % (Auto) 0.0 % Baso % (Auto) 0.5 % Neut # (Auto) 10.48 H (1.40-6.50) K/uL Lymph # (Auto) 1.25 (1.20-3.40) K/uL [place] # (Auto) 1.22 H (0.11-0.59) K/uL Eos # (Auto) 0.00 (0.00-0.50) K/uL Baso # (Auto) 0.06 (0.00-0.20) K/uL Immature Gran # (Auto) 0.31 H (0.01-0.20) K/uL Absolute Nucleated RBC 0.02 (0.00-0.12) K/uL Nucleated RBC % (auto) 0.2 % Sodium 139 (136-145) mmol/L Potassium 4.5 (3.5-5.1) mmol/L Chloride 110 H (98-107) mmol/L Carbon Dioxide 21 (21-32) mmol/L Anion Gap 8 (3-11) BUN 94 H (6-23) mg/dl Creatinine 2.14 H (0.6-1.2) mg/dl Est Cr Clr Drug Dosing 15.3 ml/min eGFR 21.88 BUN/Creatinine Ratio 43.9 H (10-20) Glucose 142 H (70-99(Fasting)) mg/dl Lactate (0.4-2.0) mmol/L Calcium 8.8 (8.6-10.3) mg/dl Magnesium (1.7-2.4) mg/dl Total Bilirubin 0.4 (0.2-1.0) mg/dl AST 12 L (13-39) U/L ALT 10 (7-52) U/L Alkaline Phosphatase 82 (34-104) U/L Troponin I High Sens 5.2 (0-14) pg/ml Total Protein 6.8 (6.0-8.3) gm/dl Albumin 3.8 (3.4-5.0) gm/dl Globulin 3.0 (2.5-4.0) gm/dl Albumin/Globulin Ratio 1.3 (0.9-2) Triglycerides (0-150) mg/dl Cholesterol (0-200) mg/dl LDL Cholesterol, Calc mg/dl VLDL Cholesterol, Calc (0-30) mg/dl HDL Cholesterol mg/dl Cholesterol/HDL Ratio (0-5) TSH (0.300-4.500) uIu/ml Urine Color Urine Appearance (Clear) Urine pH (4.5-7.5) Ur Specific [place] (1.000-1.030) Urine Protein (Negative) Urine Glucose (UA) (Negative) Urine Ketones (Negative) Urine Blood (Negative) Urine Nitrite (Negative) Urine Bilirubin (Negative) Urine Urobilinogen (Negative) Ur Leukocyte Esterase (Negative) Adenovirus (PCR) Not Detected (NotDetected) B. pertussis DNA (PCR) Not Detected (NotDetected) B.parapertussis DNA PCR Not Detected (NotDetected) C. pneumoniae DNA (PCR) Not Detected (NotDetected) Coronavirus OC43 (PCR) Not Detected (NotDetected) Coronavirus HKU1 (PCR) Not Detected (NotDetected) Coronavirus 229E (PCR) Not Detected (NotDetected) SARS-CoV-2 (PCR) Not Detected (NotDetected) Coronavirus NL63 (PCR) Not Detected (NotDetected) Human Metapneumovir PCR Not Detected (NotDetected) Influenza Type A (PCR) Not Detected (NotDetected) Influenza Type B (PCR) Not Detected (NotDetected) M. pneumoniae (PCR) Not Detected (NotDetected) Parainfluenza 1 (PCR) Not Detected (NotDetected) Parainfluenza 2 (PCR) Not Detected (NotDetected) Parainfluenza 3 (PCR) Not Detected (NotDetected) Parainfluenza 4 (PCR) Not Detected (NotDetected) RSV (PCR) Not Detected (NotDetected) Entero/Rhino (PCR) Not Detected (NotDetected) Diagnostic Findings ABDOMEN AND PELVIS CT WITHOUT CONTRAST CT DOSE: 1851.68 mGy.cm HISTORY: Acute generalized abdominal pain and distention with weakness abd distension, weakness TECHNIQUE: Multiaxial CT images of the abdomen and pelvis were performed without contrast. A dose lowering technique was utilized adhering to the principles of ALARA. COMPARISON STUDY: August 19, 2019 FINDINGS: Cardiomegaly with coronary artery calcifications. Clear lung bases. No pneumatosis or pneumoperitoneum. Calcific granulomata of the spleen. Unremarkable pancreas. Right adrenal hyperplasia. Probable left adrenal adenoma measures 3.2 cm, previously 2.9 cm. Cholecystectomy with large amount of pneumobilia redemonstrated. No hepatic mass lesions are identified. Hypodense foci of the kidneys suggestive of probable cysts. Nonobstructing calculi of the right kidney measuring up to 4 mm. Indeterminate 8 mm intermediate density lesion of the interpolar right kidney on image 125. No ureteral calculi or hydronephrosis. Decompressed urinary bladder. Hysterectomy. Atherosclerosis of the aorta without aneurysm. 11 mm right retrocrural lymph node is stable. Advanced atherosclerosis of the abdominal aorta. Large hiatal hernia. Postoperative changes of the small bowel. Colonic diverticulosis. Scattered large and small bowel air-fluid levels with large and small bowel distention. No discrete transition point identified. Diastases recti. There are several bowel-containing abdominal wall hernias, at least 4 with opening measuring up to 6 cm within the lower abdomen. Proximal loops of small bowel measure up to approximately 5 cm. Unremarkable soft tissues. No acute fracture. Degenerative changes of the spine, pelvis and hips. 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 IMPRESSION: 1. Distended air and fluid-filled loops of large and small bowel without discrete transition point identified may represent an ileus ileus versus enteritis, however should be followed to exclude developing obstruction. 2. There are several bowel-containing abdominal wall hernias measuring up to 6 cm. 3. Cholecystectomy with pneumobilia redemonstrated. 4. Large hiatal hernia. 5. Right nephrolithiasis without hydronephrosis. 6. Colonic diverticulosis. ACT 112: Negative or not required by law.
--- NOTE | 2024-12-15 09:16 | Hospitalist Progress Note ---
Date of Service December 15, 2024 Assessment & Plan (1) Paralytic ileus of small intestine: Plan: 89 yo F with PMHx of HTN, HLD, Depression, CKD III, GERD presented with 2-3 days history of not feeling well and vague abdominal discomfort. She had 1 - 2 episodes of loose stool over 1-2 days prior to presentation. She was found to have leukocytosis, PILI, #Small bowel ileus. - CT abd / pelvis showing distended air and fluid-filled loops of large and small bowel without discrete transition point identified may represent an ileus ileus versus enteritis, however should be followed to exclude developing obstruction. - Gen surgery on board, recs appreciated - No vomiting, but NGT if vomiting - started on CLD tolerating well , defer diet to gen surgery - cont IVF - PRN antiemetics. - lactate: 0.5 (12/12/24) #Leukocytosis - WBC trended normal - CXR neg - BCx NGTD - UA neg #Acute kidney injury with CKD stage III - Cr trended from 2.14 to 1.19 - trend at this time #Ruled out atypical cardiac presentation - initial trop neg - EKG is completely normal sinus with no acute ST-T abnormalities and unremarkable #Hypertension. Continue home medications with exception of diuretics given the acute kidney failure and hypovolemia. Will hold the diuretics. She is due for her angiotensin receptor frank in the morning. Will order this for now. As I feel her creatinine will improve with hydration. #GERD. Continue PPI. #Depression continue SSRI. #Dyslipidemia continue statin therapy. #DVT ppx: hep subq #Dispo: pending diet toleration, gen surgery clearance Admission and Anticipated Discharge Date Admission Date: December 14, 2024 Subjective Admitted yesterday. No acute events overnight Current no new complaints She stated that she had two episodes of liquid BM this morning Pt is tolerating CLD. No nausea / vomiting Review of Systems Review of Systems: Comprehensive ROS completed Physical Exam Physical Exam: Gen: NAD, lying in bed comfortable HEENT: NC/AT, anicteric, MMM Lungs: CTAB CVS: s1s2nl, RRR, no m/r/g Abd: nl bowel sounds, soft, NT / ND Ext: no edema Results & Data Results & Data Vital Signs (Past 12 Hours) Vital Signs Temp Pulse Resp BP Pulse Ox O2 Del Method 12/15/24 07:12 36.4 C L 66 16 135/74 96 Room Air 12/14/24 22:55 36.4 C L 62 16 113/64 95 Room Air PG Care Time/CCT Total # of Minutes Spent Total Time Spent with Patient: Total time spent is greater than 50% in coordination of care (as documented) at patient's floor/unit and/or counseling patient: Coding Level of Care Code 22382 SUB INP/OBS CARE 2/35MIN Diagnoses Paralytic ileus of small intestine K56.0
[2024-12-15] MEDS: HEPARIN SOD 5,000 UNIT/0.5 ML VIAL SQ SCH (13:56)
[2024-12-16 00:19] VITALS: RESP 16
[2024-12-16] MEDS: ACETAMINOPHEN 325 MG TAB PO PRN (05:39)
[2024-12-16 06:54] LABS: Hematocrit (blood only) 32.8 % (37.0-47.0); Hemoglobin 11.1 g/dl (12.0-16.0); Mean Corpuscular Hemoglobin 32.4 pg (25.0-34.0); Mean Corpuscular Hgb Conc 33.8 g/dL (32.0-36.0); Mean Corpuscular Volume 95.6 fL (80.0-100.0); Mean Platelet Volume 8.5 fL (9.4-12.4); Platelet Count 269 K/uL (130-400); RDW Coefficient of Variation 12.7 % (11.5-14.5); RDW Standard Deviation 44.6 fL (36.4-46.3); Red Blood Count 3.43 M/uL (4.20-5.40); White Blood Count 7.21 K/ul (4.8-10.8)
[2024-12-16 07:15] LABS: BUN Creatinine Ratio 32.4 (10-20); Calcium 7.7 mg/dl (8.6-10.3); Creatinine Clr Calc Pharmacy 31.2 ml/min; Magnesium 1.6 mg/dl (1.7-2.4); Phosphorus 2.3 mg/dl (2.5-4.9); Potassium 4.3 mmol/L (3.5-5.1)
--- NOTE | 2024-12-16 10:41 | Hospitalist Progress Note ---
Date of Service December 16, 2024 Assessment & Plan (1) Paralytic ileus of small intestine: Plan: 89 yo F with PMHx of pancreatic cancer s/p whipple procedure 25 years ago with chronic ventral hernias, HTN, HLD, Depression, CKD III, GERD presented with 2-3 days history of not feeling well and vague abdominal discomfort. She had 1 - 2 episodes of loose stool over 1-2 days prior to presentation. She was found to have leukocytosis, PILI, #Small bowel ileus. - CT abd / pelvis showing distended air and fluid-filled loops of large and small bowel without discrete transition point identified may represent an ileus ileus versus enteritis, however should be followed to exclude developing obstruction. - Gen surgery s/o, cleared for d/c - No vomiting, but NGT if vomiting - diet advanced to FLD - cont IVF - PRN antiemetics. - lactate: 0.5 (12/12/24) #Leukocytosis - WBC trended normal - CXR neg - BCx NGTD - UA neg #Acute kidney injury with CKD stage III - Cr trended from 2.14 to 1.19 - trend at this time #Ruled out atypical cardiac presentation - initial trop neg - EKG is completely normal sinus with no acute ST-T abnormalities and unremarkable #Hypertension. Continue home medications with exception of diuretics given the acute kidney failure and hypovolemia. Will hold the diuretics. She is due for her angiotensin receptor frank in the morning. Will order this for now. As I feel her creatinine will improve with hydration. #GERD. Continue PPI. #Depression continue SSRI. #Dyslipidemia continue statin therapy. #DVT ppx: hep subq #Dispo: pending diet toleration, gen surgery clearance Admission and Anticipated Discharge Date Admission Date: December 14, 2024 Subjective Admitted yesterday. No acute events overnight Current no new complaints She stated that she had two episodes of liquid BM this morning Pt is tolerating CLD. No nausea / vomiting Review of Systems Review of Systems: Comprehensive ROS completed Physical Exam Physical Exam: Gen: NAD, lying in bed comfortable HEENT: NC/AT, anicteric, MMM Lungs: CTAB CVS: s1s2nl, RRR, no m/r/g Abd: nl bowel sounds, soft, NT / ND Ext: no edema Results & Data Results & Data Vital Signs (Past 12 Hours) Vital Signs Temp Pulse Resp BP BP Pulse Ox O2 Del Method 12/16/24 09:24 58 L 153/67 H 12/16/24 08:16 62 163/92 H 12/16/24 07:39 36.9 C 59 L 16 167/95 H 96 Room Air 12/16/24 00:18 36.7 C 55 L 16 151/84 H 94 Room Air PG Care Time/CCT Total # of Minutes Spent Total Time Spent with Patient: Total time spent is greater than 50% in coordination of care (as documented) at patient's floor/unit and/or counseling patient: Coding Diagnoses Paralytic ileus of small intestine K56.0
[2024-12-16 14:49] VITALS: BP 111/61; PULSE 69; TEMP 97.3; O2SAT 93
--- NOTE | 2024-12-16 15:26 | Discharge Summary ---
Discharge Summary Date of Service December 16, 2024 Principal Dx & Hospital Course #1 = Principal Diagnosis (1) Paralytic ileus of small intestine: 89 yo F with PMHx of pancreatic cancer s/p whipple procedure 25 years ago with chronic ventral hernias, HTN, HLD, Depression, CKD III, GERD presented with 2-3 days history of not feeling well and vague abdominal discomfort. She had 1 - 2 episodes of loose stool over 1-2 days prior to presentation. She was found to have leukocytosis, PILI, #Small bowel ileus resolved - CT abd / pelvis showing distended air and fluid-filled loops of large and small bowel without discrete transition point identified may represent an ileus ileus versus enteritis, however should be followed to exclude developing obstruction. - Gen surgery recs appreciated, pt improved and was cleared for d/c - No vomiting, but NGT if vomiting - tolerated diet - lactate: 0.5 (12/12/24) #Leukocytosis - resolved - WBC trended normal - CXR neg - BCx NGTD - UA neg #Acute kidney injury with CKD stage III - resolved - Cr trended from 2.14 to 1.19 - trend at this time #Ruled out atypical cardiac presentation - initial trop neg - EKG is completely normal sinus with no acute ST-T abnormalities and unremarkable #Hypertension. cont home meds #GERD. Continue PPI. #Depression continue SSRI. #Dyslipidemia continue statin therapy. #Dispo: d/c home Admission HPI Per Admitting Provider Pleasant 89-year-old female who has a 2 to 3-day history of not feeling well for vague abdominal discomfort. She had 1 or 2 episodes of loose stool over the last day or 2. None today. Presents to the ER today feeling dehydrated and weak. Pulmonary/Emergency Department patient was found to have some acute kidney injury creatinine of 2.14 with a baseline of 1.4. White count of over 13,000. Other labs were nonacute/stable. [employer] respiratory panel was negative. Course in the emergency department received 500 cc bolus of saline. Received 4 of IV Zofran. Patient had a CT of the abdomen pelvis shows large ventral hernia with multiple loops of fluid-filled small bowel. There was no todd transition point. Probable ileus. Chest x-ray was negative. Regarding with the patient further evaluation and treatment. We have requested a stat lactate a stat troponin and stat EKG. We are also placing stat blood cultures. We spoke with general surgery on-call. They will see the patient in consultation at this time no need for NG tube since there is no vomiting. Will keep the patient n.p.o. and hydrate her. We have asked nursing staff to collect a urine sample TOY and send that for analysis to rule out UTI which is high on the probability list given her presentation and white count excetra. Discharge Exam Gen: NAD, lying in bed comfortable HEENT: NC/AT, anicteric, MMM Lungs: CTAB CVS: s1s2nl, RRR, no m/r/g Abd: nl bowel sounds, soft, NT / ND Ext: no edema Discharge Plan Discharge Items Patient Disposition: Home - Self-Care Reason For Visit: ABD PAIN , WEAK Discharge Diagnosis: SBO Condition on Discharge: Good Activity: Resume your previous activity Non-emergency contact: Primary Care Provider Call non-emergency contact if: you have any medication questions and your symptoms worsen Follow-up/Referrals: Glendy Worley MD [Primary Care Provider] - Diet: Heart Healthy and Low Fiber Addtl Attending Provider Instructions: Return to hospital if symptoms recur Pending Studies at Discharge: No Stand-Alone Forms: [employer], Smoking Cessation Medications and DC Order Prescriptions: Continued trazodone 50 mg tablet 50 mg PO QPM Qty: 30 2RF Rx Instructions: TAKE 1 TABLET BY MOUTH EVERY EVENING albuterol sulfate 90 mcg/actuation HFA aerosol inhaler 2 puff inhalation Q4H PRN (Reason: shortness of breath or wheezing) Qty: 8.5 10RF cholecalciferol (vitamin D3) 1,000 unit capsule 1,000 units PO DAILY Rx Instructions: Unable to verify OTC meds at this date/time. nitroglycerin 0.4 mg tablet, sublingual 0.4 mg SL ONCE PRN (Reason: Chest Pain) omega-3 acid ethyl esters 1 gram capsule 1 cap PO DAILY Rx Instructions: Unable to verify OTC meds at this date/time. duloxetine [Cymbalta] 30 mg capsule,delayed release(DR/EC) 30 mg PO DAILY Qty: 30 2RF verapamil 360 mg capsule,ext rel. pellets 24 hr 360 mg PO DAILY Qty: 90 1RF Rx Instructions: TAKE ONE CAPSULE BY MOUTH ONE TIME DAILY olmesartan 40 mg tablet 40 mg PO DAILY Qty: 90 2RF hydrochlorothiazide 50 mg tablet 50 mg PO DAILY Qty: 90 3RF polyethylene glycol 3350 [Miralax] 17 gram/dose Powder 17 g PO DAILY PRN (Reason: Constipation) Rx Instructions: Unable to verify OTC meds at this date/time. atorvastatin 20 mg tablet 20 mg PO DAILY aspirin 81 mg Tablet,Delayed Release (Dr/Ec) 81 mg PO DAILY Rx Instructions: Unable to verify OTC meds at this date/time. Eye Pressure Support 1 cap PO DAILY Rx Instructions: OTC med metoprolol succinate 50 mg tablet extended release 24 hr 50 mg PO DAILY Rx Instructions: TAKE 1 TABLET BY MOUTH ONCE DAILY levothyroxine 112 mcg tablet 112 mcg PO DAILY Rx Instructions: TAKE ONE TABLET BY MOUTH DAILY spironolactone 25 mg tablet 0 mg PO DAILY Rx Instructions: 25 MG FILLED ON 11/27 BUT THERE WAS A NOTE IT WAS ON HOLD. PT UNSURE pantoprazole 40 mg tablet,delayed release (DR/EC) 40 mg PO DAILY Discharge Orders: Discharge Order (Routine); Ordered 12/16/24 Ordered By: Radha Robins Admission Data Admit Date/Time: 12/14/24 16:10 Attending Provider: Radha Robins Admit Provider: Steve De Leon Primary Care Provider: Glendy Worley Other Providers: Eloy Ceballos; Steve De Leon Hospital Stay Data Consultations 12/14/24 15:45 ED Decision to Admit Stat 12/14/24 16:09 Consult General Surgery Routine Diagnostic Imagining Performed 12/14/24 13:40 CT abd pelvis wo con Stat CT head/brain wo con Stat Discharge Instructions Given to Patient (Per Discharging Provider) Return to hospital if symptoms recur Total Time Total Time Spent Total Time Spent (In Minutes): 45 Coding Level of Care Code 43971 INP/OBS DISCH >30 MIN Diagnoses Paralytic ileus of small intestine K56.0
== END 2024-12-16 16:03 | disposition home or self-care (01) | DRG 389 ==
LOC: ED 11:29 → 3N 16:10 → SUATTDRO 16:10 → 3N 18:41

== ENCOUNTER 2025-01-24 09:36 | Inpatient (IN) ==
--- NOTE | 2025-01-24 10:00 | Emergency Department Note ---
Impression & Plan Weakness, PILI (acute kidney injury), Acute blood loss anemia, Acute UTI, Acute hyperkalemia, Melena ED Provider Note Provider: Philip Randall MD CHIEF COMPLAINT: Weakness, congestion, diarrhea HISTORY OF PRESENT ILLNESS: Patient is a 89-year-old female past medical history of CKD, CAD, COPD, hypertension, hypothyroidism, recent mission for dehydration/weakness/diarrhea presenting here today via ambulance from home. Patient lives at home with her . The last 3 days states she has had increased generalized weakness. Has had multiple diarrheal episodes nonbloody in the last several days as well. No vomiting. Denies significant abdominal pain. No fevers. No falls. 2 weeks this morning to get around well and thus came here for evaluation. Maybe little bit of sinus drainage. Denies significant shortness of breath or chest pain currently. No breakfast today and limited food yesterday. Has been hydrating some by her report. Did not take medicines yet today. No sick contacts. Denies headache or dizziness. Denies speech issues currently. PAST MEDICAL HISTORY: As noted above MEDICATIONS: Reviewed home medications includes baby aspirin but did not take it yet today SOCIAL HISTORY: Lives at home with PHYSICAL EXAM: GENERAL: alert and oriented in no acute distress on stretcher Head: normocephalic and atraumatic EYES: No injection, discharge or icterus. PERRL, EOMI. NECK: Trachea midline. Supple. ENT: Mucous membranes pink and moist. LUNGS: Airway patent. No retractions. Breath sounds clear with good air entry bilaterally. HEART: Regular rate and rhythm. No chest wall tenderness ABDOMEN: Soft and non-tender, without guarding or rebound. Nondistended. Stable pelvis. Rectal: With nursing frame maker RN completed with black stool Hemoccult positive. SKIN: Acyanotic, warm, dry, without rashes EXTREMITIES: Without swelling, tenderness or deformity NEUROLOGICAL: No focal deficits. No aphasia. No facial droop or slurred speech. Normal strength and tone in the extremities. Sensation to gross touch normal. EK bpm normal sinus rhythm. Some baseline effect but no acute ST segment elevation or depression appreciable with a QTc of 418. CONTINUOUS CARDIAC MONITORING: was ordered and showed a heart rate of 80s-90s bpm in normal sinus rhythm Patient's laboratory studies and imaging reviewed. Differential includes Infection, dehydration, metabolic abnormality, hypo/hyperglycemia, gastroenteritis, SBO, ileus, electrolyte disturbance, anemia, hypoxia, cardiac sources, intracerebral event, toxicologic, neurologic, as well as other pathologies. IMPRESSION/MEDICAL DECISION MAKING: Patient increasing generalized weakness with some nonbloody diarrhea last several days. Denies significant abdominal pain or tenderness on exam. Little bit of congestion. Will check viral panel basic blood work. Abdominal CT ordered. Did review prior recent admission from last month and had a ileus at that time with similar somewhat symptoms. Chronic CKD. Will check renal function today. Be careful avoid fluid overload given her cardiac history. Does not appear meningitic. No falls or trauma reported no bleeding additional imaging. Doubt CVA at this time and does not seem focal more generalized. Blood work your today with new worsened anemia 8.8 today. Platelet is a 12.5 is also noted. Urinalysis some bacteria but no other concerning white blood cells or signs of infection. Given leukocytosis and this will cover with ceftriaxone. Chemistries returned with hyperkalemia of 6.2 with an PILI of creatinine 1.8 with an elevated BUN of 97. Mild hypomagnesemia. No transaminitis. Negative respiratory viral panel. Occult stool with nursing is frankly positive for black stools Hemoccult positive. Patient reports 2 days of this. No history of GI bleed or ulcers. She denies heartburn symptoms. Given 80 mg dose of IV Protonix. Iron ferritin panel ordered. Unclear etiology of GI bleed at this time but no vomiting. CT abdomen pelvis report with a small pericardial effusion as well as a stable versus small 2.5 cm rectal mass. Neither of these explain symptoms. Given insulin and dextrose containing fluid as well as an additional IV fluid. Given bicarb as well to help with hyperkalemia. Again antibiotic coverage and PPI coverage given. Will bring in for further care. Discussed with the hospitalist team. DIAGNOSIS: Weakness, diarrhea, melena, hyperkalemia, UTI, anemia, PILI DISPOSITION: Hospitalist will evaluate Patient was agreeable with this plan. Critical Care I have personally spent 32 minutes of critical care time in the direct management of this patient. This includes bedside care, interpretation of diagnostic studies, and testing, discussion with consultants, patient, and other required patient management activities. These 32 minutes is in excess of all separately billable procedures. Past Med/Surg History Problem List (Updated 01/24/25 @ 13:37 by Philip Randall M.D.) Melena (Acute) Acute hyperkalemia (Acute) Acute UTI (Acute) PILI (acute kidney injury) (Acute) Weakness (Acute) Hiatal hernia Prediabetes Hypomagnesemia COPD without exacerbation Hypothyroidism (acquired) History of atrial fibrillation CAD (coronary artery disease) History of pancreatectomy Abnormality of rectum Hyperkalemia Macrocytosis Acute blood loss anemia (Acute) Upper GI bleeding Leukocytosis (Acute) Ileus (Acute) Dehydration (Acute) PILI (acute kidney injury) (Acute) Paralytic ileus of small intestine Renal insufficiency Arm pain, left Shoulder pain, left Wellness examination Adrenal adenoma Paresthesia of left arm Fatigue Hypertensive urgency Hyperglycemia Dermatitis Elevated alkaline phosphatase level Osteoporosis (Acute) Nephrolithiasis (Acute) Insomnia (Chronic) Incisional hernia (Chronic) Abdominal hernia (Acute) Abdominal adhesions (Acute) Medical History (Updated 01/24/25 @ 13:37 by Philip Randall M.D.) Hypothyroidism Gastro-esophageal reflux Dyslipidemia Chronic obstructive pulmonary disease Cardiomyopathy, ischemic Hypertension Paroxysmal atrial fibrillation Non-ST elevation (NSTEMI) myocardial infarction History of pancreatic cancer History of small bowel obstruction Partial small bowel obstruction Acute renal failure (ARF) (04/10/14) Surgical History (Updated 01/24/25 @ 12:32 by Jeffrey Liz MD) History of Whipple procedure S/P recurrent ventral herniorrhaphy S/P repair of ventral hernia S/P cataract extraction Bilateral History of cardiac cath History of appendectomy History of hysterectomy Family History (Updated 01/24/25 @ 12:23 by Jeffrey Liz MD) Mother , unknown cause No problems noted. Father , unknown cause No problems noted. Son Stroke Other Family history non-contributory Social History (Updated 01/24/25 @ 12:24 by Jeffrey Liz MD) Smoking Status: Former smoker Tobacco Type: Cigarettes Age Started Using Tobacco: 22; Age Quit Using Tobacco: 39; packs per day: 0.5; Second Hand Exposure: No; Do You Dip or Chew Tobacco: No; Hx Alcohol Use: Yes Alcohol type: beer Alcohol Intake Frequency: Monthly or Less Alcohol Intake Frequency Comment: 1 beer on occasion Hx Substance Use: No Preferred Language: Persian Communication Ability: Effective Boat Hop Required: No Beliefs That Will Affect Care: None marital status: Current Living Situation: Spouse current occupational status: retired How many Children do You have: 2 How many Children do You have Comment: 1 daughter in [place]; 1 son in [place]; other son age 63 Feels Safe at Home: Yes Childhood Exposure to Second-Hand Smoke: No Diet: regular Diet Comment: eats regular eats high salt diet. caffeine: Yes (2-3 8 oz cups of coffee ) Dental Care, Regularly: No Physical Activity Frequency: Does not Exercise Seatbelt Use: always Sunscreen Use: No Do you think of yourself as: straight/heterosexual Gender Identity: Female Assistive Devices: None Allergies Allergies Allergy/AdvReac Type Severity Reaction Status Date / Time No Known Drug Allergies Allergy Verified 12/05/24 11:30 Home Meds Home Medications Medication Instructions Recorded Confirmed cholecalciferol (vitamin D3) 25 1,000 units PO DAILY 07/29/19 01/24/25 mcg (1,000 unit) capsule nitroglycerin 0.4 mg sublingual 0.4 mg sublingual ONCE PRN Chest 07/29/19 01/24/25 tablet Pain omega-3 acid ethyl esters 1 gram 1 cap PO DAILY 07/29/19 01/24/25 capsule polyethylene glycol 3350 17 17 g PO DAILY PRN Constipation 08/19/19 01/24/25 gram/dose oral powder (Miralax) Eye Pressure Support 1 cap PO DAILY 07/19/24 01/24/25 aspirin 81 mg tablet,delayed 81 mg PO DAILY 07/19/24 01/24/25 release atorvastatin 20 mg tablet 20 mg PO DAILY 07/19/24 01/24/25 levothyroxine 112 mcg tablet 112 mcg PO DAILY 01/24/25 01/24/25 metoprolol succinate 50 mg 50 mg PO DAILY 01/24/25 01/24/25 tablet,extended release 24 hr pantoprazole 40 mg tablet,delayed 40 mg PO DAILY 01/24/25 01/24/25 release spironolactone 25 mg PO DAILY 01/24/25 01/24/25 trazodone 50 mg tablet 50 mg PO UD 01/24/25 01/24/25 verapamil 240 mg 24 hr 240 mg PO DAILY 01/24/25 01/24/25 capsule,extended release Previous Rx's Medication Instructions Recorded albuterol sulfate 90 mcg/actuation 2 puff inhalation Q4H PRN 01/01/21 aerosol inhaler shortness of breath or wheezing #8.5 grams hydrochlorothiazide 50 mg tablet 50 mg PO DAILY #90 tabs 09/12/24 olmesartan 40 mg tablet 40 mg PO DAILY #90 tabs 09/12/24 duloxetine 30 mg capsule,delayed 30 mg PO DAILY #30 caps 11/27/24 release (Cymbalta) Results & Data (ED) Vital Signs Vital Signs - 24 hr 01/24/25 09:44 01/24/25 09:57 01/24/25 12:00 Temperature 36.5 C Temperature Source Oral Pulse Rate 100 H 96 H Pulse Rate [Apical] 89 Pulse Rhythm [Apical] Regular Respiratory Rate 16 16 16 Respiratory Effort / Characteristics Non-Labored Spontaneous Non-Labored Spontaneous Respiratory Depth Normal Normal Respiratory Pattern Regular Blood Pressure 99/65 L Blood Pressure [Right Arm] 107/89 Blood Pressure Mean 76 Blood Pressure Mean [Right Arm] 95 Pulse Oximetry 96 95 Oxygen Delivery Method Room Air Room Air Room Air Sepsis Recent Fever Within 48 Hours No Sepsis New/Unexplained Change in Mental Status No Sepsis Action Taken by Nursing No Action Required 01/24/25 12:05 01/24/25 13:00 Temperature Temperature Source Pulse Rate 89 Pulse Rate [Apical] 99 H Pulse Rhythm [Apical] Regular Respiratory Rate 16 Respiratory Effort / Characteristics Non-Labored Spontaneous Respiratory Depth Normal Respiratory Pattern Blood Pressure Blood Pressure [Right Arm] 135/82 Blood Pressure Mean Blood Pressure Mean [Right Arm] 99 Pulse Oximetry 100 Oxygen Delivery Method Room Air Sepsis Recent Fever Within 48 Hours Sepsis New/Unexplained Change in Mental Status Sepsis Action Taken by Nursing Laboratory Data 01/24/25 08:44 01/24/25 08:44 Lab Results 01/24/25 01/24/25 01/24/25 Range/Units 08:44 09:56 10:12 WBC 12.56 H (4.8-10.8) K/ul RBC 2.69 L (4.20-5.40) M/uL Hgb 8.8 L (12.0-16.0) g/dl Hct 27.4 L (37.0-47.0) % MCV 101.9 H (80.0-100.0) fL MCH 32.7 (25.0-34.0) pg MCHC 32.1 (32.0-36.0) g/dL RDW Std Deviation 51.1 H (36.4-46.3) fL RDW Coeff of Tara 14.0 (11.5-14.5) % Plt Count 296 (130-400) K/uL MPV 9.6 (9.4-12.4) fL Immature Gran % (Auto) 1.7 % Neut % (Auto) 86.2 % Lymph % (Auto) 8.0 % Wallace % (Auto) 3.4 % Eos % (Auto) 0.2 % Baso % (Auto) 0.5 % Neut # (Auto) 10.83 H (1.40-6.50) K/uL Lymph # (Auto) 1.01 L (1.20-3.40) K/uL Wallace # (Auto) 0.43 (0.11-0.59) K/uL Eos # (Auto) 0.02 (0.00-0.50) K/uL Baso # (Auto) 0.06 (0.00-0.20) K/uL Immature Gran # (Auto) 0.21 H (0.01-0.20) K/uL PT 11.0 (9.0-12.0) Seconds INR 1.0 (0.9-1.1) Sodium 139 (136-145) mmol/L Potassium 6.2 H* (3.5-5.1) mmol/L Chloride 115 H (98-107) mmol/L Carbon Dioxide 17 L (21-32) mmol/L Anion Gap 7 (3-11) BUN 97 H (6-23) mg/dl Creatinine 1.87 H (0.6-1.2) mg/dl Est Cr Clr Drug Dosing 17.0 ml/min eGFR 25.73 BUN/Creatinine Ratio 51.9 H (10-20) Glucose 202 H (70-99(Fasting)) mg/dl POC Glucose (70-99) mg/dl Calcium 8.5 L (8.6-10.3) mg/dl Magnesium 1.4 L (1.7-2.4) mg/dl Iron 101 (35-150) mcg/dl TIBC 295 (250-450) mcg/dl Transferrin 211 (200-360) mg/dl Transferrin % Sat 34 (15-50) % Ferritin 111.7 (8-388) ng/ml Total Bilirubin 0.3 (0.2-1.0) mg/dl AST 8 L (13-39) U/L ALT 8 (7-52) U/L Alkaline Phosphatase 85 (34-104) U/L Total Creatine Kinase 14 L (26-192) U/L Troponin I High Sens < 2.3 (0-14) pg/ml Total Protein 5.6 L (6.0-8.3) gm/dl Albumin 3.2 L (3.4-5.0) gm/dl Globulin 2.4 L (2.5-4.0) gm/dl Albumin/Globulin Ratio 1.3 (0.9-2) TSH 1.144 (0.300-4.500) uIu/ml Urine Color Yellow Urine Appearance Clear (Clear) Urine pH 5.0 (4.5-7.5) Ur Specific [place] 1.017 (1.000-1.030) Urine Protein Negative (Negative) Urine Glucose (UA) Negative (Negative) Urine Ketones Negative (Negative) Urine Blood Negative (Negative) Urine Nitrite Negative (Negative) Urine Bilirubin Negative (Negative) Urine Urobilinogen Negative (Negative) Ur Leukocyte Esterase 1+ H (Negative) Urine WBC (Auto) 0-5 (0-5) /hpf Urine RBC (Auto) 0-2 (0-2) /hpf U Hyaline Cast (Auto) 0-2 (0-2) /lpf U Epithel Cells (Auto) 0-2 (0-2) /hpf Urine Bacteria (Auto) 4+ H (None Seen) POC Stool Occult Blood (Negative) Adenovirus (PCR) Not Detected (NotDetected) B. pertussis DNA (PCR) Not Detected (NotDetected) B.parapertussis DNA PCR Not Detected (NotDetected) C. pneumoniae DNA (PCR) Not Detected (NotDetected) Coronavirus OC43 (PCR) Not Detected (NotDetected) Coronavirus HKU1 (PCR) Not Detected (NotDetected) Coronavirus 229E (PCR) Not Detected (NotDetected) SARS-CoV-2 (PCR) Not Detected (NotDetected) Coronavirus NL63 (PCR) Not Detected (NotDetected) Human Metapneumovir PCR Not Detected (NotDetected) Influenza Type A (PCR) Not Detected (NotDetected) Influenza Type B (PCR) Not Detected (NotDetected) M. pneumoniae (PCR) Not Detected (NotDetected) Parainfluenza 1 (PCR) Not Detected (NotDetected) Parainfluenza 2 (PCR) Not Detected (NotDetected) Parainfluenza 3 (PCR) Not Detected (NotDetected) Parainfluenza 4 (PCR) Not Detected (NotDetected) RSV (PCR) Not Detected (NotDetected) Entero/Rhino (PCR) Not Detected (NotDetected) 01/24/25 01/24/25 Range/Units 11:11 12:22 WBC (4.8-10.8) K/ul RBC (4.20-5.40) M/uL Hgb (12.0-16.0) g/dl Hct (37.0-47.0) % MCV (80.0-100.0) fL MCH (25.0-34.0) pg MCHC (32.0-36.0) g/dL RDW Std Deviation (36.4-46.3) fL RDW Coeff of Tara (11.5-14.5) % Plt Count (130-400) K/uL MPV (9.4-12.4) fL Immature Gran % (Auto) % Neut % (Auto) % Lymph % (Auto) % Wallace % (Auto) % Eos % (Auto) % Baso % (Auto) % Neut # (Auto) (1.40-6.50) K/uL Lymph # (Auto) (1.20-3.40) K/uL Wallace # (Auto) (0.11-0.59) K/uL Eos # (Auto) (0.00-0.50) K/uL Baso # (Auto) (0.00-0.20) K/uL Immature Gran # (Auto) (0.01-0.20) K/uL PT (9.0-12.0) Seconds INR (0.9-1.1) Sodium (136-145) mmol/L Potassium (3.5-5.1) mmol/L Chloride (98-107) mmol/L Carbon Dioxide (21-32) mmol/L Anion Gap (3-11) BUN (6-23) mg/dl Creatinine (0.6-1.2) mg/dl Est Cr Clr Drug Dosing ml/min eGFR BUN/Creatinine Ratio (10-20) Glucose (70-99(Fasting)) mg/dl POC Glucose 117 H (70-99) mg/dl Calcium (8.6-10.3) mg/dl Magnesium (1.7-2.4) mg/dl Iron (35-150) mcg/dl TIBC (250-450) mcg/dl Transferrin (200-360) mg/dl Transferrin % Sat (15-50) % Ferritin (8-388) ng/ml Total Bilirubin (0.2-1.0) mg/dl AST (13-39) U/L ALT (7-52) U/L Alkaline Phosphatase (34-104) U/L Total Creatine Kinase (26-192) U/L Troponin I High Sens (0-14) pg/ml Total Protein (6.0-8.3) gm/dl Albumin (3.4-5.0) gm/dl Globulin (2.5-4.0) gm/dl Albumin/Globulin Ratio (0.9-2) TSH (0.300-4.500) uIu/ml Urine Color Urine Appearance (Clear) Urine pH (4.5-7.5) Ur Specific [place] (1.000-1.030) Urine Protein (Negative) Urine Glucose (UA) (Negative) Urine Ketones (Negative) Urine Blood (Negative) Urine Nitrite (Negative) Urine Bilirubin (Negative) Urine Urobilinogen (Negative) Ur Leukocyte Esterase (Negative) Urine WBC (Auto) (0-5) /hpf Urine RBC (Auto) (0-2) /hpf U Hyaline Cast (Auto) (0-2) /lpf U Epithel Cells (Auto) (0-2) /hpf Urine Bacteria (Auto) (None Seen) POC Stool Occult Blood Positive A (Negative) Adenovirus (PCR) (NotDetected) B. pertussis DNA (PCR) (NotDetected) B.parapertussis DNA PCR (NotDetected) C. pneumoniae DNA (PCR) (NotDetected) Coronavirus OC43 (PCR) (NotDetected) Coronavirus HKU1 (PCR) (NotDetected) Coronavirus 229E (PCR) (NotDetected) SARS-CoV-2 (PCR) (NotDetected) Coronavirus NL63 (PCR) (NotDetected) Human Metapneumovir PCR (NotDetected) Influenza Type A (PCR) (NotDetected) Influenza Type B (PCR) (NotDetected) M. pneumoniae (PCR) (NotDetected) Parainfluenza 1 (PCR) (NotDetected) Parainfluenza 2 (PCR) (NotDetected) Parainfluenza 3 (PCR) (NotDetected) Parainfluenza 4 (PCR) (NotDetected) RSV (PCR) (NotDetected) Entero/Rhino (PCR) (NotDetected) Administered Medications Sodium Bicarbonate 75 meq/ (Sodium Chloride) 1,075 mls @ 80 mls/hr IV .[id number] [facility] Stop: 02/23/25 12:14 Last Admin: 01/24/25 12:35 Dose: 80 mls/hr Documented By: ETHAN Discontinued Medications Dextrose (Dextrose 10% 250 Ml Bag) 250 ml IV ONCE ONE Stop: 01/24/25 11:15 Last Admin: 01/24/25 12:24 Dose: 250 ml Documented By: ETHAN Magnesium Sulfate/Dextrose (Magnesium Sulfate / D5w) 1 gm in 100 mls @ 200 mls/hr IV Q30M [place] Stop: 01/24/25 12:14 Last Admin: 01/24/25 13:13 Dose: 200 mls/hr Documented By: Infusion: 01/24/25 13:10 Dose: Infused Documented By: Admin: 01/24/25 12:25 Dose: 200 mls/hr Documented By: ETHAN Sodium Chloride (Nss) 250 mls @ 999 mls/hr IV .Q16M ONE Stop: 01/24/25 11:29 Last Infusion: 01/24/25 12:43 Dose: Infused Documented By: Admin: 01/24/25 11:51 Dose: 999 mls/hr Documented By: ETHAN Ceftriaxone Sodium (Rocephin) 2,000 mg in 50 mls @ 100 mls/hr IV NOW STA Stop: 01/24/25 11:43 Last Infusion: 01/24/25 12:43 Dose: Infused Documented By: Admin: 01/24/25 12:08 Dose: 100 mls/hr Documented By: ETHAN Pantoprazole Sodium 80 mg/ (Dextrose) 120 mls @ 480 mls/hr IV ONE STA Stop: 01/24/25 11:28 Last Infusion: 01/24/25 12:08 Dose: Infused Documented By: Admin: 01/24/25 11:52 Dose: 480 mls/hr Documented By: ETHAN Calcium Gluconate () 1,000 mg in 60 mls @ 240 mls/hr IV NOW STA Stop: 01/24/25 11:41 Last Infusion: 01/24/25 12:43 Dose: Infused Documented By: Admin: 01/24/25 12:08 Dose: 240 mls/hr Documented By: ETHAN Insulin Human Regular (Novolin-R Insulin Per Unit Charge) 10 units IV NOW STA Stop: 01/24/25 11:14 Last Admin: 01/24/25 12:30 Dose: 10 units Documented By: ETHAN Co-signed By: NELLI Patiromer (Patiromer Calcium Sorbitex 8.4 Gm Pack) 8.4 gm PO ONCE STA Stop: 01/24/25 11:28 Last Admin: 01/24/25 12:15 Dose: 8.4 gm Documented By: ETHAN Sodium Bicarbonate (Sodium Bicarb 8.4% Inj 50 Meq/50 Ml Syr) 50 meq IV NOW STA Stop: 01/24/25 11:13 Last Admin: 01/24/25 12:30 Dose: 50 meq Documented By: ETHAN Imaging Data Radiologist's Impression: Abdomen/Pelvis CT 01/24/25 09:[address] WITHOUT CONTRAST CT DOSE: 527.14 mGy.cm HISTORY: weak, diarrhea TECHNIQUE: Multiaxial CT images of the abdomen and pelvis were performed without contrast. Sagittal and coronal reconstructions were done. A dose lowering technique was utilized adhering to the principles of ALARA. COMPARISON STUDY: 12/14/2024 FINDINGS: Compared with the prior examination, the large and small bowel distention has resolved. A large hiatal hernia is redemonstrated. A small pericardial effusion has developed. The lung bases remain clear. The solid organs demonstrate the splenic calcifications, a small right renal cyst, and a lipid rich left adrenal adenoma. Cholecystectomy clips are noted with postoperative pneumobilia present. The liver is otherwise unremarkable. There are no pancreatic lesions detected. There is no hydronephrosis. There is no bowel obstruction or free air. There is no ascites. There are multiple bowel-containing abdominal wall hernias with no evidence of obstruction or wall thickening. In the pelvis, the appendix is not identified. There is no fluid in the cul-de-sac. The unopacified urinary bladder is negative. There is a persistent soft tissue density lesion at the [place] right posterolateral wall of the rectum. Its unclear whether this is fecal debris or a mass. It appears to be reproducible compared with the prior study. Measurement is approximately 2.5 cm. 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 IMPRESSION: A small pericardial effusion has developed. No additional acute findings. Stool ball versus a 2.5 cm mass in the right posterolateral wall of the rectum. Consider sigmoidoscopy. ACT 112: Negative or not required by law. The above report was generated using voice recognition software. It may contain grammatical, syntax or spelling errors. Electronically signed by: Aspen Kelly M.D. 01/24/2025 11:03 AM Chest X-Ray 01/24/25 09:52 XR chest 1V portable CLINICAL HISTORY: weakness COMPARISON STUDY: 12/14/2024 FINDINGS: Stable moderate to large hiatal hernia. Stable moderate cardiomegaly without pulmonary vascular congestion. There is skinfold artifact. No effusion, consolidation, or pneumothorax seen. IMPRESSION: No acute findings. ACT 112: Negative or not required by law. Electronically signed by: Wiley Cardona M.D. 01/24/2025 10:45 AM Discharge Plan Visit Data Chief Complaint: Leg Weakness, Bilateral Stated Complaint: WEAKNESS, CONGESTION, DIARRHEA ED Provider: Philip Randall Discharge Problem: Weakness, PILI (acute kidney injury), Acute blood loss anemia, Acute UTI, Acute hyperkalemia, Melena Patient Disposition: Being Evaluated by Hospitalist Forms Stand Alone Forms: [employer] Prescriptions Prescriptions: No Action albuterol sulfate 90 mcg/actuation HFA aerosol inhaler 2 puff inhalation Q4H PRN (Reason: shortness of breath or wheezing) Qty: 8.5 10RF Rx Instructions: 01/24- no fill history available. unable to verify cholecalciferol (vitamin D3) 1,000 unit capsule 1,000 units PO DAILY Rx Instructions: 01/24- otc unable to verify nitroglycerin 0.4 mg tablet, sublingual 0.4 mg SL ONCE PRN (Reason: Chest Pain) Rx Instructions: 01/24- no fill history available. unable to verify omega-3 acid ethyl esters 1 gram capsule 1 cap PO DAILY Rx Instructions: 01/24- otc unable to verify duloxetine [Cymbalta] 30 mg capsule,delayed release(DR/EC) 30 mg PO DAILY Qty: 30 2RF olmesartan 40 mg tablet 40 mg PO DAILY Qty: 90 2RF hydrochlorothiazide 50 mg tablet 50 mg PO DAILY Qty: 90 3RF polyethylene glycol 3350 [Miralax] 17 gram/dose Powder 17 g PO DAILY PRN (Reason: Constipation) Rx Instructions: 01/24- otc unable to verify atorvastatin 20 mg tablet 20 mg PO DAILY aspirin 81 mg Tablet,Delayed Release (Dr/Ec) 81 mg PO DAILY Rx Instructions: 01/24- otc unable to verify Eye Pressure Support 1 cap PO DAILY Rx Instructions: 01/24- otc unable to verify trazodone 50 mg tablet 50 mg PO UD Rx Instructions: 50 mg po qpm. last filled 09/09 30 day supply metoprolol succinate 50 mg tablet extended release 24 hr 50 mg PO DAILY Rx Instructions: TAKE 1 TABLET BY MOUTH ONCE DAILY pantoprazole 40 mg tablet,delayed release (DR/EC) 40 mg PO DAILY Rx Instructions: TAKE 1 TABLET BY MOUTH ONCE DAILY verapamil 240 mg capsule,ext rel. pellets 24 hr 240 mg PO DAILY Rx Instructions: TAKE ONE CAPSULE BY MOUTH ONE TIME DAILY levothyroxine 112 mcg tablet 112 mcg PO DAILY Rx Instructions: TAKE ONE TABLET BY MOUTH DAILY spironolactone tablet 25 mg PO DAILY Referrals Referrals: Glendy Worley MD [Primary Care Provider] -
[2025-01-24 10:26] LABS: Basophils # (auto) 0.06 K/uL (0.00-0.20); Basophils % (auto) 0.5 %; Eosinophils # (auto) 0.02 K/uL (0.00-0.50); Eosinophils % (auto) 0.2 %; Hematocrit (blood only) 27.4 % (37.0-47.0); Hemoglobin 8.8 g/dl (12.0-16.0); Immature Granulocytes # (auto) 0.21 K/uL (0.01-0.20); Immature Granulocytes % (auto) 1.7 %; Lymphocytes # (auto) 1.01 K/uL (1.20-3.40); Mean Corpuscular Hemoglobin 32.7 pg (25.0-34.0); Mean Corpuscular Hgb Conc 32.1 g/dL (32.0-36.0); Mean Corpuscular Volume 101.9 fL (80.0-100.0); Mean Platelet Volume 9.6 fL (9.4-12.4); Monocytes # (auto) 0.43 K/uL (0.11-0.59); Monocytes % (auto) 3.4 %; Neutrophils # (auto) 10.83 K/uL (1.40-6.50); Neutrophils % (auto) 86.2 %; Platelet Count 296 K/uL (130-400); RDW Standard Deviation 51.1 fL (36.4-46.3); Red Blood Count 2.69 M/uL (4.20-5.40); White Blood Count 12.56 K/ul (4.8-10.8)
[2025-01-24 10:30] LABS: Appearance Urine Clear (Clear); Bacteria Urine Automated 4+ (None Seen); Bilirubin Urine Negative (Negative); Blood Urine Negative (Negative); Cast Urine Automated 0-2 /lpf (0-2); Color Urine Yellow; Epithelial Cell Urine Auto 0-2 /hpf (0-2); Glucose Urine UA Negative (Negative); Ketones Urine Negative (Negative); Leukocyte Esterase Urine 1+ (Negative); Nitrite Urine Negative (Negative); Protein Urine Negative (Negative); RBC Urine Automated 0-2 /hpf (0-2); Specific Gravity Urine 1.017 (1.000-1.030); Urobilinogen Urine Negative (Negative); WBC Urine Automated 0-5 /hpf (0-5)
--- NOTE | 2025-01-24 10:47 | XRay Report ---
XR chest 1V portable CLINICAL HISTORY: weakness COMPARISON STUDY: 12/14/2024 FINDINGS: Stable moderate to large hiatal hernia. Stable moderate cardiomegaly without pulmonary vasc ular congestion. There is skinfold artifact. No effusion, consolidation, or pneumothorax seen. IMPRESSION: No acute findings. ACT 112: Negative or not required by law. Electronically signed by: Wiley Cardona M.D. 01/24/2025 10:45 AM
[2025-01-24 10:59] LABS: Alanine Aminotransferase 8 U/L (7-52); Potassium 6.2 mmol/L (3.5-5.1)
[2025-01-24 11:00] LABS: Albumin Globulin Ratio 1.3 (0.9-2); Albumin Level 3.2 gm/dl (3.4-5.0); Alkaline Phosphatase 85 U/L (34-104); Anion Gap 7 (3-11); Aspartate Aminotransferase 8 U/L (13-39); BUN Creatinine Ratio 51.9 (10-20); Bilirubin,Total 0.3 mg/dl (0.2-1.0); Blood Urea Nitrogen 97 mg/dl (6-23); Calcium 8.5 mg/dl (8.6-10.3); Carbon Dioxide 17 mmol/L (21-32); Chloride 115 mmol/L (98-107); Creatine Kinase 14 U/L (26-192); Globulin 2.4 gm/dl (2.5-4.0); Glucose 202 mg/dl (70-99(Fasting)); Magnesium 1.4 mg/dl (1.7-2.4); Sodium 139 mmol/L (136-145); Total Protein 5.6 gm/dl (6.0-8.3)
--- NOTE | 2025-01-24 11:05 | CT Scan Report ---
ABDOMEN AND PELVIS CT WITHOUT CONTRAST CT DOSE: 527.14 mGy.cm HISTORY: weak, diarrhea TECHNIQUE: Multiaxial CT images of the abdomen and pelvis were performed without contrast. Sagittal and coronal reconstructions were done. A dose lowering technique was utilized adhering to the princip les of ROBERTO. COMPARISON STUDY: 12/14/2024 FINDINGS: Compared with the prior examination, the large and small bowel distention has resolved. A large hiatal hernia is redemonstrated. A small pericardial effusion has developed. The lung bases r emain clear. The solid organs demonstrate the splenic calcifications, a small right renal cyst, and a lipid rich l eft adrenal adenoma. Cholecystectomy clips are noted with postoperative pneumobilia present. The live r is otherwise unremarkable. There are no pancreatic lesions detected. There is no hydronephrosis. There is no bowel obstruction or free air. There is no ascites. There are multiple bowel-containing a bdominal wall hernias with no evidence of obstruction or wall thickening. In the pelvis, the appendix is not identified. There is no fluid in the cul-de-sac. The unopacified u rinary bladder is negative. There is a persistent soft tissue density lesion at the [place] right po sterolateral wall of the rectum. Its unclear whether this is fecal debris or a mass. It appears to be reproducible compared with the prior study. Measurement is approximately 2.5 cm. 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 IMPRESSION: A small pericardial effusion has developed. No additional acute findings. Stool ball versus a 2.5 cm mass in the right posterolateral wall of the rectum. Consider sigmoidoscop y. ACT 112: Negative or not required by law. The above report was generated using voice recognition software. It may contain grammatical, syntax o r spelling errors. Electronically signed by: Aspen Kelly M.D. 01/24/2025 11:03 AM
[2025-01-24 11:16] LABS: Iron 101 mcg/dl (35-150); Total Iron Binding Cap Calc 295 mcg/dl (250-450); Transferrin 211 mg/dl (200-360); Transferrin (FE) Percent Satur 34 % (15-50)
[2025-01-24 11:19] LABS: Adenovirus PCR Not Detected (NotDetected); Bordetella parapertussis PCR Not Detected (NotDetected); Bordetella pertussis PCR Not Detected (NotDetected); Chlamydia pneumoniae PCR Not Detected (NotDetected); Coronavirus 229E PCR Not Detected (NotDetected); Coronavirus CoV-2 (COVID19)PCR Not Detected (NotDetected); Coronavirus HKU1 PCR Not Detected (NotDetected); Coronavirus NL63 PCR Not Detected (NotDetected); Coronavirus OC43PCR Not Detected (NotDetected); Human Metapneumovirus PCR Not Detected (NotDetected); Influenza A PCR Not Detected (NotDetected); Influenza B PCR Not Detected (NotDetected); Mycoplasma pneumoniae PCR Not Detected (NotDetected); Parainfluenza Virus 1 PCR Not Detected (NotDetected); Parainfluenza Virus 2 PCR Not Detected (NotDetected); Parainfluenza Virus 3 PCR Not Detected (NotDetected); Parainfluenza Virus 4 PCR Not Detected (NotDetected); Respiratory Syncytial VirusPCR Not Detected (NotDetected); Rhinovirus/Enterovirus PCR Not Detected (NotDetected)
--- NOTE | 2025-01-24 11:29 | History & Physical Report ---
Date of Service January 24, 2025 Assessment & Plan (1) Upper GI bleeding: (2) Acute blood loss anemia: (3) Macrocytosis: (4) PILI (acute kidney injury): (5) Hyperkalemia: (6) Dehydration: (7) Leukocytosis: (8) Abnormality of rectum: (9) History of pancreatectomy: (10) CAD (coronary artery disease): (11) History of atrial fibrillation: (12) Hypothyroidism (acquired): (13) COPD without exacerbation: (14) Hypomagnesemia: (15) Prediabetes: (16) Hiatal hernia: Plan 89yo female with history of CAD, COPD, hyperlipidemia, hypothyroidism, Whipple Procedure for pancreatic cancer ~25 years ago, HTN, ischemic cardiomyopathy (EF 50-55% echo 2023), hiatal hernia, and GERD presents from home due to weakness, fatigue, poor appetite, dark stools, difficulty ambulating, and simply not feeling well for 2-3 days. She is heme+ in the ER today and her hemoglobin is 8.8, down from ~11 about 1 month ago. She also has evidence of PILI with hyperkalemia. Of note - she was started on spironolactone in early December and also takes an ARB chronically. #Upper GI bleeding - * markedly elevated BUN, melena stools, acute blood loss anemia are all suggestive of upper GI bleed * risk factors include chronic aspirin use, hiatal hernia, GERD, recent steroid injection for the L shoulder, physical stress in the setting of recent hospitalization early December, etc * diff dx - gastritis vs PUD vs AVMs vs esophagitis vs other * NPO except limited PO meds * PPI bolus was given by ER attending; continue with PPI drip * blood consent obtained, transfusional support as needed * GI consult requested - I sent [place] correspondence to Dr Curran; likely to need EGD * serial H/H's * interestingly her MCV is macrocytic thus check B12/folate while here #Acute blood loss anemia - * presumed due to Upper GI bleeding * see above #PILI - * likely due to prerenal causes including acute blood loss anemia, low BPs from bleeding and being on numerous BP-lowering meds, taking ARB, etc. * transfusional support as needed * in the setting of hyperkalemia will start bicarbonate infusion at 80ml/hr with serial BMPs every 4 hours * no evidence of obstruction on CT abd/pelvis today #Hyperkalemia - * 2nd to PILI in the setting of chronic spironolactone and olmesartan use * she is s/p bicarbonate 50meq push x 1 in ER along with IV insulin/D50 * in addition to the above will give calcium gluconate 1gm IV x 1 now along with a 1x dose of patiromer 8.4gm * will subsequently use bicarbonate infusion due to volume contraction, low serum bicarb, and high K levels * serial BMPs q4h * hold aldactone; hold ARB #Weakness - * multifactorial including acute blood loss anemia, PILI, hyperkalemia, volume contraction, ?UTI, etc. * once GI bleeding has been addressed will need PT/OT #Macrocytosis - * Check B12/folate levels * TSH wnl #h/o CAD - * no recent ischemic symptoms * EKG w/o ischemic changes * will need to hold aspirin & metoprolol succ due to low BPs & GI bleeding #Hypothyroidism - * TSH wnl * hold synthroid today but try to resume such next 2-3 days #HTN - * hold HCTZ, meto succ, olmesartan, verapamil, and spironolactone due to low- normal BPs in the setting of GI bleeding #Mood disorder - * cont cymbalta to avoid withdrawals symptoms #COPD - * no exacerbation at this time * cont albuterol prn #Leukocytosis with mildly abnormal u/a - * s/p rocephin given in ER for possible UTI (2gm x 1) * urine cx dispatched * reasonable to cont rocephin but given her weight reduce to 1gm IV daily #Weight loss - * patient has had 5-6kg of weight loss since 2023 * address later in the stay while here * does she have pancreatic exocrine function given prior Whipple procedure? (tendencies towards diarrhea, etc) * consider pancrease with meals #Pre-Diabetes - * last a1c 6% in fall 2023 * repeat a1c in the AM tomorrow #h/o paroxysmal a.fib - * I cannot find any cardiology notes/documentation in [facility] * states she doesn't follow with cardiology to his knowledge * will look in old [facility] to see if there are any old cardiology records * last echo was 2023 - EF 50-55% * she will be on PCU status while here #Hypomagnesemia - * 2 grams mag sulfate x 1 IV ordered by ER for level 1.4 * likely due to chronic HCTZ use, poor PO intake, diarrhea, etc. * serial labs and replace further if needed #DVT proph - * chemical means contraindicated in the setting of GI bleeding * SCDs for now updated extensively by phone this afternoon History of Present Illness Chief Complaint: weakness, poor appetite, dark stool, "I can't walk" Primary Care Provider: Glendy Worley MD 89yo female with history of CAD, COPD, hyperlipidemia, hypothyroidism, Whipple Procedure for pancreatic cancer ~25 years ago, HTN, ischemic cardiomyopathy, and GERD presents from home due to weakness, fatigue, poor appetite, dark stools, difficulty ambulating, and simply not feeling well for 2-3 days. She also reports diarrhea at least 4 times yesterday. She noted for about 3 days that her stools were "dark" but she has had no BRBPR. Denies any abdominal pain, vomiting, hematemesis, or coffee ground emesis. She does take chronic baby aspirin 81 daily - last dose 01/23/25. Is not on chronic anticoagulation. Retrospectively she does recall feeling a little weak even about 1 week ago. Although she does not take chronic NSAIDs or drink alcohol she did have a steroid injection in her left shoulder on 01/08/25 by [facility] Finally, patient was hospitalized for ileus & diarrhea at [facility] from 12/14 to 12/16. Made full recovery following that admission. Allergies Allergy/AdvReac Type Severity Reaction Status Date / Time No Known Drug Allergies Allergy Verified 12/05/24 11:30 Home Medications Medication Instructions Recorded Confirmed Type cholecalciferol (vitamin D3) 25 1,000 units PO DAILY 07/29/19 01/24/25 History mcg (1,000 unit) capsule nitroglycerin 0.4 mg sublingual 0.4 mg sublingual ONCE PRN Chest 07/29/19 01/24/25 History tablet Pain omega-3 acid ethyl esters 1 gram 1 cap PO DAILY 07/29/19 01/24/25 History capsule polyethylene glycol 3350 17 17 g PO DAILY PRN Constipation 08/19/19 01/24/25 History gram/dose oral powder (Miralax) albuterol sulfate 90 mcg/actuation 2 puff inhalation Q4H PRN 01/01/21 01/24/25 Rx aerosol inhaler shortness of breath or wheezing #8.5 grams Eye Pressure Support 1 cap PO DAILY 07/19/24 01/24/25 History aspirin 81 mg tablet,delayed 81 mg PO DAILY 07/19/24 01/24/25 History release atorvastatin 20 mg tablet 20 mg PO DAILY 07/19/24 01/24/25 History hydrochlorothiazide 50 mg tablet 50 mg PO DAILY #90 tabs 09/12/24 01/24/25 Rx olmesartan 40 mg tablet 40 mg PO DAILY #90 tabs 09/12/24 01/24/25 Rx duloxetine 30 mg capsule,delayed 30 mg PO DAILY #30 caps 11/27/24 01/24/25 Rx release (Cymbalta) levothyroxine 112 mcg tablet 112 mcg PO DAILY 01/24/25 01/24/25 History metoprolol succinate 50 mg 50 mg PO DAILY 01/24/25 01/24/25 History tablet,extended release 24 hr pantoprazole 40 mg tablet,delayed 40 mg PO DAILY 01/24/25 01/24/25 History release spironolactone 25 mg PO DAILY 01/24/25 01/24/25 History trazodone 50 mg tablet 50 mg PO UD 01/24/25 01/24/25 History verapamil 240 mg 24 hr 240 mg PO DAILY 01/24/25 01/24/25 History capsule,extended release Past Med/Surg History Problem List (Updated 01/24/25 @ 14:01 by Background Emiliano) Melena (Acute) Acute hyperkalemia (Acute) Acute UTI (Acute) PILI (acute kidney injury) (Acute) Weakness (Acute) Hiatal hernia Prediabetes Hypomagnesemia COPD without exacerbation Hypothyroidism (acquired) History of atrial fibrillation CAD (coronary artery disease) History of pancreatectomy Abnormality of rectum Hyperkalemia Macrocytosis Acute blood loss anemia (Acute) Upper GI bleeding Leukocytosis (Acute) Ileus (Acute) Dehydration (Acute) PILI (acute kidney injury) (Acute) Paralytic ileus of small intestine Renal insufficiency Arm pain, left Shoulder pain, left Wellness examination Adrenal adenoma Paresthesia of left arm Fatigue Hypertensive urgency Hyperglycemia Dermatitis Elevated alkaline phosphatase level Osteoporosis (Acute) Nephrolithiasis (Acute) Insomnia (Chronic) Incisional hernia (Chronic) Abdominal hernia (Acute) Abdominal adhesions (Acute) Medical History (Updated 01/24/25 @ 14:01 by Pasha Cummings) Hypothyroidism Gastro-esophageal reflux Dyslipidemia Chronic obstructive pulmonary disease Cardiomyopathy, ischemic Hypertension Paroxysmal atrial fibrillation Non-ST elevation (NSTEMI) myocardial infarction History of pancreatic cancer History of small bowel obstruction Partial small bowel obstruction Acute renal failure (ARF) (04/10/14) Surgical History (Updated 01/24/25 @ 12:32 by Jeffrey Liz MD) History of Whipple procedure S/P recurrent ventral herniorrhaphy S/P repair of ventral hernia S/P cataract extraction Bilateral History of cardiac cath History of appendectomy History of hysterectomy Family History (Updated 01/24/25 @ 12:23 by Jeffrey Liz MD) Mother , unknown cause No problems noted. Father , unknown cause No problems noted. Son Stroke Other Family history non-contributory Social History (Updated 01/24/25 @ 12:24 by Jeffrey Liz MD) Smoking Status: Former smoker Tobacco Type: Cigarettes Age Started Using Tobacco: 22; Age Quit Using Tobacco: 39; packs per day: 0.5; Second Hand Exposure: No; Do You Dip or Chew Tobacco: No; Tobacco Cessation Education Requested by Patient: No Hx Alcohol Use: No Hx Substance Use: No Preferred Language: Romanian Communication Ability: Effective Meteorological Engineer Required: No Beliefs That Will Affect Care: None marital status: Current Living Situation: Spouse current occupational status: retired How many Children do You have: 2 How many Children do You have Comment: 1 daughter in [place]; 1 son in [place]; other son age 63 Other Information That Helps Us Care for You: No Feels Safe at Home: Yes Safety Concerns: Feels Safe At This Time Childhood Exposure to Second-Hand Smoke: No Diet: regular Diet Comment: eats regular eats high salt diet. caffeine: Yes (2-3 8 oz cups of coffee ) Dental Care, Regularly: No Physical Activity Frequency: Does not Exercise Seatbelt Use: always Sunscreen Use: No Do you think of yourself as: straight/heterosexual Gender Identity: Female Assistive Devices: None, Denture - Upper and Denture - Lower Review of Systems Review of Systems: gen - has had weight loss; about 5-6kg since 2023; poor appetite last 2-3 days; no fevers/chills eyes - no change in vision HENT - no dysphagia; no sore throat; no URI symptoms; no ear pain CV - no chest pain, no orthopnea, focal edema L ankle only pulm - mild/minimal GAMINO last 2-3 days; no cough; no dyspnea at rest GI - no abdominal pain; no pain with eating last few days; no nausea or emesis; +melena; no BRBPR - no dysuria endo - no diabetes skin - no rash neuro - no numbness or tingling or focal deficits but she has generalized weakness; denies dizziness musculo - chronic L shoulder pain; mild low back pain last few days Physical Exam Physical Exam: gen - looks weak but awake/alert & can give full history eyes - lens implants b/l, PERRL HENT - MM mildly dry, no lesions neck - supple, no lymph nodes, no JVD heart - RRR, s1 s2, no murmur lungs - CTA b/l abd - soft ND BS+; scant tenderness to palpation high epigastric region; no HSM; large midline vertical scar ext - scant swelling lateral malleolus on left ankle, otherwise no peripheral edema; varicose veins; pulses b/l feet 1+, cap refill slightly delayed on her toes neuro - strength 5/5 x 4 exts skin - no rash but generalized pallor psych - awake, alert Results & Data Results & Data Vital Signs (Past 12 Hours) Vital Signs Temp Pulse Resp BP Pulse Ox O2 Del Method 01/24/25 09:57 96 H 16 95 Room Air 01/24/25 09:44 36.5 C 100 H 16 99/65 L 96 Room Air Laboratory Results Laboratory Results - last 24 hr 01/24/25 01/24/25 01/24/25 08:44 09:56 10:12 WBC 12.56 H RBC 2.69 L Hgb 8.8 L Hct 27.4 L MCV 101.9 H MCH 32.7 MCHC 32.1 RDW Std Deviation 51.1 H RDW Coeff of Tara 14.0 Plt Count 296 MPV 9.6 Immature Gran % (Auto) 1.7 Neut % (Auto) 86.2 Lymph % (Auto) 8.0 [place] % (Auto) 3.4 Eos % (Auto) 0.2 Baso % (Auto) 0.5 Neut # (Auto) 10.83 H Lymph # (Auto) 1.01 L [place] # (Auto) 0.43 Eos # (Auto) 0.02 Baso # (Auto) 0.06 Immature Gran # (Auto) 0.21 H PT 11.0 INR 1.0 Sodium 139 Potassium 6.2 H* Chloride 115 H Carbon Dioxide 17 L Anion Gap 7 BUN 97 H Creatinine 1.87 H Est Cr Clr Drug Dosing 17.0 eGFR 25.73 BUN/Creatinine Ratio 51.9 H Glucose 202 H POC Glucose Calcium 8.5 L Magnesium 1.4 L Iron 101 TIBC 295 Transferrin 211 Transferrin % Sat 34 Ferritin 111.7 Total Bilirubin 0.3 AST 8 L ALT 8 Alkaline Phosphatase 85 Total Creatine Kinase 14 L Troponin I High Sens Pending Total Protein 5.6 L Albumin 3.2 L Globulin 2.4 L Albumin/Globulin Ratio 1.3 TSH 1.145 Urine Color Yellow Urine Appearance Clear Urine pH 5.0 Ur Specific [place] 1.017 Urine Protein Negative Urine Glucose (UA) Negative Urine Ketones Negative Urine Blood Negative Urine Nitrite Negative Urine Bilirubin Negative Urine Urobilinogen Negative Ur Leukocyte Esterase 1+ H Urine WBC (Auto) 0-5 Urine RBC (Auto) 0-2 U Hyaline Cast (Auto) 0-2 U Epithel Cells (Auto) 0-2 Urine Bacteria (Auto) 4+ H Adenovirus (PCR) Not Detected B. pertussis DNA (PCR) Not Detected B.parapertussis DNA PCR Not Detected C. pneumoniae DNA (PCR) Not Detected Coronavirus OC43 (PCR) Not Detected Coronavirus HKU1 (PCR) Not Detected Coronavirus 229E (PCR) Not Detected SARS-CoV-2 (PCR) Not Detected Coronavirus NL63 (PCR) Not Detected Human Metapneumovir PCR Not Detected Influenza Type A (PCR) Not Detected Influenza Type B (PCR) Not Detected M. pneumoniae (PCR) Not Detected Parainfluenza 1 (PCR) Not Detected Parainfluenza 2 (PCR) Not Detected Parainfluenza 3 (PCR) Not Detected Parainfluenza 4 (PCR) Not Detected RSV (PCR) Not Detected Entero/Rhino (PCR) Not Detected 01/24/25 12:22 WBC RBC Hgb Hct MCV MCH MCHC RDW Std Deviation RDW Coeff of Tara Plt Count MPV Immature Gran % (Auto) Neut % (Auto) Lymph % (Auto) [place] % (Auto) Eos % (Auto) Baso % (Auto) Neut # (Auto) Lymph # (Auto) [place] # (Auto) Eos # (Auto) Baso # (Auto) Immature Gran # (Auto) PT INR Sodium Potassium Chloride Carbon Dioxide Anion Gap BUN Creatinine Est Cr Clr Drug Dosing eGFR BUN/Creatinine Ratio Glucose POC Glucose 117 H Calcium Magnesium Iron TIBC Transferrin Transferrin % Sat Ferritin Total Bilirubin AST ALT Alkaline Phosphatase Total Creatine Kinase Troponin I High Sens Total Protein Albumin Globulin Albumin/Globulin Ratio TSH Urine Color Urine Appearance Urine pH Ur Specific [place] Urine Protein Urine Glucose (UA) Urine Ketones Urine Blood Urine Nitrite Urine Bilirubin Urine Urobilinogen Ur Leukocyte Esterase Urine WBC (Auto) Urine RBC (Auto) U Hyaline Cast (Auto) U Epithel Cells (Auto) Urine Bacteria (Auto) Adenovirus (PCR) B. pertussis DNA (PCR) B.parapertussis DNA PCR C. pneumoniae DNA (PCR) Coronavirus OC43 (PCR) Coronavirus HKU1 (PCR) Coronavirus 229E (PCR) SARS-CoV-2 (PCR) Coronavirus NL63 (PCR) Human Metapneumovir PCR Influenza Type A (PCR) Influenza Type B (PCR) M. pneumoniae (PCR) Parainfluenza 1 (PCR) Parainfluenza 2 (PCR) Parainfluenza 3 (PCR) Parainfluenza 4 (PCR) RSV (PCR) Entero/Rhino (PCR) Diagnostic Findings Abdomen/Pelvis CT 01/24/25 09:[address] WITHOUT CONTRAST CT DOSE: 527.14 mGy.cm HISTORY: weak, diarrhea TECHNIQUE: Multiaxial CT images of the abdomen and pelvis were performed without contrast. Sagittal and coronal reconstructions were done. A dose lowering technique was utilized adhering to the principles of ALARA. COMPARISON STUDY: 12/14/2024 FINDINGS: Compared with the prior examination, the large and small bowel distention has resolved. A large hiatal hernia is redemonstrated. A small pericardial effusion has developed. The lung bases remain clear. The solid organs demonstrate the splenic calcifications, a small right renal cyst, and a lipid rich left adrenal adenoma. Cholecystectomy clips are noted with postoperative pneumobilia present. The liver is otherwise unremarkable. There are no pancreatic lesions detected. There is no hydronephrosis. There is no bowel obstruction or free air. There is no ascites. There are multiple bowel-containing abdominal wall hernias with no evidence of obstruction or wall thickening. In the pelvis, the appendix is not identified. There is no fluid in the cul-de-sac. The unopacified urinary bladder is negative. There is a persistent soft tissue density lesion at the [place] right posterolateral wall of the rectum. Its unclear whether this is fecal debris or a mass. It appears to be reproducible compared with the prior study. Measurement is approximately 2.5 cm. 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 IMPRESSION: A small pericardial effusion has developed. No additional acute findings. Stool ball versus a 2.5 cm mass in the right posterolateral wall of the rectum. Consider sigmoidoscopy. ACT 112: Negative or not required by law. The above report was generated using voice recognition software. It may contain grammatical, syntax or spelling errors. Electronically signed by: Aspen Kelly M.D. 01/24/2025 11:03 AM Chest X-Ray 01/24/25 09:52 XR chest 1V portable CLINICAL HISTORY: weakness COMPARISON STUDY: 12/14/2024 FINDINGS: Stable moderate to large hiatal hernia. Stable moderate cardiomegaly without pulmonary vascular congestion. There is skinfold artifact. No effusion, consolidation, or pneumothorax seen. IMPRESSION: No acute findings. ACT 112: Negative or not required by law. Electronically signed by: Wiley Cardona M.D. 01/24/2025 10:45 AM EKG - my reading - NSR, no ST changes Code Status & VTE Plan Code Status full she does have advanced directives but can't remember what they specifically say ; does not want to discuss further code status until arrives PG Care Time/CCT Total # of Minutes Spent Total Time Spent with Patient: Total time spent is greater than 50% in coordination of care (as documented) at patient's floor/unit and/or counseling patient: Coding Level of Care Code 49633 INT INP/OBS CARE 3/75MIN Diagnoses Upper GI bleeding K92.2 Acute blood loss anemia D62 Macrocytosis D75.89 PILI (acute kidney injury) N17.9 Hyperkalemia E87.5 Dehydration E86.0 Leukocytosis D72.829 Abnormality of rectum K62.9 History of pancreatectomy Z90.410 CAD (coronary artery disease) I25.10 History of atrial fibrillation Z86.79 Hypothyroidism (acquired) E03.9 COPD without exacerbation J44.9 Hypomagnesemia E83.42 Prediabetes R73.03 Hiatal hernia K44.9
[2025-01-24] MEDS: SODIUM CHLORIDE 0.9% 250 ML IV ONE (11:51)
[2025-01-24] MEDS: PANTOprazole 80 MG in DEXTROSE 5% 100 ML IV STA (11:52)
[2025-01-24 11:55] LABS: Ferritin 111.7 ng/ml (8-388)
[2025-01-24] MEDS: CALCIUM GLUCONATE 1,000 MG/60 ML BAG IV STA (12:08)
[2025-01-24] MEDS: cefTRIAXone SODIUM 2,000 MG/50 ML BAG IV STA (12:08)
[2025-01-24] MEDS ORDERED: STAT IV/IM STA (12:12)
[2025-01-24] MEDS: PATIROMER CALCIUM SORBITEX 8.4 GM PACK PO STA (12:15)
[2025-01-24] MEDS: DEXTROSE 10% 250 ML BAG IV ONE (12:24)
[2025-01-24] MEDS: MAGNESIUM SULFATE / D5W 1 GM/100 ML BAG IV SCH (12:25)
[2025-01-24] MEDS: SODIUM BICARB 8.4% INJ 50 MEQ/50 ML SYR IV STA (12:30)
[2025-01-24] MEDS: NovoLIN-R INSULIN PER UNIT CHARGE IV STA (12:30)
[2025-01-24] MEDS: SODIUM BICARBONATE 8.4% 75 MEQ in SODIUM CHLORIDE 0.45 % 1,000 ML IV SCH (12:35)
[2025-01-24 13:02] LABS: Thyroid Stimulating Hormone 1.144 uIu/ml (0.300-4.500)
--- NOTE | 2025-01-24 13:03 | Gastrointestinal Consultation ---
Date of Consultation January 24, 2025 Assessment & Plan (1) Upper GI bleeding: Symptoms are suspicious for an upper GI bleed given dark stools and drop in hgb. - she will need potassium corrected before any procedure. - follow hgb/hct, transfuse as needed. - we discussed an EGD to further evaluate, but she tells me for now she would rather just monitor. - recommend protonix drip. Supervising Physician Co-Signing Physician Notes I saw and examined this patient with our nurse practitioner and agree with her assessment and plan. Clinical picture consistent with a possible upper GI bleed most likely a peptic ulcer. However in light of her Whipple need to consider an anastomotic ulcer less likely recurrent disease. Will plan on endoscopy if patient agrees after speaking to her . History of Present Illness Reason for Consultation: dark stool Requesting Physician: Jeffrey Liz MD History of Present Illness Patient is an 89 year old female with a past medical history of CKD, CAD, COPD, hypertension, hypothyroidism, recent admission for dehydration/weakness/diarrhea presenting here today via ambulance from home. Patient lives at home with her . The last 3 days states she has had increased generalized weakness and tells me that she has not been able to eat or drink anything - "I didn't feel like it". she has had multiple diarrheal episodes nonbloody in the last several days as well that she describes as black. no blood thinners or NSAID use at home. rest of GI ros are unremarkable. she has never had a Colonoscopy or EGD. 01/24/25 hgb 8.8. 12/16/24 hgb 11.1 Allergies Allergy/AdvReac Type Severity Reaction Status Date / Time No Known Drug Allergies Allergy Verified 12/05/24 11:30 Home Medications Medication Instructions Recorded Confirmed Type cholecalciferol (vitamin D3) 25 1,000 units PO DAILY 07/29/19 01/24/25 History mcg (1,000 unit) capsule nitroglycerin 0.4 mg sublingual 0.4 mg sublingual ONCE PRN Chest 07/29/19 01/24/25 History tablet Pain omega-3 acid ethyl esters 1 gram 1 cap PO DAILY 07/29/19 01/24/25 History capsule polyethylene glycol 3350 17 17 g PO DAILY PRN Constipation 08/19/19 01/24/25 History gram/dose oral powder (Miralax) albuterol sulfate 90 mcg/actuation 2 puff inhalation Q4H PRN 01/01/21 01/24/25 Rx aerosol inhaler shortness of breath or wheezing #8.5 grams Eye Pressure Support 1 cap PO DAILY 07/19/24 01/24/25 History aspirin 81 mg tablet,delayed 81 mg PO DAILY 07/19/24 01/24/25 History release atorvastatin 20 mg tablet 20 mg PO DAILY 07/19/24 01/24/25 History hydrochlorothiazide 50 mg tablet 50 mg PO DAILY #90 tabs 09/12/24 01/24/25 Rx olmesartan 40 mg tablet 40 mg PO DAILY #90 tabs 09/12/24 01/24/25 Rx duloxetine 30 mg capsule,delayed 30 mg PO DAILY #30 caps 11/27/24 01/24/25 Rx release (Cymbalta) levothyroxine 112 mcg tablet 112 mcg PO DAILY 01/24/25 01/24/25 History metoprolol succinate 50 mg 50 mg PO DAILY 01/24/25 01/24/25 History tablet,extended release 24 hr pantoprazole 40 mg tablet,delayed 40 mg PO DAILY 01/24/25 01/24/25 History release spironolactone 25 mg PO DAILY 01/24/25 01/24/25 History trazodone 50 mg tablet 50 mg PO UD 01/24/25 01/24/25 History verapamil 240 mg 24 hr 240 mg PO DAILY 01/24/25 01/24/25 History capsule,extended release Patient History Medical History (Updated 01/24/25 @ 14:01 by Background Dafernando) Hypothyroidism Gastro-esophageal reflux Dyslipidemia Chronic obstructive pulmonary disease Cardiomyopathy, ischemic Hypertension Paroxysmal atrial fibrillation Non-ST elevation (NSTEMI) myocardial infarction History of pancreatic cancer History of small bowel obstruction Partial small bowel obstruction Acute renal failure (ARF) (04/10/14) Surgical History (Updated 01/24/25 @ 12:32 by Jeffrey Liz MD) History of Whipple procedure S/P recurrent ventral herniorrhaphy S/P repair of ventral hernia S/P cataract extraction Bilateral History of cardiac cath History of appendectomy History of hysterectomy Family History (Updated 01/24/25 @ 12:23 by Jeffrey Liz MD) Mother , unknown cause No problems noted. Father , unknown cause No problems noted. Son Stroke Other Family history non-contributory Social History (Updated 01/24/25 @ 12:24 by Jeffrey Liz MD) Smoking Status: Former smoker Tobacco Type: Cigarettes Age Started Using Tobacco: 22; Age Quit Using Tobacco: 39; packs per day: 0.5; Second Hand Exposure: No; Do You Dip or Chew Tobacco: No; Hx Alcohol Use: Yes Alcohol type: beer Alcohol Intake Frequency: Monthly or Less Alcohol Intake Frequency Comment: 1 beer on occasion Hx Substance Use: No Preferred Language: Urdu Communication Ability: Effective Beveler Required: No Beliefs That Will Affect Care: None marital status: Current Living Situation: Spouse current occupational status: retired How many Children do You have: 2 How many Children do You have Comment: 1 daughter in [place]; 1 son in [place]; other son age 63 Feels Safe at Home: Yes Childhood Exposure to Second-Hand Smoke: No Diet: regular Diet Comment: eats regular eats high salt diet. caffeine: Yes (2-3 8 oz cups of coffee ) Dental Care, Regularly: No Physical Activity Frequency: Does not Exercise Seatbelt Use: always Sunscreen Use: No Do you think of yourself as: straight/heterosexual Gender Identity: Female Assistive Devices: None Review of Systems Review of Systems: All systems reviewed & are unremarkable except as noted in HPI & below Physical Exam Constitutional: WD/WN, vitals as above Respiratory: normal respiratory effort, lungs clear to auscultation Cardiovascular: Rate/Rhythm: regular rate and regular rhythm Gastrointestinal (Abdomen): normal bowel sounds, soft, nontender, no hepatosplenomegaly Psychiatric: Orientation: alert and oriented x 3 Affect: euthymic affect Results & Data Vital Signs (Past 12 Hours) Vital Signs Temp Pulse Pulse Resp BP BP Pulse Ox 01/24/25 12:05 89 01/24/25 12:00 89 16 107/89 01/24/25 09:57 96 H 16 95 01/24/25 09:44 97.7 F 100 H 16 99/65 L 96 O2 Del Method 01/24/25 12:05 01/24/25 12:00 Room Air 01/24/25 09:57 Room Air 01/24/25 09:44 Room Air Laboratory Results Laboratory Results - last 48 hr 01/24/25 01/24/25 01/24/25 08:44 09:56 10:12 WBC 12.56 H RBC 2.69 L Hgb 8.8 L Hct 27.4 L MCV 101.9 H MCH 32.7 MCHC 32.1 RDW Std Deviation 51.1 H RDW Coeff of Tara 14.0 Plt Count 296 MPV 9.6 Immature Gran % (Auto) 1.7 Neut % (Auto) 86.2 Lymph % (Auto) 8.0 Troup % (Auto) 3.4 Eos % (Auto) 0.2 Baso % (Auto) 0.5 Neut # (Auto) 10.83 H Lymph # (Auto) 1.01 L Troup # (Auto) 0.43 Eos # (Auto) 0.02 Baso # (Auto) 0.06 Immature Gran # (Auto) 0.21 H PT 11.0 INR 1.0 Sodium 139 Potassium 6.2 H* Chloride 115 H Carbon Dioxide 17 L Anion Gap 7 BUN 97 H Creatinine 1.87 H Est Cr Clr Drug Dosing 17.0 eGFR 25.73 BUN/Creatinine Ratio 51.9 H Glucose 202 H POC Glucose Calcium 8.5 L Magnesium 1.4 L Iron 101 TIBC 295 Transferrin 211 Transferrin % Sat 34 Ferritin 111.7 Total Bilirubin 0.3 AST 8 L ALT 8 Alkaline Phosphatase 85 Total Creatine Kinase 14 L Troponin I High Sens < 2.3 Total Protein 5.6 L Albumin 3.2 L Globulin 2.4 L Albumin/Globulin Ratio 1.3 TSH 1.144 Urine Color Yellow Urine Appearance Clear Urine pH 5.0 Ur Specific Waller 1.017 Urine Protein Negative Urine Glucose (UA) Negative Urine Ketones Negative Urine Blood Negative Urine Nitrite Negative Urine Bilirubin Negative Urine Urobilinogen Negative Ur Leukocyte Esterase 1+ H Urine WBC (Auto) 0-5 Urine RBC (Auto) 0-2 U Hyaline Cast (Auto) 0-2 U Epithel Cells (Auto) 0-2 Urine Bacteria (Auto) 4+ H POC Stool Occult Blood Adenovirus (PCR) Not Detected B. pertussis DNA (PCR) Not Detected B.parapertussis DNA PCR Not Detected C. pneumoniae DNA (PCR) Not Detected Coronavirus OC43 (PCR) Not Detected Coronavirus HKU1 (PCR) Not Detected Coronavirus 229E (PCR) Not Detected SARS-CoV-2 (PCR) Not Detected Coronavirus NL63 (PCR) Not Detected Human Metapneumovir PCR Not Detected Influenza Type A (PCR) Not Detected Influenza Type B (PCR) Not Detected M. pneumoniae (PCR) Not Detected Parainfluenza 1 (PCR) Not Detected Parainfluenza 2 (PCR) Not Detected Parainfluenza 3 (PCR) Not Detected Parainfluenza 4 (PCR) Not Detected RSV (PCR) Not Detected Entero/Rhino (PCR) Not Detected 01/24/25 01/24/25 11:11 12:22 WBC RBC Hgb Hct MCV MCH MCHC RDW Std Deviation RDW Coeff of Tara Plt Count MPV Immature Gran % (Auto) Neut % (Auto) Lymph % (Auto) Troup % (Auto) Eos % (Auto) Baso % (Auto) Neut # (Auto) Lymph # (Auto) Troup # (Auto) Eos # (Auto) Baso # (Auto) Immature Gran # (Auto) PT INR Sodium Potassium Chloride Carbon Dioxide Anion Gap BUN Creatinine Est Cr Clr Drug Dosing eGFR BUN/Creatinine Ratio Glucose POC Glucose 117 H Calcium Magnesium Iron TIBC Transferrin Transferrin % Sat Ferritin Total Bilirubin AST ALT Alkaline Phosphatase Total Creatine Kinase Troponin I High Sens Total Protein Albumin Globulin Albumin/Globulin Ratio TSH Urine Color Urine Appearance Urine pH Ur Specific Waller Urine Protein Urine Glucose (UA) Urine Ketones Urine Blood Urine Nitrite Urine Bilirubin Urine Urobilinogen Ur Leukocyte Esterase Urine WBC (Auto) Urine RBC (Auto) U Hyaline Cast (Auto) U Epithel Cells (Auto) Urine Bacteria (Auto) POC Stool Occult Blood Positive A Adenovirus (PCR) B. pertussis DNA (PCR) B.parapertussis DNA PCR C. pneumoniae DNA (PCR) Coronavirus OC43 (PCR) Coronavirus HKU1 (PCR) Coronavirus 229E (PCR) SARS-CoV-2 (PCR) Coronavirus NL63 (PCR) Human Metapneumovir PCR Influenza Type A (PCR) Influenza Type B (PCR) M. pneumoniae (PCR) Parainfluenza 1 (PCR) Parainfluenza 2 (PCR) Parainfluenza 3 (PCR) Parainfluenza 4 (PCR) RSV (PCR) Entero/Rhino (PCR) Coding Level of Care Code 35084 INT INP/OBS CARE 2/55MIN Diagnoses Upper GI bleeding K92.2
[2025-01-24 13:04] LABS: Troponin I High Sensitivity < 2.3 pg/ml (0-14)
[2025-01-24] MEDS ORDERED: NITROGLYCERIN SL 0.4 MG/TAB TAB SL PRN (14:24)
[2025-01-24] MEDS ORDERED: ONDANSETRON INJ 2 MG/ML 2 ML VIAL IV PRN (14:24)
[2025-01-24] MEDS ORDERED: ALBUTEROL HFA 8 GM INHALER INH PRN (14:24)
[2025-01-24] MEDS ORDERED: SODIUM CHLORIDE 0.9% 100 ML IV PRN ×2 (14:24→22:28)
[2025-01-24 15:22] LABS: Hematocrit (blood only) 25.5 % (37.0-47.0); Hemoglobin 8.3 g/dl (12.0-16.0)
[2025-01-24 15:29] LABS: BUN Creatinine Ratio 54.8 (10-20); Creatinine Clr Calc Pharmacy 20.5 ml/min
[2025-01-24] MEDS: PANTOprazole 40 MG in DEXTROSE 5% MINI-B 100 ML IV SCH (15:35)
[2025-01-24] MEDS: ACETAMINOPHEN 1,000 MG/100 ML VIAL IV PRN (19:45)
[2025-01-24 21:25] LABS: Hematocrit (blood only) 22.2 % (37.0-47.0); Hemoglobin 7.3 g/dl (12.0-16.0); Mean Corpuscular Hemoglobin 31.9 pg (25.0-34.0); Mean Corpuscular Hgb Conc 32.9 g/dL (32.0-36.0); Mean Corpuscular Volume 96.9 fL (80.0-100.0); Mean Platelet Volume 9.2 fL (9.4-12.4); Platelet Count 213 K/uL (130-400); RDW Coefficient of Variation 13.8 % (11.5-14.5); RDW Standard Deviation 48.1 fL (36.4-46.3); Red Blood Count 2.29 M/uL (4.20-5.40); White Blood Count 10.14 K/ul (4.8-10.8)
[2025-01-24 21:46] LABS: Calcium 8.6 mg/dl (8.6-10.3); Potassium 5.2 mmol/L (3.5-5.1)
[2025-01-24 21:52] LABS: Creatinine Clr Calc Pharmacy 20.2 ml/min
[2025-01-24 22:08] LABS: Folate (Folic Acid),Ser orPlas 7.45 ng/ml (>5.38)
[2025-01-25 00:57] LABS: Hematocrit (blood only) 20.6 % (37.0-47.0); Hemoglobin 6.9 g/dl (12.0-16.0)
[2025-01-25] MEDS ORDERED: SODIUM CHLORIDE 0.9% 100 ML IV PRN (01:14)
--- NOTE | 2025-01-25 05:48 | Electrocardiogram Report ---
Test Reason : Blood Pressure : */* mmHG Vent. Rate : 99 BPM Atrial Rate : 99 BPM P-R Int : 158 ms QRS Dur : 78 ms QT Int : 326 ms P-R-T Axes : 71 1 106 degrees QTcB Int : 418 ms Normal sinus rhythm Possible Inferior infarct , age undetermined Abnormal ECG When compared with ECG of 14-Dec-2024 16:03, Vent. rate has increased by 36 bpm Borderline criteria for Inferior infarct are now Present Confirmed by Trenton Keenan ([id number]) on 01/25/2025 5:48:23 AM Referred By: Confirmed By: Trenton Keenan
[2025-01-25 08:54] LABS: Hematocrit (blood only) 30.9 % (37.0-47.0); Hemoglobin 10.4 g/dl (12.0-16.0); Mean Corpuscular Hemoglobin 30.8 pg (25.0-34.0); Mean Corpuscular Hgb Conc 33.7 g/dL (32.0-36.0); Mean Corpuscular Volume 91.4 fL (80.0-100.0); Mean Platelet Volume 8.8 fL (9.4-12.4); Platelet Count 181 K/uL (130-400); RDW Coefficient of Variation 15.1 % (11.5-14.5); RDW Standard Deviation 49.3 fL (36.4-46.3); Red Blood Count 3.38 M/uL (4.20-5.40); White Blood Count 8.28 K/ul (4.8-10.8)
[2025-01-25 09:22] LABS: Calcium 8.4 mg/dl (8.6-10.3); Magnesium 1.7 mg/dl (1.7-2.4); Potassium 5.2 mmol/L (3.5-5.1)
[2025-01-25 09:27] LABS: BUN Creatinine Ratio 50.6 (10-20); Creatinine Clr Calc Pharmacy 20.6 ml/min
--- NOTE | 2025-01-25 10:06 | History & Physical Bridge Note ---
Date of Service January 25, 2025 History & Physical Bridge Note I have examined the patient, reviewed the History & Physical and in the interval since the performance of the History & Physical I have noted the following changes of clinical significance: no changes noted. hgb had dropped to 6.9, but then improved s/p transfusion to 10.4 she is now agreeable to an EGD to further evaluate. she has been NPO. no chest pain or sob. - proceed with EGD today. Supervising Physician Co-Signing Physician Notes I saw and examined this patient with our nurse practitioner and agree with her assessment and plan. No further bowel movements or melena. Received blood today. Will proceed with endoscopy for further evaluation.
[2025-01-25] MEDS: cefTRIAXone SODIUM 1,000 MG/50 ML BAG IV SCH (10:41)
[2025-01-25] MEDS: DULoxetine HCL 30 MG CAP PO SCH (12:04)
--- NOTE | 2025-01-25 12:42 | Anesthesiology Consultation ---
Date of Service January 25, 2025 Assessment & Plan Chart Review Chart Review: Acceptable Risk for Surgery Consults Requested none History Surgery Operation Date: 01/25/25 16:45 Proposed Procedures p Esophagogastroduodenoscopy Dr. Magdy Curran MD Height/Weight Height: 5 ft Weight: 60 kg Allergies Allergy/AdvReac Type Severity Reaction Status Date / Time No Known Drug Allergies Allergy Verified 12/05/24 11:30 Medications Home Medications Medication Instructions Recorded Confirmed Last Taken cholecalciferol (vitamin D3) 25 1,000 units PO DAILY 07/29/19 01/24/25 Unknown mcg (1,000 unit) capsule nitroglycerin 0.4 mg sublingual 0.4 mg sublingual ONCE PRN Chest 07/29/19 01/24/25 Unknown tablet Pain omega-3 acid ethyl esters 1 gram 1 cap PO DAILY 07/29/19 01/24/25 Unknown capsule polyethylene glycol 3350 17 17 g PO DAILY PRN Constipation 08/19/19 01/24/25 Unknown gram/dose oral powder (Miralax) albuterol sulfate 90 mcg/actuation 2 puff inhalation Q4H PRN 01/01/21 01/24/25 Unknown aerosol inhaler shortness of breath or wheezing #8.5 grams Eye Pressure Support 1 cap PO DAILY 07/19/24 01/24/25 Unknown aspirin 81 mg tablet,delayed 81 mg PO DAILY 07/19/24 01/24/25 Unknown release atorvastatin 20 mg tablet 20 mg PO DAILY 07/19/24 01/24/25 Unknown hydrochlorothiazide 50 mg tablet 50 mg PO DAILY #90 tabs 09/12/24 01/24/25 Unknown olmesartan 40 mg tablet 40 mg PO DAILY #90 tabs 09/12/24 01/24/25 Unknown duloxetine 30 mg capsule,delayed 30 mg PO DAILY #30 caps 11/27/24 01/24/25 Unknown release (Cymbalta) levothyroxine 112 mcg tablet 112 mcg PO DAILY 01/24/25 01/24/25 Unknown metoprolol succinate 50 mg 50 mg PO DAILY 01/24/25 01/24/25 Unknown tablet,extended release 24 hr pantoprazole 40 mg tablet,delayed 40 mg PO DAILY 01/24/25 01/24/25 Unknown release spironolactone 25 mg PO DAILY 01/24/25 01/24/25 Unknown trazodone 50 mg tablet 50 mg PO UD 01/24/25 01/24/25 Unknown verapamil 240 mg 24 hr 240 mg PO DAILY 01/24/25 01/24/25 Unknown capsule,extended release Active Medications Generic Name Dose Route Start Last Admin Trade Name Freq PRN Reason Stop Dose Admin Duloxetine HCl 30 mg 01/25/25 09:00 01/25/25 12:04 Duloxetine Hcl 30 Mg Cap PO 02/24/25 08:59 Not Given DAILY ELMIRA Sodium Bicarbonate 75 meq/ 1,075 mls @ 80 mls/hr 01/24/25 12:15 01/25/25 01:17 Sodium Chloride IV 02/23/25 12:14 80 mls/hr .[id number] ELIMRA Administration Pantoprazole Sodium 40 mg/ 100 mls @ 20 mls/hr 01/24/25 14:24 01/25/25 10:41 Dextrose IV 02/23/25 14:23 8 mg/hr Q5H ELMIRA 20 mls/hr Administration 8 MG/HR Acetaminophen 1,000 mg in 100 mls @ 400 mls/hr 01/24/25 19:23 01/25/25 04:48 Ofirmev IV 01/27/25 19:22 Infused Q8H PRN Infusion Pain or Fever Ceftriaxone Sodium 1,000 mg in 50 mls @ 100 mls/hr 01/25/25 11:00 01/25/25 11:20 Rocephin IV 01/30/25 10:59 Infused Q24H ELMIRA Infusion Past Medical History Medical History (Updated 01/24/25 @ 14:01 by Pasha Cummings) Hypothyroidism Gastro-esophageal reflux Dyslipidemia Chronic obstructive pulmonary disease Cardiomyopathy, ischemic Hypertension Paroxysmal atrial fibrillation Non-ST elevation (NSTEMI) myocardial infarction History of pancreatic cancer History of small bowel obstruction Partial small bowel obstruction Acute renal failure (ARF) (04/10/14) Past Family History Family History (Updated 01/24/25 @ 12:23 by Jeffrey Liz MD) Mother , unknown cause No problems noted. Father , unknown cause No problems noted. Son Stroke Other Family history non-contributory Past Surgical History Surgical History (Updated 01/24/25 @ 12:32 by Jeffrey Liz MD) History of Whipple procedure S/P recurrent ventral herniorrhaphy S/P repair of ventral hernia S/P cataract extraction Bilateral History of cardiac cath History of appendectomy History of hysterectomy Social History Smoking Status: Former smoker tobacco type: cigarettes Do You Dip or Chew Tobacco: No Hx Alcohol Use: No Alcohol type: beer alcohol intake frequency: a few times a month Hx Substance Use: No substance use type: does not use Physical Exam Vital Signs Last Vital Signs Temp 37.0 C 01/25/25 12:01 Pulse 73 01/25/25 12:01 Resp 20 01/25/25 12:01 BP 111/58 L 01/25/25 12:01 Pulse Ox 97 01/25/25 12:01 O2 Del Method Room Air 01/25/25 12:01 Testing Laboratory Results 01/25/25 08:16 01/25/25 08:26 PT 11.0 Seconds (9.0-12.0) 01/24/25 08:44 INR 1.0 (0.9-1.1) 01/24/25 08:44 Urine Color Yellow 01/24/25 10:12 Urine Appearance Clear (Clear) 01/24/25 10:12 Urine pH 5.0 (4.5-7.5) 01/24/25 10:12 Ur Specific Nixon 1.017 (1.000-1.030) 01/24/25 10:12 Urine Protein Negative (Negative) 01/24/25 10:12 Urine Glucose (UA) Negative (Negative) 01/24/25 10:12 Urine Ketones Negative (Negative) 01/24/25 10:12 Urine Nitrite Negative (Negative) 01/24/25 10:12 Ur Leukocyte Esterase 1+ (Negative) H 01/24/25 10:12 Urine WBC (Auto) 0-5 /hpf (0-5) 01/24/25 10:12 Urine RBC (Auto) 0-2 /hpf (0-2) 01/24/25 10:12 U Hyaline Cast (Auto) 0-2 /lpf (0-2) 01/24/25 10:12 U Epithel Cells (Auto) 0-2 /hpf (0-2) 01/24/25 10:12 Urine Bacteria (Auto) 4+ (None Seen) H 01/24/25 10:12 Blood Type O Positive 01/24/25 14:55 Antibody Screen NEGATIVE 01/24/25 14:55 01/24/25 10:12 Urine Culture - Preliminary Urine,Straight Cath Escherichia coli Klebsiella pneumoniae
[2025-01-25] MEDS: SODIUM CHLORIDE 0.9% 500 ML IV SCH (12:51)
--- NOTE | 2025-01-25 13:25 | GI REPORT ---
[facility] Patient: REED JACINTO : 1935 Sex at : Female Age: 89 Years Procedure: Upper GI endoscopy Date: 01/25/2025 Attending Physician: Nelson Curran MD Referring MD: Referred Self; Glendy Worley M.d.; Jesus Manuel Cisneros MD Phd Indications: - Suspected upper gastrointestinal bleeding Medications: - Monitored Anesthesia Care Complications: - No immediate complications. Procedure: - Prior to the procedure, a History and Physical was performed, and patient medications and allergies were reviewed. The patient's tolerance of previous anesthesia was also reviewed. The risks and benefits of the procedure and the sedation options and risks were discussed with the patient. All questions were answered, and informed consent was obtained. [Anticoagulant Agents] [Days Prior to Procedure]. [ASA Grade]. After reviewing the risks and benefits, the patient was deemed in satisfactory condition to undergo the procedure. - The EGD scope was introduced through the mouth and advanced to the jejunum. - The upper GI endoscopy was accomplished without difficulty. - The patient tolerated the procedure well. Findings: - One superficial esophageal ulcer with no stigmata of recent bleeding was found at the gastroesophageal junction. - A large hiatal hernia was present. - Diffuse moderate inflammation characterized by erosions and erythema was found in the gastric antrum and in the gastric body. Biopsies were taken with a cold forceps for histology. - Evidence of a gastrojejunostomy was found in the pylorus. This was characterized by healthy appearing mucosa. - The examined jejunum was normal. Impression: - Esophageal ulcer with no stigmata of recent bleeding. - Large hiatal hernia. - Gastritis, characterized by erosions and erythema. Biopsied. - A gastrojejunostomy was found, characterized by healthy appearing mucosa. - Normal examined jejunum. Recommendation: - Resume previous diet. - Patient has a contact number available for emergencies. The signs and symptoms of potential delayed complications were discussed with the patient. Return to normal activities tomorrow. Written discharge instructions were provided to the patient. Procedure Code(s): - 66663, Esophagogastroduodenoscopy, flexible, transoral; with biopsy, single or multiple Diagnosis Code(s): - K22.10, Ulcer of esophagus without bleeding - K44.9, Diaphragmatic hernia without obstruction or gangrene - K29.70, Gastritis, unspecified, without bleeding - Z98.0, Intestinal bypass and anastomosis status CPT(R) - 202 copyright [employer]. All Rights Reserved. The CPT codes, CCI edits and ICD codes generated are intended as suggestions and were generated based on input data. These codes are preliminary and upon icd 9 coder review may be revised to meet current compliance and payer requirements. The provider is responsible for the final determination of appropriate codes, and modifiers. Nelson Curran MD This document has been electronically signed. Note Initiated:01/25/2025 Note Completed:01/25/2025 1:25 PM [id number]
--- NOTE | 2025-01-25 14:03 | Anesthesiology Progress Note ---
Date of Service January 25, 2025 Anesthesia Post Procedure Vital Signs Vital Signs: Temp Pulse Pulse Resp BP BP Pulse Ox 01/25/25 13:51 94 H 16 133/82 94 01/25/25 13:35 97 H 16 118/73 97 01/25/25 13:26 103 H 16 93/59 L 100 01/25/25 12:42 37.1 C 100 H 16 143/71 H 100 01/25/25 12:01 37.0 C 73 20 111/58 L 97 01/25/25 09:11 77 01/25/25 07:14 36.6 C 81 16 122/66 99 01/25/25 05:55 36.7 C 79 16 120/64 100 01/25/25 04:55 36.6 C 79 16 108/60 100 01/25/25 04:45 36.6 C 79 17 97/54 L 100 01/25/25 04:30 36.6 C 80 16 108/57 L 98 01/25/25 04:25 36.6 C 81 16 97/54 L 100 01/25/25 04:10 36.6 C 81 16 99/59 L 100 01/25/25 03:55 36.6 C 82 16 103/59 L 100 01/25/25 03:36 36.6 C 83 18 103/59 L 100 01/25/25 02:55 36.5 C 81 18 103/59 L 100 01/25/25 01:55 36.7 C 84 16 105/75 97 01/25/25 01:25 36.8 C 85 16 94/62 L 96 01/25/25 01:10 36.6 C 91 H 16 95/59 L 98 01/25/25 00:54 36.5 C 99 H 16 102/56 L 90 01/24/25 22:00 88 01/24/25 20:33 110/70 01/24/25 20:13 36.6 C 92 H 18 91/62 L 98 01/24/25 14:34 88 01/24/25 14:33 36.2 C L 88 18 131/85 O2 Del Method 01/25/25 13:51 Room Air 01/25/25 13:35 Room Air 01/25/25 13:26 Room Air 01/25/25 12:42 Room Air 01/25/25 12:01 Room Air 01/25/25 09:11 01/25/25 07:14 01/25/25 05:55 01/25/25 04:55 01/25/25 04:45 01/25/25 04:30 01/25/25 04:25 01/25/25 04:10 01/25/25 03:55 01/25/25 03:36 01/25/25 02:55 01/25/25 01:55 01/25/25 01:25 01/25/25 01:10 01/25/25 00:54 01/24/25 22:00 01/24/25 20:33 01/24/25 20:13 Room Air 01/24/25 14:34 01/24/25 14:33 Transfer of Care Handoff Completed per policy Notes Mental Status: alert / awake / arousable and participated in evaluation Patient Amnestic to Procedure: Yes Nausea / Vomiting: adequately controlled Pain: adequately controlled Airway Patency, RR, SpO2: stable & adequate BP & HR: stable & adequate Hydration State: stable & adequate Anesthetic Complications: no major complications apparent
[2025-01-25] MEDS: GLYCOPYRROLATE 0.2 MG/ML VIAL ONE (14:42)
[2025-01-25] MEDS: LIDOCAINE 2% 2 ML VIAL/AMP(20MG/ML) INFIL ONE (14:42)
[2025-01-25] MEDS: PROPOFOL IV EMULSION 10 MG/ML 20 ML VIAL IV ONE (14:43)
[2025-01-25] MEDS: ONDANSETRON INJ 2 MG/ML 2 ML VIAL ONE (14:43)
--- NOTE | 2025-01-25 19:19 | Hospitalist Progress Note ---
Date of Service January 25, 2025 Assessment & Plan (1) Upper GI bleeding: (2) Acute blood loss anemia: (3) Macrocytosis: (4) PILI (acute kidney injury): (5) Hyperkalemia: (6) Dehydration: (7) Leukocytosis: (8) Abnormality of rectum: (9) History of pancreatectomy: (10) CAD (coronary artery disease): (11) History of atrial fibrillation: (12) Hypothyroidism (acquired): (13) COPD without exacerbation: (14) Hypomagnesemia: (15) Prediabetes: (16) Hiatal hernia: Plan 89 years old female with PMH of FULL CODE @ home, overweight with BMI 25.8 (height 152.4 cm; weight 60.0 kg), CAD, COPD, hyperlipidemia, hypothyroidism, Whipple Procedure for pancreatic cancer ~25 years ago, HTN, ischemic cardiomyopathy (EF 50-55% echo 2023), hiatal hernia, and GERD presents from home due to weakness, fatigue, poor appetite, dark stools, difficulty ambulating, and simply not feeling well for 2-3 days. She was heme+ in [facility] ER on 01/24/2025, and her hemoglobin was 8.8, down from ~11 about 1 month ago. She also had evidence of PILI with creatinine 1.87 mg/dL (01/24/2025, 8:44am) and acute hyperkalemia with K 6.2 mmol/L (01/24/2025, 8:44am). Of note - she was started on spironolactone in early December and also takes an ARB chronically. #Upper GI bleeding - * markedly elevated BUN, melena stools, acute blood loss anemia are all suggestive of upper GI bleed * risk factors include chronic aspirin use, hiatal hernia, GERD, recent steroid injection for the L shoulder, physical stress in the setting of recent hospitalization early December, etc * diff dx - gastritis vs PUD vs AVMs vs esophagitis vs other * NPO except limited PO meds * PPI bolus was given by ER attending; continue with PPI drip * blood consent obtained, transfusional support as needed * EGD (01/25/2025, 1:25pm): one esophageal ulcer with no stigmata of recent bleed; gastritis with erosions and erythema (biopsied); gastrojejunostomy found/characterized by healthy appearing mucosa; normal appearing jejunum. * serial H/H's * MCV is macrocytic; vitamin B12 level is low at 139 pg/mL (01/24/2025, 2:54pm) while folate level is normal at 7.45 ng/mL (01/24/2025, 2:54pm). Patient was subsequently started on vitamin B12 100ug PO daily (01/25/2025, 7:28pm). #Acute blood loss anemia - * presumed due to Upper GI bleeding * patient received 2 units of packed RBC transfusion for admission Hb 6.9 g/dL (01/25/2025, 12:26am). Post-transfusion Hb 10.4 g/dL (01/25/2025, 8:16am). Check repeat Hb now (01/25/2025, 7:20pm) to assess for any interval change(s) in Hb levels as patient reports no more diarrheal black / brown stools. #PILI - * likely due to prerenal causes including (a) acute blood loss anemia, (2) low BPs from bleeding, (3) numerous BP-lowering meds (taking ARB, etc), and (4) acute E. coli and K. pneumoniae UTI (as noted on 01/24/2025, 10:12am urine culture). * transfusional support as needed * in the setting of hyperkalemia, patient was started on bicarbonate infusion at 80ml/hr with serial BMPs every 4 hours and creatinine level remains unchanged at 1.55 mg/dL (01/24/2025, 2:54pm), 1.56 mg/dL (01/24/2025, 8:51pm), and 1.56 mg/dL (01/25/2025, 8:26am). * no evidence of obstruction on CT abd/pelvis without IV contrast (01/24/2025, 9:51am). #Acute hyperkalemia with K 6.2 mmol/L (01/24/2025, 8:44am), RESOLVING. * 2nd to PILI in the setting of chronic spironolactone and olmesartan use * she is s/p bicarbonate 50meq push x 1 in ER along with IV insulin/D50 * in addition to the above will give calcium gluconate 1gm IV x 1 now along with a 1x dose of patiromer 8.4gm * will subsequently use bicarbonate infusion due to volume contraction, low serum bicarb, and high K levels * serial BMPs q4h with current K 5.2 mmol/L (01/24/2025, 8:51pm)(01/25/2025, 8:26am). * hold aldactone; hold ARB #Weakness - * multifactorial including acute blood loss anemia, PILI, hyperkalemia, volume contraction, UTI, etc. * once GI bleeding has been addressed will need PT/OT #Macrocytosis - * Check B12/folate levels * TSH wnl #h/o CAD - * no recent ischemic symptoms * EKG w/o ischemic changes * will need to hold aspirin & metoprolol succ due to low BPs & GI bleeding #Hypothyroidism - * TSH wnl * hold synthroid today but try to resume such next 2-3 days #HTN - * hold HCTZ, meto succ, olmesartan, verapamil, and spironolactone due to low- normal BPs in the setting of GI bleeding #Mood disorder - * cont cymbalta to avoid withdrawals symptoms #COPD - * no exacerbation at this time * cont albuterol prn #Leukocytosis with acute E. coli and K. pneumoniae UTI (as noted on 01/24/2025, 10:12am urine culture). * s/p rocephin given in ER for possible UTI (2gm x 1) * await antibiotic sensitivity profiles for these two microbes * reasonable to cont rocephin but given her weight reduce to 1gm IV daily #Weight loss - * patient has had 5-6kg of weight loss since 2023 * address later in the stay while here * does she have pancreatic exocrine function given prior Whipple procedure? (tendencies towards diarrhea, etc) * consider pancrease with meals #Pre-Diabetes - * last a1c 6% in fall 2023 * repeat a1c in the AM tomorrow #h/o paroxysmal a.fib - * I cannot find any cardiology notes/documentation in [facility] * states she doesn't follow with cardiology to his knowledge * will look in old [facility] to see if there are any old cardiology records * last echo was 2023 - EF 50-55% * she will be on PCU status while here #Acute hypomagnesemia with admission Mg 1.4 mg/dL (01/24/2025, 8:44 am), RESOLVED. * s/p 2 grams mag sulfate x 1 IV with repeat Mg normal at 1.9 mg/dL (01/24/2025, 8:51pm). * likely due to chronic HCTZ use, poor PO intake, diarrhea, etc. * serial labs and replace further if needed #DVT proph - * chemical means contraindicated in the setting of GI bleeding * SCDs for now Of note, I called and spoke with the patient's , Mr. Kirby Tejeda ( ), today, 01/25/2025, regarding the above information, and he concurs with the assessment and plan above. Admission and Anticipated Discharge Date Admission Date: January 24, 2025 Subjective "I feel a little weak. Other than that, I don't have any diarrhea and no more black or dark stools today (01/25/2025)." Review of Systems Constitutional: Negative for antecedent/coincident fevers, chills, diaphoresis, cough, wheeze, sore throat, hemoptysis, chest pains, palpitations, pleurisy, nausea, vomiting, diarrhea, abdominal pain, pelvic pain, hematemesis, hematochezia, melena, hematuria, dysuria, frequency, urgency, headaches, dizziness, lightheadedness, visual changes, hearing changes, falls, syncope, trauma, travel history, sick contacts, or food/drug ingestions novel or new. All other review of systems are reported as negative by the patient on 01/25/2025. Physical Exam Constitutional: General: Comfortable, coherent, cooperative; wide awake and alert. Not confused, lethargic, or obtunded. Patient speaks in complete, fluent, and articulate sentences without pause, cough, or wheeze. HEENT: Normocephalic, atraumatic. Extra-ocular muscles intact. Pupils equally round and reactive to light. No nystagmus, gaze paresis, anisocoria, miosis, mydriasis, hyphema, scleral injection, conjunctivitis, or pterygium. No otorrhea or rhinorrhea. No pharyngeal erythema, edema, or discharge. Neck: Supple, no stridor, bruit, goiter, or hepato-jugular reflux. Jugular venous pressure is estimated to be 3 cm above the sternal angle of Tae, which in turn, is 5 cm above the level of the right atrium; with jugular venous pressure estimated to be 8 cm, then, there is no jugular venous distention on 01/25/2025. Lymphatics: No cervical (anterior/posterior), supraclavicular, infraclavicular, axillary, epitrochlear, or inguinal adenopathy. Chest: Symmetric rise and fall with respirations. Non-tender to palpation. Lungs: Clear to auscultation and percussion. Heart: Regular rate and rhythm. S1 and S2 noted. No S3 or S4 summation gallop. No tripartite friction rub. Grade II/ early systolic murmur @ LLSB without radiation to the carotids, axilla, or back, and which remains invariant in regards to the respiratory cycle. Abdomen: Soft, non-tender, non-distended. No rebound, guarding, Danielson's sign, or organomegaly. Bowel sounds auscultated in all 4 quadrants. Extremities: No clubbing, cyanosis, or edema. 2+ pedal pulses bilaterally. Skin: No decubitus ulcer, exanthem, or enanthem. Genito-urinary: No urethral discharge. No houser catheter. Neurology: Alert and oriented in regards to person, place, time, and situation. DTR+ and symmetric. 5/5 motor strength in all 4 extremities, both proximally and distally. No pronator drift. No facial droop. No dysarthria. Psychiatry: No homicidal ideation. No suicidal ideation. No flat affect; smiles appropriately. Results & Data Results & Data Vital Signs (Past 12 Hours) Vital Signs Temp Pulse Pulse Resp BP Pulse Ox O2 Del Method 01/25/25 16:07 36.9 C 84 20 132/66 100 Room Air 01/25/25 14:55 84 20 123/67 100 Room Air 01/25/25 14:22 36.5 C 87 18 129/74 100 Room Air 01/25/25 13:51 94 H 16 133/82 94 Room Air 01/25/25 13:35 97 H 16 118/73 97 Room Air 01/25/25 13:26 103 H 16 93/59 L 100 Room Air 01/25/25 12:42 37.1 C 100 H 16 143/71 H 100 Room Air 01/25/25 12:01 37.0 C 73 20 111/58 L 97 Room Air 01/25/25 09:11 77 Laboratory Results 01/24/25 10:12 Urine Culture - Preliminary Urine,Straight Cath Escherichia coli Klebsiella pneumoniae 01/25/25 01/25/25 01/25/25 08:26 08:16 00:26 WBC 8.28 RBC 3.38 L Hgb 10.4 L D 6.9 L* Hct 30.9 L 20.6 L* MCV 91.4 D MCH 30.8 MCHC 33.7 RDW Std Deviation 49.3 H RDW Coeff of Tara 15.1 H Plt Count 181 MPV 8.8 L Sodium 139 Potassium 5.2 H Chloride 114 H Carbon Dioxide 20 L Anion Gap 5 BUN 79 H Creatinine 1.56 H Est Cr Clr Drug Dosing 20.6 eGFR 31.98 BUN/Creatinine Ratio 50.6 H Glucose 89 Calcium 8.4 L Magnesium 1.7 Vitamin B12 Folate Blood Type Blood Type Recheck Antibody Screen Crossmatch 01/24/25 01/24/25 01/24/25 20:51 14:55 14:54 WBC 10.14 RBC 2.29 L Hgb 7.3 L Hct 22.2 L MCV 96.9 MCH 31.9 MCHC 32.9 RDW Std Deviation 48.1 H RDW Coeff of Tara 13.8 Plt Count 213 MPV 9.2 L Sodium 138 Potassium 5.2 H Chloride 112 H Carbon Dioxide 19 L Anion Gap 7 BUN 92 H Creatinine 1.56 H Est Cr Clr Drug Dosing 20.2 eGFR 31.98 BUN/Creatinine Ratio 59.0 H Glucose 92 Calcium 8.6 Magnesium 1.9 Vitamin B12 139 L Folate 7.45 Blood Type O Positive Blood Type Recheck O Positive Antibody Screen NEGATIVE Crossmatch See Detail PG Care Time/CCT Total # of Minutes Spent Total Time Spent with Patient: Total time spent is greater than 50% in coordination of care (as documented) at patient's floor/unit and/or counseling patient: Coding Level of Care Code 02992 SUB INP/OBS CARE 2/35MIN Diagnoses Upper GI bleeding K92.2 Acute blood loss anemia D62 Macrocytosis D75.89 PILI (acute kidney injury) N17.9 Hyperkalemia E87.5 Dehydration E86.0 Leukocytosis D72.829 Abnormality of rectum K62.9 History of pancreatectomy Z90.410 CAD (coronary artery disease) I25.10 History of atrial fibrillation Z86.79 Hypothyroidism (acquired) E03.9 COPD without exacerbation J44.9 Hypomagnesemia E83.42 Prediabetes R73.03 Hiatal hernia K44.9
[2025-01-25] MEDS: CYANOCOBALAMIN (B-12) 100 MCG TABLET PO SCH (21:36)
[2025-01-26] MEDS: MAGNESIUM SULFATE / D5W 1 GM/100 ML BAG IV SCH (03:40)
[2025-01-26 05:50] LABS: Basophils # (auto) 0.03 K/uL (0.00-0.20); Basophils % (auto) 0.5 %; Eosinophils % (auto) 4.7 %; Hematocrit (blood only) 28.9 % (37.0-47.0); Hemoglobin 9.8 g/dl (12.0-16.0); Immature Granulocytes # (auto) 0.08 K/uL (0.01-0.20); Immature Granulocytes % (auto) 1.3 %; Lymphocytes # (auto) 0.72 K/uL (1.20-3.40); Lymphocytes % (auto) 11.3 %; Mean Corpuscular Hemoglobin 31.3 pg (25.0-34.0); Mean Corpuscular Hgb Conc 33.9 g/dL (32.0-36.0); Mean Corpuscular Volume 92.3 fL (80.0-100.0); Mean Platelet Volume 8.8 fL (9.4-12.4); Monocytes # (auto) 0.51 K/uL (0.11-0.59); Neutrophils # (auto) 4.72 K/uL (1.40-6.50); Neutrophils % (auto) 74.2 %; Platelet Count 180 K/uL (130-400); Platelet Estimate Normal (Normal); RDW Coefficient of Variation 15.7 % (11.5-14.5); RDW Standard Deviation 51.6 fL (36.4-46.3); Red Blood Count 3.13 M/uL (4.20-5.40); White Blood Count 6.36 K/ul (4.8-10.8)
[2025-01-26 06:24] LABS: BUN Creatinine Ratio 45.8 (10-20); Calcium 8.2 mg/dl (8.6-10.3); Creatinine Clr Calc Pharmacy 26.5 ml/min; Potassium 4.9 mmol/L (3.5-5.1)
[2025-01-26 10:58] LABS: Magnesium 1.7 mg/dl (1.7-2.4)
--- NOTE | 2025-01-26 12:50 | Gastroenterology Progress Note ---
Date of Service January 26, 2025 Assessment & Plan (1) Melena: Plan - continue to follow hgb/hct. transfuse as needed. - continue with protonix Admission and Anticipated Discharge Date Admission Date: January 24, 2025 Subjective Patient feels well. tolerating lunch. hgb did drop from 11.6 to 9.8. she had one bowel movement since her procedure that was still dark, but less so. she over all feels well. EGD 01/25 Esophageal ulcer with no stigmata of recent bleeding. - Large hiatal hernia. - Gastritis, characterized by erosions and erythema. Biopsied. - A gastrojejunostomy was found, characterized by healthy appearing mucosa. - Normal examined jejunum. Review of Systems Review of Systems: All systems reviewed & are unremarkable except as noted in HPI & below Physical Exam Constitutional: WD/WN, vitals as above Respiratory: normal respiratory effort, lungs clear to auscultation Cardiovascular: Rate/Rhythm: regular rate and regular rhythm Gastrointestinal (Abdomen): normal bowel sounds, soft, nontender, no hepatosplenomegaly Psychiatric: Orientation: alert and oriented x 3 Affect: euthymic affect Results & Data Results & Data Vital Signs (Past 12 Hours) Vital Signs Temp Pulse Pulse Resp BP Pulse Ox O2 Del Method 01/26/25 10:44 97.5 F L 76 18 144/76 H 99 Room Air 01/26/25 08:09 70 01/26/25 07:39 97.7 F 88 18 131/79 100 Room Air 01/26/25 02:37 97.7 F 70 18 133/84 96 Room Air Laboratory Results Laboratory Results - last 48 hr 01/24/25 01/24/25 01/24/25 14:54 14:55 20:51 WBC 10.14 RBC 2.29 L Hgb 7.3 L Hct 22.2 L MCV 96.9 MCH 31.9 MCHC 32.9 RDW Std Deviation 48.1 H RDW Coeff of Tara 13.8 Plt Count 213 MPV 9.2 L Immature Gran % (Auto) Neut % (Auto) Lymph % (Auto) Swisher % (Auto) Eos % (Auto) Baso % (Auto) Neut # (Auto) Lymph # (Auto) Swisher # (Auto) Eos # (Auto) Baso # (Auto) Immature Gran # (Auto) Platelet Estimate Sodium 138 Potassium 5.2 H Chloride 112 H Carbon Dioxide 19 L Anion Gap 7 BUN 92 H Creatinine 1.56 H Est Cr Clr Drug Dosing 20.2 eGFR 31.98 BUN/Creatinine Ratio 59.0 H Glucose 92 Calcium 8.6 Magnesium 1.9 Vitamin B12 139 L Folate 7.45 Blood Type O Positive Blood Type Recheck O Positive Antibody Screen NEGATIVE Crossmatch See Detail 01/25/25 01/25/25 01/25/25 00:26 08:16 08:26 WBC 8.28 RBC 3.38 L Hgb 6.9 L* 10.4 L D Hct 20.6 L* 30.9 L MCV 91.4 D MCH 30.8 MCHC 33.7 RDW Std Deviation 49.3 H RDW Coeff of Tara 15.1 H Plt Count 181 MPV 8.8 L Immature Gran % (Auto) Neut % (Auto) Lymph % (Auto) Swisher % (Auto) Eos % (Auto) Baso % (Auto) Neut # (Auto) Lymph # (Auto) Swisher # (Auto) Eos # (Auto) Baso # (Auto) Immature Gran # (Auto) Platelet Estimate Sodium 139 Potassium 5.2 H Chloride 114 H Carbon Dioxide 20 L Anion Gap 5 BUN 79 H Creatinine 1.56 H Est Cr Clr Drug Dosing 20.6 eGFR 31.98 BUN/Creatinine Ratio 50.6 H Glucose 89 Calcium 8.4 L Magnesium 1.7 Vitamin B12 Folate Blood Type Blood Type Recheck Antibody Screen Crossmatch 01/25/25 01/26/25 Unknown 05:08 WBC 6.36 RBC 3.13 L Hgb 11.6 L 9.8 L Hct 28.9 L MCV 92.3 MCH 31.3 MCHC 33.9 RDW Std Deviation 51.6 H RDW Coeff of Tara 15.7 H Plt Count 180 MPV 8.8 L Immature Gran % (Auto) 1.3 Neut % (Auto) 74.2 Lymph % (Auto) 11.3 Swisher % (Auto) 8.0 Eos % (Auto) 4.7 Baso % (Auto) 0.5 Neut # (Auto) 4.72 Lymph # (Auto) 0.72 L Swisher # (Auto) 0.51 Eos # (Auto) 0.30 Baso # (Auto) 0.03 Immature Gran # (Auto) 0.08 Platelet Estimate Normal Sodium 139 Potassium 4.9 Chloride 110 H Carbon Dioxide 26 Anion Gap 3 BUN 55 H D Creatinine 1.20 D Est Cr Clr Drug Dosing 26.5 eGFR 43.81 BUN/Creatinine Ratio 45.8 H Glucose 86 Calcium 8.2 L Magnesium 1.7 Vitamin B12 Folate Blood Type Blood Type Recheck Antibody Screen Crossmatch Coding Level of Care Code 48871 SUB INP/OBS CARE 11/11MIN Diagnoses Melena K92.1
--- NOTE | 2025-01-26 17:45 | Hospitalist Progress Note ---
Date of Service January 26, 2025 Assessment & Plan (1) Upper GI bleeding: (2) Acute blood loss anemia: (3) Macrocytosis: (4) PILI (acute kidney injury): (5) Hyperkalemia: (6) Dehydration: (7) Leukocytosis: (8) Abnormality of rectum: (9) History of pancreatectomy: (10) CAD (coronary artery disease): (11) History of atrial fibrillation: (12) Hypothyroidism (acquired): (13) COPD without exacerbation: (14) Hypomagnesemia: (15) Prediabetes: (16) Hiatal hernia: Plan 89 years old female with PMH of FULL CODE @ home, overweight with BMI 25.8 (height 152.4 cm; weight 60.0 kg), CAD, COPD, hyperlipidemia, hypothyroidism, Whipple Procedure for pancreatic cancer ~25 years ago, HTN, ischemic cardiomyopathy (EF 50-55% echo 2023), hiatal hernia, and GERD presents from home due to weakness, fatigue, poor appetite, dark stools, difficulty ambul ating, and simply not feeling well for 2-3 days. She was heme+ in [facility] ER on 01/24/2025, and her hemoglobin was 8.8, down from ~11 about 1 month ago. She also had evidence of PILI with admission creatinine 1.87 mg/dL (01/24/2025, 8:44am) and acute hyperkalemia with admission K 6.2 mmol/L (01/24/2025, 8:44am). Of note - she was started on spironolactone in early December and also takes an ARB chronically. Patient was subsequently admitted to the inpatient hospitalist service @ [facility] [address] on 01/24/2025 with the following diagnoses: 1. Acute blood loss anemia with admission Hb 8.8 g/dL, MCV 101.9, MCHC 32.10/2024, 8:44am) of unclear etiology, but presumably due to acute upper GI bleeding. 2. Acute upper GI bleeding with post-admission Hb 6.9 g/dL (01/25/2025, 12:26am). 3. Acute kidney injury with admission creatinine 1.87 mg/dL (01/24/2025, 8:44am). 4. Acute hyperkalemia with admission K 6.2 mmol/L (01/24/2025, 8:44am). The following medical issues are being addressed: #Acute blood loss anemia with admission Hb 8.8 g/dL, MCV 101.9, MCHC 32.10/2024, 8:44am) of unclear etiology, but presumably due to acute upper GI bleeding. * presumed due to Upper GI bleeding * patient received 2 units of packed RBC transfusion for admission Hb 6.9 g/dL (01/25/2025, 12:26am). Post-transfusion Hb 10.4 g/dL (01/25/2025, 8:16am). Check repeat Hb now (01/25/2025, 7:20pm) to assess for any interval change(s) in Hb levels as patient reports no more diarrheal black / brown stools. #Acute upper GI bleeding with post-admission Hb 6.9 g/dL (01/25/2025, 12:26am). * markedly elevated BUN, melena stools, acute blood loss anemia are all suggestive of upper GI bleed * risk factors include chronic aspirin use, hiatal hernia, GERD, recent steroid injection for the L shoulder, physical stress in the setting of recent hospitalization early December, etc * diff dx - gastritis vs PUD vs AVMs vs esophagitis vs other * NPO except limited PO meds * PPI bolus was given by ER attending; continue with PPI drip * blood consent obtained, transfusional support as needed * EGD (01/25/2025, 1:25pm): one esophageal ulcer with no stigmata of recent bleed; gastritis with erosions and erythema (biopsied); gastrojejunostomy found/characterized by healthy appearing mucosa; normal appearing jejunum. * serial H/H's * MCV is macrocytic; vitamin B12 level is low at 139 pg/mL (01/24/2025, 2:54pm) while folate level is normal at 7.45 ng/mL (01/24/2025, 2:54pm). Patient was subsequently started on vitamin B12 100ug PO daily (01/25/2025, 7:28pm). #Acute kidney injury with admission creatinine 1.87 mg/dL (01/24/2025, 8:44am). * likely due to prerenal causes including (a) acute blood loss anemia, (2) low BPs from bleeding, (3) numerous BP-lowering meds (taking ARB, etc), and (4) acute roberson-sensitive E. coli and K. pneumoniae UTI (as noted on 01/24/2025, 10:12am urine culture). * transfusional support as needed * in the setting of hyperkalemia, patient was started on bicarbonate infusion at 80ml/hr with serial BMPs every 4 hours and creatinine level remains unchanged at 1.55 mg/dL (01/24/2025, 2:54pm), 1.56 mg/dL (01/24/2025, 8:51pm), and 1.56 mg/dL (01/25/2025, 8:26am). * no evidence of obstruction on CT abd/pelvis without IV contrast (01/24/2025, 9:51am). #Acute hyperkalemia with admission K 6.2 mmol/L (01/24/2025, 8:44am), RESOLVED * 2nd to PILI in the setting of chronic spironolactone and olmesartan use * she is s/p bicarbonate 50meq push x 1 in ER along with IV insulin/D50 * in addition to the above will give calcium gluconate 1gm IV x 1 now along with a 1x dose of patiromer 8.4gm * will subsequently use bicarbonate infusion due to volume contraction, low serum bicarb, and high K levels * serial BMPs q4h with repeat K 5.2 mmol/L (01/24/2025, 8:51pm)(01/25/2025, 8:26am), and current K 4.9 mmol/L (01/26/2025, 5:08am). * hold aldactone; hold ARB #Weakness - * multifactorial including acute blood loss anemia, PILI, hyperkalemia, volume contraction, UTI, etc. * once GI bleeding has been addressed will need PT/OT #Macrocytosis - * Check B12/folate levels * TSH wnl #h/o CAD - * no recent ischemic symptoms * EKG w/o ischemic changes * will need to hold aspirin & metoprolol succ due to low BPs & GI bleeding #Hypothyroidism - * TSH wnl * hold synthroid today but try to resume such next 2-3 days #HTN - * hold HCTZ, meto succ, olmesartan, verapamil, and spironolactone due to low- normal BPs in the setting of GI bleeding #Mood disorder - * cont cymbalta to avoid withdrawals symptoms #COPD - * no exacerbation at this time * cont albuterol prn #Leukocytosis with acute roberson-sensitive E. coli and K. pneumoniae UTI (as noted on 01/24/2025, 10:12am urine culture). * s/p rocephin given in ER for acute UTI (2gm x 1) * await antibiotic sensitivity profiles for these two microbes * reasonable to cont rocephin but given her weight reduce to 1gm IV daily #Weight loss - * patient has had 5-6kg of weight loss since 2023 * address later in the stay while here * does she have pancreatic exocrine function given prior Whipple procedure? (tendencies towards diarrhea, etc) * consider pancrease with meals #Pre-Diabetes - * last a1c 6% in fall 2023 * repeat a1c in the AM tomorrow #h/o paroxysmal a.fib - * I cannot find any cardiology notes/documentation in [employer] [facility] * states she doesn't follow with cardiology to his knowledge * will look in old [facility] to see if there are any old cardiology records * last echo was 2023 - EF 50-55% * she will be on PCU status while here #Acute hypomagnesemia with admission Mg 1.4 mg/dL (01/24/2025, 8:44 am), RESOLVED with current Mg 1.7 mg/dL (01/25/2025, 6:26am)(01/26/2025, 5:08am). * s/p 2 grams mag sulfate x 1 IV with repeat Mg normal at 1.9 mg/dL (01/24/2025, 8:51pm). * likely due to chronic HCTZ use, poor PO intake, diarrhea, etc. * serial labs and replace further if needed #DVT proph - * chemical means contraindicated in the setting of GI bleeding * SCDs for now Of note, I called and spoke with the patient's , Mr. Kirby Tejeda ( ), today, 01/26/2025, regarding the above information, and he concurs with the assessment and plan above. Admission and Anticipated Discharge Date Admission Date: January 24, 2025 Subjective "I feel ok today. No complaints right now." Review of Systems Constitutional: Negative for antecedent/coincident fevers, chills, diaphoresis, cough, wheeze, sore throat, hemoptysis, chest pains, palpitations, pleurisy, nausea, vomiting, diarrhea, abdominal pain, pelvic pain, hematemesis, hematochezia, melena, hematuria, dysuria, frequency, urgency, headaches, dizziness, lightheadedness, visual changes, hearing changes, falls, syncope, trauma, travel history, sick contacts, or food/drug ingestions novel or new. All other review of systems are reported as negative by the patient on 01/26/2025. Physical Exam Constitutional: General: Comfortable, coherent, cooperative; wide awake and alert. Not confused, lethargic, or obtunded. Patient speaks in complete, fluent, and articulate sentences without pause, cough, or wheeze. HEENT: Normocephalic, atraumatic. Extra-ocular muscles intact. Pupils equally round and reactive to light. No nystagmus, gaze paresis, anisocoria, miosis, mydriasis, hyphema, scleral injection, conjunctivitis, or pterygium. No otorrhea or rhinorrhea. No pharyngeal erythema, edema, or discharge. Neck: Supple, no stridor, bruit, goiter, or hepato-jugular reflux. Jugular venous pressure is estimated to be 3 cm above the sternal angle of Tae, which in turn, is 5 cm above the level of the right atrium; with jugular venous pressure estimated to be 8 cm, then, there is no jugular venous distention on 01/25/2025. Lymphatics: No cervical (anterior/posterior), supraclavicular, infraclavicular, axillary, epitrochlear, or inguinal adenopathy. Chest: Symmetric rise and fall with respirations. Non-tender to palpation. Lungs: Clear to auscultation and percussion. Heart: Regular rate and rhythm. S1 and S2 noted. No S3 or S4 summation gallop. No tripartite friction rub. Grade II/ early systolic murmur @ LLSB without radiation to the carotids, axilla, or back, and which remains invariant in regards to the respiratory cycle. Abdomen: Soft, non-tender, non-distended. No rebound, guarding, Danielson's sign, or organomegaly. Bowel sounds auscultated in all 4 quadrants. Extremities: No clubbing, cyanosis, or edema. 2+ pedal pulses bilaterally. Skin: No decubitus ulcer, exanthem, or enanthem. Genito-urinary: No urethral discharge. No houser catheter. Neurology: Alert and oriented in regards to person, place, time, and situation. DTR+ and symmetric. 5/5 motor strength in all 4 extremities, both proximally and distally. No pronator drift. No facial droop. No dysarthria. Psychiatry: No homicidal ideation. No suicidal ideation. No flat affect; smiles appropriately. Results & Data Results & Data Vital Signs (Past 12 Hours) Vital Signs Temp Pulse Pulse Resp BP Pulse Ox O2 Del Method 01/26/25 15:25 36.5 C 73 18 132/78 98 Room Air 01/26/25 14:24 79 01/26/25 10:44 36.4 C L 76 18 144/76 H 99 Room Air 01/26/25 08:09 70 01/26/25 07:39 36.5 C 88 18 131/79 100 Room Air PG Care Time/CCT Total # of Minutes Spent Total Time Spent with Patient: Total time spent is greater than 50% in coordination of care (as documented) at patient's floor/unit and/or counseling patient: Coding Level of Care Code 65089 SUB INP/OBS CARE 2/35MIN Diagnoses Upper GI bleeding K92.2 Acute blood loss anemia D62 Macrocytosis D75.89 PILI (acute kidney injury) N17.9 Hyperkalemia E87.5 Dehydration E86.0 Leukocytosis D72.829 Abnormality of rectum K62.9 History of pancreatectomy Z90.410 CAD (coronary artery disease) I25.10 History of atrial fibrillation Z86.79 Hypothyroidism (acquired) E03.9 COPD without exacerbation J44.9 Hypomagnesemia E83.42 Prediabetes R73.03 Hiatal hernia K44.9
[2025-01-26] MEDS: PANTOprazole 40 MG TAB PO SCH (20:36)
[2025-01-27 07:52] LABS: Basophils # (auto) 0.03 K/uL (0.00-0.20); Basophils % (auto) 0.6 %; Eosinophils # (auto) 0.29 K/uL (0.00-0.50); Eosinophils % (auto) 5.5 %; Hematocrit (blood only) 28.2 % (37.0-47.0); Hemoglobin 9.6 g/dl (12.0-16.0); Immature Granulocytes # (auto) 0.07 K/uL (0.01-0.20); Immature Granulocytes % (auto) 1.3 %; Lymphocytes # (auto) 0.73 K/uL (1.20-3.40); Lymphocytes % (auto) 13.9 %; Mean Corpuscular Hemoglobin 31.6 pg (25.0-34.0); Mean Corpuscular Volume 92.8 fL (80.0-100.0); Mean Platelet Volume 8.6 fL (9.4-12.4); Monocytes # (auto) 0.45 K/uL (0.11-0.59); Monocytes % (auto) 8.6 %; Neutrophils # (auto) 3.67 K/uL (1.40-6.50); Neutrophils % (auto) 70.1 %; Platelet Count 188 K/uL (130-400); RDW Coefficient of Variation 14.7 % (11.5-14.5); RDW Standard Deviation 48.9 fL (36.4-46.3); Red Blood Count 3.04 M/uL (4.20-5.40); White Blood Count 5.24 K/ul (4.8-10.8)
[2025-01-27 08:15] LABS: BUN Creatinine Ratio 30.2 (10-20); Calcium 8.4 mg/dl (8.6-10.3); Creatinine Clr Calc Pharmacy 30.1 ml/min; Potassium 4.4 mmol/L (3.5-5.1)
[2025-01-27 08:59] VITALS: BP 147/87; RESP 16; TEMP 98.2; O2SAT 97
[2025-01-27] MEDS: LEVOTHYROXINE SODIUM 112 MCG TABLET PO SCH (09:00)
--- NOTE | 2025-01-27 09:23 | Gastroenterology Progress Note ---
Date of Service January 27, 2025 Assessment & Plan (1) Melena: Plan: Resolving. Likely bleeding from esophageal ulcer. Additional blood loss can be related to large hiatal hernia. Follow-up in the GI office to be arranged for possible upper endoscopy in 8 weeks to assure healing of ulcer. EGD /10 Esophageal ulcer with no stigmata of recent bleeding. - Large hiatal hernia. - Gastritis, characterized by erosions and erythema. Biopsied. - A gastrojejunostomy was found, characterized by healthy appearing mucosa. - Normal examined jejunum. Admission and Anticipated Discharge Date Admission Date: January 24, 2025 Subjective Feels well, stools are foreign exchange dealer in color. Denies abdominal symptoms. Hg stable, 9.6 Review of Systems Review of Systems: Constitutional: Denies weight loss, chills, fever, fatigue. Respiratory: Denies cough, denies shortness of breath. Cardiovascular: Denies chest pain and palpitations. Gastrointestinal: Denies nausea, vomiting, diarrhea, constipation, abdominal pain. Physical Exam Physical Exam: Constitutional: Comfortable, vitals as above Respiratory: normal respiratory effort, lungs clear to auscultation Cardiovascular: RRR, no murmur, no edema Gastrointestinal (Abdomen): normal bowel sounds, soft, nontender, no hepatosplenomegaly. Neurological: Oriented x 3, grossly no focal abnormalities, speech is intact. Results & Data Results & Data Vital Signs (Past 12 Hours) Vital Signs Temp Pulse Resp BP Pulse Ox O2 Del Method 01/27/25 07:48 36.8 C 78 16 147/87 H 97 Room Air 01/27/25 03:08 36.9 C 74 18 133/64 94 Room Air 01/26/25 23:00 36.9 C 80 18 128/69 98 Room Air Laboratory Results Reviewed PG Care Time/CCT Total # of Minutes Spent Total Time Spent with Patient: Total time spent is greater than 50% in coordination of care (as documented) at patient's floor/unit and/or counseling patient: Coding Level of Care Code 93095 SUB INP/OBS CARE 2/35MIN Diagnoses Melena K92.1
[2025-01-27 09:24] LABS: Magnesium 1.8 mg/dl (1.7-2.4)
--- NOTE | 2025-01-27 09:27 | Gastroenterology Progress Note ---
Date of Service January 27, 2025 Assessment & Plan Admission and Anticipated Discharge Date Admission Date: January 24, 2025 Results & Data Results & Data Vital Signs (Past 12 Hours) Vital Signs Temp Pulse Resp BP Pulse Ox O2 Del Method 01/27/25 07:48 36.8 C 78 16 147/87 H 97 Room Air 01/27/25 03:08 36.9 C 74 18 133/64 94 Room Air 01/26/25 23:00 36.9 C 80 18 128/69 98 Room Air PG Care Time/CCT Total # of Minutes Spent Total Time Spent with Patient: Total time spent is greater than 50% in coordination of care (as documented) at patient's floor/unit and/or counseling patient: Coding Level of Care Code 56488 SUB INP/OBS CARE 2/35MIN
[2025-01-27 14:04] VITALS: PULSE 78
--- NOTE | 2025-01-27 14:11 | Discharge Summary ---
Discharge Summary Date of Service January 27, 2025 Principal Dx & Hospital Course #1 = Principal Diagnosis (1) Upper GI bleeding: (2) Acute blood loss anemia: (3) Macrocytosis: (4) PILI (acute kidney injury): (5) Hyperkalemia: (6) Dehydration: (7) Leukocytosis: (8) Abnormality of rectum: (9) History of pancreatectomy: (10) CAD (coronary artery disease): (11) History of atrial fibrillation: (12) Hypothyroidism (acquired): (13) COPD without exacerbation: (14) Hypomagnesemia: (15) Prediabetes: (16) Hiatal hernia: Plan 89 years old female with PMH of FULL CODE @ home, overweight with BMI 25.8 (height 152.4 cm; weight 60.0 kg), CAD, COPD, hyperlipidemia, hypothyroidism, Whipple Procedure for pancreatic cancer ~25 years ago, HTN, ischemic cardiomyopathy (EF 50-55% echo 2023), hiatal hernia, and GERD presents from home due to weakness, fatigue, poor appetite, dark stools, difficulty ambulating, and simply not feeling well for 2-3 days. She was heme+ in [facility] ER on 01/24/2025, and her hemoglobin was 8.8, down from ~11 about 1 month ago. She also had evidence of PILI with admission creatinine 1.87 mg/dL (01/24/2025, 8:44am) and acute hyperkalemia with admission K 6.2 mmol/L (01/24/2025, 8:44am). Of note - she was started on spironolactone in early December and also takes an ARB chronically. Patient was subsequently admitted to the inpatient hospitalist service @ [facility] on 01/24/2025 with the following diagnoses: 1. Acute blood loss anemia with admission Hb 8.8 g/dL, MCV 101.9, MCHC 32.10/2024, 8:44am) of unclear etiology, but presumably due to acute upper GI bleeding. 2. Acute upper GI bleeding with post-admission Hb 6.9 g/dL (01/25/2025, 12:26am). 3. Acute kidney injury with admission creatinine 1.87 mg/dL (01/24/2025, 8:44am)(due to #1, #2, and acute ampicillin-resistant, otherwise roberson-sensitive E. coli UTI / roberson-sensitive Klebsiella pneumoniae UTI (as noted on 01/24/2025, 10:12am urine culture). 4. Acute hyperkalemia with admission K 6.2 mmol/L (01/24/2025, 8:44am). The following medical issues were addressed while the patient remained in [facility] from 01/24/2025 through 01/27/2025: #Acute blood loss anemia with admission Hb 8.8 g/dL, MCV 101.9, MCHC 32.10/2024, 8:44am) of unclear etiology, but presumably due to acute upper GI bleeding. RESOLVED. * presumed due to Upper GI bleeding * patient received 2 units of packed RBC transfusion for admission Hb 6.9 g/dL (01/25/2025, 12:26am). Post-transfusion Hb 10.4 g/dL (01/25/2025, 8:16am). Discharge Hg 9.6 g/dL (01/27/2025, 7:35am). #Acute upper GI bleeding with post-admission Hb 6.9 g/dL (01/25/2025, 12:26am). RESOLVED. * markedly elevated BUN, melena stools, acute blood loss anemia are all suggestive of upper GI bleed * risk factors include chronic aspirin use, hiatal hernia, GERD, recent steroid injection for the L shoulder, physical stress in the setting of recent hospitalization early December, etc * diff dx - gastritis vs PUD vs AVMs vs esophagitis vs other * PPI bolus was given by ER attending; subsequently, patient was started on a PPI drip (01/24/2025, 3:35pm), followed by protonix 40mg PO bid (01/26/2025, 8:36pm; 01/27/2025, 8:55am). Patient was subsequently discharged home on 01/27/2025; patient's [facility] [address], [address], [place] [address], received an electronic prescription for protonix 40mg PO bid, #60 tablets, no refills, on 01/27/2025, prior to patient's discharge back to her home on 01/27/2025. * blood consent obtained, transfusional support as needed * EGD (01/25/2025, 1:25pm): one esophageal ulcer with no stigmata of recent bleed; gastritis with erosions and erythema (biopsied); gastrojejunostomy found/characterized by healthy appearing mucosa; normal appearing jejunum. * serial H/H's * MCV is macrocytic; vitamin B12 level is low at 139 pg/mL (01/24/2025, 2:54pm) while folate level is normal at 7.45 ng/mL (01/24/2025, 2:54pm). Patient was subsequently started on vitamin B12 100ug PO daily (01/25/2025, 7:28pm). Patient was subsequently discharged home on 01/27/2025; patient's [facility] [address], [address] [place] [address], re ceived an electronic prescription for vitamin B12, 100ug PO daily, #30 tablets, no refills, on 01/27/2025, prior to patient's discharge back to her home on 01/27/2025. #Acute kidney injury with admission creatinine 1.87 mg/dL (01/24/2025, 8:44am). RESOLVED. * likely due to prerenal causes including (a) acute blood loss anemia, (2) low BPs from bleeding, (3) numerous BP-lowering meds (taking ARB, etc), and (4) acute roberson-sensitive E. coli and K. pneumoniae UTI (as noted on 01/24/2025, 10:12am urine culture). To address (4), patient received ceftriaxone 2g IV x 1 dose (01/24/2025, 12:08pm), followed by ceftriaxone 1g IV daily x 3 doses (01/25/2025, 10:41am; 01/26/2025, 11:21am; 01/27/2025, 11:26am). No further antibiotic treatment is indicated. Hence, patient was discharged back to her home on 01/27/2025 without any prescription(s) for antibiotic(s). * transfusional support as needed * in the setting of hyperkalemia, patient was started on bicarbonate infusion at 80ml/hr with serial BMPs every 4 hours and creatinine level remains unchanged at 1.55 mg/dL (01/24/2025, 2:54pm), 1.56 mg/dL (01/24/2025, 8:51pm), and 1.56 mg/dL (01/25/2025, 8:26am). * no evidence of obstruction on CT abd/pelvis without IV contrast (01/24/2025, 9:51am). * Discharge creatinine 1.06 mg/dL (01/27/2025, 7:35am). While acute kidney injury has RESOLVED, patient remains dehydrated, as defined by BUN:creatinine ratio > 20:1 (cf., discharge BUN 32, discharge creatinine 1.06 on 01/27/2025, 7:35am). Hence, patient was advised to continue holding OFF her home- scheduled HCTZ 50mg PO daily and holding OFF her home-scheduled spironolactone 25mg PO daily until 02/05/2025, on which date, patient may restart both her home-scheduled HCTZ 50mg PO daily and her home-scheduled spironolactone 25mg PO daily. Patient reports that she will comply with this recommendation. #Acute hyperkalemia with admission K 6.2 mmol/L (01/24/2025, 8:44am), RESOLVED. * 2nd to PILI in the setting of chronic spironolactone and olmesartan use * she is s/p bicarbonate 50meq push x 1 in ER along with IV insulin/D50 * in addition to the above will give calcium gluconate 1gm IV x 1 now along with a 1x dose of patiromer 8.4gm * will subsequently use bicarbonate infusion due to volume contraction, low serum bicarb, and high K levels * serial BMPs q4h with repeat K 5.2 mmol/L (01/24/2025, 8:51pm)(01/25/2025, 8:26am), repeat K 4.9 mmol/L (01/26/2025, 5:08am). * Discharge K 4.4 mmol/L (01/27/2025, 7:35am). * While acute hyperkalemia and acute kidney injury have resolved, patient remains dehydrated, as defined by BUN:creatinine ratio > 20:1 (cf., discharge BUN 32, discharge creatinine 1.06 on 01/27/2025, 7:35am). Hence, patient was advised to continue holding OFF her home-scheduled HCTZ 50mg PO daily and holding OFF her home-scheduled spironolactone 25mg PO daily until 02/05/2025, on which date, patient may restart both her home-scheduled HCTZ 50mg PO daily and her home-scheduled spironolactone 25mg PO daily. On the other hand, as acute hyperkalemia and acute kidney injury have resolved, patient may resume her home-scheduled olmesartan 40mg PO daily on hospital discharge back to her home on 01/27/2025. Patient reports that she will comply with these recommendations. #Weakness - * multifactorial including acute blood loss anemia, PILI, hyperkalemia, volume contraction, UTI, etc. * once GI bleeding has been addressed will need PT/OT #Macrocytosis - * As stated above in the section titled Acute upper GI bleeding with post- admission Hb 6.9 g/dL (01/25/2025, 12:26am). RESOLVED. Patient's vitamin B12 level is low at 139 pg/mL (01/24/2025, 2:54pm) while folate level is normal at 7.45 ng/mL (01/24/2025, 2:54pm). Patient was subsequently started on vitamin B12 100ug PO daily (01/25/2025, 7:28pm). Patient was subsequently discharged home on 01/27/2025; patient's [facility] store [address], [address] [place] [address], received an electronic prescription for vitamin B12, 100ug PO daily, #30 tablets, no refills, on 01/27/2025, prior to patient's discharge back to her home on 01/27/2025. * TSH normal at 1.144 uIU/mL (01/24/2025, 8:44am); hence, macrocytosis is not due to hypothyroidism as patient is not suffering from hypothyroidism. #h/o CAD - * no recent ischemic symptoms * EKG w/o ischemic changes * held aspirin & metoprolol succinate due to acute GI bleed and to low BP, respectively, while patient remained in [facility]. As both acute GI bleed and low BP have resolved, patient will resume her home- scheduled ASA 81mg PO daily and metoprolol succinate 50mg PO daily on hospital discharge back to her home on 01/27/2025. #Hypothyroidism - * TSH normal at 1.144 uIU/mL (01/24/2025, 8:44am); * Patient was held off her home-scheduled synthroid 112ug PO daily while in [facility] given NPO status, but as NPO status was discontinued, patient was restarted on her home-scheduled levothyroxine 112ug PO daily on 01/27/2025, 9:00am, prior to hospital discharge back to her home on 01/27/2025. #HTN - * Patient was held off her home-scheduled HCTZ, metoprolol succinate, olmesartan, verapamil, and spironolactone due to low-normal BPs in the setting of GI bleeding. As acute GI bleeding has resolved, patient was restarted on her home-scheduled metoprolol succinate 50mg PO daily. Patient will resume her home-scheduled olmesartan 40mg PO daily and verapamil 240mg PO daily on hospital discharge back to her home on 01/27/2025. However, as patient remains dehydrated, as defined by BUN:creatinine ratio > 20:1 (cf., discharge BUN 32, discharge creatinine 1.06 on 01/27/2025, 7:35am). Hence, patient was advised to continue holding OFF her home-scheduled HCTZ 50mg PO daily and holding OFF her home-scheduled spironolactone 25mg PO daily until 02/05/2025, on which date, patient may restart both her home-scheduled HCTZ 50mg PO daily and her home-scheduled spironolactone 25mg PO daily. #Mood disorder - * Patient received her home-scheduled duloxetine 30mg PO daily while in [facility] to avoid withdrawals symptoms. #COPD - * no exacerbation during this hospitalization. * patient received albuterol neb 2.5mg in 3mL NS neb q6 prn SOB/wheeze while in [facility]; patient will not continue this medication on hospital discharge home on 01/27/2025. Instead, patient will resume her home- scheduled metoprolol MDI 90ug/puff, 2 puffs PO q4 prn SOB/wheeze on hospital discharge back to her home on 01/27/2025. #Leukocytosis with WBC 12.56 (01/24/2025, 8:44am). * due to acute roberson-sensitive E. coli and K. pneumoniae UTI (as noted on 01/24/2025, 10:12am urine culture). To address (4), patient received ceftriaxone 2g IV x 1 dose (01/24/2025, 12:08pm), followed by ceftriaxone 1g IV daily x 3 doses (01/25/2025, 10:41am; 01/26/2025, 11:21am; 01/27/2025, 11:26am). No further antibiotic treatment is indicated. Hence, patient was discharged back to her home on 01/27/2025 without any prescription(s) for antibiotic(s). #Weight loss - * patient has had 5-6kg of weight loss since 2023 * unclear if patient demonstrates pancreatic exocrine function given prior Whipple procedure? (tendencies towards diarrhea, etc) #Pre-Diabetes - * HbA1c 6.0% (07/25/2024, 10:01am). #h/o paroxysmal a.fib - * [facility] * states she doesn't follow with cardiology to his knowledge * will look in [facility] to see if there are any old cardiology records * last echo was 2023 - EF 50-55% * she will be on PCU status while here #Acute hypomagnesemia with admission Mg 1.4 mg/dL (01/24/2025, 8:44 am), RESOLVED with repeat Mg 1.7 mg/dL (01/25/2025, 6:26am)(01/26/2025, 5:08am) and discharge Mg 1.8 mg/dL (01/27/2025, 7:35am). * s/p 2 grams mag sulfate x 1 IV with repeat Mg normal at 1.9 mg/dL (01/24/2025, 8:51pm). * likely due to magne-uresis due to chronic HCTZ use, poor PO intake, diarrhea, etc. #DVT proph - * chemical means contraindicated in the setting of GI bleeding * SCDs for now Of note, I called and spoke with the patient's , Mr. Kirby Tejeda ( ), at the patient's bedside in [facility] Med- Surg bed #236-1, today, 01/27/2025, regarding the above information, and he concurs with the assessment and plan above. Discharge time, 35 minutes. Of this time period, 19 minutes were spent in coordinating patient's discharge. Admission HPI Per Admitting Provider 89yo female with history of CAD, COPD, hyperlipidemia, hypothyroidism, Whipple Procedure for pancreatic cancer ~25 years ago, HTN, ischemic cardiomyopathy, and GERD presents from home due to weakness, fatigue, poor appetite, dark stools, difficulty ambulating, and simply not feeling well for 2-3 days. She also reports diarrhea at least 4 times yesterday. She noted for about 3 days that her stools were "dark" but she has had no BRBPR. Denies any abdominal pain, vomiting, hematemesis, or coffee ground emesis. She does take chronic baby aspirin 81 daily - last dose 01/23/25. Is not on chronic anticoagulation. Retrospectively she does recall feeling a little weak even about 1 week ago. Although she does not take chronic NSAIDs or drink alcohol she did have a steroid injection in her left shoulder on 01/08/25 by [facility] ([facility]). Finally, patient was hospitalized for ileus & diarrhea at [facility] from 12/14 to 12/16. Made full recovery following that admission. Discharge Exam Constitutional General: Comfortable, coherent, cooperative; wide awake and alert. Not confused, lethargic, or obtunded. Patient speaks in complete, fluent, and articulate sentences without pause, cough, or wheeze. HEENT: Normocephalic, atraumatic. Extra-ocular muscles intact. Pupils equally round and reactive to light. No nystagmus, gaze paresis, anisocoria, miosis, mydriasis, hyphema, scleral injection, conjunctivitis, or pterygium. No otorrhea or rhinorrhea. No pharyngeal erythema, edema, or discharge. Neck: Supple, no stridor, bruit, goiter, or hepato-jugular reflux. Jugular venous pressure is estimated to be 3 cm above the sternal angle of Tae, which in turn, is 5 cm above the level of the right atrium; with jugular venous pressure estimated to be 8 cm, then, there is no jugular venous distention on hospital discharge date 01/27/2025. Lymphatics: No cervical (anterior/posterior), supraclavicular, infraclavicular, axillary, epitrochlear, or inguinal adenopathy. Chest: Symmetric rise and fall with respirations. Non-tender to palpation. Lungs: Clear to auscultation and percussion. Heart: Regular rate and rhythm. S1 and S2 noted. No S3 or S4 summation gallop. No tripartite friction rub. Grade II/ early systolic murmur @ LLSB without radiation to the carotids, axilla, or back, and which remains invariant in regards to the respiratory cycle. Abdomen: Soft, non-tender, non-distended. No rebound, guarding, Danielson's sign, or organomegaly. Bowel sounds auscultated in all 4 quadrants. Extremities: No clubbing, cyanosis, or edema. 2+ pedal pulses bilaterally. Skin: No decubitus ulcer, exanthem, or enanthem. Genito-urinary: No urethral discharge. No houser catheter. Neurology: Alert and oriented in regards to person, place, time, and situation. DTR+ and symmetric. 5/5 motor strength in all 4 extremities, both proximally and distally. No pronator drift. No facial droop. No dysarthria. Psychiatry: No homicidal ideation. No suicidal ideation. No flat affect; smiles appropriately. Discharge Plan Discharge Items Patient Disposition: Home - Self-Care Reason For Visit: WEAKNESS, CONGESTION, DIARRHEA Discharge Diagnosis: 1. Acute blood loss anemia with admission Hb 8.8 g/dL, MCV 101.9, MCHC 32.10/2024, 8:44am) of unclear etiology, but presumably due to acute upper GI bleeding. 2. Acute upper GI bleeding with post-admission Hb 6.9 g/dL (01/25/2025, 12:26am). 3. Acute kidney injury with admission creatinine 1.87 mg/dL (01/24/2025, 8:44am)(due to #1, #2, and acute ampicillin-resistant, otherwise roberson-sensitive E. coli UTI / roberson-sensitive Klebsiella pneumoniae UTI (as noted on 01/24/2025, 10:12am urine culture). 4. Acute hyperkalemia with admission K 6.2 mmol/L (01/24/2025, 8:44am). Condition on Discharge: Fair Activity: Resume your previous activity Lifting: Gradually increase as tolerated Bathing: No limitations Sexual Activity: When tolerated Exercise/Sports: Gradually increase as tolerated Driving/Machine Use: No limitations Weightbearing: Full weightbearing Weightbearing Comment: Use walker when ambulating as per Physical Therapy Gregorio del pearson on 01/27/25 Non-emergency contact: Primary Care Provider Call non-emergency contact if: you have any medication questions Follow-up/Referrals: Glendy Worley MD [Primary Care Provider] - Diet: Heart Healthy, Low Fat and Low Sodium (2gm) Addtl Attending Provider Instructions: See your PCP Dr. Glendy Worley within 7 days of hospital discharge. Pending Studies at Discharge: No Stand-Alone Forms: [place], Smoking Cessation Medications and DC Order Prescriptions: New cyanocobalamin (vitamin B-12) [Vitamin B-12] 100 mcg Tablet 100 mcg PO QAM Qty: 30 0RF (DME) walker Misc See Rx Instructions .Route Qty: 1 0RF Rx Instructions: As directed pantoprazole [Protonix] [address] for susp in packet 40 mg PO BID Qty: 60 0RF Continued levothyroxine 112 mcg tablet 112 mcg PO DAILY Qty: 90 1RF Rx Instructions: TAKE ONE TABLET BY MOUTH DAILY albuterol sulfate 90 mcg/actuation HFA aerosol inhaler 2 puff inhalation Q4H PRN (Reason: shortness of breath or wheezing) Qty: 8.5 10RF Rx Instructions: 01/24- no fill history available. unable to verify cholecalciferol (vitamin D3) 1,000 unit capsule 1,000 units PO DAILY Rx Instructions: 01/24- otc unable to verify nitroglycerin 0.4 mg tablet, sublingual 0.4 mg SL ONCE PRN (Reason: Chest Pain) Rx Instructions: 01/24- no fill history available. unable to verify omega-3 acid ethyl esters 1 gram capsule 1 cap PO DAILY Rx Instructions: 01/24- otc unable to verify duloxetine [Cymbalta] 30 mg capsule,delayed release(DR/EC) 30 mg PO DAILY Qty: 30 2RF olmesartan 40 mg tablet 40 mg PO DAILY Qty: 90 2RF polyethylene glycol 3350 [Miralax] 17 gram/dose Powder 17 g PO DAILY PRN (Reason: Constipation) Rx Instructions: 01/24- otc unable to verify atorvastatin 20 mg tablet 20 mg PO DAILY aspirin 81 mg Tablet,Delayed Release (Dr/Ec) 81 mg PO DAILY Rx Instructions: 01/24- otc unable to verify Eye Pressure Support 1 cap PO DAILY Rx Instructions: 01/24- otc unable to verify trazodone 50 mg tablet 50 mg PO UD Rx Instructions: 50 mg po qpm. last filled 09/09 30 day supply metoprolol succinate 50 mg tablet extended release 24 hr 50 mg PO DAILY Rx Instructions: TAKE 1 TABLET BY MOUTH ONCE DAILY verapamil 240 mg capsule,ext rel. pellets 24 hr 240 mg PO DAILY Rx Instructions: TAKE ONE CAPSULE BY MOUTH ONE TIME DAILY Held hydrochlorothiazide 50 mg tablet 50 mg PO DAILY Qty: 90 3RF Hold Instructions: Resume on 02/05/25. spironolactone tablet 25 mg PO DAILY Hold Instructions: Resume on 02/05/25. Discontinued pantoprazole 40 mg tablet,delayed release (DR/EC) 40 mg PO DAILY Rx Instructions: TAKE 1 TABLET BY MOUTH ONCE DAILY Discharge Orders: Discharge Order (Routine); Ordered 01/27/25 Ordered By: Jesus Manuel Cisneros Admission Data Admit Date/Time: 01/24/25 12:08 Attending Provider: Jesus Manuel Cisneros Admit Provider: Jeffrey Liz Primary Care Provider: Glendy Worley Other Providers: Jeffrey Liz; Nelson Curran I Other Interventions: Discharge Summary Assessment (RN) Last Done: 01/27/25 14:03 Hospital Stay Data Consultations 01/24/25 11:31 ED Decision to Admit Stat 01/24/25 14:24 Consult Gastroenterology Routine Procedures Performed Operation Date: 01/25/25 16:45 Actual Procedures p EGD Biopsy Cytology - Nelson Curran MD Diagnostic Imagining Performed 01/24/25 09:51 CT abd pelvis wo con Stat Pending Results Patient Have Any Pending Studies at Discharge: No Discharge Instructions Given to Patient (Per Discharging Provider) See your PCP Dr. Glendy Worley within 7 days of hospital discharge. Total Time Total Time Spent Total Time Spent (In Minutes): 35 minutes. Of this time period, 19 minutes were spent in coordinating patient's discharge. Coding Level of Care Code 83183 INP/OBS DISCH >30 MIN Diagnoses Upper GI bleeding K92.2 Acute blood loss anemia D62 Macrocytosis D75.89 PILI (acute kidney injury) N17.9 Hyperkalemia E87.5 Dehydration E86.0 Leukocytosis D72.829 Abnormality of rectum K62.9 History of pancreatectomy Z90.410 CAD (coronary artery disease) I25.10 History of atrial fibrillation Z86.79 Hypothyroidism (acquired) E03.9 COPD without exacerbation J44.9 Hypomagnesemia E83.42 Prediabetes R73.03 Hiatal hernia K44.9
== END 2025-01-27 14:56 | disposition home or self-care (01) | DRG 381 ==
LOC: ED 09:36 → SUATTDRO 12:08 → 2S 12:08

== ENCOUNTER 2025-02-16 13:42 | Inpatient (IN) ==
[2025-02-16] MEDS ORDERED: SODIUM CHLORIDE 0.9% 100 ML IV PRN (14:16)
--- NOTE | 2025-02-16 14:18 | Emergency Department Note ---
Impression & Plan Acute upper gastrointestinal bleeding, Acute hypotension ED Provider Note NAME: REED JACINTO AGE: 89 SEX: F : 1935 ARRIVES VIA: Walk-In INFORMANT: Patient ED PROVIDER(S): Mino Mancuso DO CHIEF COMPLAINT: Black stools HPI: Patient is an 89-year-old female with a past medical history of COPD, diabetes, A-fib, CAD on Eliquis who presents to the ER for dark tarry stools which have been present for the past week. She denies any headache or change in vision. No chest pain or shortness of breath. No nausea, vomiting, or diarrhea. No dysuria, urgency, or frequency. She admits to mild upset stomach in her lower belly. She does feel weak and rundown. ADDITIONAL HISTORY OBTAINED: Per HPI Chronic Medical/Social Conditions Affecting Care: Per HPI PAST MEDICAL HISTORY:See Below PAST SURGICAL HISTORY:See Below FAMILY HISTORY:See Below SOCIAL HISTORY:See Below HOME MEDICATIONS:See Below ALLERGIES:See Below VITALS:See Below PHYSICAL EXAMINATION: GENERAL: Sitting up in bed, alert, well appearing, well nourished, no distress, non-toxic EYE EXAM: normal conjunctiva. OROPHARYNX: no exudate, no erythema, lips, buccal mucosa, and tongue normal and mucous membranes are moist NECK: supple, no nuchal rigidity, no adenopathy, non-tender LUNGS: Clear to auscultation. Normal chest wall mechanics HEART: no murmurs, S1 normal and S2 normal ABDOMEN: abdomen soft, non-tender, normo-active bowel sounds, no masses, no rebound or guarding. RECTAL: Dark stool covering rectum which was heme positive UPPER EXTREMITIES: upper extremities are grossly normal. LOWER EXTREMITIES: No pitting edema. NEURO EXAM: Normal sensorium, cranial nerves II-XII grossly intact, normal speech, no gross weakness of arms, no gross weakness of legs. MEDICAL DECISION MAKING: Patient is an 89-year-old female who presents to the ER with above-stated complaint. IV was established and blood work was obtained. External records reviewed from last admission in early January which showed EGD (01/25/2025, 1:25pm): one esophageal ulcer with no stigmata of recent bleed; gastritis with erosions and erythema (biopsied); gastrojejunostomy found/characterized by healthy appearing mucosa; normal appearing jejunum. Initially upon presentation she was found to be hypotensive with systolic pressures of 90. Is on Eliquis. Labs show mild leukocytosis of 12,000. Anemia 10.7. Platelets unremarkable. INR unremarkable. BMP with a CO2 of 17. Creatinine has increased significantly at 2.5. LFTs and bilirubin were unremarkable. Rectal shows heme positive black stools. Patient was placed on Protonix drip and bolus. Patient was typed and crossed and given IV fluids. Transfusion was not given as she rebounded with fluids. Discussed with gastroenterology as well as the hospitalist for further evaluation management treatment. Consults/Care Managements Discussions: Per [facility] Triage Nursing notes reviewed. Limited review of prior medical records performed Vital Signs: reviewed and remarkable for hypotension Differential diagnosis: Diverticulosis, AVM, coagulopathy, colitis, inflammatory bowel disease, malignancy, Tierney-Watson tear, esophagitis, peptic ulcer disease, variceal bleed, gastritis, epistaxis, fissure, hemorrhoids, as well as other pathologies. ER treatment provided: See below Diagnostics interpreted by me include EKG and cardiac monitoring as listed below: -Cardiac Monitoring: An order was placed for continuous cardiac monitoring. The monitor shows a rate of 60 with sinus rhythm. -ECG: none -Laboratory studies:Interpreted by me as stated above in MDM and shown below. Imaging studies: Xrays: As interpreted by me:none CTs show: none Procedures:none Critical Care: I have personally spent 35 minutes of critical care time in the direct management of this patient. This includes bedside care, interpretation of diagnostic studies, and testing, discussion with consultants, patient, and family members, and other required patient management activities. This 35 minutes is in excess of all separately billable procedures. Past Med/Surg History Problem List (Updated 02/16/25 @ 18:29 by Mino Mancuso DO) Acute hypotension (Acute) Acute upper gastrointestinal bleeding (Acute) Melena (Acute) Acute hyperkalemia (Acute) Acute UTI (Acute) PILI (acute kidney injury) (Acute) Weakness (Acute) Hiatal hernia Prediabetes Hypomagnesemia COPD without exacerbation Hypothyroidism (acquired) History of atrial fibrillation CAD (coronary artery disease) History of pancreatectomy Abnormality of rectum Hyperkalemia Macrocytosis Acute blood loss anemia (Acute) Upper GI bleeding Leukocytosis (Acute) Ileus (Acute) Dehydration (Acute) PILI (acute kidney injury) (Acute) Paralytic ileus of small intestine Renal insufficiency Arm pain, left Shoulder pain, left Wellness examination Adrenal adenoma Paresthesia of left arm Fatigue Hypertensive urgency Hyperglycemia Dermatitis Elevated alkaline phosphatase level Osteoporosis (Acute) Nephrolithiasis (Acute) Insomnia (Chronic) Incisional hernia (Chronic) Abdominal hernia (Acute) Abdominal adhesions (Acute) Medical History (Updated 02/16/25 @ 18:29 by Mino Mancuso DO) Hypothyroidism Gastro-esophageal reflux Dyslipidemia Chronic obstructive pulmonary disease Cardiomyopathy, ischemic Hypertension Paroxysmal atrial fibrillation Non-ST elevation (NSTEMI) myocardial infarction History of pancreatic cancer History of small bowel obstruction Partial small bowel obstruction Acute renal failure (ARF) (04/10/14) Surgical History History of Whipple procedure S/P recurrent ventral herniorrhaphy S/P repair of ventral hernia S/P cataract extraction History of cardiac cath History of appendectomy History of hysterectomy Family History Mother No problems noted. Father No problems noted. Son Stroke Other Family history non-contributory Social History Smoking Status: Unknown if ever smoked Tobacco Type: Cigarettes Age Started Using Tobacco: 22; Age Quit Using Tobacco: 39; packs per day: 0.5; Second Hand Exposure: No; Do You Dip or Chew Tobacco: No; Hx Alcohol Use: No Hx Substance Use: No Preferred Language: Italian Communication Ability: Effective Change Person Required: No Beliefs That Will Affect Care: None marital status: Current Living Situation: Spouse current occupational status: retired How many Children do You have: 2 How many Children do You have Comment: 1 daughter in [place]; 1 son in [place]; other son age 63 Feels Safe at Home: Yes Childhood Exposure to Second-Hand Smoke: No Diet: regular Diet Comment: eats regular eats high salt diet. caffeine: Yes (2-3 8 oz cups of coffee ) Dental Care, Regularly: No Physical Activity Frequency: Does not Exercise Seatbelt Use: always Sunscreen Use: No Do you think of yourself as: straight/heterosexual Gender Identity: Female Assistive Devices: None Allergies Allergies Allergy/AdvReac Type Severity Reaction Status Date / Time No Known Allergies Allergy Verified 02/16/25 15:08 Home Meds Home Medications Medication Instructions Recorded Confirmed cholecalciferol (vitamin D3) 25 1,000 units PO DAILY 07/29/19 02/16/25 mcg (1,000 unit) capsule nitroglycerin 0.4 mg sublingual 0.4 mg sublingual ONCE PRN Chest 07/29/19 02/16/25 tablet Pain omega-3 acid ethyl esters 1 gram 1 cap PO DAILY 07/29/19 02/16/25 capsule polyethylene glycol 3350 17 17 g PO DAILY PRN Constipation 08/19/19 02/16/25 gram/dose oral powder (Miralax) Eye Pressure Support 1 cap PO DAILY 07/19/24 02/16/25 atorvastatin 20 mg tablet 20 mg PO DAILY 07/19/24 02/16/25 metoprolol succinate 50 mg 50 mg PO DAILY 01/24/25 02/16/25 tablet,extended release 24 hr verapamil 240 mg 24 hr 240 mg PO DAILY 01/24/25 02/16/25 capsule,extended release aspirin 81 mg tablet,delayed 81 mg PO 3XWK 01/29/25 02/16/25 release spironolactone 25 mg tablet 25 mg PO DAILY 02/16/25 02/16/25 trazodone 50 mg tablet 50 mg PO HS 02/16/25 02/16/25 Previous Rx's Medication Instructions Recorded albuterol sulfate 90 mcg/actuation 2 puff inhalation Q4H PRN 01/01/21 aerosol inhaler shortness of breath or wheezing #8.5 grams hydrochlorothiazide 50 mg tablet 50 mg PO DAILY #90 tabs 09/12/24 olmesartan 40 mg tablet 40 mg PO DAILY #90 tabs 09/12/24 levothyroxine 112 mcg tablet 112 mcg PO DAILY #90 tabs 01/25/25 cyanocobalamin (vitamin B-12) 100 100 mcg PO QAM #30 tabs 01/27/25 mcg tablet (Vitamin B-12) pantoprazole 40 mg granules 40 mg PO BID #60 ea 01/27/25 delayed-release for susp in packet (Protonix) yaa #1 ea 01/27/25 yaa #1 ea 01/27/25 duloxetine 30 mg capsule,delayed 30 mg PO DAILY #30 caps 02/14/25 release (Link) Results & Data (ED) Vital Signs Vital Signs - 24 hr 02/16/25 13:59 02/16/25 14:21 02/16/25 14:21 Temperature 36.3 C L Temperature Source Skin Pulse Rate 76 Pulse Rate [Apical] 60 Respiratory Rate 20 20 Respiratory Effort / Characteristics Non-Labored Non-Labored Respiratory Depth Normal Normal Respiratory Pattern Regular Blood Pressure 92/61 L Blood Pressure [Right Arm] 109/64 Blood Pressure Mean 71 Blood Pressure Mean [Right Arm] 79 Pulse Oximetry 99 98 98 Oxygen Delivery Method Room Air Room Air Room Air Sepsis Recent Fever Within 48 Hours No Sepsis New/Unexplained Change in Mental Status N/A Sepsis Action Taken by Nursing No Action Required 02/16/25 14:48 02/16/25 14:51 02/16/25 15:21 Temperature Temperature Source Pulse Rate 60 Pulse Rate [Apical] 55 L 54 L Respiratory Rate 20 16 Respiratory Effort / Characteristics Non-Labored Non-Labored Spontaneous Respiratory Depth Normal Normal Respiratory Pattern Regular Blood Pressure Blood Pressure [Right Arm] 113/66 112/64 Blood Pressure Mean Blood Pressure Mean [Right Arm] 81 80 Pulse Oximetry 98 Oxygen Delivery Method Room Air Room Air Sepsis Recent Fever Within 48 Hours Sepsis New/Unexplained Change in Mental Status Sepsis Action Taken by Nursing Laboratory Data 02/16/25 14:17 02/16/25 14:17 Lab Results 02/16/25 02/16/25 02/16/25 Range/Units 14:17 14:21 14:27 WBC 12.38 H (4.8-10.8) K/ul RBC 3.33 L (4.20-5.40) M/uL Hgb 10.7 L (12.0-16.0) g/dl POC Hgb 10.9 L (12.0-16.0) g/dl Hct 34.0 L (37.0-47.0) % POC Hct 32 L (37-47) % MCV 102.1 H (80.0-100.0) fL MCH 32.1 (25.0-34.0) pg MCHC 31.5 L (32.0-36.0) g/dL RDW Std Deviation 59.5 H (36.4-46.3) fL RDW Coeff of Tara 15.9 H (11.5-14.5) % Plt Count 386 (130-400) K/uL MPV 8.4 L (9.4-12.4) fL Immature Gran % (Auto) 1.5 % Neut % (Auto) 87.9 % Lymph % (Auto) 6.3 % [place] % (Auto) 3.6 % Eos % (Auto) 0.2 % Baso % (Auto) 0.5 % Neut # (Auto) 10.89 H (1.40-6.50) K/uL Lymph # (Auto) 0.78 L (1.20-3.40) K/uL [place] # (Auto) 0.44 (0.11-0.59) K/uL Eos # (Auto) 0.02 (0.00-0.50) K/uL Baso # (Auto) 0.06 (0.00-0.20) K/uL Immature Gran # (Auto) 0.19 (0.01-0.20) K/uL Absolute Nucleated RBC 0.02 (0.00-0.12) K/uL Nucleated RBC % (auto) 0.2 % PT 10.5 (9.0-12.0) Seconds INR 1.0 (0.9-1.1) APTT 25 (21-31) Seconds PTT Ratio 0.9 POC Sodium 139 (135-144) mmol/L Sodium 136 (136-145) mmol/L POC Potassium 4.6 (3.3-5.0) mmol/L Potassium 4.6 (3.5-5.1) mmol/L POC Chloride 109 (101-112) mmol/L Chloride 108 H (98-107) mmol/L Carbon Dioxide 17 L (21-32) mmol/L POC Total CO2 15 L (24-31) mmol/L Anion Gap 11 (3-11) POC Anion Gap 21.0 (16-25) mmol/L POC BUN 36 H (7-18) mg/dl BUN 42 H (6-23) mg/dl Creatinine 2.52 H (0.6-1.2) mg/dl POC Creatinine 3.2 H (0.6-1.3) mg/dl Est Cr Clr Drug Dosing 12.2 ml/min eGFR 17.99 BUN/Creatinine Ratio 16.7 (10-20) Glucose 210 H (70-99(Fasting)) mg/dl POC Glucose (other) 210 H (70-99) mg/dl Calcium 8.2 L (8.6-10.3) mg/dl POC Ioniz Calcium Faith 1.13 (1.12-1.32) mmol/l Total Bilirubin 0.5 (0.2-1.0) mg/dl AST 12 L (13-39) U/L ALT 14 (7-52) U/L Alkaline Phosphatase 106 H (34-104) U/L Total Protein 6.0 (6.0-8.3) gm/dl Albumin 3.4 (3.4-5.0) gm/dl Globulin 2.6 (2.5-4.0) gm/dl Albumin/Globulin Ratio 1.3 (0.9-2) POC Stool Occult Blood Positive A (Negative) Blood Type O Positive Antibody Screen NEGATIVE Crossmatch See Detail Administered Medications Pantoprazole Sodium 40 mg/ (Dextrose) 100 mls @ 20 mls/hr IV Q5H [place] Stop: 03/18/25 14:44 Last Admin: 02/16/25 15:20 Dose: 8 mg/hr, 20 mls/hr Documented By: SETH Discontinued Medications Sodium Chloride (Nss) 500 mls @ 999 mls/hr IV .Q31M [place] Stop: 02/16/25 14:45 Last Infusion: 02/16/25 14:49 Dose: Infused Documented By: Admin: 02/16/25 14:20 Dose: 999 mls/hr Documented By: XIOMARA Pantoprazole Sodium 80 mg/ (Dextrose) 120 mls @ 480 mls/hr IV NOW ONE Stop: 02/16/25 14:30 Last Infusion: 02/16/25 14:49 Dose: Infused Documented By: Admin: 02/16/25 14:35 Dose: 480 mls/hr Documented By: XIOMARA Sodium Chloride (Nss) 500 mls @ 999 mls/hr IV .Q31M ONE Stop: 02/16/25 16:33 Last Admin: 02/16/25 16:34 Dose: 999 mls/hr Documented By: POLLY Pantoprazole Sodium (Pantoprazole Bolus/Drip) 1 each IV NOW STA Stop: 02/16/25 14:17 Last Admin: 02/16/25 14:36 Dose: 1 each Documented By: XIOMARA Discharge Plan Visit Data Chief Complaint: Abdominal Pain Stated Complaint: ABDOMINNAL PAIN ED Provider: Mino Mancuso Discharge Problem: Acute upper gastrointestinal bleeding, Acute hypotension Patient Disposition: Admitted As Inpatient Condition: Fair Discharge Instructions Interventions: ED Discharge Assessment Last Done: 02/16/25 17:59
[2025-02-16] MEDS: SODIUM CHLORIDE 0.9% 500 ML IV SCH (14:20)
[2025-02-16 14:33] LABS: Basophils # (auto) 0.06 K/uL (0.00-0.20); Basophils % (auto) 0.5 %; Eosinophils # (auto) 0.02 K/uL (0.00-0.50); Eosinophils % (auto) 0.2 %; Hemoglobin 10.7 g/dl (12.0-16.0); Immature Granulocytes # (auto) 0.19 K/uL (0.01-0.20); Immature Granulocytes % (auto) 1.5 %; Lymphocytes # (auto) 0.78 K/uL (1.20-3.40); Lymphocytes % (auto) 6.3 %; Mean Corpuscular Hemoglobin 32.1 pg (25.0-34.0); Mean Corpuscular Hgb Conc 31.5 g/dL (32.0-36.0); Mean Corpuscular Volume 102.1 fL (80.0-100.0); Mean Platelet Volume 8.4 fL (9.4-12.4); Monocytes # (auto) 0.44 K/uL (0.11-0.59); Monocytes % (auto) 3.6 %; Neutrophils # (auto) 10.89 K/uL (1.40-6.50); Neutrophils % (auto) 87.9 %; Nucleated RBC # (auto) 0.02 K/uL (0.00-0.12); Nucleated RBC % (auto) 0.2 %; Platelet Count 386 K/uL (130-400); RDW Coefficient of Variation 15.9 % (11.5-14.5); RDW Standard Deviation 59.5 fL (36.4-46.3); Red Blood Count 3.33 M/uL (4.20-5.40); White Blood Count 12.38 K/ul (4.8-10.8)
[2025-02-16] MEDS: PANTOprazole 80 MG in DEXTROSE 5% 100 ML IV ONE (14:35)
[2025-02-16] MEDS: PANTOPRAZOLE BOLUS/DRIP IV STA (14:36)
[2025-02-16 14:48] LABS: iSTAT Creatinine 3.2 mg/dl (0.6-1.3); iSTAT Hemoglobin 10.9 g/dl (12.0-16.0); iSTAT Ionized Calcium 1.13 mmol/l (1.12-1.32); iSTAT Potassium 4.6 mmol/L (3.3-5.0)
[2025-02-16 14:49] LABS: Albumin Globulin Ratio 1.3 (0.9-2); Albumin Level 3.4 gm/dl (3.4-5.0); BUN Creatinine Ratio 16.7 (10-20); Bilirubin,Total 0.5 mg/dl (0.2-1.0); Calcium 8.2 mg/dl (8.6-10.3); Creatinine Clr Calc Pharmacy 12.2 ml/min; Globulin 2.6 gm/dl (2.5-4.0); Potassium 4.6 mmol/L (3.5-5.1)
--- NOTE | 2025-02-16 15:06 | Gastrointestinal Consultation ---
Date of Consultation February 16, 2025 Assessment & Plan (1) Melena: 89 year old female w/ history of CAD, COPD, hyperlipidemia, hypothyroidism, whipple procedure for pancreatic cancer, HTN, ischemic cardiomyopathy (EF 50-55% echo 2023), hiatal hernia, and GERD admitted through the ED w/ symptomatic anemia, melena. Recent EGD w/ a nonbleeding esophageal ulcer, large hiatal hernia, gastritis, and a healthy appearing gastrojejunostomy. - Admit for observation - IV PPI bolus and drip - No NSAIDs - May have clear liquids No plan for diagnostic EGD given recent examination. However please keep NPO aftermidnight until re-evaluated by GI to see if endoscopic evaluation is clinically indicated. Thank you for allowing us to participate in the care of this patient. Please call with any acute changes, questions or concerns. Please see addendum below with additional recommendation from my supervising physician. I spent a total of 60 minutes on the date of service in review of patient's record, and previously obtained information in person and appropriate medical visit, discussion and education of plan, with patient and/or caregiver, placing orders for tests/referral/procedures as medically necessary and documentation of pertinent clinical information in patient's medical records for their visit toda y. Supervising Physician Co-Signing Physician Notes I saw and examined this patient with our nurse practitioner and agree with her assessment and plan. Possible recurrent upper GI bleed with recurrent melena like stool since discharge in early January. He claims she has been having melena for several weeks. endoscopy at that time showed gastric erosions as well as an esophageal ulceration with no stigmata of high risk for recurrent bleeding. Presently hemodynamically stable hemoglobin relatively stable compared to discharge levels back in early January. Recommend admission IV PPI drip monitor hemoglobin and hematocrit. Possible urgent endoscopy based on clinical picture and patient progress. History of Present Illness Reason for Consultation: melena Requesting Physician: Bartolome Attending Physician: Bartolome History of Present Illness 89 year old female w/ history of CAD, COPD, hyperlipidemia, hypothyroidism, whipple procedure for pancreatic cancer, HTN, ischemic cardiomyopathy (EF 50-55% echo 2023), hiatal hernia, and GERD admitted through the ED w/ symptomatic anemia, melena. GI was asked to evaluate. Pt was seen and evaluated, chart reviewed. Suggests since hospital discharge she has had episodic abdominal pain and bouts of melena. This most recently returned a day or so ago. Pain is located midline in her abd. Explained as sharp, severe. No nausea/vomiting. Notes her stools appeared black persistently over the last few days. Sought care today and she was feeling tired, weak. No fever, chills, CP, SOB. HGB 10.9 BUN 42 Not on any NSAIDs Is not sure if she has been taking a PPI EGD 2024: Esophageal ulcer with no stigmata of recent bleeding. Large hiatal hernia.Gastritis, characterized by erosions and erythema. Biopsied. A gastrojejunostomy was found, characterized by healthy appearing mucosa. Normal examined jejunum. Allergies Allergy/AdvReac Type Severity Reaction Status Date / Time No Known Allergies Allergy Verified 02/16/25 15:08 Home Medications Medication Instructions Recorded Confirmed Type cholecalciferol (vitamin D3) 25 1,000 units PO DAILY 07/29/19 02/16/25 History mcg (1,000 unit) capsule nitroglycerin 0.4 mg sublingual 0.4 mg sublingual ONCE PRN Chest 07/29/19 02/16/25 History tablet Pain omega-3 acid ethyl esters 1 gram 1 cap PO DAILY 07/29/19 02/16/25 History capsule polyethylene glycol 3350 17 17 g PO DAILY PRN Constipation 08/19/19 02/16/25 History gram/dose oral powder (Miralax) albuterol sulfate 90 mcg/actuation 2 puff inhalation Q4H PRN 01/01/21 02/16/25 Rx aerosol inhaler shortness of breath or wheezing #8.5 grams Eye Pressure Support 1 cap PO DAILY 07/19/24 02/16/25 History atorvastatin 20 mg tablet 20 mg PO DAILY 07/19/24 02/16/25 History hydrochlorothiazide 50 mg tablet 50 mg PO DAILY #90 tabs 09/12/24 02/16/25 Rx olmesartan 40 mg tablet 40 mg PO DAILY #90 tabs 09/12/24 02/16/25 Rx metoprolol succinate 50 mg 50 mg PO DAILY 01/24/25 02/16/25 History tablet,extended release 24 hr verapamil 240 mg 24 hr 240 mg PO DAILY 01/24/25 02/16/25 History capsule,extended release levothyroxine 112 mcg tablet 112 mcg PO DAILY #90 tabs 01/25/25 02/16/25 Rx cyanocobalamin (vitamin B-12) 100 100 mcg PO QAM #30 tabs 01/27/25 02/16/25 Rx mcg tablet (Vitamin B-12) pantoprazole 40 mg granules 40 mg PO BID #60 ea 01/27/25 02/16/25 Rx delayed-release for susp in packet (Protonix) walker #1 ea 01/27/25 02/08/25 Rx walker #1 ea 01/27/25 02/08/25 Rx aspirin 81 mg tablet,delayed 81 mg PO 3XWK 01/29/25 02/16/25 History release duloxetine 30 mg capsule,delayed 30 mg PO DAILY #30 caps 02/14/25 02/16/25 Rx release (Cymbalta) spironolactone 25 mg tablet 25 mg PO DAILY 02/16/25 02/16/25 History trazodone 50 mg tablet 50 mg PO HS 02/16/25 02/16/25 History Patient History Medical History (Updated 01/24/25 @ 14:01 by Pasha Cummings) Hypothyroidism Gastro-esophageal reflux Dyslipidemia Chronic obstructive pulmonary disease Cardiomyopathy, ischemic Hypertension Paroxysmal atrial fibrillation Non-ST elevation (NSTEMI) myocardial infarction History of pancreatic cancer History of small bowel obstruction Partial small bowel obstruction Acute renal failure (ARF) (04/10/14) Surgical History History of Whipple procedure S/P recurrent ventral herniorrhaphy S/P repair of ventral hernia S/P cataract extraction History of cardiac cath History of appendectomy History of hysterectomy Family History Mother No problems noted. Father No problems noted. Son Stroke Other Family history non-contributory Social History Smoking Status: Unknown if ever smoked Tobacco Type: Cigarettes Age Started Using Tobacco: 22; Age Quit Using Tobacco: 39; packs per day: 0.5; Second Hand Exposure: No; Do You Dip or Chew Tobacco: No; Hx Alcohol Use: No Hx Substance Use: No Preferred Language: Cymro Communication Ability: Effective Training Analyst Required: No Beliefs That Will Affect Care: None marital status: Current Living Situation: Spouse current occupational status: retired How many Children do You have: 2 How many Children do You have Comment: 1 daughter in [place]; 1 son in [place]; other son age 63 Feels Safe at Home: Yes Childhood Exposure to Second-Hand Smoke: No Diet: regular Diet Comment: eats regular eats high salt diet. caffeine: Yes (2-3 8 oz cups of coffee ) Dental Care, Regularly: No Physical Activity Frequency: Does not Exercise Seatbelt Use: always Sunscreen Use: No Do you think of yourself as: straight/heterosexual Gender Identity: Female Assistive Devices: None Review of Systems Review of Systems: All other findings negative except as noted in HPI. Physical Exam Constitutional: WD/WN, vitals as above Respiratory: normal respiratory effort, lungs clear to auscultation Cardiovascular: Rate/Rhythm: regular rate and regular rhythm Gastrointestinal (Abdomen): Inspection/Auscultation: normal bowel sounds Percussion/Palpation: abdomen soft + healed old surgical scars + abd hernia Skin: no rashes, warm and dry Results & Data Vital Signs (Past 12 Hours) Vital Signs Temp Pulse Pulse Resp BP BP Pulse Ox 02/16/25 14:51 60 02/16/25 14:48 55 L 20 113/66 98 02/16/25 14:21 98 02/16/25 14:21 60 20 109/64 98 02/16/25 13:59 97.3 F L 76 20 92/61 L 99 O2 Del Method 02/16/25 14:51 02/16/25 14:48 Room Air 02/16/25 14:21 Room Air 02/16/25 14:21 Room Air 02/16/25 13:59 Room Air Laboratory Results 02/16/25 02/16/25 02/16/25 Range/Units 14:27 14:21 14:17 WBC 12.38 H (4.8-10.8) K/ul RBC 3.33 L (4.20-5.40) M/uL Hgb 10.7 L (12.0-16.0) g/dl POC Hgb 10.9 L (12.0-16.0) g/dl Hct 34.0 L (37.0-47.0) % POC Hct 32 L (37-47) % MCV 102.1 H (80.0-100.0) fL MCH 32.1 (25.0-34.0) pg MCHC 31.5 L (32.0-36.0) g/dL RDW Std Deviation 59.5 H (36.4-46.3) fL RDW Coeff of Tara 15.9 H (11.5-14.5) % Plt Count 386 (130-400) K/uL MPV 8.4 L (9.4-12.4) fL Immature Gran % (Auto) 1.5 % Neut % (Auto) 87.9 % Lymph % (Auto) 6.3 % Fleming % (Auto) 3.6 % Eos % (Auto) 0.2 % Baso % (Auto) 0.5 % Neut # (Auto) 10.89 H (1.40-6.50) K/uL Lymph # (Auto) 0.78 L (1.20-3.40) K/uL Fleming # (Auto) 0.44 (0.11-0.59) K/uL Eos # (Auto) 0.02 (0.00-0.50) K/uL Baso # (Auto) 0.06 (0.00-0.20) K/uL Immature Gran # (Auto) 0.19 (0.01-0.20) K/uL Absolute Nucleated RBC 0.02 (0.00-0.12) K/uL Nucleated RBC % (auto) 0.2 % PT 10.5 (9.0-12.0) Seconds INR 1.0 (0.9-1.1) APTT 25 (21-31) Seconds PTT Ratio 0.9 POC Sodium 139 (135-144) mmol/L Sodium 136 (136-145) mmol/L POC Potassium 4.6 (3.3-5.0) mmol/L Potassium 4.6 (3.5-5.1) mmol/L POC Chloride 109 (101-112) mmol/L Chloride 108 H (98-107) mmol/L Carbon Dioxide 17 L (21-32) mmol/L POC Total CO2 15 L (24-31) mmol/L Anion Gap 11 (3-11) POC Anion Gap 21.0 (16-25) mmol/L POC BUN 36 H (7-18) mg/dl BUN 42 H (6-23) mg/dl Creatinine 2.52 H (0.6-1.2) mg/dl POC Creatinine 3.2 H (0.6-1.3) mg/dl Est Cr Clr Drug Dosing 12.2 ml/min eGFR 17.99 BUN/Creatinine Ratio 16.7 (10-20) Glucose 210 H (70-99(Fasting)) mg/dl POC Glucose (other) 210 H (70-99) mg/dl Calcium 8.2 L (8.6-10.3) mg/dl POC Ioniz Calcium Faith 1.13 (1.12-1.32) mmol/l Total Bilirubin 0.5 (0.2-1.0) mg/dl AST 12 L (13-39) U/L ALT 14 (7-52) U/L Alkaline Phosphatase 106 H (34-104) U/L Total Protein 6.0 (6.0-8.3) gm/dl Albumin 3.4 (3.4-5.0) gm/dl Globulin 2.6 (2.5-4.0) gm/dl Albumin/Globulin Ratio 1.3 (0.9-2) POC Stool Occult Blood Positive A (Negative) Blood Type O Positive Antibody Screen NEGATIVE Crossmatch See Detail PG Care Time/CCT Total # of Minutes Spent Total Time Spent with Patient: Total time spent is greater than 50% in coordination of care (as documented) at patient's floor/unit and/or counseling patient: Coding Level of Care Code 68220 INT INP/OBS CARE 2/55MIN Diagnoses Melena K92.1
[2025-02-16 15:19] LABS: Partial Thromboplastin Ratio 0.9; Partial Thromboplastin Time 25 Seconds (21-31); Prothrombin Time 10.5 Seconds (9.0-12.0)
[2025-02-16] MEDS: PANTOprazole 40 MG in DEXTROSE 5% MINI-B 100 ML IV SCH (15:20)
[2025-02-16] MEDS: SODIUM CHLORIDE 0.9% 500 ML IV ONE ×2 (16:34→23:39)
[2025-02-16] MEDS ORDERED: ALBUTEROL HFA 8 GM INHALER INH PRN (18:20)
[2025-02-16] MEDS ORDERED: ACETAMINOPHEN 325 MG TAB PO PRN (18:20)
[2025-02-16] MEDS ORDERED: MELATONIN 3 MG TAB PO PRN (18:20)
[2025-02-16] MEDS ORDERED: POLYETHYLENE (MIRALAX) 17 GM PACK PO PRN (18:20)
[2025-02-16] MEDS ORDERED: ONDANSETRON INJ 2 MG/ML 2 ML VIAL IV PRN (18:20)
[2025-02-16 18:54] LABS: Hematocrit (blood only) 36.4 % (37.0-47.0); Hemoglobin 11.7 g/dl (12.0-16.0)
[2025-02-16 19:23] LABS: Calcium 8.2 mg/dl (8.6-10.3); Potassium 4.6 mmol/L (3.5-5.1)
[2025-02-16 19:28] LABS: BUN Creatinine Ratio 17.4 (10-20); Creatinine Clr Calc Pharmacy 12.9 ml/min
[2025-02-16] MEDS: SODIUM BICARBONATE 8.4% 100 MEQ in WATER, STERILE 1,000 ML IV SCH (19:40)
--- NOTE | 2025-02-16 19:41 | History & Physical Report ---
Date of Service February 16, 2025 Assessment & Plan (1) Acute upper gastrointestinal bleeding: (2) PILI (acute kidney injury): (3) COPD without exacerbation: (4) CAD (coronary artery disease): Plan 89-year-old woman with coronary artery disease and atrial fibrillation on aspirin and apixaban, recent evaluation for upper GI bleed with endoscopy showing a nonbleeding esophageal ulcer and gastritis, admitted with ongoing melena # upper GI bleeding hemoglobin is stable when she presented with hypotension ( now resolved) and she is anticoagulated, Blatch[place] score is elevated she is high risk so admitting to PCU she has had a history of a partial pancreatectomy/Whipple and she has multiple abdominal hernias none of which are tender or incarcerated gastroenterology has consulted in the ED and recommends IV PPI, serial hemoglobin checks, consideration of repeat EGD depending on clinical course continue IV Protonix drip hemoglobin every 6 hours monitor consistency and color of stools hold aspirin and apixaban # acute kidney injury on CKD stage III # none anion gap metabolic acidosis probably related to the PILI based on labs she may be prerenal/volume depleted, potentially triggered by acute bleeding, CBC appears hemoconcentrated she got 500 mL normal saline by ED, I ordered an additional liter bolus then ongoing IV fluids with sodium bicarbonate drip at 125 mL/h hold diuretics and hold ARB monitor urine output, BMP in a.m. # coronary artery disease # atrial fibrillation Stable, continue atorvastatin metoprolol verapamil aspirin and apixaban held for acute bleeding I wonder how consistently she is taking her medications since her INR is not elevated on apixaban, however, this can occur # COPD not in exacerbation continue albuterol inhaler as needed DVT prophylaxisSCDs she states that she would like to be full code she lives with her on the lower level of their house in [place] Admission and Anticipated Discharge Date Admission Date: February 16, 2025 History of Present Illness Chief Complaint: melena Primary Care Provider: Glendy Worley MD 89-year-old woman on apixaban for atrial fibrillation as well as aspirin who came to the ED with ongoing melena. She was recently evaluated for upper GI bleeding and had endoscopy on she was found to have a nonbleeding esophageal ulcer and some gastritis. She resumed her aspirin and apixaban on discharge. She has not been taking any NSAIDs. She is supposed to be on twice daily PPI however she does not know her medications very well, it was prescribed on discharge. She says that she has been having black stool on and off since discharge several weeks ago. she denies taking iron supplements or Pepto- Bismol. It increased in the last 2 days, stools been black tarry sticky but not todd liquid, no red blood. She has been having some bilateral lower abdominal pain that seems crampy and resolved with no pain currently. No epigastric or mid back pain. initial systolic blood pressure in the ED was 80 which improved after fluids. She was not tachycardic but she is on a beta-frank. She did not have syncope Allergies Allergy/AdvReac Type Severity Reaction Status Date / Time No Known Allergies Allergy Verified 02/16/25 15:08 Home Medications Medication Instructions Recorded Confirmed Type cholecalciferol (vitamin D3) 25 1,000 units PO DAILY 07/29/19 02/16/25 History mcg (1,000 unit) capsule nitroglycerin 0.4 mg sublingual 0.4 mg sublingual ONCE PRN Chest 07/29/1902/16 History tablet Pain omega-3 acid ethyl esters 1 gram 1 cap PO DAILY 07/29/19 02/16/25 History capsule polyethylene glycol 3350 17 17 g PO DAILY PRN Constipation 08/19/19 02/16/25 History gram/dose oral powder (Miralax) albuterol sulfate 90 mcg/actuation 2 puff inhalation Q4H PRN 01/01/21 02/16/25 Rx aerosol inhaler shortness of breath or wheezing #8.5 grams Eye Pressure Support 1 cap PO DAILY 07/19/24 02/16/25 History atorvastatin 20 mg tablet 20 mg PO DAILY 07/19/24 02/16/25 History hydrochlorothiazide 50 mg tablet 50 mg PO DAILY #90 tabs 09/12/24 02/16/25 Rx olmesartan 40 mg tablet 40 mg PO DAILY #90 tabs 09/12/24 02/16/25 Rx metoprolol succinate 50 mg 50 mg PO DAILY 01/24/25 02/16/25 History tablet,extended release 24 hr verapamil 240 mg 24 hr 240 mg PO DAILY 01/24/25 02/16/25 History capsule,extended release levothyroxine 112 mcg tablet 112 mcg PO DAILY #90 tabs 01/25/25 02/16/25 Rx cyanocobalamin (vitamin B-12) 100 100 mcg PO QAM #30 tabs 01/27/25 02/16/25 Rx mcg tablet (Vitamin B-12) pantoprazole 40 mg granules 40 mg PO BID #60 ea 01/27/25 02/16/25 Rx delayed-release for susp in packet (Protonix) walker #1 ea 01/27/25 02/08/25 Rx walker #1 ea 01/27/25 02/08/25 Rx aspirin 81 mg tablet,delayed 81 mg PO 3XWK 01/29/25 02/16/25 History release duloxetine 30 mg capsule,delayed 30 mg PO DAILY #30 caps 02/14/25 02/16/25 Rx release (Cymbalta) spironolactone 25 mg tablet 25 mg PO DAILY 02/16/25 02/16/25 History trazodone 50 mg tablet 50 mg PO HS 02/16/25 02/16/25 History Past Med/Surg History Problem List Acute hypotension (Acute) Acute upper gastrointestinal bleeding (Acute) Melena (Acute) Acute hyperkalemia (Acute) Acute UTI (Acute) PILI (acute kidney injury) (Acute) Weakness (Acute) Hiatal hernia Prediabetes Hypomagnesemia COPD without exacerbation Hypothyroidism (acquired) History of atrial fibrillation CAD (coronary artery disease) History of pancreatectomy Abnormality of rectum Hyperkalemia Macrocytosis Acute blood loss anemia (Acute) Upper GI bleeding Leukocytosis (Acute) Ileus (Acute) Dehydration (Acute) PILI (acute kidney injury) (Acute) Paralytic ileus of small intestine Renal insufficiency Arm pain, left Shoulder pain, left Wellness examination Adrenal adenoma Paresthesia of left arm Fatigue Hypertensive urgency Hyperglycemia Dermatitis Elevated alkaline phosphatase level Osteoporosis (Acute) Nephrolithiasis (Acute) Insomnia (Chronic) Incisional hernia (Chronic) Abdominal hernia (Acute) Abdominal adhesions (Acute) Medical History Hypothyroidism Gastro-esophageal reflux Dyslipidemia Chronic obstructive pulmonary disease Cardiomyopathy, ischemic Hypertension Paroxysmal atrial fibrillation Non-ST elevation (NSTEMI) myocardial infarction History of pancreatic cancer History of small bowel obstruction Partial small bowel obstruction Acute renal failure (ARF) (04/10/14) Surgical History History of Whipple procedure S/P recurrent ventral herniorrhaphy S/P repair of ventral hernia S/P cataract extraction Bilateral History of cardiac cath History of appendectomy History of hysterectomy Family History Mother , unknown cause No problems noted. Father , unknown cause No problems noted. 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 caffeine: Yes (2-3 8 oz cups of coffee ) Dental Care, Regularly: No Physical Activity Frequency: Does not Exercise Seatbelt Use: always Sunscreen Use: No Do you think of yourself as: straight/heterosexual Gender Identity: Female Assistive Devices: Denture - Upper and Denture - Lower Review of Systems Review of Systems: All systems reviewed & are unremarkable except as noted in HPI & below Physical Exam Physical Exam: PHYSICAL EXAMINATION Last 24h vital signs reviewed, see documentation in flowsheet General: comfortable appearing, no distress HEENT: Normocephalic, atraumatic, pupils round and equal, sclerae anicteric, no conjunctival injection, moist mucus membranes Lungs: Normal respiratory effort. Clear to auscultation bilaterally. No RRW Heart: Regular rate and rhythm, no murmurs. No JVD Abdomen: Soft, nontender, nondistended. Bowel sounds present. Extremities: Warm, dry, well-perfused. No extremity edema. Neuro: Alert and oriented x 4, face symmetric, moves 4 extremities well Psych: Normal affect and behavior Results & Data Results & Data Vital Signs (Past 12 Hours) Vital Signs Temp Pulse Pulse Resp BP BP Pulse Ox 02/16/25 18:21 36.3 C L 55 L 18 116/73 94 02/16/25 17:59 02/16/25 17:53 54 L 16 107/55 L 100 02/16/25 16:55 36.4 C L 56 L 16 110/57 L 100 02/16/25 16:40 55 L 18 125/60 100 02/16/25 15:21 54 L 16 112/64 02/16/25 14:51 60 02/16/25 14:48 55 L 20 113/66 98 02/16/25 14:21 98 02/16/25 14:21 60 20 109/64 98 02/16/25 13:59 36.3 C L 76 20 92/61 L 99 O2 Del Method 02/16/25 18:21 Room Air 02/16/25 17:59 Room Air 02/16/25 17:53 Room Air 02/16/25 16:55 Room Air 02/16/25 16:40 Room Air 02/16/25 15:21 Room Air 02/16/25 14:51 02/16/25 14:48 Room Air 02/16/25 14:21 Room Air 02/16/25 14:21 Room Air 02/16/25 13:59 Room Air Laboratory Results notable for hemoglobin increased compared to recent dischargewas 9.6, now 11.7 mild leukocytosis which may reflect hemoconcentration normal coags and INR despite being on apixaban Electrolytes are normal however she has an acute kidney injury with BUN elevated to 42 and creatinine of 2.42. She has a none anion gap metabolic acidosis. creatinine was previously 11.2 Diagnostic Findings I personally reviewed the chest x-ray film and it is clear with no acute findings ECG Additional Comments: I personally reviewed the EKG tracing it shows sinus rhythm with a first-degree AV block no acute ischemic changes Code Status & VTE Plan Code Status she states she would want to be full code VTE Prophylaxis Plan VTE Prophylaxis will be ordered: Yes PG Care Time/CCT Total # of Minutes Spent Total Time Spent with Patient: Total time spent is greater than 50% in coordination of care (as documented) at patient's floor/unit and/or counseling patient: Coding Level of Care Code 15419 INT INP/OBS CARE MIN Diagnoses Acute upper gastrointestinal bleeding K92.2 PILI (acute kidney injury) N17.9 COPD without exacerbation J44.9 CAD (coronary artery disease) I25.10
[2025-02-16] MEDS: traZODone HCL 50 MG TAB PO SCH (21:34)
--- NOTE | 2025-02-16 23:01 | Electrocardiogram Report ---
Test Reason : Blood Pressure : */* mmHG Vent. Rate : 60 BPM Atrial Rate : 60 BPM P-R Int : 246 ms QRS Dur : 92 ms QT Int : 464 ms P-R-T Axes : 48 36 63 degrees QTcB Int : 464 ms Sinus rhythm with 1st degree A-V block Otherwise normal ECG When compared with ECG of 24-Jan-2025 09:42, NE interval has increased Vent. rate has decreased by 39 bpm Borderline criteria for Inferior infarct are no longer Present Confirmed by Marin Garcia ([id number]) on 02/16/2025 11:01:00 PM Referred By: REFERRED SELF Confirmed By: Marin Garcia
[2025-02-17] MEDS ORDERED: SODIUM BICARBONATE 8.4% 100 MEQ in SODIUM CHLORIDE 0.45 % 1,000 ML IV SCH (01:00)
[2025-02-17 01:20] LABS: Hematocrit (blood only) 29.4 % (37.0-47.0); Hemoglobin 9.5 g/dl (12.0-16.0)
[2025-02-17] MEDS: SODIUM BICARBONATE 8.4% 100 MEQ in SODIUM CHLORIDE 0.45 % 1,000 ML IV SCH (01:24)
[2025-02-17 01:36] LABS: BUN Creatinine Ratio 18.3 (10-20); Calcium 7.5 mg/dl (8.6-10.3); Creatinine Clr Calc Pharmacy 14.3 ml/min; Potassium 4.3 mmol/L (3.5-5.1)
[2025-02-17] MEDS: LEVOTHYROXINE SODIUM 112 MCG TABLET PO SCH (05:31)
[2025-02-17 05:50] LABS: Hematocrit (blood only) 28.8 % (37.0-47.0); Hemoglobin 9.5 g/dl (12.0-16.0)
[2025-02-17 06:05] LABS: BUN Creatinine Ratio 18.7 (10-20); Calcium 7.6 mg/dl (8.6-10.3); Creatinine Clr Calc Pharmacy 15.5 ml/min; Potassium 4.1 mmol/L (3.5-5.1)
--- NOTE | 2025-02-17 07:33 | Gastroenterology Progress Note ---
Date of Service February 17, 2025 Assessment & Plan (1) GI bleed: Plan: I suspect this is a slow chronic bleed in light of the fact that she has had black stool for several weeks since discharge from her prior admission. Hemodynamically stable hemoglobin back to last admissions level upon discharge. Will plan for endoscopy on Wednesday unless she has more significant bleeding over the weekend. Continue IV PPI. Admission and Anticipated Discharge Date Admission Date: February 16, 2025 Subjective Denies shortness of breath chest pain or abdominal pain. Only 1 bowel movement since admission. Physical Exam Physical Exam: No acute distress Respiratory rate regular Cardiac rhythm regular Abdomen soft nontender Results & Data Results & Data Vital Signs (Past 12 Hours) Vital Signs Temp Pulse Pulse Resp BP BP Pulse Ox 02/17/25 03:11 36.8 C 54 L 16 104/61 100 02/17/25 00:21 97/49 L 02/16/25 23:13 36.5 C 56 L 16 95/59 L 86/53 L 96 02/16/25 21:44 53 L 02/16/25 19:43 55 L 02/16/25 19:37 54 L O2 Del Method 02/17/25 03:11 Room Air 02/17/25 00:21 02/16/25 23:13 Room Air 02/16/25 21:44 02/16/25 19:43 02/16/25 19:37 Laboratory Results Laboratory Results - last 48 hr 02/16/25 02/16/25 02/16/25 14:17 14:21 14:27 WBC 12.38 H RBC 3.33 L Hgb 10.7 L POC Hgb 10.9 L Hct 34.0 L POC Hct 32 L MCV 102.1 H MCH 32.1 MCHC 31.5 L RDW Std Deviation 59.5 H RDW Coeff of Tara 15.9 H Plt Count 386 MPV 8.4 L Immature Gran % (Auto) 1.5 Neut % (Auto) 87.9 Lymph % (Auto) 6.3 [place] % (Auto) 3.6 Eos % (Auto) 0.2 Baso % (Auto) 0.5 Neut # (Auto) 10.89 H Lymph # (Auto) 0.78 L [place] # (Auto) 0.44 Eos # (Auto) 0.02 Baso # (Auto) 0.06 Immature Gran # (Auto) 0.19 Absolute Nucleated RBC 0.02 Nucleated RBC % (auto) 0.2 PT 10.5 INR 1.0 APTT 25 PTT Ratio 0.9 POC Sodium 139 Sodium 136 POC Potassium 4.6 Potassium 4.6 POC Chloride 109 Chloride 108 H Carbon Dioxide 17 L POC Total CO2 15 L Anion Gap 11 POC Anion Gap 21.0 POC BUN 36 H BUN 42 H Creatinine 2.52 H POC Creatinine 3.2 H Est Cr Clr Drug Dosing 12.2 eGFR 17.99 BUN/Creatinine Ratio 16.7 Glucose 210 H POC Glucose (other) 210 H Calcium 8.2 L POC Ioniz Calcium Faith 1.13 Total Bilirubin 0.5 AST 12 L ALT 14 Alkaline Phosphatase 106 H Total Protein 6.0 Albumin 3.4 Globulin 2.6 Albumin/Globulin Ratio 1.3 POC Stool Occult Blood Positive A Blood Type O Positive Antibody Screen NEGATIVE Crossmatch See Detail 02/16/25 02/17/25 02/17/25 18:44 00:58 05:23 WBC RBC Hgb 11.7 L 9.5 L 9.5 L POC Hgb Hct 36.4 L 29.4 L 28.8 L POC Hct MCV MCH MCHC RDW Std Deviation RDW Coeff of Tara Plt Count MPV Immature Gran % (Auto) Neut % (Auto) Lymph % (Auto) [place] % (Auto) Eos % (Auto) Baso % (Auto) Neut # (Auto) Lymph # (Auto) [place] # (Auto) Eos # (Auto) Baso # (Auto) Immature Gran # (Auto) Absolute Nucleated RBC Nucleated RBC % (auto) PT INR APTT PTT Ratio POC Sodium Sodium 139 138 138 POC Potassium Potassium 4.6 4.3 4.1 POC Chloride Chloride 111 H 109 H 107 Carbon Dioxide 17 L 20 L 23 POC Total CO2 Anion Gap 11 9 8 POC Anion Gap POC BUN BUN 42 H 40 H 38 H Creatinine 2.42 H 2.19 H 2.03 H POC Creatinine Est Cr Clr Drug Dosing 12.9 14.3 15.5 eGFR 18.88 21.28 23.31 BUN/Creatinine Ratio 17.4 18.3 18.7 Glucose 141 H 93 82 POC Glucose (other) Calcium 8.2 L 7.5 L 7.6 L POC Ioniz Calcium Faith Total Bilirubin AST ALT Alkaline Phosphatase Total Protein Albumin Globulin Albumin/Globulin Ratio POC Stool Occult Blood Blood Type Antibody Screen Crossmatch PG Care Time/CCT Total # of Minutes Spent Total Time Spent with Patient: Total time spent is greater than 50% in coordination of care (as documented) at patient's floor/unit and/or counseling patient: Coding Level of Care Code 06272 SUB INP/OBS CARE 2/35MIN Diagnoses GI bleed K92.2
[2025-02-17] MEDS: DULoxetine HCL 30 MG CAP PO SCH (08:14)
[2025-02-17] MEDS: ATORVASTATIN 20 MG TAB PO SCH (08:14)
[2025-02-17] MEDS: METOPROLOL SUCC 50MG EXT REL TAB PO SCH (08:14)
[2025-02-17] MEDS: VERAPAMIL HCL 240 MG TABCR PO SCH (08:14)
[2025-02-17 12:29] LABS: Hematocrit (blood only) 27.1 % (37.0-47.0); Hemoglobin 8.8 g/dl (12.0-16.0)
--- NOTE | 2025-02-17 14:01 | Hospitalist Progress Note ---
Date of Service February 17, 2025 Assessment & Plan (1) Acute upper gastrointestinal bleeding: (2) PILI (acute kidney injury): (3) COPD without exacerbation: (4) CAD (coronary artery disease): Plan 89-year-old woman with coronary artery disease and atrial fibrillation on aspirin and apixaban, recent evaluation for upper GI bleed with endoscopy showing a nonbleeding esophageal ulcer and gastritis, admitted with ongoing melena # upper GI bleeding continues to have ongoing melena, hemoglobin has drifted downward to 8.5 though there is some dilutional component, will repeat again tonight and in a.m. continue IV Protonix drip hemoglobin check tonight. I did complete a transfusion consent with her on 02/16 monitor consistency and color of stools hold aspirin and apixaban reviewed recommendations in gastroenterology note and we will continue to monitor for now plan for EGD Wednesday presuming she stays stable # acute kidney injury on CKD stage III # non anion gap metabolic acidosis related to the PILI based on labs she was prerenal/volume depleted, potentially triggered by acute bleeding, CBC appeared hemoconcentrated on presentation given saline boluses yesterday, ran overnight on bicarb drip appears euvolemic at this time. metabolic acidosis has resolved. Stop bicarb drip Creatinine improved to 2.0 hold diuretics and hold ARB check BMP in a.m. # coronary artery disease # atrial fibrillation Stable, continue atorvastatin metoprolol verapamil aspirin and apixaban held for acute bleeding # COPD not in exacerbation continue albuterol inhaler as needed DVT prophylaxisSCDs she lives with her on the lower level of their house in [place] Admission and Anticipated Discharge Date Admission Date: February 16, 2025 Subjective Ongoing melena overnight and this morning which was corroborated by nursing. this morning there was some green stool mixed with melena no abdominal pain nausea or vomiting is hungry and thirsty Physical Exam 2 Physical Exam: PHYSICAL EXAMINATION Last 24h vital signs reviewed, see documentation in flowsheet General: comfortable appearing, no distress, sitting up in the chair by the window HEENT: Normocephalic, atraumatic, pupils round and equal, sclerae anicteric, no conjunctival injection, try mucus membranes Lungs: Normal respiratory effort. Clear to auscultation bilaterally. No RRW Heart: Regular rate and rhythm, no murmurs. No JVD Abdomen: Soft, nontender, nondistended. multiple abdominal hernias nontender and easily reduced. Bowel sounds present. Extremities: Warm, dry, well-perfused. No extremity edema. Neuro: Alert and oriented x 4, face symmetric, moves 4 extremities well Psych: Normal affect and behavior Results & Data Results & Data Vital Signs (Past 12 Hours) Vital Signs Temp Pulse Pulse Resp BP Pulse Ox O2 Del Method 02/17/25 11:25 36.5 C 64 16 112/73 95 Room Air 02/17/25 08:00 58 L 02/17/25 07:32 36.6 C 59 L 17 93/58 L 96 Room Air 02/17/25 03:11 36.8 C 54 L 16 104/61 100 Room Air Laboratory Results 02/17/25 12:05 02/17/25 05:23 PG Care Time/CCT Total # of Minutes Spent Total Time Spent with Patient: Total time spent is greater than 50% in coordination of care (as documented) at patient's floor/unit and/or counseling patient: Coding Level of Care Code 32806 SUB INP/OBS CARE 3/50MIN Diagnoses Acute upper gastrointestinal bleeding K92.2 PILI (acute kidney injury) N17.9 COPD without exacerbation J44.9 CAD (coronary artery disease) I25.10
[2025-02-18 06:58] LABS: Hematocrit (blood only) 28.5 % (37.0-47.0); Hemoglobin 9.2 g/dl (12.0-16.0); Mean Corpuscular Hemoglobin 32.1 pg (25.0-34.0); Mean Corpuscular Hgb Conc 32.3 g/dL (32.0-36.0); Mean Corpuscular Volume 99.3 fL (80.0-100.0); Mean Platelet Volume 8.7 fL (9.4-12.4); Platelet Count 278 K/uL (130-400); RDW Coefficient of Variation 15.7 % (11.5-14.5); RDW Standard Deviation 57.1 fL (36.4-46.3); Red Blood Count 2.87 M/uL (4.20-5.40); White Blood Count 8.42 K/ul (4.8-10.8)
[2025-02-18 07:20] LABS: Calcium 7.6 mg/dl (8.6-10.3); Potassium 4.4 mmol/L (3.5-5.1)
--- NOTE | 2025-02-18 07:57 | Gastroenterology Progress Note ---
Date of Service February 18, 2025 Assessment & Plan (1) GI bleed: Plan: Hemodynamically stable hemoglobin stable persistent black stool. Will proceed with endoscopy in a.m. Admission and Anticipated Discharge Date Admission Date: February 16, 2025 Subjective Denies shortness of breath chest pain or abdominal pain. Stool is still dark. Physical Exam Physical Exam: No acute distress Respiratory rate regular Cardiac rhythm regular Abdomen soft nontender Results & Data Results & Data Vital Signs (Past 12 Hours) Vital Signs Temp Pulse Pulse Resp BP Pulse Ox O2 Del Method 02/18/25 07:06 36.5 C 65 16 101/63 92 Room Air 02/18/25 02:30 36.6 C 67 18 92/53 L 92 Room Air 02/18/25 00:15 110/55 L 02/17/25 22:48 36.6 C 68 18 80/54 L 94 Room Air 02/17/25 21:38 65 Laboratory Results Laboratory Results - last 48 hr 02/16/25 02/16/25 02/16/25 14:17 14:21 14:27 WBC 12.38 H RBC 3.33 L Hgb 10.7 L POC Hgb 10.9 L Hct 34.0 L POC Hct 32 L MCV 102.1 H MCH 32.1 MCHC 31.5 L RDW Std Deviation 59.5 H RDW Coeff of Tara 15.9 H Plt Count 386 MPV 8.4 L Immature Gran % (Auto) 1.5 Neut % (Auto) 87.9 Lymph % (Auto) 6.3 [place] % (Auto) 3.6 Eos % (Auto) 0.2 Baso % (Auto) 0.5 Neut # (Auto) 10.89 H Lymph # (Auto) 0.78 L [place] # (Auto) 0.44 Eos # (Auto) 0.02 Baso # (Auto) 0.06 Immature Gran # (Auto) 0.19 Absolute Nucleated RBC 0.02 Nucleated RBC % (auto) 0.2 PT 10.5 INR 1.0 APTT 25 PTT Ratio 0.9 POC Sodium 139 Sodium 136 POC Potassium 4.6 Potassium 4.6 POC Chloride 109 Chloride 108 H Carbon Dioxide 17 L POC Total CO2 15 L Anion Gap 11 POC Anion Gap 21.0 POC BUN 36 H BUN 42 H Creatinine 2.52 H POC Creatinine 3.2 H Est Cr Clr Drug Dosing 12.2 eGFR 17.99 BUN/Creatinine Ratio 16.7 Glucose 210 H POC Glucose (other) 210 H Calcium 8.2 L POC Ioniz Calcium Faith 1.13 Total Bilirubin 0.5 AST 12 L ALT 14 Alkaline Phosphatase 106 H Total Protein 6.0 Albumin 3.4 Globulin 2.6 Albumin/Globulin Ratio 1.3 POC Stool Occult Blood Positive A Blood Type O Positive Antibody Screen NEGATIVE Crossmatch See Detail 02/16/25 02/17/25 02/17/25 18:44 00:58 05:23 WBC RBC Hgb 11.7 L 9.5 L 9.5 L POC Hgb Hct 36.4 L 29.4 L 28.8 L POC Hct MCV MCH MCHC RDW Std Deviation RDW Coeff of Tara Plt Count MPV Immature Gran % (Auto) Neut % (Auto) Lymph % (Auto) [place] % (Auto) Eos % (Auto) Baso % (Auto) Neut # (Auto) Lymph # (Auto) [place] # (Auto) Eos # (Auto) Baso # (Auto) Immature Gran # (Auto) Absolute Nucleated RBC Nucleated RBC % (auto) PT INR APTT PTT Ratio POC Sodium Sodium 139 138 138 POC Potassium Potassium 4.6 4.3 4.1 POC Chloride Chloride 111 H 109 H 107 Carbon Dioxide 17 L 20 L 23 POC Total CO2 Anion Gap 11 9 8 POC Anion Gap POC BUN BUN 42 H 40 H 38 H Creatinine 2.42 H 2.19 H 2.03 H POC Creatinine Est Cr Clr Drug Dosing 12.9 14.3 15.5 eGFR 18.88 21.28 23.31 BUN/Creatinine Ratio 17.4 18.3 18.7 Glucose 141 H 93 82 POC Glucose (other) Calcium 8.2 L 7.5 L 7.6 L POC Ioniz Calcium Faith Total Bilirubin AST ALT Alkaline Phosphatase Total Protein Albumin Globulin Albumin/Globulin Ratio POC Stool Occult Blood Blood Type Antibody Screen Crossmatch 02/17/25 02/17/25 02/18/25 12:05 15:16 05:42 WBC 8.42 RBC 2.87 L Hgb 8.8 L 8.6 L 9.2 L POC Hgb Hct 27.1 L 28.5 L POC Hct MCV 99.3 MCH 32.1 MCHC 32.3 RDW Std Deviation 57.1 H RDW Coeff of Tara 15.7 H Plt Count 278 MPV 8.7 L Immature Gran % (Auto) Neut % (Auto) Lymph % (Auto) [place] % (Auto) Eos % (Auto) Baso % (Auto) Neut # (Auto) Lymph # (Auto) [place] # (Auto) Eos # (Auto) Baso # (Auto) Immature Gran # (Auto) Absolute Nucleated RBC Nucleated RBC % (auto) PT INR APTT PTT Ratio POC Sodium Sodium 140 POC Potassium Potassium 4.4 POC Chloride Chloride 109 H Carbon Dioxide 26 POC Total CO2 Anion Gap 5 POC Anion Gap POC BUN BUN 32 H Creatinine 1.68 H D POC Creatinine Est Cr Clr Drug Dosing 19.0 eGFR 29.26 BUN/Creatinine Ratio 19.0 Glucose 76 POC Glucose (other) Calcium 7.6 L POC Ioniz Calcium Faith Total Bilirubin AST ALT Alkaline Phosphatase Total Protein Albumin Globulin Albumin/Globulin Ratio POC Stool Occult Blood Blood Type Antibody Screen Crossmatch PG Care Time/CCT Total # of Minutes Spent Total Time Spent with Patient: Total time spent is greater than 50% in coordination of care (as documented) at patient's floor/unit and/or counseling patient: Coding Level of Care Code 08066 SUB INP/OBS CARE 2/35MIN Diagnoses GI bleed K92.2
--- NOTE | 2025-02-18 15:47 | Hospitalist Progress Note ---
Date of Service February 18, 2025 Assessment & Plan (1) Acute upper gastrointestinal bleeding: (2) PILI (acute kidney injury): (3) COPD without exacerbation: (4) CAD (coronary artery disease): Plan 89-year-old woman with coronary artery disease and atrial fibrillation on aspirin and apixaban, recent evaluation for upper GI bleed with endoscopy showing a nonbleeding esophageal ulcer and gastritis, admitted with ongoing melena # upper GI bleeding suspect some slow oozing, did have brown stool overnight possibly has stopped. hemoglobin increased to 9.2 today, affected by volume shifts continue IV Protonix drip CBC in a.m. I did complete a transfusion consent with her on 02/16 monitor consistency and color of stools hold aspirin and apixaban per recommendations in GI note still planning EGD for tomorrow # acute kidney injury on CKD stage III - improving # non anion gap metabolic acidosis related to the PILI - resolved IV fluids are not running and she is on clear liquid diet Creatinine improved to 1.6 hold diuretics and hold ARB a.m. BMP # coronary artery disease # atrial fibrillation Stable, continue atorvastatin metoprolol verapamil aspirin and apixaban held for acute bleeding # COPD not in exacerbation continue albuterol inhaler as needed DVT prophylaxisSCDs she lives with her on the lower level of their house in [place] Admission and Anticipated Discharge Date Admission Date: February 16, 2025 Subjective she was recorded by nursing to have light-colored stools overnight, no abdominal pain no nausea vomiting Physical Exam 2 Physical Exam: PHYSICAL EXAMINATION Last 24h vital signs reviewed, see documentation in flowsheet General: up in bed getting her IV fixed HEENT: Normocephalic, atraumatic, pupils round and equal, sclerae anicteric, no conjunctival injection, moist mucus membranes Lungs: Normal respiratory effort. Clear to auscultation bilaterally. No RRW Heart: Regular rate and rhythm, no murmurs. No JVD Abdomen: Soft, nontender, nondistended. multiple abdominal hernias nontender and easily reduced. Bowel sounds present. exam unchanged 02/18 Extremities: Warm, dry, well-perfused. No extremity edema. Neuro: Alert and oriented x 4, face symmetric, moves 4 extremities well Psych: Normal affect and behavior Results & Data Results & Data Vital Signs (Past 12 Hours) Vital Signs Temp Pulse Pulse Resp BP Pulse Ox O2 Del Method 05/04/25 14:23 72 02/18/25 11:36 36.5 C 65 16 104/54 L 96 Room Air 02/18/25 08:00 62 02/18/25 07:06 36.5 C 65 16 101/63 92 Room Air Laboratory Results 02/18/25 05:42 02/18/25 05:42 PG Care Time/CCT Total # of Minutes Spent Total Time Spent with Patient: Total time spent is greater than 50% in coordination of care (as documented) at patient's floor/unit and/or counseling patient: Coding Level of Care Code 23931 SUB INP/OBS CARE 2/35MIN Diagnoses Acute upper gastrointestinal bleeding K92.2 PILI (acute kidney injury) N17.9 COPD without exacerbation J44.9 CAD (coronary artery disease) I25.10
[2025-02-19 06:57] LABS: Hematocrit (blood only) 26.8 % (37.0-47.0); Hemoglobin 8.6 g/dl (12.0-16.0); Mean Corpuscular Hemoglobin 31.9 pg (25.0-34.0); Mean Corpuscular Hgb Conc 32.1 g/dL (32.0-36.0); Mean Corpuscular Volume 99.3 fL (80.0-100.0); Mean Platelet Volume 8.4 fL (9.4-12.4); Platelet Count 219 K/uL (130-400); RDW Coefficient of Variation 15.9 % (11.5-14.5); RDW Standard Deviation 57.9 fL (36.4-46.3); White Blood Count 5.97 K/ul (4.8-10.8)
[2025-02-19 07:19] LABS: BUN Creatinine Ratio 17.8 (10-20); Calcium 7.7 mg/dl (8.6-10.3); Creatinine Clr Calc Pharmacy 23.9 ml/min; Potassium 4.8 mmol/L (3.5-5.1)
--- NOTE | 2025-02-19 10:08 | Gastroenterology Progress Note ---
Date of Service February 19, 2025 Assessment & Plan (1) GI bleed: Plan: 89 year old female w/ history of CAD, COPD, hyperlipidemia, hypothyroidism, whipple procedure for pancreatic cancer, HTN, ischemic cardiomyopathy (EF 50-55% echo 2023), hiatal hernia, and GERD admitted through the ED w/ symptomatic anemia, melena. Recent EGD w/ a nonbleeding esophageal ulcer, large hiatal hernia, gastritis, and a healthy appearing gastrojejunostomy. - NPO for EGD today - IV PPI bolus and drip - No NSAIDs - Trend H&H - Monitor/document GI output - Transfuse per primary team We appreciate assistance in the management of any serological abnormality and corrections to include: hemoglobin >7, INR <2, platelets >50,000, potassium levels >3.5 but <5.3, and sodium levels within 5 points of the reference range prior to endoscopic evaluation. Admission and Anticipated Discharge Date Admission Date: February 16, 2025 Supervising Physician Co-Signing Physician Notes I personally saw and examined the patient. I have reviewed the chart and agree with the documentation provided by the DENIAL RESOLUTION SPECIALIST including discussion about the assessment, treatment and plan. Briefly, 89 year old female w/ history of CAD, COPD, hyperlipidemia, hypothyroidism, whipple procedure for pancreatic cancer, HTN, ischemic cardiomyopathy (EF 50-55% echo 2023), hiatal hernia, and GERD admitted through the ED w/ symptomatic anemia, melena. Prior egd with eso ulcer. EGD today. npo. ppi bid. Subjective Last BM documented as light in color - pt recalls stool as being black still. Review of Systems Review of Systems: All other findings negative except as noted in HPI. Physical Exam Constitutional: WD/WN, vitals as above Respiratory: normal respiratory effort Cardiovascular: Rate/Rhythm: regular rate Gastrointestinal (Abdomen): normal bowel sounds, soft, nontender, no hepatosplenomegaly Skin: no rashes, warm and dry Results & Data Results & Data Vital Signs (Past 12 Hours) Vital Signs Temp Pulse Pulse Resp BP BP Pulse Ox 02/19/25 07:50 67 02/19/25 07:25 97.7 F 74 16 137/80 92 02/19/25 02:20 97.7 F 82 18 114/72 96 02/18/25 23:04 97.7 F 74 18 111/63 94 02/18/25 22:55 72 O2 Del Method 02/19/25 07:50 02/19/25 07:25 Room Air 02/19/25 02:20 Room Air 02/18/25 23:04 Room Air 02/18/25 22:55 Laboratory Results 02/19/25 Range/Units 06:24 WBC 5.97 (4.8-10.8) K/ul RBC 2.70 L (4.20-5.40) M/uL Hgb 8.6 L (12.0-16.0) g/dl Hct 26.8 L (37.0-47.0) % MCV 99.3 (80.0-100.0) fL MCH 31.9 (25.0-34.0) pg MCHC 32.1 (32.0-36.0) g/dL RDW Std Deviation 57.9 H (36.4-46.3) fL RDW Coeff of Tara 15.9 H (11.5-14.5) % Plt Count 219 (130-400) K/uL MPV 8.4 L (9.4-12.4) fL Sodium 140 (136-145) mmol/L Potassium 4.8 (3.5-5.1) mmol/L Chloride 110 H (98-107) mmol/L Carbon Dioxide 27 (21-32) mmol/L Anion Gap 3 (3-11) BUN 24 H (6-23) mg/dl Creatinine 1.35 H D (0.6-1.2) mg/dl Est Cr Clr Drug Dosing 23.9 ml/min eGFR 38.04 BUN/Creatinine Ratio 17.8 (10-20) Glucose 74 (70-99(Fasting)) mg/dl Calcium 7.7 L (8.6-10.3) mg/dl PG Care Time/CCT Total # of Minutes Spent Total Time Spent with Patient: Total time spent is greater than 50% in coordination of care (as documented) at patient's floor/unit and/or counseling patient: Coding Level of Care Code None Diagnoses GI bleed K92.2
[2025-02-19] MEDS: SODIUM CHLORIDE 0.9% 500 ML IV SCH (12:56)
--- NOTE | 2025-02-19 13:00 | Anesthesiology Consultation ---
Date of Service February 19, 2025 Assessment & Plan Chart Review Chart Review: Acceptable Risk for Surgery and Patient NOT seen in Pre Admission Testing Consults Requested none History Surgery Operation Date: 02/19/25 16:55 Proposed Procedures p Esophagogastroduodenoscopy Basilia - Juan Ramon Cui MD Height/Weight Height: 5 ft Weight: 60.5 kg Allergies Allergy/AdvReac Type Severity Reaction Status Date / Time No Known Allergies Allergy Verified 02/16/25 15:08 Medications Home Medications Medication Instructions Recorded Confirmed Last Taken cholecalciferol (vitamin D3) 25 1,000 units PO DAILY 07/29/19 02/16/25 02/16/25 mcg (1,000 unit) capsule nitroglycerin 0.4 mg sublingual 0.4 mg sublingual ONCE PRN Chest 07/29/19 02/16/25 Unknown tablet Pain omega-3 acid ethyl esters 1 gram 1 cap PO DAILY 07/29/19 02/16/25 02/16/25 capsule polyethylene glycol 3350 17 17 g PO DAILY PRN Constipation 08/19/19 02/16/25 Unknown gram/dose oral powder (Miralax) albuterol sulfate 90 mcg/actuation 2 puff inhalation Q4H PRN 01/01/21 02/16/25 Unknown aerosol inhaler shortness of breath or wheezing #8.5 grams Eye Pressure Support 1 cap PO DAILY 07/19/24 02/16/25 02/16/25 atorvastatin 20 mg tablet 20 mg PO DAILY 07/19/24 02/16/25 02/16/25 hydrochlorothiazide 50 mg tablet 50 mg PO DAILY #90 tabs 09/12/24 02/16/25 02/16/25 olmesartan 40 mg tablet 40 mg PO DAILY #90 tabs 09/12/24 02/16/25 02/16/25 metoprolol succinate 50 mg 50 mg PO DAILY 01/24/25 02/16/25 02/16/25 tablet,extended release 24 hr verapamil 240 mg 24 hr 240 mg PO DAILY 01/24/25 02/16/25 02/16/25 capsule,extended release levothyroxine 112 mcg tablet 112 mcg PO DAILY #90 tabs 01/25/25 02/16/25 02/16/25 cyanocobalamin (vitamin B-12) 100 100 mcg PO QAM #30 tabs 01/27/25 02/16/25 02/16/25 mcg tablet (Vitamin B-12) pantoprazole 40 mg granules 40 mg PO BID #60 ea 01/27/25 02/16/25 02/16/25 delayed-release for susp in packet (Protonix) walker #1 ea 01/27/25 02/08/25 Unknown walker #1 ea 01/27/25 02/08/25 Unknown aspirin 81 mg tablet,delayed 81 mg PO 3XWK 01/29/25 02/16/25 02/16/25 release duloxetine 30 mg capsule,delayed 30 mg PO DAILY #30 caps 02/14/25 02/16/25 02/16/25 release (Cymbalta) spironolactone 25 mg tablet 25 mg PO DAILY 02/16/25 02/16/25 02/16/25 trazodone 50 mg tablet 50 mg PO HS 02/16/25 02/16/25 02/15/25 Active Medications Generic Name Dose Route Start Last Admin Trade Name Freq PRN Reason Stop Dose Admin Atorvastatin Calcium 20 mg 02/17/25 09:00 02/19/25 08:06 Atorvastatin 20 Mg Tab PO 03/19/25 08:59 20 mg DAILY ELMIRA Administration Duloxetine HCl 30 mg 02/17/25 09:00 02/19/25 08:06 Duloxetine Hcl 30 Mg Cap PO 03/19/25 08:59 30 mg DAILY ELMIRA Administration Pantoprazole Sodium 40 mg/ 100 mls @ 20 mls/hr 02/16/25 14:45 02/19/25 08:05 Dextrose IV 03/18/25 14:44 8 mg/hr Q5H ELMIRA 20 mls/hr Administration 8 MG/HR Sodium Chloride 500 mls @ 15 mls/hr 02/19/25 07:30 02/19/25 12:56 Nss IV 02/20/25 07:29 15 mls/hr .Q24H ELMIRA Administration Levothyroxine Sodium 112 mcg 02/17/25 06:30 02/19/25 06:18 Levothyroxine Sodium 112 Mcg Tablet PO 03/19/25 06:29 112 mcg DAILYBB ELMIRA Administration Metoprolol Succinate 50 mg 02/17/25 09:00 02/18/25 09:16 Metoprolol Succ 50mg Ext Rel Tab PO 03/19/25 08:59 Not Given DAILY ELMIRA Trazodone HCl 50 mg 02/16/25 21:00 02/18/25 20:14 Trazodone Hcl 50 Mg Tab PO 03/18/25 20:59 50 mg HS ELMIRA Administration Verapamil HCl 240 mg 02/17/25 09:00 02/18/25 09:16 Verapamil Hcl 240 Mg Tabcr PO 03/19/25 08:59 Not Given DAILY ELMIRA NPO Date Last Intake of Fluids: 02/19/25 Time Last Intake of Fluids: 08:00 Last Intake of Fluids Comment: drink with meds Date Last Intake of Solids: 02/16/25 Last Intake of Solids Comment: pt reports no solid food since admission Past Medical History Medical History Hypothyroidism Gastro-esophageal reflux Dyslipidemia Chronic obstructive pulmonary disease Cardiomyopathy, ischemic Hypertension Paroxysmal atrial fibrillation Non-ST elevation (NSTEMI) myocardial infarction History of pancreatic cancer History of small bowel obstruction Partial small bowel obstruction Acute renal failure (ARF) (04/10/14) Past Family History Family History Mother , unknown cause No problems noted. Father , unknown cause No problems noted. Son Stroke Other Family history non-contributory Past Surgical History Surgical History History of Whipple procedure S/P recurrent ventral herniorrhaphy S/P repair of ventral hernia S/P cataract extraction Bilateral History of cardiac cath History of appendectomy History of hysterectomy Social History Smoking Status: Former smoker tobacco type: cigarettes Do You Dip or Chew Tobacco: No Hx Alcohol Use: No Alcohol type: beer alcohol intake frequency: a few times a month Hx Substance Use: No substance use type: does not use Physical Exam Vital Signs Last Vital Signs Temp 36.7 C 02/19/25 12:50 Pulse 79 02/19/25 12:50 Resp 18 02/19/25 12:50 BP 167/85 H 02/19/25 12:50 Pulse Ox 98 02/19/25 12:50 O2 Del Method Room Air 02/19/25 12:50 Testing Laboratory Results 02/19/25 06:24 02/19/25 06:24 PT 10.5 Seconds (9.0-12.0) 02/16/25 14:17 INR 1.0 (0.9-1.1) 02/16/25 14:17 APTT 25 Seconds (21-31) 02/16/25 14:17 Blood Type O Positive 02/16/25 14:17 Antibody Screen NEGATIVE 02/16/25 14:17 02/17/25 Unknown Urine Culture - Final Urine,Straight Cath No growth - less than 1,000 colonies/mL. 02/17/25 00:58 Aerobic Blood Culture - Preliminary Blood No growth in Aerobic bottle after 48 hours. Anaerobic Blood Culture - Preliminary No growth in Anaerobic bottle after 48 hours. 02/17/25 00:58 Aerobic Blood Culture - Preliminary Blood No growth in Aerobic bottle after 48 hours. Anaerobic Blood Culture - Preliminary No growth in Anaerobic bottle after 48 hours.
--- NOTE | 2025-02-19 14:00 | GI REPORT ---
[facility] Patient: REED JACINTO : 1935 Sex at : Female Age: 89 Years Procedure: Upper GI endoscopy Date: 02/19/2025 Attending Physician: Juan Ramon Cui MD Referring MD: Referred Self Indications: - Melena - Suspected upper gastrointestinal bleeding Medications: - Monitored Anesthesia Care - Monitored Anesthesia Care Complications: - No immediate complications., No immediate complications. Estimated Blood Loss: - Estimated blood loss: None. - Estimated blood loss: None. Procedure: - Prior to the procedure, a History and Physical was performed, and patient medications and allergies were reviewed. The patient's tolerance of previous anesthesia was also reviewed. The risks and benefits of the procedure and the sedation options and risks were discussed with the patient. All questions were answered, and informed consent was obtained. Prior Anticoagulants: The patient has taken no anticoagulant or antiplatelet agents. ASA Grade Assessment: IV - A patient with severe systemic disease that is a constant threat to life. After reviewing the risks and benefits, the patient was deemed in satisfactory condition to undergo the procedure. - The egd scope was introduced through the mouth and advanced to the jejunum. - The upper GI endoscopy was accomplished without difficulty. - The patient tolerated the procedure well. Findings: - One superficial esophageal ulcer with no stigmata of recent bleeding was found at the gastroesophageal junction. The lesion was 5 mm in largest dimension. Compared to prior, ulcer in esophagus is healing. - Diffuse mild inflammation characterized by erythema was found in the gastric body. - There was evidence of a patent previous surgical anastomosis in the efferent jejunal loop. This was characterized by friable mucosa. 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 Coagulation for hemostasis using argon beam at 0.5 liters/minute and 30 dawn was successful. - One non-bleeding cratered ulcer with no stigmata of bleeding was found at the anastomosis. The lesion was 6 mm in largest dimension. Impression: - Esophageal ulcer with no stigmata of recent bleeding. - Compared to prior, ulcer in esophagus is healing. - Acute gastritis, characterized by erythema. - Patent previous surgical anastomosis, characterized by friable mucosa was found in the jejunum. 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 Treated with argon beam coagulation. - Non-bleeding jejunal ulcer with no stigmata of bleeding. - No specimens collected. Recommendation: - Discharge patient to home (ambulatory). - Resume previous diet. - Continue present medications. - Await pathology results. - Return to primary care physician as previously scheduled. - Patient has a contact number available for emergencies. The signs and symptoms of potential delayed complications were discussed with the patient. Return to normal activities tomorrow. Written discharge instructions were provided to the patient. - Discharge patient to home (ambulatory). - Resume previous diet. - Continue present medications. - Await pathology results. - Return to primary care physician as previously scheduled. - Patient has a contact number available for emergencies. The signs and symptoms of potential delayed complications were discussed with the patient. Return to normal activities tomorrow. Written discharge instructions were provided to the patient. - Use Protonix (pantoprazole) 40 mg PO BID for 1 week. - then qd chcf. - start a full liquid diet and advance to soft solids in am. 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 All Rights Reserved. The CPT codes, CCI edits and ICD codes generated are intended as suggestions and were generated based on input data. These codes are preliminary and upon learning engineer review may be revised to meet current compliance and payer requirements. The provider is responsible for the final determination of appropriate codes, and modifiers. Juan Ramon Cui MD This document has been electronically signed. Note Initiated:02/19/2025 Note Completed:02/19/2025 1:59 PM \\[id number]
--- NOTE | 2025-02-19 14:33 | Anesthesiology Progress Note ---
Date of Service February 19, 2025 Anesthesia Post Procedure Vital Signs Vital Signs: Temp Pulse Pulse Resp BP BP Pulse Ox 02/19/25 14:19 75 18 155/85 H 96 02/19/25 14:04 85 18 147/74 H 97 02/19/25 13:49 70 18 96/53 L 100 02/19/25 12:50 36.7 C 79 18 167/85 H 98 02/19/25 11:13 36.7 C 75 14 146/79 H 95 02/19/25 07:50 67 02/19/25 07:25 36.5 C 74 16 137/80 92 02/19/25 02:20 36.5 C 82 18 114/72 96 02/18/25 23:04 36.5 C 74 18 111/63 94 02/18/25 22:55 72 02/18/25 19:20 36.6 C 78 18 130/66 92 02/18/25 16:23 36.9 C 70 16 112/66 92 O2 Del Method 02/19/25 14:19 Room Air 02/19/25 14:04 Room Air 02/19/25 13:49 Room Air 02/19/25 12:50 Room Air 02/19/25 11:13 Room Air 02/19/25 07:50 02/19/25 07:25 Room Air 02/19/25 02:20 Room Air 02/18/25 23:04 Room Air 02/18/25 22:55 02/18/25 19:20 Room Air 02/18/25 16:23 Room Air Pain Intensity Abdomen: Pain Intensity: 3 Transfer of Care Handoff Completed per policy Notes Mental Status: alert / awake / arousable Patient Amnestic to Procedure: Yes Nausea / Vomiting: adequately controlled Pain: adequately controlled Airway Patency, RR, SpO2: stable & adequate BP & HR: stable & adequate Hydration State: stable & adequate Anesthetic Complications: no major complications apparent and Pt Satisfied with anesthetic care
[2025-02-19] MEDS: LIDOCAINE 2% 2 ML VIAL/AMP(20MG/ML) INFIL ONE (14:40)
[2025-02-19] MEDS: PROPOFOL IV EMULSION 10 MG/ML 20 ML VIAL IV ONE (14:40)
[2025-02-19 15:43] VITALS: TEMP 97.9
[2025-02-19 15:44] VITALS: O2SAT 97
[2025-02-19 15:46] VITALS: PULSE 79; RESP 14
[2025-02-19 15:50] VITALS: BP 146/79
--- NOTE | 2025-02-19 16:29 | Discharge Summary ---
Discharge Summary Date of Service February 19, 2025 Principal Dx & Hospital Course #1 = Principal Diagnosis (1) Acute upper gastrointestinal bleeding: (2) PILI (acute kidney injury): (3) COPD without exacerbation: (4) CAD (coronary artery disease): Plan 89-year-old woman with coronary artery disease and atrial fibrillation on aspirin and apixaban, recent evaluation for upper GI bleed with endoscopy showing a nonbleeding esophageal ulcer and gastritis, admitted with ongoing melena. treated with Protonix drip, melena persisted for a while but eventually resolved and hemoglobin decreased a little bit consistent with slow upper GI bleeding. # upper GI bleeding # acute blood loss anemia Hemoglobin has been up and down, affected by volume shifts. stable today at 8.5, I think the 9.2 yesterday was spurious or hemoconcentrated has had no further melena the past 24 hours EGD done 02/19 with findings of previous esophageal ulcer healing compared to last study, gastritis, inflammation at the jejunal anastomosis but no todd ulcer, nonbleeding jejunal ulcer, 2 AVMs were cauterized. I do not see that any biopsies were taken based on the report. discussed with gastroenterologyokay for discharge today with soft diet and continue twice daily PPI. it is unclear to me whether she was actually taking this and whether it was twice daily, sent new prescription for twice daily pantoprazole follow-up in primary care for repeat CBC, eventual iron supplement but at this point in time I think it will be confusing with respect to her stool color # acute kidney injury on CKD stage III - resolving. creatinine peaked to 2.5 # non anion gap metabolic acidosis related to the PILI - resolved initially treated with IV sodium bicarbonate until euvolemic, ARB and diuretics were held Creatinine improved to 1.3 which is much closer to her baseline hold olmesartan for 1 week then resume please recheck BMP in primary care for renal function and electrolytes # coronary artery disease # atrial fibrillation Stable, continue atorvastatin metoprolol verapamil not currently on anticoagulation aspirin held for acute bleeding resume aspirin in a week no NSAIDs # COPD not in exacerbation continue albuterol inhaler as needed she lives with her on the lower level of their house in [place] Notes For Next Care Provider please check CBC and BMP on follow-up Medication Changes From Visit sent new prescription for twice daily PPI I am unclear whether she was actually taking it prior to admission hold aspirin and olmesartan for 1 week then resume Admission HPI Per Admitting Provider 89-year-old woman on apixaban for atrial fibrillation as well as aspirin who came to the ED with ongoing melena. She was recently evaluated for upper GI bleeding and had endoscopy on she was found to have a nonbleeding esophageal ulcer and some gastritis. She resumed her aspirin and apixaban on discharge. She has not been taking any NSAIDs. She is supposed to be on twice daily PPI however she does not know her medications very well, it was prescribed on discharge. She says that she has been having black stool on and off since discharge several weeks ago. she denies taking iron supplements or Pepto- Bismol. It increased in the last 2 days, stools been black tarry sticky but not todd liquid, no red blood. She has been having some bilateral lower abdominal pain that seems crampy and resolved with no pain currently. No epigastric or mid back pain. initial systolic blood pressure in the ED was 80 which improved after fluids. She was not tachycardic but she is on a beta-frank. She did not have syncope Discharge Exam PHYSICAL EXAMINATION Last 24h vital signs reviewed, see documentation in flowsheet General: awake lying in bed exam unchanged 5/5 HEENT: Normocephalic, atraumatic, pupils round and equal, sclerae anicteric, no conjunctival injection, moist mucus membranes Lungs: Normal respiratory effort. Clear to auscultation bilaterally. No RRW Heart: Regular rate and rhythm, no murmurs. No JVD Abdomen: Soft, nontender, nondistended. multiple abdominal hernias nontender and easily reduced. Bowel sounds present. exam unchanged Extremities: Warm, dry, well-perfused. No extremity edema. Neuro: Alert and oriented x 4, face symmetric, moves 4 extremities well Psych: Normal affect and behavior Discharge Plan Discharge Items Patient Disposition: Home - Self-Care Reason For Visit: UPPER GI BLEEDING Discharge Diagnosis: Upper GI bleeding Condition on Discharge: Fair Activity: Resume your previous activity Non-emergency contact: Primary Care Provider Call non-emergency contact if: you have any medication questions Follow-up/Referrals: Glendy Worley MD [Primary Care Provider] - 02/27/25 9:00 am (Hospital follow up scheduled with Dr. Worley on February 27, 2025 at 9:00am. The office phone number is [phone]) Diet: Regular and Other - See Diet Comment Diet Comment: soft diet for a few days Addtl Attending Provider Instructions: You were hospitalized for upper GI bleeding This has stopped EGD results: previous esophageal ulcer is healing gastritis (irritated stomach) and irritated at your previous surgery site where the small bowel was sewn together nonbleeding ulcer in beginning of small intesting two abnormal blood vessels (AVMs) in beginning of small intestine were cauterized. These are not dangerous but they can cause bleeding Continue twice a day pantoprazole Follow up in primary care Keep an eye on your stools - seek medical care if black/tarry or bloody stool. Your stools have been brown for over 24 hours Iron supplements and pepto-bismol can turn your stool dark/black You had an acute kidney injury - this is resolving -continue metoprolol and verapamil -hold olmesartan for one week and hold aspirin for one week Ask primary care to check labs for anemia and kidney function It was a pleasure taking care of you in the hospital Paola Culp MD Pending Studies at Discharge: No Stand-Alone Forms: [facility] [employer], Smoking Cessation Medications and DC Order Prescriptions: New pantoprazole 40 mg tablet,delayed release (DR/EC) 40 mg PO BID Qty: 30 0RF Continued levothyroxine 112 mcg tablet 112 mcg PO DAILY Qty: 90 1RF Rx Instructions: TAKE ONE TABLET BY MOUTH DAILY duloxetine [Cymbalta] 30 mg capsule,delayed release(DR/EC) 30 mg PO DAILY Qty: 30 2RF albuterol sulfate 90 mcg/actuation HFA aerosol inhaler 2 puff inhalation Q4H PRN (Reason: shortness of breath or wheezing) Qty: 8.5 10RF cholecalciferol (vitamin D3) 1,000 unit capsule 1,000 units PO DAILY nitroglycerin 0.4 mg tablet, sublingual 0.4 mg SL ONCE PRN (Reason: Chest Pain) omega-3 acid ethyl esters 1 gram capsule 1 cap PO DAILY hydrochlorothiazide 50 mg tablet 50 mg PO DAILY Qty: 90 3RF Hold Instructions: Resume on 02/05/25. polyethylene glycol 3350 [Miralax] 17 gram/dose Powder 17 g PO DAILY PRN (Reason: Constipation) atorvastatin 20 mg tablet 20 mg PO DAILY Eye Pressure Support 1 cap PO DAILY Rx Instructions: 01/24- otc unable to verify metoprolol succinate 50 mg tablet extended release 24 hr 50 mg PO DAILY Rx Instructions: TAKE 1 TABLET BY MOUTH ONCE DAILY verapamil 240 mg capsule,ext rel. pellets 24 hr 240 mg PO DAILY Rx Instructions: TAKE ONE CAPSULE BY MOUTH ONE TIME DAILY cyanocobalamin (vitamin B-12) [Vitamin B-12] 100 mcg Tablet 100 mcg PO QAM Qty: 30 0RF (DME[place] [facility] [place] .Route Qty: 1 0RF Rx Instructions: As directed (DME) [facility] See Rx Instructions .Route Qty: 1 0RF Rx Instructions: As directed spironolactone 25 mg tablet 25 mg PO DAILY trazodone 50 mg tablet 50 mg PO HS Held olmesartan 40 mg tablet 40 mg PO DAILY Qty: 90 2RF Hold Instructions: Resume on 02/26/25. aspirin 81 mg tablet,delayed release (DR/EC) 81 mg PO 3XWK Hold Instructions: Resume on 02/26/25. Rx Instructions: TAKES -W- Discontinued pantoprazole [Protonix] [address] for susp in packet 40 mg PO BID Qty: 60 0RF Discharge Orders: Discharge Order (Routine); Ordered 02/19/25 Ordered By: Paola Culp Admission Data Admit Date/Time: 02/16/25 16:02 Attending Provider: Paola Culp Admit Provider: Paola Culp Primary Care Provider: Glendy Worley Other Providers: Juan Carlos Awad Other Interventions: Discharge Summary Assessment (RN) Last Done: 02/19/25 15:47 Hospital Stay Data Consultations 02/16/25 14:51 ED Decision to Admit Stat Procedures Performed Operation Date: 02/19/25 16:55 Actual Procedures p EGD Hemostasis - Juan Ramon Cui MD Pending Results Patient Have Any Pending Studies at Discharge: No Discharge Instructions Given to Patient (Per Discharging Provider) You were hospitalized for upper GI bleeding This has stopped EGD results: previous esophageal ulcer is healing gastritis (irritated stomach) and irritated at your previous surgery site where the small bowel was sewn together nonbleeding ulcer in beginning of small intesting two abnormal blood vessels (AVMs) in beginning of small intestine were cauterized. These are not dangerous but they can cause bleeding Continue twice a day pantoprazole Follow up in primary care Keep an eye on your stools - seek medical care if black/tarry or bloody stool. Your stools have been brown for over 24 hours Iron supplements and pepto-bismol can turn your stool dark/black You had an acute kidney injury - this is resolving -continue metoprolol and verapamil -hold olmesartan for one week and hold aspirin for one week Ask primary care to check labs for anemia and kidney function It was a pleasure taking care of you in the hospital Paola Culp MD Total Time Total Time Spent Total Time Spent (In Minutes): I personally spent: 40 minutes today on clinical care activities including: reviewing chart notes and vital signs reviewing labs reviewing studies discussion with mortgage consultant(s) - gastroenterology examining and counseling the patient writing orders writing prescriptions, discharge instructions documentation Coding Level of Care Code 39453 INP/OBS DISCH >30 MIN Diagnoses Acute upper gastrointestinal bleeding K92.2 PILI (acute kidney injury) N17.9 COPD without exacerbation J44.9 CAD (coronary artery disease) I25.10
[2025-02-19] MEDS ORDERED: PANTOprazole 40 MG TAB PO SCH (21:00)
== END 2025-02-19 16:35 | disposition home or self-care (01) | DRG 378 ==
LOC: SUATTDRO → ED 13:42 → 2S 16:02

== ENCOUNTER 2025-04-24 07:43 | Inpatient (IN) ==
[2025-04-24] MEDS: SODIUM CHLORIDE 0.9% 500 ML IV STA (08:18)
[2025-04-24 08:21] LABS: Hematocrit (blood only) 43.8 % (37.0-47.0); Hemoglobin 14.2 g/dl (12.0-16.0); Immature Granulocytes # (auto) 0.07 K/uL (0.01-0.20); Immature Granulocytes % (auto) 0.5 %; Mean Corpuscular Hemoglobin 29.7 pg (25.0-34.0); Mean Corpuscular Volume 91.6 fL (80.0-100.0); Platelet Count 549 K/uL (130-400); RDW Standard Deviation 44.0 fL (36.4-46.3); Red Blood Count 4.78 M/uL (4.20-5.40); White Blood Count 15.00 K/ul (4.8-10.8)
[2025-04-24] MEDS: ONDANSETRON INJ 2 MG/ML 2 ML VIAL IV STA (08:41)
[2025-04-24 08:56] LABS: Alanine Aminotransferase 12.0 U/L (7-52); Albumin Globulin Ratio 1.4 (0.9-2); Alkaline Phosphatase 106.0 U/L (34-104); Anion Gap 18.0 (3-11); Bilirubin,Total 0.4 mg/dl (0.2-1.0); Blood Urea Nitrogen 35.0 mg/dl (6-23); Calcium 9.4 mg/dl (8.6-10.3); Carbon Dioxide 24.0 mmol/L (21-32); Chloride 100.0 mmol/L (98-107); Creatinine Clr Calc Pharmacy 17.6 ml/min; Globulin 3.1 gm/dl (2.5-4.0); Glucose 237.0 mg/dl (70-99(Fasting)); Lipase 48.0 U/L (11-82); Potassium 3.9 mmol/L (3.5-5.1); Sodium 142.0 mmol/L (136-145); Total Protein 7.5 gm/dl (6.0-8.3)
[2025-04-24 09:31] LABS: Chlamydia pneumoniae PCR Not Detected (NotDetected); Coronavirus 229E PCR Not Detected (NotDetected); Coronavirus CoV-2 (COVID19)PCR Not Detected (NotDetected); Coronavirus HKU1 PCR Not Detected (NotDetected); Coronavirus NL63 PCR Not Detected (NotDetected); Coronavirus OC43PCR Not Detected (NotDetected); Human Metapneumovirus PCR Not Detected (NotDetected); Parainfluenza Virus 1 PCR Not Detected (NotDetected); Parainfluenza Virus 2 PCR Not Detected (NotDetected); Parainfluenza Virus 3 PCR Not Detected (NotDetected); Parainfluenza Virus 4 PCR Not Detected (NotDetected); Respiratory Syncytial VirusPCR Not Detected (NotDetected); Rhinovirus/Enterovirus PCR Not Detected (NotDetected)
[2025-04-24] MEDS: PROMETHAZINE 12.5 MG/50.5 ML BAG IV STA (09:31)
--- NOTE | 2025-04-24 10:40 | CT Scan Report ---
CT OF THE ABDOMEN AND PELVIS WITHOUT CONTRAST CLINICAL HISTORY: Abdominal pain, nausea, vomiting. COMPARISON STUDY: CT of the abdomen and pelvis January 24, 2025. TECHNIQUE: Axial images of the abdomen and pelvis were obtained without IV contrast. Images were revi ewed in the axial, sagittal, and coronal planes. Automated exposure control was utilized for the jackie dy. A dose lowering technique was utilized adhering to the principles of ALARA. FINDINGS: A large hiatal hernia with partially intrathoracic stomach is partially imaged on this exam . The stomach is distended and fluid-filled. The proximal to mid small bowel is also markedly dilated and fluid-filled. Small bowel feces sign is noted within the left anterior abdomen. The distal small bowel is decompressed. There is mild associated mesenteric stranding and trace ascites. Definitive t ransition point is not identified. However, the findings represent a small bowel obstruction. There a re multiple bowel containing ventral hernias. It's unclear if these result in the bowel obstruction. Apparent wall thickening of the distal stomach on image 113 noted. This may be due to underdistention . In addition, there is a 3.4 cm suspected polypoid mass within the rectum on image 267. There is no lymphadenopathy. A low-attenuation left adrenal nodule is unchanged from earlier exams. This is benig n. Water attenuation right renal lesions favor cysts. There is no hydronephrosis. Pneumobilia is agai n noted. IMPRESSION: 1. Findings consistent with a moderate to high-grade small bowel obstruction, as described above. Dil ated fluid-filled proximal to mid small bowel with decompressed distal small bowel. Definite transiti on point identified although likely within the left anterior abdomen. Multiple bowel containing ventr al hernias. It's not clear whether whether these result in a bowel obstruction. Associated mesenteric stranding and trace ascites. Large hiatal hernia with partially intrathoracic stomach which is fluid -filled and dilated. Nasogastric tube insertion might be considered. 2. Suspected polypoid mass within the rectum measuring 3.4 cm. GI consultation is recommended. 3. Apparent thickening of the distal stomach. This may be due to underdistention although could be co rrelated on follow-up imaging studies or endoscopy to exclude the less likely possibility of a mucosa l lesion. ACT 112: Positive. There are findings on this exam that require communication between the performing entity and the patient following Patient Test Result Information Act ([place] Act 112) guidelines. Electronically signed by: Ramon Chowdhury M.D. 04/24/2025 10:38 AM
--- NOTE | 2025-04-24 10:48 | Emergency Department Note ---
ED Visit Note I was consulted by the Advanced Practice Provider. I personally made/approved the management plan and take responsibility for the patient management. This includes the aspects of: -History/Physical -MDM
--- NOTE | 2025-04-24 12:59 | History & Physical Report ---
Date of Service April 24, 2025 Assessment & Plan (1) Small bowel obstruction: (2) Paroxysmal atrial fibrillation: (3) Hypothyroidism: (4) Chronic obstructive pulmonary disease: Plan 89-year-old female with previous history of Whipple procedure due to pancreatic carcinoma in 2004 presents with high-grade bowel obstruction and a possibility of a rectal mass. Patient has a history of atrial fibrillation taking chronic anticoagulation and metoprolol and verapamil, ischemic cardiomyopathy additionally taking aspirin atorvastatin hydrochlorothiazide and olmesartan. She has frequent recent admissions for upper GI bleeding from various causes including gastritis peptic ulcer disease and jejunal angiodysplasias. Patient is acute kidney injury on chronic kidney disease stage III #High-grade bowel obstruction. Patient has NG tube low to mid suction. Will given IV fluids. Concerns this will be complicated surgery if required. Patient is not sure she wants to be transferred to tertiary center at this point in time. She says she will only go if it is absolutely positively required. Patient is a DNR at this point time and she wonders if she will even want surgery if this does not resolve on its own. Will follow lactic acid and because of leukocytosis we will use some Zosyn therapy #Atrial fibrillation apixaban will be held patient will be given intravenous metoprolol course verapamil Salamol as well as all oral medications. Other history of skin cardiomyopathy in her record last echocardiogram performed in 2019 further showed an EF of 50 to 55% with concentric LVH #Hypothyroidism her Synthroid is held at this time if if she is a prolonged hospital stay we may consider using intravenous Synthroid to 50% dosing every other day DVT prevention prevention her apixaban is held after 24 hours may consider instituting chemoprophylaxis if she is going to be here for prolonged period of time Upon discussion emergency department patient wishes to be DNR History of Present Illness Primary Care Provider: Glendy Worley MD 89-year-old female with a history of pancreatic cancer status post Whipple procedure who has been intermittently admitted over the last few months with upper GI bleeding. Patient presents with high-grade small bowel obstruction with multiple small bowel within inside hernia loops and a possible rectal mass versus stool ball. Patient had a Whipple procedure here at [facility] by Dr. 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 The patient is having increasing abdominal pain bloating distention he has not a good recollection of when she had her last bowel movement. Allergies Allergy/AdvReac Type Severity Reaction Status Date / Time No Known Allergies Allergy Verified 04/24/25 10:29 Home Medications Medication Instructions Recorded Confirmed Type nitroglycerin 0.4 mg sublingual 0.4 mg sublingual ONCE PRN Chest 07/29/19 04/24/25 History tablet Pain hydrochlorothiazide 50 mg tablet 50 mg PO DAILY #90 tabs 09/12/24 04/24/25 Rx olmesartan 40 mg tablet 40 mg PO DAILY #90 tabs 09/12/24 04/24/25 Rx metoprolol succinate 50 mg 50 mg PO DAILY 01/24/25 04/24/25 History tablet,extended release 24 hr levothyroxine 112 mcg tablet 112 mcg PO DAILY #90 tabs 01/25/25 04/24/25 Rx walker #1 ea 01/27/25 03/06/25 Rx walker #1 ea 01/27/25 03/06/25 Rx aspirin 81 mg tablet,delayed 81 mg PO 3XWK 01/29/25 04/24/25 History release trazodone 50 mg tablet 50 mg PO HS 02/16/25 04/24/25 History atorvastatin 20 mg tablet 20 mg PO QPM #90 tabs 03/20/25 04/24/25 Rx duloxetine 30 mg capsule,delayed 30 mg PO DAILY 04/24/25 04/24/25 History release mv-mn-folic 200 mcg-vit K 15 1 cap PO DAILY 04/24/25 04/24/25 History mcg-lutein 5 mg-zeaxanthin 1 mg capsule (PreserVision AREDS 2 Plus Multivit) pantoprazole 40 mg tablet,delayed 40 mg PO BID #30 tabs 04/24/25 Rx release verapamil 360 mg 24 hr 360 mg PO DAILY 04/24/25 04/24/25 History capsule,extended release Past Med/Surg History Problem List (Updated 04/24/25 @ 13:23 by Ike Juarez MD) Small bowel obstruction Chronic obstructive pulmonary disease Hypothyroidism Paroxysmal atrial fibrillation Edema Jejunal ulcer Esophageal ulcer GI bleed Acute hypotension (Acute) Acute upper gastrointestinal bleeding (Acute) Melena (Acute) Acute hyperkalemia (Acute) PILI (acute kidney injury) (Acute) Weakness (Acute) Hiatal hernia Prediabetes Hypomagnesemia COPD without exacerbation Hypothyroidism (acquired) History of atrial fibrillation CAD (coronary artery disease) History of pancreatectomy Abnormality of rectum Hyperkalemia Macrocytosis Acute blood loss anemia (Acute) Upper GI bleeding Leukocytosis (Acute) Ileus (Acute) Dehydration (Acute) PILI (acute kidney injury) (Acute) Paralytic ileus of small intestine Renal insufficiency Arm pain, left Shoulder pain, left Wellness examination Adrenal adenoma Paresthesia of left arm Fatigue Hypertensive urgency Hyperglycemia Dermatitis Elevated alkaline phosphatase level Osteoporosis (Acute) Nephrolithiasis (Acute) Insomnia (Chronic) Incisional hernia (Chronic) Abdominal hernia (Acute) Abdominal adhesions (Acute) Medical History Hypothyroidism Gastro-esophageal reflux Dyslipidemia Chronic obstructive pulmonary disease Cardiomyopathy, ischemic Hypertension Paroxysmal atrial fibrillation Non-ST elevation (NSTEMI) myocardial infarction History of pancreatic cancer History of small bowel obstruction Partial small bowel obstruction Acute renal failure (ARF) (04/10/14) Surgical History History of Whipple procedure S/P recurrent ventral herniorrhaphy S/P repair of ventral hernia S/P cataract extraction History of cardiac cath History of appendectomy History of hysterectomy Family History Mother No problems noted. Father No problems noted. Son Stroke Other Family history non-contributory Social History Smoking Status: Former smoker Tobacco Type: Cigarettes Age Started Using Tobacco: 22; Age Quit Using Tobacco: 39; packs per day: 0.5; Second Hand Exposure: No; Do You Dip or Chew Tobacco: No; Hx Alcohol Use: No Hx Substance Use: No Preferred Language: Bulgarian Communication Ability: Effective Aml Analyst Required: No Beliefs That Will Affect Care: None marital status: Current Living Situation: Spouse current occupational status: retired How many Children do You have: 2 How many Children do You have Comment: 1 daughter in [place]; 1 son in [place]; other son age 63 Feels Safe at Home: Yes Childhood Exposure to Second-Hand Smoke: No Diet: regular Diet Comment: eats regular eats high salt diet. caffeine: Yes (2-3 8 oz cups of coffee ) Dental Care, Regularly: No Physical Activity Frequency: Does not Exercise Seatbelt Use: always Sunscreen Use: No Do you think of yourself as: straight/heterosexual Gender Identity: Female Assistive Devices: Walker Review of Systems Review of Systems: Mild to moderate distress and fatigue no headache, no visual changes no speech or swallowing issues no chest pain, pressure or palpitations no shortness of breath, cough or wheezes Diffuse abdominal pain and distention nausea improved after NG tube placed cannot recall last bowel movement no dysuria, hematuria or frequency no focal joint pain or swelling no back pain, CVA tenderness or radicular pain no bruising, bleeding or rashes no focal signs of weakness or numbness or altered sensation no complaints of anxiety or depression.. Physical Exam Physical Exam: The patient appeared chronically ill looks stated age Vital signs as documented. Head exam is normocephalic atraumatic Neck is without JVD, thyromegaly, or carotid bruits. Lungs are clear to auscultation, prolonged expiratory phase consistent with COPD diagnosis Cardiac exam, .. History of A-fib but sounds regular systolic murmur heard at the left lower sternal border Abdominal exam reveals high-pitched tinkling bowel sounds tender to examination no rebound no guarding hernia associated with abdominal scar easily reduced Extremities are nonedematous and both pedal pulses are present Neurologic exam is alert and oriented, no focal loss of strength or sensation Skin is without bruises or rashes Psychologically is without concerns for anxiety or depression. Does have some concerns for memory loss. Results & Data Results & Data Vital Signs (Past 12 Hours) Vital Signs Temp Pulse Resp BP Pulse Ox O2 Del Method 04/24/25 12:42 100 H 26 H 04/24/25 12:39 99 H 31 H 91 04/24/25 12:00 109 H 17 166/130 H 95 04/24/25 11:31 97 H 24 169/127 H 96 04/24/25 11:01 96 H 23 198/133 H 94 04/24/25 10:33 94 H 24 179/122 H 96 04/24/25 09:57 93 H 28 H 206/125 H 94 04/24/25 09:30 93 H 25 H 177/130 H 94 04/24/25 09:00 90 24 206/130 H 95 04/24/25 08:39 95 H 04/24/25 08:24 97 H 20 201/129 H 94 04/24/25 08:11 101 H 20 95 Room Air 04/24/25 07:51 97.7 F 107 H 17 142/93 H 94 Room Air Code Status & VTE Plan VTE Prophylaxis Plan VTE Prophylaxis will be ordered: Yes PG Care Time/CCT Total # of Minutes Spent Total Time Spent with Patient: Total time spent is greater than 50% in coordination of care (as documented) at patient's floor/unit and/or counseling patient: Coding Level of Care Code 51357 INT INP/OBS CARE 3/75MIN Diagnoses Small bowel obstruction K56.609 Paroxysmal atrial fibrillation I48.0 Hypothyroidism E03.9 Chronic obstructive pulmonary disease J44.9
[2025-04-24] MEDS ORDERED: ONDANSETRON INJ 2 MG/ML 2 ML VIAL IV PRN (13:29)
[2025-04-24] MEDS ORDERED: MoRPHine SULFATE 4 MG/ML 1 ML CARP\\VIAL IV PRN (13:29)
[2025-04-24] MEDS: LACTATED RINGER'S 1,000 ML IV SCH (13:39)
[2025-04-24] MEDS ORDERED: FAMOTIDINE 20MG IV PUSH 20 MG/5 ML SYR IV SCH (13:45)
[2025-04-24] MEDS ORDERED: FAMOTIDINE 20MG IV PUSH 20 MG/5 ML SYR IV ONE (14:00)
[2025-04-24] MEDS: PIPERACILLIN/TAZOBACTAM 4.5 GM/100 ML BAG IV ONE (14:12)
[2025-04-24] MEDS: PANTOprazole 40 MG in SYRINGE DAILY IV SCH (14:12)
[2025-04-24] MEDS: METOPROLOL TARTRATE 1 MG/ML VIAL IV SCH (17:57)
--- NOTE | 2025-04-24 18:05 | Electrocardiogram Report ---
Test Reason : Blood Pressure : */* mmHG Vent. Rate : 94 BPM Atrial Rate : 94 BPM P-R Int : 216 ms QRS Dur : 80 ms QT Int : 386 ms P-R-T Axes : -3 -11 -14 degrees QTcB Int : 482 ms Sinus rhythm with 1st degree A-V block Abnormal ECG When compared with ECG of 16-Feb-2025 14:34, Vent. rate has increased by 34 bpm T wave inversion now evident in Inferior leads Confirmed by Marin Gaona ([id number]) on 04/24/2025 6:04:54 PM Referred By: REFERRED SELF Confirmed By: Marin Gaona
[2025-04-24 19:54] LABS: Appearance Urine Clear (Clear); Bacteria Urine Automated 4+ (None Seen); Epithelial Cell Urine Auto 0-2 /hpf (0-2); Glucose Urine UA Negative (Negative); RBC Urine Automated 0-2 /hpf (0-2)
[2025-04-24] MEDS: PIPERACILLIN/TAZOBACTAM 4.5 GM/100 ML BAG IV SCH (21:10)
[2025-04-25] MEDS: ACETAMINOPHEN 1,000 MG/100 ML VIAL IV PRN (05:26)
--- NOTE | 2025-04-25 07:31 | XRay Report ---
EXAM: XR KUB/Abdomen 1 view CLINICAL HISTORY: Eval: Small bowel obstruction. TECHNIQUE: X-ray images of the abdomen were obtained in the Anteroposterior (AP) projection COMPARISON: No prior studies available for comparison. FINDINGS: Gas Pattern: Multiple dilated small bowel loops, maximum caliber 4.5 cm suspected of small bowel obstruction. Fecal loaded colon. Soft Tissues: Soft tissues of the abdomen appear normal without evidence of masses. Liver, spleen, and kidneys are of normal size and position. Calcified focus projecting over liver shadow. Surgical gregg in the right hypochondrium. Spondylotic changes in the thoracolumbar spine. Degenerative changes in bilateral hip joints. IMPRESSION: 1. Multiple dilated small bowel loops, maximum caliber 4.5 cm, suspected of small bowel obstruction. 2. A CT scan abdomen is advised for further evaluation. Electronically signed by Jitendra Cadet 04-25-2025 07:30 AM
[2025-04-25 08:12] LABS: Hematocrit (blood only) 32.2 % (37.0-47.0); Hemoglobin 10.6 g/dl (12.0-16.0); Mean Corpuscular Hemoglobin 30.5 pg (25.0-34.0); Mean Corpuscular Volume 92.8 fL (80.0-100.0); Platelet Count 378 K/uL (130-400); RDW Standard Deviation 44.6 fL (36.4-46.3); Red Blood Count 3.47 M/uL (4.20-5.40); White Blood Count 8.70 K/ul (4.8-10.8)
[2025-04-25 08:13] LABS: Anion Gap 7.0 (3-11); Blood Urea Nitrogen 36.0 mg/dl (6-23); Calcium 7.9 mg/dl (8.6-10.3); Carbon Dioxide 29.0 mmol/L (21-32); Chloride 108.0 mmol/L (98-107); Creatinine Clr Calc Pharmacy 25.5 ml/min; Glucose 100.0 mg/dl (70-99(Fasting)); Potassium 3.3 mmol/L (3.5-5.1); Sodium 144.0 mmol/L (136-145)
--- NOTE | 2025-04-25 09:48 | Surgery Consultation ---
Date of Consultation April 25, 2025 Assessment & Plan (1) Small bowel obstruction: 89 yo female with history of Whipple procedure 2004 for pancreatic cancer with multiple small bowel filled incisional hernias here with high grade SBO. Currently minimal abdominal pain, abdomen soft and incisional hernias are red ucible. Passing flatus. No acute surgical intervention required. Possibly clear liquids later today, Encouraged ambulation. CT mentions possible rectal mass which was present on January CT scan however unsure when last colonoscopy was. Recommend GI consultation. Discussed with Dr. Ceballos who agrees with above. History of Present Illness Reason for Consultation: High grade SBO Requesting Physician: MD Ann Attending Physician: Ike Juarez MD History of Present Illness Mariela is a pleasant 89 yo female with history of COPD, Hypothryoidism, GI bleed, large hiatal hernia, Afib, CAD, ventral/incisional hernias containing bowel and history of whipple for pancreatic cancer who presented to ED with increasing abdominal pain and bloating. CT scan showed high grade SBO with incisional hernias containing loops of small bowel but unlikely sit of obstruction. NGT was placed. She currently states she is feeling better. No abdominal pain. NGT fell out this morning. Passing gas. No nausea or vomiting. Has a headache right now which is main complaint. States she has been having diarrhea for weeks to months which is not normal for here. Unaware she had a rectal mass on imaging. Looking back on CT scan in January this was present. Recent EGD showed upper GI ulcer. Unsure when her last colonoscopy was. Allergies Allergy/AdvReac Type Severity Reaction Status Date / Time No Known Allergies Allergy Verified 04/24/25 10:29 Home Medications Medication Instructions Recorded Confirmed Type nitroglycerin 0.4 mg sublingual 0.4 mg sublingual ONCE PRN Chest 07/29/19 04/24/25 History tablet Pain hydrochlorothiazide 50 mg tablet 50 mg PO DAILY #90 tabs 09/12/24 04/24/25 Rx olmesartan 40 mg tablet 40 mg PO DAILY #90 tabs 09/12/24 04/24/25 Rx metoprolol succinate 50 mg 50 mg PO DAILY 01/24/25 04/24/25 History tablet,extended release 24 hr levothyroxine 112 mcg tablet 112 mcg PO DAILY #90 tabs 01/25/25 04/24/25 Rx walker #1 ea 01/27/25 03/06/25 Rx walker #1 ea 01/27/25 03/06/25 Rx aspirin 81 mg tablet,delayed 81 mg PO 3XWK 01/29/25 04/24/25 History release trazodone 50 mg tablet 50 mg PO HS 02/16/25 04/24/25 History atorvastatin 20 mg tablet 20 mg PO QPM #90 tabs 03/20/25 04/24/25 Rx duloxetine 30 mg capsule,delayed 30 mg PO DAILY 04/24/25 04/24/25 History release mv-mn-folic 200 mcg-vit K 15 1 cap PO DAILY 04/24/25 04/24/25 History mcg-lutein 5 mg-zeaxanthin 1 mg capsule (PreserVision AREDS 2 Plus Multivit) pantoprazole 40 mg tablet,delayed 40 mg PO BID #30 tabs 04/24/25 Rx release verapamil 360 mg 24 hr 360 mg PO DAILY 04/24/25 04/24/25 History capsule,extended release Patient History Medical History Hypothyroidism Gastro-esophageal reflux Dyslipidemia Chronic obstructive pulmonary disease Cardiomyopathy, ischemic Hypertension Paroxysmal atrial fibrillation Non-ST elevation (NSTEMI) myocardial infarction History of pancreatic cancer History of small bowel obstruction Partial small bowel obstruction Acute renal failure (ARF) (04/10/14) Surgical History History of Whipple procedure S/P recurrent ventral herniorrhaphy S/P repair of ventral hernia S/P cataract extraction History of cardiac cath History of appendectomy History of hysterectomy Family History Mother No problems noted. Father No problems noted. Son Stroke Other Family history non-contributory Social History Smoking Status: Former smoker Tobacco Type: Cigarettes Age Started Using Tobacco: 22; Age Quit Using Tobacco: 39; packs per day: 0.5; Second Hand Exposure: No; Do You Dip or Chew Tobacco: No; Hx Alcohol Use: No Hx Substance Use: No Preferred Language: Mongolian Communication Ability: Effective Flight Data Technician Required: No Beliefs That Will Affect Care: None marital status: Current Living Situation: Spouse current occupational status: retired How many Children do You have: 2 How many Children do You have Comment: 1 daughter in [place]; 1 son in [place]; other son age 63 Feels Safe at Home: Yes Childhood Exposure to Second-Hand Smoke: No Diet: regular Diet Comment: eats regular eats high salt diet. caffeine: Yes (2-3 8 oz cups of coffee ) Dental Care, Regularly: No Physical Activity Frequency: Does not Exercise Seatbelt Use: always Sunscreen Use: No Do you think of yourself as: straight/heterosexual Gender Identity: Female Assistive Devices: Cane Review of Systems Review of Systems: All systems reviewed & are unremarkable except as noted in HPI & below Physical Exam Constitutional: WD/WN, vitals as above cooperative and comfortable; no acute distress and not ill appearing Respiratory: normal respiratory effort, lungs clear to auscultation Cardiovascular: RRR, no murmur, no edema Gastrointestinal (Abdomen): Inspection/Auscultation: abdomen normal to insp ection, + visible herniation (multiple midline incisional hernias) and + abdominal surgical scar (midline laparotomy); abdomen not distended Percussion/Palpation: + abdomen tender (mild in the central slightly left upper abdomen), abdomen soft and + hernia (multiple incisional hernias fully reducible); no guarding, abdomen not rigid and abdomen not firm Skin: no rashes, warm and dry Psychiatric: Orientation: alert and oriented x 3 Results & Data Vital Signs (Past 12 Hours) Vital Signs Temp Pulse Pulse Resp BP BP Pulse Ox 04/25/25 07:24 36.6 C 70 18 170/81 H 92 04/25/25 06:32 67 153/69 H 04/25/25 05:50 78 163/76 H 04/25/25 05:48 78 18 163/76 H 91 04/25/25 03:35 36.8 C 76 18 152/78 H 90 04/25/25 00:38 70 152/75 H 04/25/25 00:19 78 139/72 04/24/25 22:42 36.7 C 79 20 139/72 91 04/24/25 22:00 77 O2 Del Method 04/25/25 07:24 Room Air 04/25/25 06:32 04/25/25 05:50 04/25/25 05:48 Room Air 04/25/25 03:35 Room Air 04/25/25 00:38 04/25/25 00:19 04/24/25 22:42 Room Air 04/24/25 22:00 Laboratory Results 04/25/25 04/25/25 04/24/25 Range/Units 06:29 06:23 Unknown WBC 8.70 (4.8-10.8) K/ul RBC 3.47 L (4.20-5.40) M/uL Hgb 10.6 L D (12.0-16.0) g/dl Hct 32.2 L (37.0-47.0) % MCV 92.8 (80.0-100.0) fL MCH 30.5 (25.0-34.0) pg MCHC 32.9 (32.0-36.0) g/dL RDW Std Deviation 44.6 (36.4-46.3) fL RDW Coeff of Tara 13.2 (11.5-14.5) % Plt Count 378 (130-400) K/uL MPV 8.7 L (9.4-12.4) fL Sodium 144 (136-145) mmol/L Potassium 3.3 L (3.5-5.1) mmol/L Chloride 108 H (98-107) mmol/L Carbon Dioxide 29 (21-32) mmol/L Anion Gap 7 (3-11) BUN 36 H (6-23) mg/dl Creatinine 1.37 H D (0.6-1.2) mg/dl Est Cr Clr Drug Dosing 25.5 ml/min eGFR 37.14 BUN/Creatinine Ratio 26.3 H (10-20) Glucose 100 H (70-99(Fasting)) mg/dl Lactate 0.9 (0.4-2.0) mmol/L Calcium 7.9 L (8.6-10.3) mg/dl Urine Color Yellow Urine Appearance Clear (Clear) Urine pH 5.5 (4.5-7.5) Ur Specific [place] 1.022 (1.000-1.030) Urine Protein Trace H (Negative) Urine Glucose (UA) Negative (Negative) Urine Ketones Trace H (Negative) Urine Blood Negative (Negative) Urine Nitrite Positive A (Negative) Urine Bilirubin Negative (Negative) Urine Urobilinogen Negative (Negative) Ur Leukocyte Esterase 1+ H (Negative) Urine WBC (Auto) 11-20 H (0-5) /hpf Urine RBC (Auto) 0-2 (0-2) /hpf U Hyaline Cast (Auto) 6-10 H (0-2) /lpf U Epithel Cells (Auto) 0-2 (0-2) /hpf Urine Bacteria (Auto) 4+ H (None Seen) Hyaline Casts Present A (None Presnt) /lpf Urine Comment Diagnostic Findings CT OF THE ABDOMEN AND PELVIS WITHOUT CONTRAST CLINICAL HISTORY: Abdominal pain, nausea, vomiting. COMPARISON STUDY: CT of the abdomen and pelvis January 24, 2025. TECHNIQUE: Axial images of the abdomen and pelvis were obtained without IV contrast. Images were reviewed in the axial, sagittal, and coronal planes. Automated exposure control was utilized for the study. A dose lowering technique was utilized adhering to the principles of ALARA. FINDINGS: A large hiatal hernia with partially intrathoracic stomach is partially imaged on this exam. The stomach is distended and fluid-filled. The proximal to mid small bowel is also markedly dilated and fluid-filled. Small bowel feces sign is noted within the left anterior abdomen. The distal small bowel is decompressed. There is mild associated mesenteric stranding and trace ascites. Definitive transition point is not identified. However, the findings represent a small bowel obstruction. There are multiple bowel containing ventral hernias. It's unclear if these result in the bowel obstruction. Apparent wall thickening of the distal stomach on image 113 noted. This may be due to underdistention. In addition, there is a 3.4 cm suspected polypoid mass within the rectum on image 267. There is no lymphadenopathy. A low-attenuation left adrenal nodule is unchanged from earlier exams. This is benign. Water attenuation right renal lesions favor cysts. There is no hydronephrosis. Pneumobilia is again noted. IMPRESSION: 1. Findings consistent with a moderate to high-grade small bowel obstruction, as described above. Dilated fluid-filled proximal to mid small bowel with decompressed distal small bowel. Definite transition point identified although likely within the left anterior abdomen. Multiple bowel containing ventral hernias. It's not clear whether whether these result in a bowel obstruction. Associated mesenteric stranding and trace ascites. Large hiatal hernia with partially intrathoracic stomach which is fluid-filled and dilated. Nasogastric tube insertion might be considered. 2. Suspected polypoid mass within the rectum measuring 3.4 cm. GI consultation is recommended. 3. Apparent thickening of the distal stomach. This may be due to underdistention although could be correlated on follow-up imaging studies or endoscopy to exclude the less likely possibility of a mucosal lesion.
--- NOTE | 2025-04-25 13:43 | Hospitalist Progress Note ---
Date of Service April 25, 2025 Assessment & Plan (1) Small bowel obstruction: (2) Paroxysmal atrial fibrillation: (3) Hypothyroidism: (4) Chronic obstructive pulmonary disease: Plan 89-year-old female with previous history of Whipple procedure due to pancreatic carcinoma in 2004 presents with high-grade bowel obstruction and a possibility of a rectal mass. Patient has a history of atrial fibrillation taking chronic anticoagulation and metoprolol and verapamil, ischemic cardiomyopathy additionally taking aspirin atorvastatin hydrochlorothiazide and olmesartan. She has frequent recent admissions for upper GI bleeding from various causes including gastritis peptic ulcer disease and jejunal angiodysplasias. Patient is acute kidney injury on chronic kidney disease stage III #High-grade bowel obstruction. Patient self removed NG tube. IV fluids now changed to contain potassium given hypokalemia on labs concerns this will be complicated surgery if required. Patient patient reconfirms that she does not want to be transferred to tertiary center at this point in time. She says she will only go if it is absolutely positively required. Patient is a DNR at this point time and she wonders if she will even want surgery if this does not resolve on its own. because of leukocytosis on admission initiated on Zosyn therapy #Atrial fibrillation apixaban will be held patient will be given intravenous metoprolol course hold verapamil as well as all oral medications. Other history of cardiomyopathy in her record last echocardiogram performed in 2019 further showed an EF of 50 to 55% with concentric LVH #Hypothyroidism her Synthroid is held at this time if if she is a prolonged hospital stay we may consider using intravenous Synthroid to 50% dosing every other day DVT prevention prevention her apixaban is held we will institute heparin subcu therapy at this time Upon discussion emergency department patient wishes to be DNR Admission and Anticipated Discharge Date Admission Date: April 24, 2025 Subjective Pt removed NGT last pm, no bowel movement or flatus, is comfortable no abdominal pain or n/v Physical Exam Physical Exam: pleasant mildly confused abd is with very few bowel sounds, slight distension, no guarding , reducible incisional hermia Results & Data Results & Data Vital Signs (Past 12 Hours) Vital Signs Temp Pulse Pulse Resp BP BP Pulse Ox 04/25/25 11:44 97.7 F 76 18 163/79 H 94 04/25/25 11:28 74 04/25/25 07:24 97.9 F 70 18 170/81 H 92 04/25/25 06:32 67 153/69 H 04/25/25 05:50 78 163/76 H 04/25/25 05:48 78 18 163/76 H 91 04/25/25 03:35 98.2 F 76 18 152/78 H 90 O2 Del Method 04/25/25 11:44 Room Air 04/25/25 11:28 04/25/25 07:24 Room Air 04/25/25 06:32 04/25/25 05:50 04/25/25 05:48 Room Air 04/25/25 03:35 Room Air Laboratory Results Reviewed CBC reviewed chemistry PG Care Time/CCT Total # of Minutes Spent Total Time Spent with Patient: Total time spent is greater than 50% in coordination of care (as documented) at patient's floor/unit and/or counseling patient: Coding Level of Care Code 09092 SUB INP/OBS CARE 3/50MIN Diagnoses Small bowel obstruction K56.609 Paroxysmal atrial fibrillation I48.0 Hypothyroidism E03.9 Chronic obstructive pulmonary disease J44.9
[2025-04-25] MEDS: POTASSIUM CHLORIDE 40 MEQ in LACTATED RINGER'S 1,000 ML IV SCH (16:19)
[2025-04-25] MEDS: PIPERACILLIN/TAZOBACTAM 4.5 GM/100 ML BAG IV SCH (16:20)
--- NOTE | 2025-04-25 17:38 | Electrocardiogram Report ---
Test Reason : Blood Pressure : */* mmHG Vent. Rate : 98 BPM Atrial Rate : 98 BPM P-R Int : 206 ms QRS Dur : 90 ms QT Int : 372 ms P-R-T Axes : -27 -6 234 degrees QTcB Int : 474 ms Normal sinus rhythm Nonspecific T wave abnormality Prolonged QT Abnormal ECG When compared with ECG of 24-Apr-2025 08:16, No significant change was found Confirmed by Marin Gaona ([id number]) on 04/25/2025 5:38:20 PM Referred By: REFERRED SELF Confirmed By: Marin Gaona
[2025-04-25] MEDS: HEPARIN SOD 5,000 UNIT/0.5 ML VIAL SQ SCH (20:23)
[2025-04-25] MEDS: MoRPHine SULFATE 2 MG/ML CARP IV PRN (20:24)
[2025-04-26 06:37] LABS: Hematocrit (blood only) 31.3 % (37.0-47.0); Hemoglobin 9.9 g/dl (12.0-16.0); Mean Corpuscular Hemoglobin 29.5 pg (25.0-34.0); Mean Corpuscular Volume 93.2 fL (80.0-100.0); Platelet Count 322 K/uL (130-400); RDW Standard Deviation 44.4 fL (36.4-46.3); Red Blood Count 3.36 M/uL (4.20-5.40); White Blood Count 7.97 K/ul (4.8-10.8)
[2025-04-26 06:52] LABS: Anion Gap 5.0 (3-11); Blood Urea Nitrogen 23.0 mg/dl (6-23); Calcium 8.1 mg/dl (8.6-10.3); Carbon Dioxide 30.0 mmol/L (21-32); Chloride 108.0 mmol/L (98-107); Creatinine Clr Calc Pharmacy 33.1 ml/min; Glucose 76.0 mg/dl (70-99(Fasting)); Potassium 4.2 mmol/L (3.5-5.1); Sodium 143.0 mmol/L (136-145)
--- NOTE | 2025-04-26 07:52 | Hospitalist Progress Note ---
Date of Service April 26, 2025 Assessment & Plan (1) Small bowel obstruction: (2) Paroxysmal atrial fibrillation: (3) Hypothyroidism: (4) Chronic obstructive pulmonary disease: Plan 89-year-old female with previous history of Whipple procedure due to pancreatic carcinoma in 2004 presents with high-grade bowel obstruction and a possibility of a rectal mass. Patient has a history of atrial fibrillation taking chronic anticoagulation and metoprolol and verapamil, ischemic cardiomyopathy additionally taking aspirin atorvastatin hydrochlorothiazide and olmesartan. She has frequent recent admissions for upper GI bleeding from various causes including gastritis peptic ulcer disease and jejunal angiodysplasias. Patient is acute kidney injury on chronic kidney disease stage III #High-grade bowel obstruction. Patient self removed NG tube. Electrolytes are replete will begin clear liquids if tolerated will advance. she says she will only consider transfer to a tertiary care if it is absolutely positively required. because of leukocytosis on admission initiated on Zosyn therapy found to have an E. coli UTI present on admission which is pansensitive #E coli uti poa, pansensitive, covered by above zosyn, could explain leukocytosis #Atrial fibrillation apixaban continues to be held patient will be given intravenous metoprolol heart rate and bp acceptable, hold verapamil as well as all oral medications. Other history of cardiomyopathy in her record last echoc ardiogram performed in 2019 further showed an EF of 50 to 55% with concentric LVH If patient tolerates advancement of diet may transition to oral metoprolol on 04/27/2025 #Hypothyroidism her Synthroid is held at this time if if she is a prolonged hospital stay we may consider using intravenous Synthroid to 50% dosing every other day DVT prevention prevention her apixaban is held we will institute heparin subcu therapy at this time Upon discussion emergency department patient wishes to be DNR Admission and Anticipated Discharge Date Admission Date: April 24, 2025 Subjective Patient had 2 mucousy bowel movements overnight. She continues to have improvement in her abdominal discomfort. She is in no return of nausea vomiting after she removed her NG tube Daughter at the bedside and updated Physical Exam Physical Exam: Awake and appropriate in no distress Actually is NABS today soft nontender hernias easily reducible Extremities are without edema Results & Data Results & Data Vital Signs (Past 12 Hours) Vital Signs Temp Pulse Pulse Resp BP BP Pulse Ox 04/26/25 07:30 97.9 F 60 17 165/79 H 93 04/26/25 05:58 84 148/74 H 04/26/25 05:27 84 158/86 H 04/26/25 02:41 97.9 F 63 16 169/71 H 92 04/26/25 00:56 59 L 04/26/25 00:49 59 L 164/86 H 04/26/25 00:14 107 H 158/81 H 04/25/25 22:15 98.1 F 107 H 16 158/81 H 92 O2 Del Method 04/26/25 07:30 Room Air 04/26/25 05:58 04/26/25 05:27 04/26/25 02:41 Room Air 04/26/25 00:56 04/26/25 00:49 04/26/25 00:14 04/25/25 22:15 Room Air Laboratory Results Reviewed CBC reviewed chemistry PG Care Time/CCT Total # of Minutes Spent Total Time Spent with Patient: Total time spent is greater than 50% in coordination of care (as documented) at patient's floor/unit and/or counseling patient: Coding Level of Care Code 43133 SUB INP/OBS CARE 3/50MIN Diagnoses Small bowel obstruction K56.609 Paroxysmal atrial fibrillation I48.0 Hypothyroidism E03.9 Chronic obstructive pulmonary disease J44.9
--- NOTE | 2025-04-26 11:19 | Surgery Progress Note ---
Date of Service April 26, 2025 Assessment & Plan (1) Small bowel obstruction: Plan: 89 yo female with history of Whipple procedure 2005 for pancreatic cancer with multiple small bowel filled incisional hernias here with high grade SBO. avss no abdominal pain return of bowel function incisional hernias are reducible Plan: Can advance to clear liquids, advised to go slowly. oob to chair, ambulate continue medical management Discussed with Dr. Ceballos who agrees with above. Admission and Anticipated Discharge Date Admission Date: April 24, 2025 Subjective feeling better today no abdominal pain hungry no n,v small bowel movement yesterday and this am, passing a little gas no belching Physical Exam Constitutional: WD/WN, vitals as above cooperative and comfortable; no acute distress and not ill appearing Respiratory: normal respiratory effort; no respiratory distress, no labored breathing and no retractions Gastrointestinal (Abdomen): Inspection/Auscultation: abdomen normal to inspection, + visible herniation (reducible ventral hernias) and + abdominal surgical scar (midline laparotomy scar); abdomen not distended Percussion/Palpation: + abdomen tender (very mild in mid abdomen) and abdomen soft; no guarding, abdomen not rigid and abdomen not firm Skin: no rashes, warm and dry Psychiatric: Orientation: alert and oriented x 3 Results & Data Vital Signs (Past 12 Hours) Vital Signs Temp Pulse Pulse Resp BP BP Pulse Ox 04/26/25 10:48 57 L 04/26/25 07:30 36.6 C 60 17 165/79 H 93 04/26/25 05:58 84 148/74 H 04/26/25 05:27 84 158/86 H 04/26/25 02:41 36.6 C 63 16 169/71 H 92 04/26/25 00:56 59 L 04/26/25 00:49 59 L 164/86 H 04/26/25 00:14 107 H 158/81 H O2 Del Method 04/26/25 10:48 04/26/25 07:30 Room Air 04/26/25 05:58 04/26/25 05:27 04/26/25 02:41 Room Air 04/26/25 00:56 04/26/25 00:49 04/26/25 00:14 Laboratory Results 04/26/25 04/25/25 Range/Units 06:15 14:44 WBC 7.97 (4.8-10.8) K/ul RBC 3.36 L (4.20-5.40) M/uL Hgb 9.9 L 11.0 L (12.0-16.0) g/dl Hct 31.3 L (37.0-47.0) % MCV 93.2 (80.0-100.0) fL MCH 29.5 (25.0-34.0) pg MCHC 31.6 L (32.0-36.0) g/dL RDW Std Deviation 44.4 (36.4-46.3) fL RDW Coeff of Tara 13.1 (11.5-14.5) % Plt Count 322 (130-400) K/uL MPV 8.3 L (9.4-12.4) fL Sodium 143 (136-145) mmol/L Potassium 4.2 D (3.5-5.1) mmol/L Chloride 108 H (98-107) mmol/L Carbon Dioxide 30 (21-32) mmol/L Anion Gap 5 (3-11) BUN 23 (6-23) mg/dl Creatinine 1.03 D (0.6-1.2) mg/dl Est Cr Clr Drug Dosing 33.1 ml/min eGFR 52.30 BUN/Creatinine Ratio 22.3 H (10-20) Glucose 76 (70-99(Fasting)) mg/dl Lactate 0.7 (0.4-2.0) mmol/L Calcium 8.1 L (8.6-10.3) mg/dl
--- NOTE | 2025-04-27 08:19 | XRay Report ---
EXAM: XR KUB/Abdomen 1 view CLINICAL HISTORY: eval sbo TECHNIQUE: X-ray images of the abdomen were obtained in supine positions. COMPARISON: 04/25/2025. FINDINGS: Gas Pattern: Interval regressed, no significant dilated small bowel loops seen. Interval decrease in fecal loading in colon. Soft Tissues: Soft tissues of the abdomen appear normal without evidence of masses or calcifications. Liver, spleen, and kidneys are of normal size and position. Spondylotic changes in thoracolumbar spine. Degenerative changes in bilateral hip joints. IMPRESSION: 1. No acute abdominal abnormality seen. 2. Interval regressed, no significant dilated small bowel loops seen. 3. Interval decrease in fecal loading in colon. Electronically signed by Jitendra Cadet 04-27-2025 08:19 AM
--- NOTE | 2025-04-27 10:44 | Surgery Progress Note ---
Date of Service April 27, 2025 Assessment & Plan (1) Small bowel obstruction: Plan: 89 yo female with history of Whipple procedure 2005 for pancreatic cancer with multiple small bowel filled incisional hernias here with high grade SBO. avss no abdominal pain return of bowel function incisional hernias are reducible KUB with normal bowel pattern , no obstruction Plan: Can advance diet ambulate continue medical management surgery signing off Discussed with Dr. Ceballos who agrees with above. Admission and Anticipated Discharge Date Admission Date: April 24, 2025 Subjective feeling good, no abdominal pain no n,v tolerated liquids hungry + gas and small bowel movements Physical Exam Constitutional: WD/WN, vitals as above cooperative and comfortable; no acute distress and not ill appearing Gastrointestinal (Abdomen): Inspection/Auscultation: abdomen normal to inspection and + visible herniation (reducible incisional hernias) Percussion/Palpation: abdomen soft; abdomen nontender, no guarding, abdomen not rigid and abdomen not firm Skin: no rashes, warm and dry Psychiatric: Orientation: alert and oriented x 3 Results & Data Vital Signs (Past 12 Hours) Vital Signs Temp Pulse Pulse Resp BP BP Pulse Ox 04/27/25 08:00 53 L 04/27/25 07:49 36.4 C L 73 17 156/82 H 91 04/27/25 05:44 50 L 183/80 H 04/27/25 05:29 60 195/85 H 04/27/25 02:53 36.7 C 56 L 16 176/95 H 93 04/27/25 00:06 59 L 178/80 H 04/26/25 23:52 67 182/79 H O2 Del Method 04/27/25 08:00 04/27/25 07:49 Room Air 04/27/25 05:44 04/27/25 05:29 04/27/25 02:53 Room Air 04/27/25 00:06 04/26/25 23:52 Diagnostic Findings EXAM: XR KUB/Abdomen 1 view CLINICAL HISTORY: eval sbo TECHNIQUE: X-ray images of the abdomen were obtained in supine positions. COMPARISON: 04/25/2025. FINDINGS: Gas Pattern: Interval regressed, no significant dilated small bowel loops seen. Interval decrease in fecal loading in colon. Soft Tissues: Soft tissues of the abdomen appear normal without evidence of masses or calcifications. Liver, spleen, and kidneys are of normal size and position. Spondylotic changes in thoracolumbar spine. Degenerative changes in bilateral hip joints. IMPRESSION: 1. No acute abdominal abnormality seen. 2. Interval regressed, no significant dilated small bowel loops seen. 3. Interval decrease in fecal loading in colon.
[2025-04-27] MEDS: VERAPAMIL HCL 180 MG TABCR PO SCH (13:23)
[2025-04-27] MEDS: METOPROLOL SUCC 50MG EXT REL TAB PO STA (13:23)
[2025-04-27 19:49] VITALS: RESP 16
[2025-04-27] MEDS: MELATONIN 3 MG TAB PO PRN (20:40)
--- NOTE | 2025-04-27 23:13 | Hospitalist Progress Note ---
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 Patient has a history of atrial fibrillation taking chronic anticoagulation and metoprolol and verapamil, ischemic cardiomyopathy additionally taking aspirin atorvastatin hydrochlorothiazide and olmesartan. She has frequent recent admissions for upper GI bleeding from various causes including gastritis peptic ulcer disease and jejunal angiodysplasias. Patient is acute kidney injury on chronic kidney disease stage III #High-grade bowel obstruction. Patient self removed NG tube. advanced diet to low fiber. she says she will only consider transfer to a tertiary care if it is absolutely positively required. Though appears she will likely be discharged tomorrow if she continues to progress well. will transfer off of tele because of leukocytosis on admission initiated on Zosyn therapy found to have an E. coli UTI present on admission which is pansensitive #E coli uti poa, pansensitive, covered by above zosyn, could explain leukocytosis. improved. #Atrial fibrillation apixaban continues to be held patient will be given intravenous metoprolol heart rate and bp acceptable, hold verapamil as well as all oral medications. Other history of cardiomyopathy in her record last echocardiogram performed in 2019 further showed an EF of 50 to 55% with concentric LVH If patient tolerates advancement of diet may transition to oral metoprolol on 04/27/2025 #Hypothyroidism her Synthroid is held at this time if if she is a prolonged hospital stay we may consider using intravenous Synthroid to 50% dosing every other day DVT prevention prevention her apixaban is held we will institute heparin subcu therapy at this time Admission and Anticipated Discharge Date Admission Date: April 24, 2025 Subjective Patient reports feeling well and tolerating her diet Physical Exam Physical Exam: Awake and appropriate in no distress Actually is NABS today soft nontender hernias reducible Extremities are without edema Results & Data Results & Data Vital Signs (Past 12 Hours) Vital Signs Temp Pulse Pulse Resp BP Pulse Ox O2 Del Method 04/27/25 20:51 Room Air 04/27/25 19:48 36.9 C 56 L 16 143/75 H 93 Room Air 04/27/25 17:19 36.7 C 66 17 148/77 H 95 Room Air 04/27/25 15:11 36.6 C 68 18 173/90 H 93 Room Air 04/27/25 14:01 76 04/27/25 13:22 70 168/84 H 04/27/25 11:32 36.5 C 68 18 187/86 H 92 Room Air PG Care Time/CCT Total # of Minutes Spent Total Time Spent with Patient: Total time spent is greater than 50% in coordination of care (as documented) at patient's floor/unit and/or counseling patient: Coding Level of Care Code 25834 SUB INP/OBS CARE 3/50MIN Diagnoses Small bowel obstruction K56.609 Paroxysmal atrial fibrillation I48.0 Hypothyroidism E03.9 Chronic obstructive pulmonary disease J44.9
[2025-04-28 07:07] LABS: Hematocrit (blood only) 33.0 % (37.0-47.0); Hemoglobin 11.4 g/dl (12.0-16.0); Mean Corpuscular Hemoglobin 31.5 pg (25.0-34.0); Mean Corpuscular Volume 91.2 fL (80.0-100.0); Platelet Count 334 K/uL (130-400); RDW Standard Deviation 42.1 fL (36.4-46.3); Red Blood Count 3.62 M/uL (4.20-5.40); White Blood Count 6.39 K/ul (4.8-10.8)
[2025-04-28 07:35] LABS: Anion Gap 7.0 (3-11); Blood Urea Nitrogen 16.0 mg/dl (6-23); Calcium 8.3 mg/dl (8.6-10.3); Carbon Dioxide 27.0 mmol/L (21-32); Chloride 107.0 mmol/L (98-107); Creatinine Clr Calc Pharmacy 36.1 ml/min; Glucose 118.0 mg/dl (70-99(Fasting)); Potassium 3.6 mmol/L (3.5-5.1); Sodium 141.0 mmol/L (136-145)
[2025-04-28 07:50] VITALS: BP 182/76; TEMP 98.1; O2SAT 97
[2025-04-28 08:44] VITALS: PULSE 75
--- NOTE | 2025-04-28 08:54 | Discharge Summary ---
Discharge Summary Date of Service April 28, 2025 Principal Dx & Hospital Course #1 = Principal Diagnosis (1) Small bowel obstruction: (2) Paroxysmal atrial fibrillation: (3) Hypothyroidism: (4) Chronic obstructive pulmonary disease: Plan 89-year-old female with previous history of Whipple procedure due to pancreatic carcinoma in 2004 presents with high-grade bowel obstruction and a possibility of a rectal mass. Patient has a history of atrial fibrillation taking chronic anticoagulation and metoprolol and verapamil, ischemic cardiomyopathy additionally taking aspirin atorvastatin hydrochlorothiazide and olmesartan. She has frequent recent admissions for upper GI bleeding from various causes including gastritis peptic ulcer disease and jejunal angiodysplasias. Patient is acute kidney injury on chronic kidney disease stage III #High-grade bowel obstruction. Patient self removed NG tube. advanced diet to low fiber. she says she will only consider transfer to a tertiary care if it is absolutely positively required. will discharge as now tolerating diet. If symptoms return may need to be transferred to tertiary center. \ #E coli uti poa, pansensitive, covered by above zosyn, could explain leukocytosis. improved. Given no further symptoms. completed >3 day course of IV antibiotics, will stop. #Atrial fibrillation apixaban continues to be held patient will be given intravenous metoprolol heart rate and bp acceptable, hold verapamil as well as all oral medications. Other history of cardiomyopathy in her record last echocardiogram performed in 2019 further showed an EF of 50 to 55% with concentric LVH If patient tolerates advancement of diet may transition to oral metoprolol on 04/27/2025 #Hypothyroidism her Synthroid is held at this time if if she is a prolonged hospital stay we may consider using intravenous Synthroid to 50% dosing every other day Admission HPI Per Admitting Provider 89-year-old female with a history of pancreatic cancer status post Whipple procedure who has been intermittently admitted over the last few months with upper GI bleeding. Patient presents with high-grade small bowel obstruction with multiple small bowel within inside hernia loops and a possible rectal mass versus stool ball. Patient had a Whipple procedure here at [facility] by Dr. 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 The patient is having increasing abdominal pain bloating distention he has not a good recollection of when she had her last bowel movement. Discharge Exam Awake and appropriate in no distress Actually is NABS today soft nontender hernias reducible Extremities are without edema Discharge Plan Discharge Items Patient Disposition: Home - Self-Care Reason For Visit: HIGH GRADE SBO Discharge Diagnosis: high grade SBO Condition on Discharge: Fair Activity: Resume your previous activity Non-emergency contact: Primary Care Provider Call non-emergency contact if: you have any medication questions Follow-up/Referrals: Glendy Worley MD [Primary Care Provider] - Diet: Low Fiber Addtl Attending Provider Instructions: A low fiber diet is typically recommended for individuals with certain medical conditions or as a temporary measure to relieve digestive symptoms. Here is some basic information about a low fiber diet: 1. Purpose: A low fiber diet limits the intake of foods high in dietary fiber to reduce the workload on the digestive system and ease symptoms like diarrhea, abdominal pain, or cramping. 2. Foods to limit or avoid: - Whole grains (e.g., whole wheat, whole oats, brown rice) - Legumes (e.g., lentils, beans, chickpeas) - Nuts and seeds - Raw fruits and vegetables (except for some cooked or peeled options) - High-fiber cereals or breads 3. Foods generally allowed: - Refined grains (e.g., white bread, white rice, refined cereals) - Cooked and peeled fruits and vegetables (e.g., applesauce, canned fruits, cooked carrots) - Lean meats, poultry, and fish - Dairy products (unless lactose intolerant) - Eggs 4. Cooking and preparation methods: - Choose peeled or cooked fruits and vegetables instead of raw ones. - Remove seeds and skin from fruits and vegetables. - Opt for refined grain products instead of whole grains. - Cook or soak legumes to reduce their fiber content. It's important to note that a low fiber diet should only be followed under the guidance of a healthcare professional, as it is not suitable for long-term use. They can provide personalized recommendations based on your specific needs and condition. Addtl Annealing Operator Provider Instructions: recommend followup with PCP in 1-2 weeks. Pending Studies at Discharge: No Stand-Alone Forms: My [facility], Smoking Cessation Medications and DC Order Prescriptions: Continued levothyroxine 112 mcg tablet 112 mcg PO DAILY Qty: 90 1RF Rx Instructions: TAKE ONE TABLET BY MOUTH DAILY pantoprazole 40 mg tablet,delayed release (DR/EC) 40 mg PO BID Qty: 30 0RF nitroglycerin 0.4 mg tablet, sublingual 0.4 mg SL ONCE PRN (Reason: Chest Pain) atorvastatin 20 mg tablet 20 mg PO QPM Qty: 90 2RF olmesartan 40 mg tablet 40 mg PO DAILY Qty: 90 2RF Hold Instructions: Resume on 02/26/25. hydrochlorothiazide 50 mg tablet 50 mg PO DAILY Qty: 90 3RF Hold Instructions: Resume on 02/05/25. aspirin 81 mg tablet,delayed release (DR/EC) 81 mg PO 3XWK Hold Instructions: Resume on 02/26/25. Rx Instructions: TAKES M-W- metoprolol succinate 50 mg tablet extended release 24 hr 50 mg PO DAILY Rx Instructions: TAKE 1 TABLET BY MOUTH ONCE DAILY (JULIA) yaa [facility] See Rx Instructions .Route Qty: 1 0RF Rx Instructions: As directed (DME) yaa [facility] See Rx Instructions .Route Qty: 1 0RF Rx Instructions: As directed trazodone 50 mg tablet 50 mg PO HS verapamil 360 mg capsule,ext rel. pellets 24 hr 360 mg PO DAILY PreserVision AREDS 2 Plus MV 200 mcg-15 mcg- 5 mg-1 mg Capsule 1 cap PO DAILY No Action duloxetine 30 mg capsule,delayed release(DR/EC) 30 mg PO DAILY Qty: 90 3RF Discharge Orders: Discharge Order (Routine); Ordered 04/28/25 Ordered By: Ahmet Clarke/Other Patient Handouts: Low-Fiber Diet Admission Data Admit Date/Time: 04/24/25 12:52 Attending Provider: Ahmet Reddy Admit Provider: Ike Juarez Primary Care Provider: Glendy Worley Other Providers: Eloy Ceballos Other Interventions: Discharge Summary Assessment (RN) Last Done: 04/28/25 09:49 Hospital Stay Data Consultations 04/24/25 12:14 ED Decision to Admit Stat 04/24/25 13:37 Consult General Surgery Routine Diagnostic Imagining Performed 04/24/25 09:20 CT Abd and Pelvis [CT abd pelvis wo con] Stat Pending Results Patient Have Any Pending Studies at Discharge: No Discharge Instructions Given to Patient (Per Discharging Provider) A low fiber diet is typically recommended for individuals with certain medical conditions or as a temporary measure to relieve digestive symptoms. Here is some basic information about a low fiber diet: 1. Purpose: A low fiber diet limits the intake of foods high in dietary fiber to reduce the workload on the digestive system and ease symptoms like diarrhea, abdominal pain, or cramping. 2. Foods to limit or avoid: - Whole grains (e.g., whole wheat, whole oats, brown rice) - Legumes (e.g., lentils, beans, chickpeas) - Nuts and seeds - Raw fruits and vegetables (except for some cooked or peeled options) - High-fiber cereals or breads 3. Foods generally allowed: - Refined grains (e.g., white bread, white rice, refined cereals) - Cooked and peeled fruits and vegetables (e.g., applesauce, canned fruits, cooked carrots) - Lean meats, poultry, and fish - Dairy products (unless lactose intolerant) - Eggs 4. Cooking and preparation methods: - Choose peeled or cooked fruits and vegetables instead of raw ones. - Remove seeds and skin from fruits and vegetables. - Opt for refined grain products instead of whole grains. - Cook or soak legumes to reduce their fiber content. It's important to note that a low fiber diet should only be followed under the guidance of a healthcare professional, as it is not suitable for long-term use. They can provide personalized recommendations based on your specific needs and condition. Total Time Total Time Spent Total Time Spent (In Minutes): 32 Coding Level of Care Code 05339 INP/OBS DISCH >30 MIN Diagnoses Small bowel obstruction K56.609 Paroxysmal atrial fibrillation I48.0 Hypothyroidism E03.9 Chronic obstructive pulmonary disease J44.9
--- NOTE | 2025-05-04 08:48 | Emergency Department Note ---
ED Provider Note History of Present Illness Chief Complaint: Abdominal Pain Stated Complaint: VOMITING,ABD PAIN,LIGHT HEADED,NAUSEA Time Seen by Provider: 04/24/25 08:01 Source: patient Mode of arrival: ambulatory Limitations: no limitations Patient is an 89-year-old female who presents to the emergency department with complaints of lower abdominal pain for the last 2 days. Patient reports positive nausea and vomiting. Patient has history of a large hernia that she feels has gotten larger. Patient has a history of pancreatic cancer with a Whipple procedure in the past. Patient is concerned that she could have a small bowel obstruction. Home Medications Medication Instructions Recorded Confirmed Type nitroglycerin 0.4 mg sublingual 0.4 mg sublingual ONCE PRN Chest 07/29/19 04/24/25 History tablet Pain hydrochlorothiazide 50 mg tablet 50 mg PO DAILY #90 tabs 09/12/24 04/24/25 Rx olmesartan 40 mg tablet 40 mg PO DAILY #90 tabs 09/12/24 04/24/25 Rx metoprolol succinate 50 mg 50 mg PO DAILY 01/24/25 04/24/25 History tablet,extended release 24 hr levothyroxine 112 mcg tablet 112 mcg PO DAILY #90 tabs 01/25/25 04/24/25 Rx walker #1 ea 01/27/25 03/06/25 Rx walker #1 ea 01/27/25 03/06/25 Rx aspirin 81 mg tablet,delayed 81 mg PO 3XWK 01/29/25 04/24/25 History release trazodone 50 mg tablet 50 mg PO HS 02/16/25 04/24/25 History atorvastatin 20 mg tablet 20 mg PO QPM #90 tabs 03/20/25 04/24/25 Rx mv-mn-folic 200 mcg-vit K 15 1 cap PO DAILY 04/24/25 04/24/25 History mcg-lutein 5 mg-zeaxanthin 1 mg capsule (PreserVision AREDS 2 Plus Multivit) pantoprazole 40 mg tablet,delayed 40 mg PO BID #30 tabs 04/24/25 Rx release verapamil 360 mg 24 hr 360 mg PO DAILY 04/24/25 04/24/25 History capsule,extended release duloxetine 30 mg capsule,delayed 30 mg PO DAILY #90 caps 05/02/25 Rx release Allergies Allergy/AdvReac Type Severity Reaction Status Date / Time No Known Allergies Allergy Verified 04/24/25 10:29 Past Med/Surg History Problem List (Updated 05/04/25 @ 09:06 by MORALES Knott) Small bowel obstruction (Acute) Chronic obstructive pulmonary disease Hypothyroidism Paroxysmal atrial fibrillation Edema Jejunal ulcer Esophageal ulcer GI bleed Acute hypotension (Acute) Acute upper gastrointestinal bleeding (Acute) Melena (Acute) Acute hyperkalemia (Acute) PILI (acute kidney injury) (Acute) Weakness (Acute) Hiatal hernia Prediabetes Hypomagnesemia COPD without exacerbation Hypothyroidism (acquired) History of atrial fibrillation CAD (coronary artery disease) History of pancreatectomy Abnormality of rectum Hyperkalemia Macrocytosis Acute blood loss anemia (Acute) Upper GI bleeding Leukocytosis (Acute) Ileus (Acute) Dehydration (Acute) PILI (acute kidney injury) (Acute) Paralytic ileus of small intestine Renal insufficiency Arm pain, left Shoulder pain, left Wellness examination Adrenal adenoma Paresthesia of left arm Fatigue Hypertensive urgency Hyperglycemia Dermatitis Elevated alkaline phosphatase level Osteoporosis (Acute) Nephrolithiasis (Acute) Insomnia (Chronic) Incisional hernia (Chronic) Abdominal hernia (Acute) Abdominal adhesions (Acute) Medical History Gastro-esophageal reflux Dyslipidemia Cardiomyopathy, ischemic Hypertension Non-ST elevation (NSTEMI) myocardial infarction History of pancreatic cancer History of small bowel obstruction Partial small bowel obstruction Acute renal failure (ARF) (04/10/14) Surgical History History of Whipple procedure S/P recurrent ventral herniorrhaphy S/P repair of ventral hernia S/P cataract extraction Bilateral History of cardiac cath History of appendectomy History of hysterectomy Family History Mother , unknown cause No problems noted. Father , unknown cause No problems noted. Son Stroke Other Family history non-contributory Social History Smoking Status: Former smoker Tobacco Type: Cigarettes Age Started Using Tobacco: 22; Age Quit Using Tobacco: 39; packs per day: 0.5; Second Hand Exposure: No; Do You Dip or Chew Tobacco: No; Hx Alcohol Use: No Hx Substance Use: No Preferred Language: Central [place] Communication Ability: Effective Professor Of Forestry Required: No Beliefs That Will Affect Care: None marital status: Current Living Situation: Spouse current occupational status: retired How many Children do You have: 2 How many Children do You have Comment: 1 daughter in [place]; 1 son in [place]; other son age 63 Feels Safe at Home: Yes Childhood Exposure to Second-Hand Smoke: No Diet: regular Diet Comment: eats regular eats high salt diet. caffeine: Yes (2-3 8 oz cups of coffee ) Dental Care, Regularly: No Physical Activity Frequency: Does not Exercise Seatbelt Use: always Sunscreen Use: No Do you think of yourself as: straight/heterosexual Gender Identity: Female Assistive Devices: Walker Physical Exam VITAL SIGNS - Vital signs and nursing notes were reviewed. GENERAL -89-year-old female appearing her stated age who is in no acute distress. Communicates well with provider and answers questions appropriately. HEAD - NC/AT. EYES - PERRL with EOMI bilaterally. Conjunctiva pink and moist with no injection noted. EARS - No deformities of external structures noted on gross examination bilaterally. NOSE - Midline and without cyanosis. No epistaxis or purulent drainage noted. LUNGS - Chest wall symmetric without accessory muscle use, intercostals retractions, or central cyanosis. Breath sounds clear throughout all jaramillo. No wheezes, rales, or rhonchi appreciated. CARDIAC - RRR with S1/S2. No murmur, rubs, or gallops appreciated. ABDOMEN - Abdominal contour rounded with noted hernia to the mid abdomen. Bowel sounds are hypoactive in all four quadrants. Increased tenderness to palpation appreciated over her mid abdomen and hernia area. No guarding. No rebound Tenderness. No hepatosplenomegaly, or ascites noted. NEUROLOGIC - Cranial nerves II through XII grossly intact. Sensory intact to light touch throughout. PSYCH - A&Ox3 and cooperates fully with examiner. Pt is very pleasant and interacts well with examiner. Course Administered Medications Discontinued Medications Heparin Sodium (Porcine) (Heparin Sod 5,000 Unit/0.5 Ml Vial) 5,000 units SQ Q12 [place] Stop: 05/25/25 20:59 Last Admin: 04/28/25 08:03 Dose: 5,000 units Documented By: Admin: 04/27/25 20:40 Dose: 5,000 units Documented By: Admin: 04/27/25 09:23 Dose: 5,000 units Documented By: Admin: 04/26/25 19:51 Dose: 5,000 units Documented By: Admin: 04/26/25 08:41 Dose: 5,000 units Documented By: Admin: 04/25/25 20:23 Dose: 5,000 units Documented By: JASON Sodium Chloride (Nss) 500 mls @ 500 mls/hr IV .Q1H STA Stop: 04/24/25 09:00 Last Infusion: 04/24/25 09:18 Dose: Infused Documented By: Admin: 04/24/25 08:18 Dose: 500 mls/hr Documented By: RONALD Promethazine HCl (Phenergan) 12.5 mg in 50.5 mls @ 202 mls/hr IV NOW STA Stop: 04/24/25 09:34 Last Infusion: 04/24/25 09:46 Dose: Infused Documented By: Admin: 04/24/25 09:31 Dose: 202 mls/hr Documented By: RONALD Acetaminophen (Ofirmev) 1,000 mg in 100 mls @ 400 mls/hr IV Q8H PRN PRN Reason: Pain or Fever Stop: 04/27/25 13:30 Last Infusion: 04/26/25 03:00 Dose: Infused Documented By: Admin: 04/26/25 02:49 Dose: 400 mls/hr Documented By: Infusion: 04/25/25 05:49 Dose: Infused Documented By: Admin: 04/25/25 05:26 Dose: 400 mls/hr Documented By: JASON Lactated Ringer's (Lr) 1,000 mls @ 100 mls/hr IV .Q10H [place] Stop: 04/27/25 13:28 Last Admin: 04/25/25 14:41 Dose: Not Given Documented By: Infusion: 04/25/25 14:41 Dose: Infused Documented By: Admin: 04/25/25 00:20 Dose: 100 mls/hr Documented By: Infusion: 04/24/25 23:39 Dose: Infused Documented By: Admin: 04/24/25 13:39 Dose: 100 mls/hr Documented By: RONALD Piperacillin Sod/Tazobactam Sod (Zosyn) 4.5 gm in 100 mls @ 25 mls/hr IV Q12H [place]; Protocol Stop: 04/25/25 21:59 Last Infusion: 04/25/25 15:45 Dose: Infused Documented By: Admin: 04/25/25 11:15 Dose: 25 mls/hr Documented By: Infusion: 04/25/25 01:10 Dose: Infused Documented By: Admin: 04/24/25 21:10 Dose: 25 mls/hr Documented By: JASON Piperacillin Sod/Tazobactam Sod (Zosyn) 4.5 gm in 100 mls @ 200 mls/hr IV ONE ONE; Protocol Stop: 04/24/25 14:29 Last Infusion: 04/24/25 14:42 Dose: Infused Documented By: Admin: 04/24/25 14:12 Dose: 200 mls/hr Documented By: RONALD Pantoprazole Sodium (Protonix) 40 mg in 10 mls @ 5 mls/min IV DAILY [place] Stop: 05/24/25 13:59 Last Admin: 04/28/25 07:59 Dose: 5 mls/min Documented By: Admin: 04/27/25 09:23 Dose: 5 mls/min Documented By: Admin: 04/26/25 08:27 Dose: 5 mls/min Documented By: Admin: 04/25/25 11:14 Dose: 5 mls/min Documented By: Admin: 04/24/25 14:12 Dose: 5 mls/min Documented By: RONALD Potassium Chloride 40 meq/ (Lactated Ringer's) 1,020 mls @ 100 mls/hr IV .[id number] [place] Stop: 04/27/25 13:59 Last Infusion: 04/26/25 10:47 Dose: Infused Documented By: Admin: 04/26/25 02:10 Dose: 100 mls/hr Documented By: Infusion: 04/26/25 02:10 Dose: Infused Documented By: Admin: 04/25/25 16:19 Dose: 100 mls/hr Documented By: WERNER Piperacillin Sod/Tazobactam Sod (Zosyn) 4.5 gm in 100 mls @ 25 mls/hr IV Q8H [place]; Protocol Stop: 05/04/25 23:59 Last Infusion: 04/28/25 10:58 Dose: 0 mls/hr Documented By: Admin: 04/28/25 08:13 Dose: 25 mls/hr Documented By: Infusion: 04/28/25 04:53 Dose: Infused Documented By: Admin: 04/28/25 00:15 Dose: 25 mls/hr Documented By: Infusion: 04/27/25 21:17 Dose: Infused Documented By: Admin: 04/27/25 17:15 Dose: 25 mls/hr Documented By: Infusion: 04/27/25 13:23 Dose: Infused Documented By: Admin: 04/27/25 09:23 Dose: 25 mls/hr Documented By: Infusion: 04/27/25 04:38 Dose: Infused Documented By: Admin: 04/27/25 00:08 Dose: 25 mls/hr Documented By: Infusion: 04/26/25 20:58 Dose: Infused Documented By: Admin: 04/26/25 16:52 Dose: 25 mls/hr Documented By: Infusion: 04/26/25 12:30 Dose: Infused Documented By: Admin: 04/26/25 08:27 Dose: 25 mls/hr Documented By: Infusion: 04/26/25 04:15 Dose: Infused Documented By: Admin: 04/26/25 00:14 Dose: 25 mls/hr Documented By: Infusion: 04/25/25 20:20 Dose: Infused Documented By: Admin: 04/25/25 16:20 Dose: 25 mls/hr Documented By: WERNER Melatonin (Melatonin 3 Mg Tab) 3 mg PO HS PRN PRN Reason: Sleep Stop: 05/27/25 20:24 Last Admin: 04/27/25 20:40 Dose: 3 mg Documented By: RASHID Metoprolol Succinate (Metoprolol Succ 50mg Ext Rel Tab) 50 mg PO NOW STA Stop: 04/27/25 12:35 Last Admin: 04/27/25 13:23 Dose: 50 mg Documented By: AM Metoprolol Tartrate (Metoprolol Tartrate 1 Mg/Ml Vial) 5 mg IV Q6 [place] Stop: 05/24/25 17:59 Last Admin: 04/27/25 12:50 Dose: Not Given Documented By: Admin: 04/27/25 05:29 Dose: 5 mg Documented By: Admin: 04/26/25 23:52 Dose: 5 mg Documented By: Admin: 04/26/25 17:55 Dose: 5 mg Documented By: Admin: 04/26/25 13:00 Dose: 5 mg Documented By: Admin: 04/26/25 05:27 Dose: 5 mg Documented By: Admin: 04/26/25 00:14 Dose: 5 mg Documented By: Admin: 04/25/25 17:49 Dose: 5 mg Documented By: Admin: 04/25/25 11:28 Dose: 5 mg Documented By: Admin: 04/25/25 05:50 Dose: 5 mg Documented By: Admin: 04/25/25 00:19 Dose: 5 mg Documented By: Admin: 04/24/25 17:57 Dose: 5 mg Documented By: KATEY Morphine Sulfate (Morphine Sulfate 2 Mg/Ml Carp) 2 mg IV Q4 PRN PRN Reason: Moderate Pain (Scale 4, 5, 6) Stop: 05/08/25 13:28 Last Admin: 04/26/25 22:12 Dose: 2 mg Documented By: Admin: 04/25/25 20:24 Dose: 2 mg Documented By: JASON Ondansetron HCl (Ondansetron Inj 2 Mg/Ml 2 Ml Vial) 4 mg IV NOW STA Stop: 04/24/25 08:29 Last Admin: 04/24/25 08:41 Dose: 4 mg Documented By: RONALD Verapamil HCl (Verapamil Hcl 180 Mg Tabcr) [facility] Stop: 05/27/25 12:44 Last Admin: 04/28/25 08:42 Dose: 180 mg Documented By: Admin: 04/27/25 13:23 Dose: 180 mg Documented By: IAN Medical Decision Making Differential Diagnosis Differential diagnoses includes gastritis, gastroenteritis, IBS, small bowel obstruction, pancreatitis, peritonitis, constipation, abdominal abcess, among others. Medical Records Attestation: I reviewed the patient's medical records. Home Medications was personally reviewed by me Laboratory Data Attestation: I reviewed the patient's lab results. 04/28/25 06:29 04/28/25 06:29 Lab Results 04/24/25 Range/Units 08:00 WBC 15.00 H (4.8-10.8) K/ul RBC 4.78 (4.20-5.40) M/uL Hgb 14.2 (12.0-16.0) g/dl Hct 43.8 (37.0-47.0) % MCV 91.6 (80.0-100.0) fL MCH 29.7 (25.0-34.0) pg MCHC 32.4 (32.0-36.0) g/dL RDW Std Deviation 44.0 (36.4-46.3) fL RDW Coeff of Tara 13.1 (11.5-14.5) % Plt Count 549 H (130-400) K/uL MPV 8.5 L (9.4-12.4) fL Immature Gran % (Auto) 0.5 % Neut % (Auto) 87.9 % Lymph % (Auto) 6.6 % Brooks % (Auto) 4.5 % Eos % (Auto) 0.0 % Baso % (Auto) 0.5 % Neut # (Auto) 13.19 H (1.40-6.50) K/uL Lymph # (Auto) 0.99 L (1.20-3.40) K/uL Brooks # (Auto) 0.68 H (0.11-0.59) K/uL Eos # (Auto) 0.00 (0.00-0.50) K/uL Baso # (Auto) 0.07 (0.00-0.20) K/uL Immature Gran # (Auto) 0.07 (0.01-0.20) K/uL Sodium 142 (136-145) mmol/L Potassium 3.9 (3.5-5.1) mmol/L Chloride 100 (98-107) mmol/L Carbon Dioxide 24 (21-32) mmol/L Anion Gap 18 H (3-11) BUN 35 H (6-23) mg/dl Creatinine 1.99 H (0.6-1.2) mg/dl Est Cr Clr Drug Dosing 17.6 ml/min eGFR 23.73 BUN/Creatinine Ratio 17.6 (10-20) Glucose 237 H (70-99(Fasting)) mg/dl Calcium 9.4 (8.6-10.3) mg/dl Total Bilirubin 0.4 (0.2-1.0) mg/dl AST 12 L (13-39) U/L ALT 12 (7-52) U/L Alkaline Phosphatase 106 H (34-104) U/L Troponin I High Sens 7.4 (0-14) pg/ml Total Protein 7.5 (6.0-8.3) gm/dl Albumin 4.4 (3.4-5.0) gm/dl Globulin 3.1 (2.5-4.0) gm/dl Albumin/Globulin Ratio 1.4 (0.9-2) Lipase 48 (11-82) U/L [facility] [place] Patient is an 89-year-old female who presents to the emergency department with complaints of lower abdominal pain for the last 2 days. Patient reports positive nausea and vomiting. Patient has history of a large hernia that she feels has gotten larger. Patient has a history of pancreatic cancer with a Whipple procedure in the past. Patient is concerned that she could have a small bowel obstruction. Patient was evaluated by myself and findings were noted in the physical exam above. Patient was ordered IV placement, lab work, urinalysis, and a CT of the abdomen and pelvis. Patient was also ordered a dose of Zofran for nausea and normal saline. Patient's lab work resulted with an elevated white blood cell count of 15.0. Patient had an anion gap of 18. Patient's BUN and creat were also elevated with a BUN of 35 and creatinine of 1.99. Patient had an initial troponin level checked which was normal at 7.4. Patient's urinalysis resulted indicative of infection. Patient had a CT of the abdomen pelvis which was completed and interpreted by radiology to show a moderate to high-grade small bowel obstruction. Patient has dilated fluid-filled proximal to mid small bowel with decompressed distal small bowel. A definite transition point was identified although it is likely within the left anterior abdomen. There is multiple bowel containing ventral hernias. The patient has a large hiatal hernia with partially intrathoracic stomach which is fluid-filled and dilated. There was a suspected polypoid mass within the rectum measuring 3.4 cm. Patient also had apparent thickening of the distal stomach. I discussed all these findings with the patient who verbalized understanding I discussed with the patient that she would need to stay in the hospital for further evaluation and management with the hospitalist team, GI, and/or general surgery. Patient verbalized understanding. An NG tube placed to low intermittent suction was ordered at this time. The patient had an NG tube placed at bedside by nursing staff with no complications or issues. I reached out and spoke with Dr. Juarez about this patient, giving him a full report of the patient's chief complaint, current status and the results of her imaging and lab work. The patient was ordered an NG tube to be placed and hooked up to low intermittent suction. I made Dr. Juarez aware of this as well. Dr. Juarez noted that the patient may require a more complicated surgery because of her history of a Whipple procedure, however the patient states that she is unsure if she would want to be transferred. Dr. Juarez agreed to admit the patient under his service for further evaluation and management and consult GI/surgery for a plan moving forward. Please refer to the [facility] hospitalist group's documentation for further evaluation and management of this patient. Impression Small bowel obstruction, Abdominal hernia Discharge Plan Visit Data Chief Complaint: Abdominal Pain Stated Complaint: VOMITING,ABD PAIN,LIGHT HEADED,NAUSEA ED Provider: Nam Saini ED Midlevel Provider: Michelle Sibley Discharge Problem: Small bowel obstruction, Abdominal hernia Patient Disposition: Admitted As Inpatient Condition: Fair Discharge Instructions Interventions: ED Discharge Assessment Last Done: 04/24/25 13:29 ED DC CONDITION Conditon at Discharge Condition at Discharge: Fair
== END 2025-04-28 11:51 | disposition home or self-care (01) | DRG 389 ==
LOC: ED 07:43 → EDINP 12:52 → SUATTDRO 12:52 → 2S 13:29 → 3N 04-27 17:13